=== PATIENT | female | born 1940 | race Caucasian/White ===

== ENCOUNTER 2019-04-10 06:00 | Outpatient (RCR) | payer MEDICARE, MEDICAID, SELFPAY | END 2019-05-10 23:59 | disposition home or self-care (01) | LOC: SPT 06:00 | PROVIDERS: Family Provider Family Medicine; PCP Family Medicine; Referring Provider Specialist; Visit Provider Specialist | DX: S72.111D Displaced fracture of greater trochanter of right femur, subsequent encounter for closed fracture with routine healing (principal); X58.XXXD Exposure to other specified factors, subsequent encounter ==

== ENCOUNTER 2019-04-18 09:17 | Outpatient (RCR) | payer MEDICARE, MEDICAID, SELFPAY | END 2019-05-10 23:59 | disposition home or self-care (01) | LOC: WOUND 09:17 | PROVIDERS: Family Provider Family Medicine; PCP Family Medicine; Visit Provider Nurse Practitioner Family | DX: I96 Gangrene, not elsewhere classified (principal); L97.822 Non-pressure chronic ulcer of other part of left lower leg with fat layer exposed | CPT/HCPCS: 99212; 99214 ==

== ENCOUNTER → 2019-04-25 10:35 | Outpatient (BNVA) | payer MEDICARE, MEDICAID, SELFPAY | PROVIDERS: Family Provider Family Medicine; PCP Family Medicine; Visit Provider Specialist | DX: S72.111A Displaced fracture of greater trochanter of right femur, initial encounter for closed fracture (principal); X58.XXXA Exposure to other specified factors, initial encounter | CPT/HCPCS: 73502 ==

== ENCOUNTER 2019-06-06 06:00 | Outpatient (RCR) | payer MEDICARE, MEDICAID, SELFPAY | END 2019-06-08 23:59 | disposition home or self-care (01) | LOC: SOT 06:00 | PROVIDERS: Family Provider Family Medicine; PCP Family Medicine; Referring Provider Family Medicine; Visit Provider Family Medicine | DX: Z99.3 Dependence on wheelchair (principal) | CPT/HCPCS: 97167; 97530 ==

== ENCOUNTER 2019-08-08 13:23 | Emergency (ER) | payer MEDICARE, MEDICAID, SELFPAY ==
--- NOTE | 2019-08-08 13:36 | ED_ITS ---
HPI - Extremity Problem General: Chief complaint: Extremity Injury, Upper Stated complaint: L wrist injury Time Seen by Provider: 08/08/19 13:35 Source: patient Mode of arrival: ambulatory Limitations: no limitations History of Present Illness: HPI Narrative: Patient comes in today with injury to the left distal forearm. Patient reports tripping at home and catching herself with outstretched left arm. Patient has obvious deformity to the left wrist area. Distal cap refill is intact. Pulses are intact. Patient has limited range of motion due to pain and swelling. Review of Systems General: Reports: 10 or more systems reviewed and unremarkable except in HPI and below Musc: Reports: extremity pain and extremity swelling [facility] ED PFSH: Medical History (Updated 07/18/19 @ 11:14 by Micky Paniagua MD) ALISTAIR inhibitor intolerance CAD (coronary artery disease) Diabetic neuropathy associated with diabetes mellitus due to underlying condition Essential hypertension Lower extremity deep venous thrombosis Onychodystrophy Peripheral vascular disease Warfarin anticoagulation Family History (Updated 07/18/19 @ 11:02 by Silvia Martinez RN) Mother Diabetes Denies family history of CAD (coronary artery disease) Clotting disorder Dementia Hyperlipidemia Psychiatric illness Chronic kidney disease (CKD) Suicide Anesthesia complication Bleeding disorder Family history of premature coronary artery disease Lung disease Cancer Hypertension Stroke Social History (Updated 07/18/19 @ 11:03 by Silvia Martinez RN) Smoking and tobacco status: never smoked Second hand smoke exposure: Yes Alcohol intake: never Physical Exam Const: COMMON NORMALS: no apparent distress and oriented x3 GENERAL APPEARANCE: cooperative HENMT: COMMON NORMALS: normocephalic, TM's normal bilaterally and external nose normal HEAD & SCALP: normal to inspection and normocephalic NOSE: external nose normal TYMPANIC MEMBRANE: TM's normal bilaterally MOUTH: oral and palatal mucosa normal THROAT: posterior oropharynx normal Eye: GENERAL EYE: normal appearance of both eyes Neck/C-Spine: COMMON NORMALS: full ROM Lymph: LYMPHATIC: no lymphadenopathy noted Chest: COMMONS NORMALS: inspection of chest normal Resp: COMMON NORMALS: normal respiratory effort EFFORT & INSPECTION: Yes able to speak in complete sentences Cardio: COMMON NORMALS: regular rate and regular rhythm RATE: regular rate RHYTHM: regular rhythm GI: COMMON NORMALS: non-tender : COMMON NORMALS: Yes no CVA tenderness BLADDER/KIDNEY EXAM: Yes no CVA tenderness Back/Pelvis: COMMON NORMALS: no CVA tenderness and thoracic and lumbar spine normal to inspection Extremity: NARRATIVE EXTREMITY EXAM: Swelling and ecchymosis is noted to the left wrist area, reduced range of motion is noted due to pain. Distal cap refill is intact. Pulses are intact. Neuro: COMMON NORMALS: oriented x3 and moves all extremities Psych: COMMON NORMALS: mental status grossly normal and cooperative Skin: COMMON NORMALS: no rashes or lesions noted GENERAL SKIN EXAM: no rashes or lesions noted Course Vital Signs: Vital signs: Vital Signs Temperature 98.2 F 08/08/19 13:25 Pulse Rate 76 08/08/19 13:25 Respiratory Rate 18 08/08/19 13:25 Blood Pressure 159/94 08/08/19 13:25 Pulse Oximetry 99 08/08/19 13:25 Discharge Plan Discharge Prescriptions: No Action metformin 1,000 mg tablet 1,000 mg PO BID RF: 0 warfarin 7.5 mg tablet PO RF: 0 pravastatin 10 mg tablet 10 mg PO DAILY RF: 0 aspirin [Adult Low Dose Aspirin] 81 mg tablet,delayed release (DR/EC) 81 mg PO DAILY RF: 0 metoprolol succinate 100 mg tablet extended release 24 hr 100 mg PO BID RF: 0 Jardiance 25 mg tablet 25 mg PO DAILY RF: 0 Humalog Juan KwikPen U-100 100 unit/mL insulin pen, half-unit 25.5 unit SUBCUT BID RF: 0 Lantus U-100 Insulin 100 unit/mL solution 100 unit SUBCUT DAILY RF: 0 Trulicity 1.5 mg/0.5 mL pen injector SUBCUT RF: 0 torsemide 20 mg tablet 20 mg PO DAILY RF: 0 ascorbic acid (vitamin C) 500 mg capsule PO RF: 0 Calci-Mix 500 mg calcium (1,250 mg) capsule 500 mg PO DAILY RF: 0 Coding Level of Care Code ED Barrel Assembler Helper for Chg Fwd Exam Comprehensive
[2019-08-08 14:06] VITALS: BP 172/85; PULSE 71; RESP 18; TEMP 36.6; O2SAT 97; BMI 31.7
--- NOTE | 2019-08-08 14:08 | XR_ITS ---
WS: [id number] LEFT SHOULDER: 3 VIEW(S) TECHNIQUE: Internal and external rotation with Y view. HISTORY: pain COMPARISON: None available. Marked osteopenia. There is very slight inferior subluxation of the humeral head with respect to the glenoid. Glenoid appears vertically oriented. Osteophytes along the undersurface of the acromion. AC joint is not well visualized. XR/XR shoulder LT min 2V* [id number] IMPRESSION: Osteopenia with partial inferior subluxation of the humeral head. No fracture.
--- NOTE | 2019-08-08 14:09 | ECG_ITS ---
Measurements Intervals [place] Rate: 53 P: OR: 0 QRS: 24 QRSD: 101 T: 60 QT: 452 QTc: 426 ATRIAL FIBRILLATION WITH SLOW VENTRICULAR RESPONSE NONSPECIFIC ST & T-WAVE ABNORMALITY Compared to ECG 12/16/2015 06:08:07 T-wave abnormality now present Sinus bradycardia no longer present First degree AV block no longer present Electronically Signed On 08-09-2019 15:41:08 CDT by Denise Maciel M.D. [email or web address]
--- NOTE | 2019-08-08 14:21 | ED_ITS ---
HPI - Extremity Problem General: Chief complaint: Extremity Injury, Upper Stated complaint: L arm pain Time Seen by Provider: 08/08/19 13:35 History of Present Illness: HPI Narrative: Patient comes in today with left shoulder pain. Patient reports is been bothering her for the last couple of days but today the pain was more severe and worse. Patient movement of the arm exacerbates the pain. Patient took her hydrocodone without much relief. Patient appears well. Patient appears in no acute distress. Patient does have a history of diabetes, and the use of anticoagulants. Review of Systems General: Reports: 10 or more systems reviewed and unremarkable except in HPI and below Musc: Reports: joint pain (left shoulder) [facility] ED PFSH: Medical History (Updated 08/08/19 @ 15:28 by RAD Castle) ALISTAIR inhibitor intolerance CAD (coronary artery disease) Diabetic neuropathy associated with diabetes mellitus due to underlying condition Essential hypertension Lower extremity deep venous thrombosis Onychodystrophy Peripheral vascular disease Warfarin anticoagulation Family History (Updated 07/18/19 @ 11:02 by Silvia Martinez RN) Mother Diabetes Denies family history of CAD (coronary artery disease) Clotting disorder Dementia Hyperlipidemia Psychiatric illness Chronic kidney disease (CKD) Suicide Anesthesia complication Bleeding disorder Family history of premature coronary artery disease Lung disease Cancer Hypertension Stroke Social History (Updated 07/18/19 @ 11:03 by Silvia Martinez RN) Smoking and tobacco status: never smoked Second hand smoke exposure: Yes Alcohol intake: never Physical Exam Const: COMMON NORMALS: no apparent distress and oriented x3 GENERAL APPEARANCE: cooperative HENMT: COMMON NORMALS: normocephalic, TM's normal bilaterally and external nose normal HEAD & SCALP: normal to inspection and normocephalic NOSE: external nose normal TYMPANIC MEMBRANE: TM's normal bilaterally MOUTH: oral and palatal mucosa normal THROAT: posterior oropharynx normal Eye: GENERAL EYE: normal appearance of both eyes Neck/C-Spine: COMMON NORMALS: full ROM Lymph: LYMPHATIC: no lymphadenopathy noted Chest: COMMONS NORMALS: inspection of chest normal Resp: COMMON NORMALS: normal respiratory effort EFFORT & INSPECTION: Yes able to speak in complete sentences Cardio: COMMON NORMALS: regular rate and regular rhythm RATE: regular rate RHYTHM: regular rhythm GI: COMMON NORMALS: non-tender : COMMON NORMALS: Yes no CVA tenderness BLADDER/KIDNEY EXAM: Yes no CVA tenderness Back/Pelvis: COMMON NORMALS: no CVA tenderness and thoracic and lumbar spine normal to inspection Extremity: NARRATIVE EXTREMITY EXAM: Patient has increased pain and discomfort to the left shoulder with range of motion. Distal pulses are intact. No signs of redness or swelling is noted to the arm at this time. Neuro: COMMON NORMALS: oriented x3 and moves all extremities Psych: COMMON NORMALS: mental status grossly normal and cooperative Skin: COMMON NORMALS: no rashes or lesions noted GENERAL SKIN EXAM: no rashes or lesions noted Course Vital Signs: Vital signs: Vital Signs Temperature 98 F 08/08/19 14:06 Pulse Rate 71 08/08/19 14:06 Respiratory Rate 18 08/08/19 14:06 Blood Pressure 172/85 08/08/19 14:06 Pulse Oximetry 97 08/08/19 14:06 MDM - Extremity (Nontraumatic) MDM Narrative: Medical decision making narrative: Patient comes in with left shoulder pain. Patient denies any injury or incident that caused the pain. Patient states that she was just sitting at home and her left shoulder started hurting. Patient believes that her rotator cuff is acting up. Exam notes decreased abduction with range of motion of the shoulder. Patient reports pain with movement of the shoulder. Distal pulses are intact no swelling is noted. X-ray notes some mild subluxation of the shoulder joint appears to be chronic, reviewed with Dr. Mackay who agreed with the assessment of the x-ray. Reviewed with patient recommended sling for comfort. Patient was recommended to follow- up with orthopedics for further evaluation and treatment. Discharge Plan Discharge Patient Disposition: Home, Self-Care Clinical Impression: Left shoulder pain Qualifiers: Chronicity: acute Qualified Code(s): M25.512 - Pain in left shoulder Condition: Stable Prescriptions: No Action metformin 1,000 mg tablet 1,000 mg PO BID RF: 0 pravastatin 10 mg tablet 10 mg PO DAILY RF: 0 aspirin [Adult Low Dose Aspirin] 81 mg tablet,delayed release (DR/EC) 81 mg PO DAILY RF: 0 metoprolol succinate 100 mg tablet extended release 24 hr 100 mg PO BID RF: 0 Jardiance 25 mg tablet 25 mg PO DAILY RF: 0 Humalog Juan KwikPen U-100 100 unit/mL insulin pen, half-unit 25.5 unit SUBCUT BID RF: 0 Lantus U-100 Insulin 100 unit/mL solution 100 unit SUBCUT DAILY RF: 0 Trulicity 1.5 mg/0.5 mL pen injector 1.5 mg SUBCUT .COMPLLEX RF: 0 ascorbic acid (vitamin C) 500 mg capsule 500 mg PO DAILY RF: 0 Calci-Mix 500 mg calcium (1,250 mg) capsule 500 mg PO DAILY RF: 0 warfarin 5 mg Tablet See Rx Instructions .ROUTE .COMPLEX RF: 0 warfarin 1 mg Tablet See Rx Instructions .ROUTE .COMPLEX RF: 0 torsemide 20 mg tablet 20 mg PO DAILY RF: 0 Discharge Orders: Discharge Order (Routine); Ordered 08/08/19 Ordered By: Douglas Myers Referrals: Carmen Gilbert MD [Primary Care Provider] - Discharge Diet: Usual diet Discharge Activity: Increase activity as tolerated Patient Instructions: Shoulder Sprain (ED) Activity Restrictions/Additional Instructions: Use sling until he can freely move the shoulder without difficulty. Use Tylenol for control of pain. Take hydrocodone as needed for breakthrough pain. Use ice or heat to the area for further pain relief. Follow-up with the orthopedist for further treatment and evaluation. Return to the ER for worsening symptoms or new concerns. Coding Level of Care Code ED Electrical Power Station Technician for Jared Fwregis Exam Comprehensive
[2019-08-08] MEDS: dexamethasone 10 mg/mL INJ IM (15:36)
[2019-08-08] MEDS: ondansetron 4 MG Tablet PO (15:36)
[2019-08-08] MEDS: morphine 4 mg/mL SDV 1 mL IM (15:37)
[2019-08-08 15:48] VITALS: BP 178/70; PULSE 68; RESP 18; O2SAT 99
--- NOTE | 2019-08-09 09:58 | DCPLANNER ---
framing manager had message to schedule a follow up appointment for patient with ortho. framing manager called the ortho clinic, spoke with Pat, gave clinic patients information. framing manager gave clinic patient information. framing manager was told that patients information would be printed and reviewed. Clinic will call residential case manager and patient with appointment information.
--- NOTE | 2019-08-15 13:39 | DCPLANNER ---
Patient had an appointment scheduled for 08.12.19 with ortho. Patient did attend the appointment.
== END 2019-08-08 15:49 | disposition home or self-care (01) ==
PROVIDERS: Emergency Provider Nurse Practitioner Family; Family Provider Family Medicine; PCP Family Medicine
DX: M25.512 Pain in left shoulder (principal); Z79.82 Long term (current) use of aspirin; Z79.4 Long term (current) use of insulin; Z79.01 Long term (current) use of anticoagulants; I25.10 Atherosclerotic heart disease of native coronary artery without angina pectoris; E11.40 Type 2 diabetes mellitus with diabetic neuropathy, unspecified; I10 Essential (primary) hypertension; I73.9 Peripheral vascular disease, unspecified
CPT/HCPCS: 12345; 73030; 93005; 96372; 99282; 99283; J1100; J2270; Q0162

== ENCOUNTER → 2019-08-12 11:50 | Outpatient (BNVA) | payer MEDICARE, MEDICAID, SELFPAY | PROVIDERS: Family Provider Family Medicine; PCP Family Medicine; Referring Provider Nurse Practitioner Family; Visit Provider Specialist | DX: M25.519 Pain in unspecified shoulder (principal); S43.015A Anterior dislocation of left humerus, initial encounter; X58.XXXA Exposure to other specified factors, initial encounter | CPT/HCPCS: 73030 ==

== ENCOUNTER 2019-08-12 15:37 | Outpatient (CLI) | payer MEDICARE, MEDICAID, SELFPAY | END 2019-08-12 15:38 | disposition home or self-care (01) | LOC: SPT 15:38 | PROVIDERS: Family Provider Family Medicine; PCP Family Medicine; Visit Provider Specialist | DX: Z46.89 Encounter for fitting and adjustment of other specified devices (principal); M75.102 Unspecified rotator cuff tear or rupture of left shoulder, not specified as traumatic; M25.512 Pain in left shoulder; M25.519 Pain in unspecified shoulder; S43.015A Anterior dislocation of left humerus, initial encounter; X58.XXXA Exposure to other specified factors, initial encounter | CPT/HCPCS: 73030; L3670 ==

== ENCOUNTER 2020-10-23 09:27 | Outpatient (CLI) | payer MEDICARE, MEDICAID, SELFPAY | END 2020-10-23 09:28 | disposition home or self-care (01) | LOC: WOUND 09:28 | PROVIDERS: Family Provider Family Medicine; PCP Internal Medicine; Visit Provider Surgery | DX: Z09 Encounter for follow-up examination after completed treatment for conditions other than malignant neoplasm (principal) | CPT/HCPCS: G0463 ==

== ENCOUNTER 2020-12-08 13:22 | Outpatient (CLI) | payer MEDICARE, MEDICAID, SELFPAY ==
--- NOTE | 2020-12-08 13:36 | USCV_ITS ---
Kianna Dotson Age: 80 Gender: F : 1940 Exam Date: 12/08/2020 13:47 Ordering Phys: Vignesh Catalan MD Technologist: Exam Location: [facility] [place] Indication: HISTORY: PROCEDURES: Right duplex Venous Insufficiency study of the Deep and Superficial systems was carried out according to normal protocol with the patient in supine positon for deep system and dependent position for the superficial system. FINDINGS: All deep veins demonstrated compressibility without evidence of intraluminal thrombus or increased echogenicity. Spectral analysis of Doppler signals demonstrates normal response to compression maneuvers indicating patency without obstruction. Reflux determinations were made with the patient in the dependent position, the weight being on the contralateral leg. Vein measurements and reflux times are listed below were applicable. No notable reflux was seen at this time. The veins were found to be easily compressible with spontaneous blood flow. Non pulsatile flow pattern. CONCLUSIONS No evidence of DVT in the above-mentioned identifiable veins. No significant venous reflux either in the superficial or deep veins, based on the above findings Dr Cathleen Vu MD FAC (Electronically Signed) Final Date: 09 December 2020 18:56 S
== END 2020-12-08 13:23 | disposition home or self-care (01) ==
LOC: US 13:27
PROVIDERS: PCP Internal Medicine; Visit Provider Surgery
DX: I87.2 Venous insufficiency (chronic) (peripheral) (principal)
CPT/HCPCS: 93971

== ENCOUNTER 2020-12-17 08:54 | Outpatient (RCR) | payer MEDICARE, MEDICAID, SELFPAY | END 2021-01-07 23:59 | disposition home or self-care (01) | LOC: SPT 08:54 | PROVIDERS: PCP Internal Medicine; Referring Provider Internal Medicine; Visit Provider Internal Medicine | DX: M54.2 Cervicalgia (principal); R42 Dizziness and giddiness; R29.6 Repeated falls | CPT/HCPCS: 95992; 97162 ==

== ENCOUNTER 2020-12-18 01:54 | Emergency (ER) | payer MEDICARE, MEDICAID, SELFPAY ==
--- NOTE | 2020-12-18 01:57 | XRR_ITS ---
PROCEDURE INFORMATION: Exam: XR Left Shoulder Exam date and time: 12/18/2020 1:57 AM Age: 80 years old Clinical indication: Injury or trauma; Fracture, traumatic injury; Displaced; Humerus; Left; Patient HX: Fall at home. C/O shoulder pain. Best images obtained due to immobilization of arm and PT pain. TECHNIQUE: Imaging protocol: XR Left shoulder. Views: 2 or more views. COMPARISON: CR XR shoulder LT min 2V* [id number] 08/12/2019 12:03 PM FINDINGS: Bones/joints: No dislocation. Comminuted left humeral shaft fracture. Soft tissues: Normal. XR/XR shoulder LT min 2V* [id number] IMPRESSION: Comminuted left humeral shaft fracture.
[2020-12-18 01:58] VITALS: BP 210/98; RESP 57; O2SAT 95; BMI 30.2
--- NOTE | 2020-12-18 01:58 | W.ED.FALL ---
HPI - Fall General: Chief Complaint: Extremity Injury, Upper Stated Complaint: shoulder pain Time Seen by Provider: 12/18/20 01:56 Source: patient and EMS Mode of arrival: EMS Limitations: no limitations History of Present Illness: HPI Narrative: 80-year-old female who states that she had slipped and fell tonight at home. She states she landed on her left shoulder. She has shoulder pain especially with movement. States the pain is a sharp pain she rates a 6 out of 10. She denies hitting her head denies any neck pain. She denies any hip pain. Patient states she has not taken her insulin or her blood pressure medicine today and she is hyperglycemic and hypertensive. Associated symptoms-after fall: Denies abdominal pain, chest pain, headache(s) or neck pain Review of Systems Const: Denies: fever(s), chills, body aches or change in appetite Eyes: Denies: blurry vision or eye discomfort ENMT: Denies: throat pain or dental pain Card: Denies: chest pain Resp: Denies: dyspnea GI: Denies: abdominal pain, nausea, vomiting or diarrhea : Denies: dysuria Musc: Reports: extremity pain; Denies: neck pain or back pain Skin/Breast: Denies: rash Neuro: Denies: headache(s) Psych: Denies: depression Earl/Lymph: Denies: easy bruising All/Imm: Denies: urticaria PFSH ED PFSH: Medical History (Updated 12/18/20 @ 02:44 by Cony Mackay MD) ALISTAIR inhibitor intolerance CAD (coronary artery disease) Diabetic neuropathy associated with diabetes mellitus due to underlying condition Essential hypertension Fracture of greater trochanter of right femur Lower extremity deep venous thrombosis Onychodystrophy Peripheral vascular disease Warfarin anticoagulation Family History Mother Diabetes Denies family history of CAD (coronary artery disease) Clotting disorder Dementia Hyperlipidemia Psychiatric illness Chronic kidney disease (CKD) Suicide Anesthesia complication Bleeding disorder Family history of premature coronary artery disease Lung disease Cancer Hypertension Stroke Social History Smoking and tobacco status: never smoked Second hand smoke exposure: Yes Alcohol intake: never Physical Exam Const: COMMON NORMALS: no acute distress, patient oriented x3 and healthy appearing HENMT: COMMON NORMALS: normocephalic and atraumatic HEAD & SCALP: normocephalic and atraumatic Eye: COMMON NORMALS: Equal, round and reactive pupils present and EOMs intact bilaterally PUPIL: Yes Equal, round and reactive pupils present Neck/C-Spine: COMMON NORMALS: full ROM and supple Chest: COMMONS NORMALS: normal inspection of the chest and normal palpation of entire chest wall Resp: COMMON NORMALS: normal respiratory effort, No retractions, No use of accessory muscles and clear to auscultation bilaterally AUSCULTATION: clear to auscultation bilaterally Cardio: COMMON NORMALS: regular rate, regular rhythm and No murmurs present (Cardio) RATE: regular rate RHYTHM: regular rhythm GI: COMMON NORMALS: Normal to inspection, nondistended, normoactive bowel sounds present, Soft to palpation, non-tender and no masses PALPATION: Yes Soft to palpation Extremity: COMMON NORMALS: full ROM NARRATIVE EXTREMITY EXAM: tenderness to left shoulder and proximal humerus distal pulses and sensation are intact. Neuro: COMMON NORMALS: patient oriented x3, moves all extremities and no focal motor deficits Psych: COMMON NORMALS: mental status grossly normal, Normal thought process present and cooperative THOUGHT PROCESS: Normal thought process present Skin: COMMON NORMALS: no rashes or lesions noted and no wounds GENERAL SKIN EXAM: no rashes or lesions noted Course Vital Signs: Vital signs: Vital Signs Pulse Rate 69 12/18/20 03:18 Respiratory Rate 18 12/18/20 03:18 Blood Pressure 131/71 12/18/20 03:18 Pulse Oximetry 93 12/18/20 03:18 MDM - Fall MDM Narrative: Medical decision making narrative: Patient presents with a fall and has a midshaft humerus fracture from the fall. Patient was placed in a splint and a sling. She is also hyperglycemic due to being noncompliant. Her BMP was normal otherwise she has no signs of DKA. Her blood sugar is improving and she is stable for discharge. Lab Data: Labs: Lab Results 12/18/20 12/18/20 12/18/20 Range/Units 02:28 03:47 04:35 Sodium 136 (136-145) mmol/L Potassium 4.8 (3.5-5.1) mmol/L Chloride 100 (98-107) mmol/L Carbon Dioxide 22 (22-29) mmol/L Anion Gap 18.8 (5-19) BUN 23 (8-23) mg/dL Creatinine 0.9 (0.5-0.9) mg/dL GFR Calculation Not Reportable Glucose 489 H (65-115) mg/dL POC Glucose 455 H 470 H (70-110) mg/dL Calculated Osmolal ity 307 H (285-295) mOsm/k g Calcium 9.4 (8.5-10.5) mg/dL 12/18/20 Range/Units 04:47 Sodium (136-145) mmol/L Potassium (3.5-5.1) mmol/L Chloride (98-107) mmol/L Carbon Dioxide (22-29) mmol/L Anion Gap (5-19) BUN (8-23) mg/dL Creatinine (0.5-0.9) mg/dL GFR Calculation Glucose (65-115) mg/dL POC Glucose 472 H (70-110) mg/dL Calculated Osmolal ity (285-295) mOsm/k g Calcium (8.5-10.5) mg/dL Imaging Data^: xr l humerus: Attestation: I personally reviewed and interpreted this imaging study as follows: My impression: Midshaft humerus fracture displaced Discharge Plan Discharge Patient Disposition: Home Clinical Impression: Hyperglycemia Fracture of humerus Qualifiers: Encounter type: initial encounter Humerus Location: shaft Fracture type: closed Fracture alignment: displaced Laterality: left Condition: Stable Prescriptions: New hydrocodone-acetaminophen 5-325 mg tablet 1 tab PO Q6H PRN (Reason: pain) Qty: 14 RF: 0 No Action metformin 1,000 mg tablet 1,000 mg PO BID RF: 0 pravastatin 10 mg tablet 10 mg PO DAILY RF: 0 aspirin [Adult Low Dose Aspirin] 81 mg tablet,delayed release (DR/EC) 81 mg PO DAILY RF: 0 metoprolol succinate 100 mg tablet extended release 24 hr 100 mg PO BID RF: 0 Jardiance 25 mg tablet 25 mg PO DAILY RF: 0 Humalog Juan KwikPen U-100 100 unit/mL insulin pen, half-unit 25.5 unit SUBCUT BID RF: 0 Lantus U-100 Insulin 100 unit/mL solution 100 unit SUBCUT DAILY RF: 0 Trulicity 1.5 mg/0.5 mL pen injector 1.5 mg SUBCUT .COMPLLEX RF: 0 ascorbic acid (vitamin C) 500 mg capsule 500 mg PO DAILY RF: 0 Calci-Mix 500 mg calcium (1,250 mg) capsule 500 mg PO DAILY RF: 0 (DME) Shoulder immobilizer Qty: 1 RF: 0 Eliquis 2.5 mg tablet 2.5 mg PO BID RF: 0 (DME) Diabetic shoes with 3 inserts See Rx Instructions .ROUTE .MEDSUPPLY Qty: 1 RF: 0 torsemide 20 mg tablet 20 mg PO DAILY RF: 0 Discharge Orders: Discharge ED (Routine); Ordered 12/18/20 Ordered By: Cony Mackay Referrals: Anette Velazquez MD [Primary Care Provider] - Capri Melara MD [Physician] - 1-3 days Discharge Diet: Advance as tolerated Discharge Activity: Resume usual activity Patient Instructions: Fractures - Humerus, Arm Fracture in Adults (ED), Opioid Safety Coding Level of Care Code ED After School Coordinator for Jared Fwd Exam Comprehensive
[2020-12-18 02:19] VITALS: BP 210/98; PULSE 61; RESP 20; O2SAT 93
--- NOTE | 2020-12-18 02:25 | XRR_ITS ---
PROCEDURE INFORMATION: Exam: XR Left Humerus Exam date and time: 12/18/2020 2:25 AM Age: 80 years old Clinical indication: Injury or trauma; Fracture, traumatic injury; Displaced; Humerus; Left; Patient HX: Fall at home. C/O shoulder pain. Best images obtained due to immobilization of arm and PT pain. TECHNIQUE: Imaging protocol: XR Left humerus. Views: 2 or more views. COMPARISON: CR XR shoulder LT min 2V* [id number] 12/18/2020 2:02 AM FINDINGS: Bones/joints: Comminuted, mildly overlapping left midshaft humeral fracture. Soft tissues: Normal. XR/[place] [id number] IMPRESSION: Comminuted, mildly overlapping left midshaft humeral fracture.
[2020-12-18 02:34] LABS: Glucose Point of Care 455 mg/dL (70-110)
[2020-12-18] MEDS: insulin regular-human 100 units/1 mL 10 UNIT IVP ×2 (02:43→04:44)
[2020-12-18] MEDS: HYDROcodone-acetaminophen 5-325 mg Tablet 1 TAB PO ×2 (02:45→05:34)
[2020-12-18] MEDS: labetalol 5 mg/mL SDV 20mL 10 MG IVP (02:50)
[2020-12-18 03:18] VITALS: BP 131/71; PULSE 69; RESP 18; O2SAT 93
[2020-12-18 03:52] LABS: Glucose Point of Care 470 mg/dL (70-110)
[2020-12-18] MEDS: sodium chloride 0.9% 1,000 ML 999 ML IV (04:07)
[2020-12-18 04:56] LABS: Glucose Point of Care 472 mg/dL (70-110)
[2020-12-18 05:23] LABS: Anion Gap 18.8 (5-19); Blood Urea Nitrogen 23 mg/dL (8-23); Calcium 9.4 mg/dL (8.5-10.5); Carbon Dioxide 22 mmol/L (22-29); Chloride 100 mmol/L (98-107); Glucose 489 mg/dL (65-115); Osmolality Calculated 307 mOsm/kg (285-295); Potassium 4.8 mmol/L (3.5-5.1); Sodium 136 mmol/L (136-145)
--- NOTE | 2020-12-18 09:09 | DCPLANNER ---
manager process excellence had message to schedule a follow up appointment for patient with ortho. manager process excellence called the ortho clinic, spoke with Ally, gave clinic patients information. manager process excellence was told that patients information would be printed and reviewed. Clinic will call patient with appointment information.
[2020-12-19 22:24] LABS: Glucose Point of Care 407 mg/dL (70-110)
[2020-12-19 22:24] LABS: Glucose Point of Care 439 mg/dL (70-110)
--- NOTE | 2020-12-23 10:24 | DCPLANNER ---
Patient had a follow up appointment scheduled for 12.21.[address] Melara at [facility] - patient did attend appointment.
== END 2020-12-18 06:10 | disposition home or self-care (01) ==
PROVIDERS: Emergency Provider Emergency Medicine; PCP Internal Medicine
DX: S42.302A Unspecified fracture of shaft of humerus, left arm, initial encounter for closed fracture (principal); E11.65 Type 2 diabetes mellitus with hyperglycemia; I25.10 Atherosclerotic heart disease of native coronary artery without angina pectoris; E11.40 Type 2 diabetes mellitus with diabetic neuropathy, unspecified; I10 Essential (primary) hypertension; Z77.22 Contact with and (suspected) exposure to environmental tobacco smoke (acute) (chronic); Z79.01 Long term (current) use of anticoagulants; Z79.82 Long term (current) use of aspirin; Z79.4 Long term (current) use of insulin; W01.0XXA Fall on same level from slipping, tripping and stumbling without subsequent striking against object, initial encounter
CPT/HCPCS: 36416; 73030; 73060; 80048; 82962; 96361; 96374; 96375; 99284; J1815; J3490; J7030

== ENCOUNTER → 2020-12-21 14:02 | Outpatient (BNVA) | payer MEDICARE, MEDICAID, SELFPAY | PROVIDERS: PCP Internal Medicine; Referring Provider Emergency Medicine; Visit Provider Specialist | DX: S42.352A Displaced comminuted fracture of shaft of humerus, left arm, initial encounter for closed fracture (principal); X58.XXXA Exposure to other specified factors, initial encounter | CPT/HCPCS: 73060 ==

== ENCOUNTER → 2020-12-31 14:50 | Outpatient (BNVA) | payer MEDICARE, MEDICAID, SELFPAY | PROVIDERS: PCP Internal Medicine; Visit Provider Specialist | DX: Z20.822 Contact with and (suspected) exposure to COVID-19 (principal) | CPT/HCPCS: 87635 ==

== ENCOUNTER → 2021-01-04 08:19 | Outpatient (BNVA) | payer MEDICARE, MEDICAID, SELFPAY | PROVIDERS: PCP Internal Medicine; Visit Provider Specialist | DX: S42.322A Displaced transverse fracture of shaft of humerus, left arm, initial encounter for closed fracture (principal); W01.0XXA Fall on same level from slipping, tripping and stumbling without subsequent striking against object, initial encounter | CPT/HCPCS: 73060 ==

== ENCOUNTER → 2021-01-13 11:49 | Outpatient (BNVA) | payer MEDICARE, MEDICAID, SELFPAY | PROVIDERS: PCP Internal Medicine; Visit Provider Specialist | DX: S42.322A Displaced transverse fracture of shaft of humerus, left arm, initial encounter for closed fracture (principal); X58.XXXA Exposure to other specified factors, initial encounter | CPT/HCPCS: 73060 ==

== ENCOUNTER 2021-02-01 14:33 | Emergency (ER) | payer MEDICARE, MEDICAID, SELFPAY ==
[2021-02-01 15:01] VITALS: BP 125/81; PULSE 74; RESP 18; TEMP 36.9; O2SAT 96; BMI 33.3
--- NOTE | 2021-02-01 15:45 | XR_ITS ---
WS: [id number] Exam: XR chest 1V portable [id number] Date/Time of Exam: 02/01/2021 3:45 PM Reason For Exam: cough Comparison 04/04/2014. The lungs are fully inflated and clear. Unremarkable cardiomediastinal silhouette. Old right-sided ri b fractures. No pleural effusions. XR/XR chest 1V portable [id number] IMPRESSION: 1. No acute cardiopulmonary finding.
--- NOTE | 2021-02-01 15:50 | W.ED.COVID ---
Documented by User: RAGHU Medina 02/01/21 16:33 HPI - COVID General: Chief Complaint: Shortness of Breath/Dyspnea Stated Complaint: LOW O2/SOB/COUGH/COVID EXPOSURE Time Seen by Provider: 02/01/21 15:11 Source: patient Mode of arrival: wheelchair Limitations: no limitations Triage information: No fever, cough or shortness of breath. Exposure to COVID + person last 14 days History of Present Illness: HPI Narrative: Patient is a 80-year-old female who presents to ED today at the request of [facility] secondary to low oxygen levels. Patient tells me several family members tested positive for Covid so she went to [facility] for Covid testing. Patient states she has had a very mild cough. No fevers, body aches, difficulty breathing, shortness of breath, chest pain, headache, or diarrhea. No other URI symptoms. Apparently while at [facility] her oxygen levels were low so they sent patient to the ED for further evaluation. Upon arrival O2 sats are 96%. MD complaint: reported COVID exposure Prior covid testing: no COVID 19 common symptoms: positive cough and non-productive cough; negative fever(s), chills, dyspnea, fatigue, body aches, headache(s), throat pain, nasal congestion, nausea, vomiting or diarrhea COVID 19 other sytmptoms: negative chest pain Severity: mild Pertinent comorbid conditions: diabetes and obesity Treatment prior to arrival: none COVID Results: SARS-CoV-2 Antigen (Rapid) Negative (Negative) 02/01/21 15:13 02/01/21 Nasal/Oral Coronavirus 2019 PCR Not detected 12/31/20 14:50 12/31/20 Review of Systems Const: Denies: fever(s), chills, body aches, fatigue or malaise ENMT: Denies: throat pain, odynophagia, nasal discharge, nasal congestion, post nasal drip or sinus pain Card: Denies: chest pain, palpitations, irregular heart rhythm, edema, swelling of feet/ankles, lightheadedness, syncope or pre-syncope Resp: Reports: non-productive cough; Denies: dyspnea, wheezing, pain on inspiration or hemoptysis GI: Denies: abdominal pain, nausea, vomiting or diarrhea Musc: Denies: neck pain Skin/Breast: Denies: rash Neuro: Denies: headache(s) PFSH ED PFSH: Medical History (Updated 02/01/21 @ 16:23 by RAGHU Medina) ALISTAIR inhibitor intolerance CAD (coronary artery disease) Diabetic neuropathy associated with diabetes mellitus due to underlying condition Essential hypertension Fracture of greater trochanter of right femur Lower extremity deep venous thrombosis Onychodystrophy Peripheral vascular disease Warfarin anticoagulation Family History Mother Diabetes Denies family history of CAD (coronary artery disease) Clotting disorder Dementia Hyperlipidemia Psychiatric illness Chronic kidney disease (CKD) Suicide Anesthesia complication Bleeding disorder Family history of premature coronary artery disease Lung disease Cancer Hypertension Stroke Social History Second hand smoke exposure: Yes Alcohol intake: never Physical Exam Const: COMMON NORMALS: no acute distress, patient oriented x3, no limitations and alert GENERAL APPEARANCE: cooperative NUTRITIONAL APPEARANCE: overweight ORIENTATION/CONSCIOUSNESS: Yes awake, Yes oriented to person, Yes oriented to place and Yes oriented to time Resp: COMMON NORMALS: normal respiratory effort and clear to auscultation bilaterally AUSCULTATION: clear to auscultation bilaterally Cardio: COMMON NORMALS: regular rate and regular rhythm RATE: regular rate RHYTHM: regular rhythm Extremity: COMMON NORMALS: no clubbing, cyanosis or edema, no calf tenderness and no pedal edema Neuro: COMMON NORMALS: patient oriented x3 SENSORIUM/ORIENTATION: Yes alert, Yes oriented to person, Yes oriented to place and Yes oriented to time Course Vital Signs: Vital signs: Vital Signs Temperature 98.5 F 02/01/21 15:01 Pulse Rate 70 02/01/21 16:38 Respiratory Rate 18 02/01/21 16:38 Blood Pressure 125/81 02/01/21 15:01 Pulse Oximetry 95 02/01/21 16:38 MDM - COVID MDM Narrative: Medical decision making narrative: Patient is maintaining her oxygen levels throughout her stay. Her rapid COVID is negative. CXR is normal. PCR COVID obtained. Patient is stable for discharge. Lab Data: Labs: Lab Results 02/01/21 15:13 SARS-CoV-2 Ag (Rap id) Negative (Negative) Imaging Data: CXR: Radiologist's impression: [address] [address] XRay Report Signed Patient: Kianna Dotson Unit #: [id number] : [id number] Age/Sex: 80 / F ADM Date: 02/01/21 Loc: ER Room/Bed: Attending Dr: Ordering Provider/Ordering MD: Rolanda Diego Date of Service: 02/01/21 Procedure(s): XR chest 1V portable [id number] Accession Number(s): [id number] Report Number: [id number] WS: [id number] Exam: XR chest 1V portable [id number] Date/Time of Exam: 02/01/2021 3:45 PM Reason For Exam: cough Comparison 04/04/2014. The lungs are fully inflated and clear. Unremarkable cardiomediastinal silhouette. Old right-sided rib fractures. No pleural effusions. XR/XR chest 1V portable [id number] IMPRESSION: 1. No acute cardiopulmonary finding. Dictated By: Horace Rice DO Signed By: Horace Rice DO Signed Date/Time: 02/01/21 1600 DD/ 1559 COVID Results: SARS-CoV-2 Antigen (Rapid) Negative (Negative) 02/01/21 15:13 02/01/21 Nasal/Oral Coronavirus 2019 PCR Not detected 12/31/20 14:50 12/31/20 Monoclonal Antibody - ED Inclusion/Exclusion Criteria age >/= 12 years, weight >/= 40kg /88lbs and symptom onset less than 10 days ago obesity (BMI >25 or 85%til for age) not requiring hospitalization, not requiring oxygen (if not chronically on oxygen) and no increase oxygen requirement (if chronically on oxygen) Plan for treatment If had positive direct antigen test for COVID, would meet criteria for Monoclonal Antibody infusion If test comes back positive, re-evaluate for Monoclonal Antibody infusion Discharge Plan Discharge Patient Disposition: Home Clinical Impression: Close exposure to Condition: Stable Prescriptions: No Action metformin 1,000 mg tablet 1,000 mg PO BID RF: 0 pravastatin 10 mg tablet 10 mg PO DAILY RF: 0 aspirin [Adult Low Dose Aspirin] 81 mg tablet,delayed release (DR/EC) 81 mg PO DAILY RF: 0 metoprolol succinate 100 mg tablet extended release 24 hr 100 mg PO BID RF: 0 Jardiance 25 mg tablet 25 mg PO DAILY RF: 0 Humalog Juan KwikPen U-100 100 unit/mL insulin pen, half-unit 25.5 unit SUBCUT BID RF: 0 Lantus U-100 Insulin 100 unit/mL solution 100 unit SUBCUT DAILY RF: 0 Trulicity 1.5 mg/0.5 mL pen injector 1.5 mg SUBCUT .COMPLLEX RF: 0 ascorbic acid (vitamin C) 500 mg capsule 500 mg PO DAILY RF: 0 Calci-Mix 500 mg calcium (1,250 mg) capsule 500 mg PO DAILY RF: 0 (DME) Shoulder immobilizer Qty: 1 RF: 0 Eliquis 2.5 mg tablet 2.5 mg PO BID RF: 0 citalopram 10 mg tablet 10 mg PO DAILY RF: 0 (DME) Diabetic shoes with 3 inserts See Rx Instructions .ROUTE .MEDSUPPLY Qty: 1 RF: 0 ciprofloxacin HCl [Cipro] 250 mg tablet 250 mg PO BID RF: 0 torsemide 20 mg tablet 20 mg PO DAILY RF: 0 hydrocodone-acetaminophen 5-325 mg tablet 1 tab PO Q6H PRN (Reason: pain) Qty: 14 RF: 0 Discharge Orders: Discharge ED (Routine); Ordered 02/01/21 Ordered By: Rolanda Diego Referrals: Anette Velazquez MD [Primary Care Provider] - Activity Restrictions/Additional Instructions: As we discussed your rapid COVID is negative today. Your chest x-ray is normal. We have sent a PCR/send out test for confirmation. You need to quarantine until these results return. If positive please contact your primary care provider so they can set you up with the monoclonal antibody infusion for treatment. You need to return to the emergency department for severe shortness of breath or difficulty breathing, fevers, chest pain, or any other concerns you may have. Coding Level of Care Code ED Rn Compliance for Chg Fwd Exam Expanded Problem Focused Documented by User: Daniel Connor DO 02/02/21 06:40 HPI - COVID General: Chief Complaint: Shortness of Breath/Dyspnea Stated Complaint: LOW O2/SOB/COUGH/COVID EXPOSURE Time Seen by Provider: 02/01/21 15:11 COVID Results: SARS-CoV-2 Antigen (Rapid) Negative (Negative) 02/01/21 15:13 02/01/21 Nasal/Oral Coronavirus 2019 PCR Not detected 12/31/20 14:50 12/31/20 [facility] ED PFS: Medical History (Updated 02/01/21 @ 16:23 by ARGHU Medina) ALISTAIR inhibitor intolerance CAD (coronary artery disease) Diabetic neuropathy associated with diabetes mellitus due to underlying condition Essential hypertension Fracture of greater trochanter of right femur Lower extremity deep venous thrombosis Onychodystrophy Peripheral vascular disease Warfarin anticoagulation Family History Mother Diabetes Denies family history of CAD (coronary artery disease) Clotting disorder Dementia Hyperlipidemia Psychiatric illness Chronic kidney disease (CKD) Suicide Anesthesia complication Bleeding disorder Family history of premature coronary artery disease Lung disease Cancer Hypertension Stroke Social History Second hand smoke exposure: Yes Alcohol intake: never Course Vital Signs: Vital signs: Vital Signs Temperature 98.5 F 02/01/21 15:01 Pulse Rate 70 02/01/21 16:38 Respiratory Rate 18 02/01/21 16:38 Blood Pressure 125/81 02/01/21 15:01 Pulse Oximetry 95 02/01/21 16:38 MDM - COVID MDM Narrative: Medical decision making narrative: Chart reviewed. Agree with assessment and plan per Rolanda Diego's notations. Lab Data: Labs: Lab Results 02/01/21 15:13 SARS-CoV-2 Ag (Rap id) Negative (Negative) COVID Results: SARS-CoV-2 Antigen (Rapid) Negative (Negative) 02/01/21 15:13 02/01/21 Nasal/Oral Coronavirus 2019 PCR Not detected 12/31/20 14:50 12/31/20 Discharge Plan Discharge Patient Disposition: Home Clinical Impression: Close exposure to 2019-nCoV Condition: Stable Prescriptions: No Action metformin 1,000 mg tablet 1,000 mg PO BID RF: 0 pravastatin 10 mg tablet 10 mg PO DAILY RF: 0 aspirin [Adult Low Dose Aspirin] 81 mg tablet,delayed release (DR/EC) 81 mg PO DAILY RF: 0 metoprolol succinate 100 mg tablet extended release 24 hr 100 mg PO BID RF: 0 Jardiance 25 mg tablet 25 mg PO DAILY RF: 0 Humalog Juan KwikPen U-100 100 unit/mL insulin pen, half-unit 25.5 unit SUBCUT BID RF: 0 Lantus U-100 Insulin 100 unit/mL solution 100 unit SUBCUT DAILY RF: 0 Trulicity 1.5 mg/0.5 mL pen injector 1.5 mg SUBCUT .COMPLLEX RF: 0 ascorbic acid (vitamin C) 500 mg capsule 500 mg PO DAILY RF: 0 Calci-Mix 500 mg calcium (1,250 mg) capsule 500 mg PO DAILY RF: 0 (DME) Shoulder immobilizer Qty: 1 RF: 0 Eliquis 2.5 mg tablet 2.5 mg PO BID RF: 0 citalopram 10 mg tablet 10 mg PO DAILY RF: 0 (DME) Diabetic shoes with 3 inserts See Rx Instructions .ROUTE .MEDSUPPLY Qty: 1 RF: 0 ciprofloxacin HCl [Cipro] 250 mg tablet 250 mg PO BID RF: 0 torsemide 20 mg tablet 20 mg PO DAILY RF: 0 hydrocodone-acetaminophen 5-325 mg tablet 1 tab PO Q6H PRN (Reason: pain) Qty: 14 RF: 0 Discharge Orders: Discharge ED (Routine); Ordered 02/01/21 Ordered By: Rolanda Diego Referrals: Anette Velazquez MD [Primary Care Provider] - Activity Restrictions/Additional Instructions: As we discussed your rapid COVID is negative today. Your chest x-ray is normal. We have sent a PCR/send out test for confirmation. You need to quarantine until these results return. If positive please contact your primary care provider so they can set you up with the monoclonal antibody infusion for treatment. You need to return to the emergency department for severe shortness of breath or difficulty breathing, fevers, chest pain, or any other concerns you may have. Coding Level of Care Code ED Rn Compliance for Jared Fwd Exam Expanded Problem Focused
[2021-02-01 15:52] LABS: SARS Covid-2 Antigen Negative (Negative)
[2021-02-01 16:20] VITALS: O2SAT 96
[2021-02-01 16:38] VITALS: PULSE 70; RESP 18; O2SAT 95
[2021-02-03 11:07] LABS: Coronavirus Test Green County Detected
--- NOTE | 2021-02-03 16:37 | PC.NURSE ---
Notified via phone call. Encouraged to increase fluids and rest.
== END 2021-02-01 16:33 | disposition home or self-care (01) ==
PROVIDERS: Family Medicine; Emergency Provider Physician Assistant; PCP Internal Medicine
DX: R06.02 Shortness of breath (principal); R05.9 Cough, unspecified; Z20.822 Contact with and (suspected) exposure to COVID-19; I10 Essential (primary) hypertension; E78.5 Hyperlipidemia, unspecified; I25.10 Atherosclerotic heart disease of native coronary artery without angina pectoris; F03.90 Unspecified dementia, unspecified severity, without behavioral disturbance, psychotic disturbance, mood disturbance, and anxiety; Z79.84 Long term (current) use of oral hypoglycemic drugs; Z79.82 Long term (current) use of aspirin; Z79.4 Long term (current) use of insulin; Z79.01 Long term (current) use of anticoagulants
CPT/HCPCS: 71045; 87426; 87635; 99282

== ENCOUNTER 2021-02-05 13:41 | Outpatient (CLI) | payer MEDICARE, MEDICAID, SELFPAY ==
[2021-02-05 14:09] VITALS: BP 137/80; PULSE 77; RESP 18; TEMP 36.8; O2SAT 97; BMI 33.3
[2021-02-05 14:26] VITALS: BP 122/64; PULSE 69; RESP 18; TEMP 36.3; O2SAT 93
[2021-02-05 15:29] VITALS: BP 119/69; PULSE 66; RESP 18; TEMP 36.4; O2SAT 93
[2021-02-05 15:30] VITALS: BP 119/69; PULSE 66; RESP 18; TEMP 36.4; O2SAT 93
== END 2021-02-05 13:42 | disposition home or self-care (01) ==
LOC: OPS 13:44
PROVIDERS: PCP Internal Medicine; Visit Provider Pediatrics
DX: U07.1 COVID-19 (principal)
CPT/HCPCS: 96365

== ENCOUNTER 2021-02-11 14:06 | Outpatient (CLI) | payer MEDICARE, MEDICAID, SELFPAY ==
--- NOTE | 2021-02-11 14:25 | XR_ITS ---
WS: [id number] DEXA (DUAL ENERGY X-RAY ABSORPTIOMETRY) Bone mineral density was performed using a [employer] (by [employer]) machine. HISTORY: ASYMPTOMATIC POSTMENOPAUSAL STATUS COMPARISON: 02/26/2019 Lumbar spine BMD (L1-L4): 0.984 g/cm2 T score: -1.6 Z score: -0.6 Total hip BMD: Left: 0.760 g/cm2. T score: -2.0 Z score: -0.5 Right: 0.909 g/cm2. T score: -0.8 Z score: 0.7 10 year probability of a major osteoporotic fracture is 19%. Compared to the prior study from 02/26/2019. Lumbar spine bone mineral density has decrease by 0.6%. Bilateral hips bone mineral density has decreased by 2.2%. XR/XR DEXA axial skeleton* [id number] IMPRESSION: OSTEOPENIA based upon the WHO classification for females. Very slight but signi ficant decrease in bone mineral density within the hips since the prior study.
== END 2021-02-11 14:07 | disposition home or self-care (01) ==
PROVIDERS: PCP Internal Medicine; Visit Provider Internal Medicine
DX: Z78.0 Asymptomatic menopausal state (principal); M85.80 Other specified disorders of bone density and structure, unspecified site
CPT/HCPCS: 77080

== ENCOUNTER → 2021-02-15 11:09 | Outpatient (BNVA) | payer MEDICARE, MEDICAID, SELFPAY | PROVIDERS: PCP Internal Medicine; Visit Provider Specialist | DX: S42.322D Displaced transverse fracture of shaft of humerus, left arm, subsequent encounter for fracture with routine healing (principal); X58.XXXD Exposure to other specified factors, subsequent encounter | CPT/HCPCS: 73060 ==

== ENCOUNTER 2021-03-10 13:29 | Outpatient (CLI) | payer MEDICARE, MEDICAID, SELFPAY ==
--- NOTE | 2021-03-10 13:37 | XR_ITS ---
WS: [id number] Left arm and humerus, 2 views, 2 views, 03/10/2021 Clinical Data: PAIN AFTER FALL Comparison: Left arm and humerus, 02/15/2021 Findings: The fracture of the midshaft of the left humerus shows periosteal new bone formation. The alignment i n the AP and oblique views has improved. XR/[place] [id number] Impression: Healing fracture of left mid humerus.
== END 2021-03-10 13:30 | disposition home or self-care (01) ==
LOC: RAD 13:35
PROVIDERS: PCP Internal Medicine; Visit Provider Internal Medicine
DX: S42.302A Unspecified fracture of shaft of humerus, left arm, initial encounter for closed fracture (principal); X58.XXXA Exposure to other specified factors, initial encounter
CPT/HCPCS: 73060

== ENCOUNTER → 2021-03-15 13:13 | Outpatient (BNVA) | payer MEDICARE, MEDICAID, SELFPAY | PROVIDERS: PCP Internal Medicine; Visit Provider Specialist | DX: S42.292D Other displaced fracture of upper end of left humerus, subsequent encounter for fracture with routine healing (principal); X58.XXXD Exposure to other specified factors, subsequent encounter | CPT/HCPCS: 73060 ==

== ENCOUNTER 2021-11-07 11:28 | Inpatient (IN) | payer MEDICARE, MEDICAID, SELFPAY ==
[2021-11-07] VITALS (61 sets, daily range): BP systolic 113–220; BP diastolic 61–102; PULSE 70–112; RESP 12–24; TEMP 36.6; O2SAT 93–100; BMI 26.7; BMI 28.0
--- NOTE | 2021-11-07 11:44 | ED_ITS ---
HPI - Abdominal Pain General: Chief Complaint: Nausea/Vomiting/Diarrhea Stated Complaint: WEAKNESS; N/V Time Seen by Provider: 11/07/21 11:33 Source: patient and EMS Mode of arrival: EMS Limitations: no limitations History of Present Illness: This patient presents to the emergency department via EMS from her home. Her family was concerned because she was weak and had fallen earlier today. She apparently recently had eye surgery and subsequently has been having vomiting with attempting eating food for the last 4 days. She denies any fever or abdominal pains. She states she is not had a bowel movement for several days as well. She has an insulin requiring diabetic but has not taken her insulin since prior to her eye surgery. The patient states that she just became weak and off balance this morning that caused her fall. She states she fell forward did not strike her head or did not injure herself in any way. She states that no one else in the home is ill currently. She denies any abd ominal surgeries other than 2 prior C-sections. No known exposure to infectious disease otherwise. She adds that she was having some postoperative pain in her left thigh was seen by the assistant boiler operator on Monday and states that he injected some medication and she has been pain-free since that time. She states her vision has improved since her procedure. Exacerbating factors: eating Context: recent surgery/procedure Associated Symptoms: Reports vomiting; Denies chills, coffee ground emesis, constipation, diarrhea, dysuria, fever(s), hematemesis and syncope Review of Systems Const: Denies: fever(s) or chills Eyes: Reports: blurry vision (Left) ENMT: Denies: odynophagia, nasal discharge or nasal congestion Card: Denies: chest pain, palpitations, irregular heart rhythm or syncope Resp: Denies: dyspnea, productive cough or non-productive cough GI: Reports: vomiting; Denies: abdominal pain, hematemesis, coffee ground emesis, diarrhea or constipation : Denies: flank pain, difficulty voiding, dysuria or urinary frequency Musc: Denies: neck pain, back pain, extremity pain or extremity swelling Skin/Breast: Denies: rash or pruritus Neuro: Denies: headache(s), numbness in extremities, weakness in extremities, vertigo or Slurred speech present [facility] ED PFSH: Medical History (Updated 11/07/21 @ 16:50 by Po Newby DO) ALISTAIR inhibitor intolerance CAD (coronary artery disease) Diabetic neuropathy associated with diabetes mellitus due to underlying condition Essential hypertension Fracture of greater trochanter of right femur Lower extremity deep venous thrombosis Onychodystrophy Peripheral vascular disease Warfarin anticoagulation Family History Mother Diabetes Denies family history of CAD (coronary artery disease) Clotting disorder Dementia Hyperlipidemia Psychiatric illness Chronic kidney disease (CKD) Suicide Anesthesia complication Bleeding disorder Family history of premature coronary artery disease Lung disease Cancer Hypertension Stroke Social History Smoking and tobacco status: never smoked Second hand smoke exposure: Yes Alcohol intake: never Physical Exam Narrative: EXAM NARRATIVE: Patient is alert she speaks in goal-directed fashion. She is somewhat difficult to understand because she is edentulous but answers questions appropriately. Const: COMMON NORMALS: no acute distress, patient oriented x3 and alert GENERAL APPEARANCE: cooperative and comfortable HENMT: COMMON NORMALS: normocephalic, atraumatic, moist oral mucous membranes and oropharynx normal HEAD & SCALP: normocephalic and atraumatic FACE & SINUS: normal facial exam and face symmetric Eye: OTHER: Pupils are equal. She has injection of the conjunctiva of the left eye. She has a small amount of subconjunctival hemorrhage at the inferior portion of the left eye as well. Her extraocular muscle movement is symmetrical and full in both eyes. She has no tenderness around the area or auricular soft tissue or bony structures. There is no erythema around the periorbital regions of either eye. The gross visual acuity by confrontation is intact the right she is able to count fingers at 6 feet. The left eye she is unable to count fingers at 6 feet but can discern motion at 3 feet. Neck/C-Spine: COMMON NORMALS: full ROM, no lymphadenopathy and No carotid bruits Chest: COMMONS NORMALS: normal inspection of the chest and normal palpation of entire chest wall Resp: COMMON NORMALS: normal respiratory effort, No retractions, No use of ac cessory muscles and clear to auscultation bilaterally AUSCULTATION: clear to auscultation bilaterally Cardio: COMMON NORMALS: regular rate, regular rhythm, No murmurs present (Cardio) and Peripheral pulses 2+ throughout RATE: regular rate RHYTHM: regular rhythm PERIPHERAL PULSES: Peripheral pulses 2+ throughout GI: COMMON NORMALS: Normal to inspection, nondistended, normoactive bowel sounds present, Soft to palpation, non-tender, no masses and no bruits PALPATION: Yes Soft to palpation : COMMON NORMALS: Yes no CVA tenderness BLADDER/KIDNEY EXAM: Yes no CVA tenderness Back/Pelvis: COMMON NORMALS: no CVA tenderness, thoracic and lumbar spine normal to inspection, no thoracic nor lumbar tenderness and straight leg raise negative bilaterally Extremity: COMMON NORMALS: normal to inspection, capillary refill normal, no calf tenderness and no pedal edema NARRATIVE EXTREMITY EXAM: Lower extremities remarkable for brawny discoloration to the lower extremities without any erythema, significant subcutaneous edema etc. Neuro: COMMON NORMALS: patient oriented x3, moves all extremities, no focal motor deficits and no sensory deficits noted SENSORIUM/ORIENTATION: Yes alert CRANIAL NERVES: Yes CN normal except as noted SPEECH: speech normal MOTOR EXAM: Pronator motor function not present and no tremor noted Psych: COMMON NORMALS: mental status grossly normal Skin: COMMON NORMALS: no wounds, turgor normal and no petechiae GENERAL SKIN EXAM: turgor normal Course Reevaluation(s): Reevaluation #1: Patient subjectively is feeling better. She is drinking fluids without any difficulty. Repeat examination of her abdomen reveals to be soft nontender no rebound or guarding. Her blood sugars come down some with IV fluids. We will discuss resumption of her insulin dosing when family returns back to her room. No evidence at this time of a obstruction or other surgical condition at this time. He has significant urinary retention and I suspect this may be due to one of her ophthalmologic medications perhaps a anticholinergic medication that may have contributed to this condition. Her I do not feel that she is having any ongoing ACS etc. but will repeat a troponin to ensure that there is no rise. She does have coronary artery disease. initial troponin is slightly elevated however Time: 14:34 Reevaluation #2: Patient did have a bout of emesis after attempting to drink more fluids after the last evaluation. Her repeat troponin is reassuring and that that delta is falling. She is not having ongoing chest pain. No significant EKG changes noted at this time. She does have an abnormal urinalysis as well on her cath specimen despite having significant amount of epithelial cells. Given her associated diabetes with hyperglycemia, urinary retention with abnormal urinary sediment will discuss with the hospitalist if I think she would benefit from urine culture, single dose of antibiotics, following her clinical response with volume repletion and control of blood sugars. Time: 15:31 Reevaluation #3: Family is now present I discussed her current presentation with the family in detail to include her daughter with whom she lives. She apparently became sick on Monday. She had her eye surgery approximately 2 weeks ago but was seen on in the doctor's office on to have a suture removed that was irritating her. 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 No one else is ill at the home. She denies any fevers. She has had 2 negative COVID test done at home. Time: 15:38 Consultations: Consultation #1: Discussed with Dr. Palacios who agreed except the patient for admission Time: 16:50 Vital Signs: Vital signs: Vital Signs Temperature 97.8 F 11/07/21 11:50 Pulse Rate 111 H 11/07/21 11:50 Respiratory Rate 18 11/07/21 11:50 Blood Pressure 157/75 11/07/21 14:00 Pulse Oximetry 98 11/07/21 14:00 Oxygen Delivery Me thod 11/07/21 11:50 MDM - Abdominal Pain Medical Decision Making Patient with 2 and half days of nausea and vomiting. No known exposure to infectious disease and really no subjective abdominal pain by the patient's admission. Her work-up today reveals that she has significant hyperglycemia with volume depletion with urinary retention. Her CT scan did not show any significant intra-abdominal pathology other than as cholelithiasis without any other biliary tract findings. A ultrasound showed that she had stones but again no other concerning obstructive biliary tract pathology at this time. She has chronic atrial fibrillation which is likely the reason for her slight elevation in her troponin which actually is decreasing on subsequent troponins without any acute EKG changes. She appears to have hyperglycemia with possible urinary tract infection on a cath specimen although she has significant epithelial cells. Certainly needs continued volume, blood sugar control, antibiotics pending culture and further treatment and evaluation at this time. Discussed with the hospitalist who agreed to admit the patient for further care. Medical Records I reviewed the patient's medical records. Lab Data I reviewed the patient's lab results. : 11/07/21 12:30 11/07/21 13:50 Labs/Radiology: Radiology Impressions Abdomen/Pelvis CT 11/07/21 11:54 IMPRESSION: 1. Multivessel atherosclerotic disease which involves the coronary arteries. 2. There is fluid in the distal esophagus consistent with reflux. 3. Cholelithiasis. Laboratory Results WBC 13.3 10^3/uL (4.0-10.0) H 11/07/21 12:30 RBC 5.76 10^6/uL (4.1-5.3) H 11/07/21 12:30 Hgb 16.0 g/dL (11.5-15.3) H 11/07/21 12:30 Hct 52.3 % (37.0-47.0) H 11/07/21 12:30 MCV 90.8 fl (81-99) 11/07/21 12:30 MCH 27.8 pg (28.0-34.0) L 11/07/21 12:30 MCHC 30.6 g/dL (30.0-36.0) 11/07/21 12:30 RDW 16.0 % (12.1-15.1) H 11/07/21 12:30 Plt Count 261 10^3/cmm (130-400) 11/07/21 12:30 MPV 9.9 fL (7.4-10.4) 11/07/21 12:30 Neut % (Auto) 79.8 % 11/07/21 12:30 Lymph % (Auto) 13.9 % 11/07/21 12:30 [place] % (Auto) 5.3 % 11/07/21 12:30 Eos % (Auto) 0.0 % 11/07/21 12:30 Baso % (Auto) 0.3 % 11/07/21 12:30 Neut # (Auto) 10.61 10^3/uL (1.8-7.7) H 11/07/21 12:30 Lymph # (Auto) 1.9 10^3/uL (0.8-4.8) 11/07/21 12:30 [place] # (Auto) 0.7 10^3/uL (0.2-0.9) 11/07/21 12:30 Eos # (Auto) 0.0 10^3/uL (0.0-0.8) 11/07/21 12:30 Baso # (Auto) 0.0 10^3/uL (0.0-0.1) 11/07/21 12:30 Nucleated RBC % (auto) 0 % 11/07/21 12:30 Nucleated RBCs # 0.0 /100WBC 11/07/21 12:30 Sodium 142 mmol/L (136-145) 11/07/21 13:50 Potassium 4.4 mmol/L (3.5-5.1) 11/07/21 13:50 Chloride 92 mmol/L (98-107) L 11/07/21 13:50 Carbon Dioxide 12 mmol/L (22-29) L 11/07/21 13:50 Anion Gap 42.4 (5-19) H 11/07/21 13:50 BUN 50 mg/dL (8-23) H 11/07/21 13:50 Creatinine 1.2 mg/dL (0.5-0.9) H 11/07/21 13:50 GFR Calculation Not Reportable 11/07/21 13:50 Glucose 440 mg/dL (65-115) H 11/07/21 13:50 POC Glucose 412 mg/dL (70-110) H 11/07/21 13:46 Calculated Osmolality 326 mOsm/kg (285-295) H 11/07/21 13:50 Calcium 10.1 mg/dL (8.5-10.5) 11/07/21 13:50 Total Bilirubin 0.5 mg/dL (0.15-1.2) 11/07/21 13:50 AST 12 U/L (0-32) 11/07/21 13:50 ALT 14 U/L (0-33) 11/07/21 13:50 Alkaline Phosphatase 82 IU/L (35-105) 11/07/21 13:50 Troponin T Gen 5 ng/L Cancelled 11/07/21 12:30 Troponin T Baseline 18 ng/L (0-10) H 11/07/21 12:30 Troponin T 120 Minute 16.85 ng/L (0-10) H 11/07/21 13:50 Delta Troponin T -1.15 ABS# (0-10) L 11/07/21 13:50 Total Protein 6.6 g/dL (6.6-8.7) 11/07/21 13:50 Albumin 4.0 g/dL (3.5-5.2) 11/07/21 13:50 Globulin 2.6 g/dL (1.3-4.6) 11/07/21 13:50 Urine Color Yellow (Yellow) 11/07/21 13:50 Urine Appearance Hazy (CLEAR) A 11/07/21 13:50 Urine pH 5 (5-7) 11/07/21 13:50 Ur Specific [place] 1.015 (1.005-1.030) 11/07/21 13:50 Urine Protein Neg (Negative) 11/07/21 13:50 Urine Glucose (UA) 4+ (Normal) H 11/07/21 13:50 Urine Ketones 2+ (Negative) H 11/07/21 13:50 Urine Blood Neg (Negative) 11/07/21 13:50 Urine Nitrate Negative (Negative) 11/07/21 13:50 Urine Bilirubin Neg (Negative) 11/07/21 13:50 Urine Urobilinogen Norm mg/dL (Negative) 11/07/21 13:50 Ur Leukocyte Esterase 1+ (Negative) H 11/07/21 13:50 Urine RBC None /hpf (0-2) 11/07/21 13:50 Urine WBC 25-40 /hpf (0-5) H 11/07/21 13:50 Ur Squamous Epith Cells 15-25 /hpf (0-5) H 11/07/21 13:50 Amorphous Sediment Not Reportable 11/07/21 13:50 Urine Bacteria 2+ /hpf (NONE) H 11/07/21 13:50 Urine Yeast Trace /hpf 11/07/21 13:50 EKG Data EKG 1: I personally reviewed and interpreted this EKG as follows: Interpretation: EKG shows a atrial fibrillation as the underlying rhythm with a ventricular rate of 105 bpm. She has some baseline artifact. She has loss of R wave anteriorly. Has some nonspecific ST-T wave inversion on leads V4 5 and 6. Discharge Plan Discharge Patient Disposition: Admitted As Inpatient Clinical Impression: Hyperglycemia due to type 2 diabetes mellitus, Atrial fibrillation, chronic, Vomiting, Cholelithiases Condition: Stable Prescriptions: No Action metformin 1,000 mg tablet 1,000 mg PO BID pravastatin 10 mg tablet 10 mg PO DAILY aspirin [Adult Low Dose Aspirin] 81 mg tablet,delayed release (DR/EC) 81 mg PO DAILY metoprolol succinate 100 mg tablet extended release 24 hr 100 mg PO BID Jardiance 25 mg tablet 25 mg PO DAILY Humalog Juan KwikPen U-100 100 unit/mL insulin pen, half-unit 25.5 unit SUBCUT BID Trulicity 1.5 mg/0.5 mL pen injector 1.5 mg SUBCUT .COMPLLEX Rx Instructions: USE DIRECTED SUB-Q ONCE PER WEEK ON MONDAY. ascorbic acid (vitamin C) 500 mg capsule 500 mg PO DAILY Calci-Mix 500 mg calcium (1,250 mg) capsule 500 mg PO DAILY Lantus U-100 Insulin 100 unit/mL solution 40 unit SUBCUT BID (DME) Shoulder immobilizer Qty: 1 0RF Rx Instructions: As directed Eliquis 2.5 mg tablet 2.5 mg PO BID citalopram 10 mg tablet 10 mg PO DAILY (DME) Diabetic shoes with 3 inserts See Rx Instructions .ROUTE .MEDSUPPLY Qty: 1 0RF Rx Instructions: As directed by LYNNE&O ciprofloxacin HCl [Cipro] 250 mg tablet 250 mg PO BID torsemide 20 mg tablet 20 mg PO DAILY hydrocodone-acetaminophen 5-325 mg tablet 1 tab PO Q6H PRN (Reason: pain) Qty: 14 0RF Referrals: Anette Velazquez MD [Primary Care Provider] - Coding Level of Care Code ED Oil Process [place] for Chg Fwd Exam Comprehensive
--- NOTE | 2021-11-07 11:54 | CTR_ITS ---
PROCEDURE INFORMATION: Exam: CT Abdomen And Pelvis Without Contrast Exam date and time: 11/07/2021 12:52 PM Age: 81 years old Clinical indication: Constipation and nausea and vomiting; Patient HX: C/O constipation n/v x 4 days; Additional info: Vomiting, screen for pathology in elderly TECHNIQUE: Imaging protocol: Computed tomography of the abdomen and pelvis without contrast. Radiation optimization: All CT scans at this facility use at least one of these dose optimization techniques: automated exposure control; mA and/or kV adjustment per patient size (includes targeted exams where dose is matched to clinical indication); or iterative reconstruction. COMPARISON: CR XR hip RT 2-3V wo/w pel* [id number] 04/25/2019 10:41 AM RADIATION DOSE METRICS: Total DLP (mGy-cm): 798.03 FINDINGS: Heart: Multivessel atherosclerotic disease which involves the coronary arteries. There are calcifications in the mitral and aortic valves. Liver: Incidental splenic and hepatic calcified granulomata. Gallbladder and bile ducts: Cholelithiasis. Pancreas: Normal. No ductal dilation. Spleen: Normal. No splenomegaly. Adrenal glands: Normal. No mass. Kidneys and ureters: Normal. No hydronephrosis. Stomach and bowel: There is fluid in the distal esophagus consistent with reflux. There is diverticulosis of the colon without evidence of diverticulitis. Appendix: A normal appendix is identified. Intraperitoneal space: Unremarkable. No free air. No significant fluid collection. Vasculature: Unremarkable. No abdominal aortic aneurysm. Lymph nodes: Unremarkable. No enlarged lymph nodes. Urinary bladder: Unremarkable as visualized. Reproductive: The uterus is not visualized, consistent with hysterectomy. Bones/joints: Old/healed right rib fracture sites. There are degenerative changes in the visualized spine. Lower lumbar disc bulges. Soft tissues: Small fat containing umbilical hernia. There is edema in the subcutaneous soft tissues of the ventral abdomen. CT/CT abdomen pelvis wo con [id number] IMPRESSION: 1. Multivessel atherosclerotic disease which involves the coronary arteries. 2. There is fluid in the distal esophagus consistent with reflux. 3. Cholelithiasis.
[2021-11-07] MEDS: ondansetron 2 mg/ML SDV 2 mL 4 MG IM (12:23)
[2021-11-07] MEDS: lactated ringers 1,000 ML 999 ML IV (12:23)
[2021-11-07 12:49] LABS: Basophils % 0.3 %; Hematocrit 52.3 % (37.0-47.0); Lymphocytes # 1.9 10^3/uL (0.8-4.8); Lymphocytes % 13.9 %; Mean Corpuscular HGB Conc 30.6 g/dL (30.0-36.0); Mean Corpuscular Hemoglobin 27.8 pg (28.0-34.0); Mean Corpuscular Volume 90.8 fl (81-99); Mean Platelet Volume 9.9 fL (7.4-10.4); Monocytes # 0.7 10^3/uL (0.2-0.9); Monocytes % 5.3 %; Neutrophils # 10.61 10^3/uL (1.8-7.7); Neutrophils % 79.8 %; Nucleated Red Blood Cells % 0 %; Platelet Count 261 10^3/cmm (130-400); Red Blood Count 5.76 10^6/uL (4.1-5.3); White Blood Count 13.3 10^3/uL (4.0-10.0)
--- NOTE | 2021-11-07 13:05 | ECG_ITS ---
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 Measurements Intervals [place] Rate: 95 P: [place]: QRS: 27 QRSD: 100 T: 206 QT: 352 QTc: 444 Interpretive Statements ATRIAL FIBRILLATION ST DEVIATION AND MODERATE T-WAVE ABNORMALITY, CONSIDER LATERAL ISCHEMIA [-0.1+ mV T WAVE IN I/aVL/V5/V6] ST DEVIATION AND MODERATE T-WAVE ABNORMALITY, CONSIDER INFERIOR ISCHEMIA [-0.1+ mV T WAVE IN II/aVF] INTERPRETATION BASED ON A DEFAULT AGE OF 40 YEARS Compared to ECG 08/08/2019 14:27:17 Possible ischemia now present T-wave abnormality still present Electronically Signed On 11-08-2021 9:28:36 CDT by Micky Paniagua M.D. [id number]
[2021-11-07 13:52] LABS: Glucose Point of Care 412 mg/dL (70-110)
[2021-11-07 13:59] LABS: Troponin(5th) Baseline 18 ng/L (0-10)
[2021-11-07 14:16] LABS: Add Urine Microscopic? YES; Bilirubin Urine Neg (Negative); Blood Urine Neg (Negative); Glucose Urine UA 4+ (Normal); Ketones Urine 2+ (Negative); Leukocyte Esterase Urine 1+ (Negative); Nitrate Urine Negative (Negative); Protein Urine Neg (Negative); Specific Gravity, Urine 1.015 (1.005-1.030); Urine Appearance Hazy (CLEAR); Urine Color Yellow (Yellow); Urobilinogen Urine Norm (Negative); pH Urine 5 (5-7)
[2021-11-07 14:23] LABS: Bacteria Urine 2+ /hpf; Squamous Epithelial Cell Urine 15-25 /hpf (0-5); WBC Urine 25-40 /hpf (0-5)
[2021-11-07 14:24] LABS: Add Urine Culture? No; Alanine Aminotransferase 14 U/L (0-33); Alkaline Phosphatase 82 IU/L (35-105); Aspartate Amino Transferase 12 U/L (0-32); Blood Urea Nitrogen 50 mg/dL (8-23); Calcium 10.1 mg/dL (8.5-10.5); Carbon Dioxide 12 mmol/L (22-29); Chloride 92 mmol/L (98-107); Globulin 2.6 g/dL (1.3-4.6); Glucose 440 mg/dL (65-115); Osmolality Calculated 326 mOsm/kg (285-295); Sodium 142 mmol/L (136-145); Total Bilirubin 0.5 mg/dL (0.15-1.2); Total Protein 6.6 g/dL (6.6-8.7)
[2021-11-07 14:26] LABS: Anion Gap 42.4 (5-19); Potassium 4.4 mmol/L (3.5-5.1)
[2021-11-07 14:47] LABS: Troponin 5 2HR 16.85 ng/L (0-10)
[2021-11-07 14:50] LABS: Troponin 5 2HR Delta -1.15 ABS# (0-10)
--- NOTE | 2021-11-07 15:42 | USR_ITS ---
PROCEDURE INFORMATION: Exam: US Abdomen, Limited; Right Upper Quadrant Exam date and time: 11/07/2021 3:53 PM Age: 81 years old Clinical indication: Abdominal pain; Acute; Patient HX: Pain ruq; Additional info: Cholethiasis on CT TECHNIQUE: Imaging protocol: Real time ultrasound of the abdomen with image documentation. Limited exam focused on the right upper quadrant. COMPARISON: CT abdomen pelvis wo con [id number] 11/07/2021 12:52 PM FINDINGS: Liver: The liver is mildly enlarged measuring 17.7 cm in length. Mildly increased echotexture in the liver, consistent with mild fatty infiltration. Gallbladder: Large stones with posterior shadowing in the gallbladder. Mild gallbladder wall thickening. No pericholecystic fluid. Sonographic Méndez's sign is negative per report from the interventional radiology technologist. Biliary ducts: Normal. No stones. No dilation. Pancreas: Incomplete visualization of the pancreas due to overlying bowel gas. Visualized portions of the pancreas are unremarkable. Right kidney: The right kidney is unremarkable. Aorta: Atherosclerotic changes in the visualized arteries. No evidence for aortic aneurysm in the visualized abdominal aorta. Inferior vena cava: Visualized IVC is unremarkable. Portal venous: Hepatopetal flow in the portal vein. Intraperitoneal space: No ascites. US/US gall bladder [id number] IMPRESSION: 1. Cholelithiasis. Mild gallbladder wall thickening. No pericholecystic fluid. Sonographic Méndez's sign is negative per report from the interventional radiology technologist. Possible cholecystitis cannot be ruled out however. Recommend clinical correlation. 2. Mild hepatomegaly and mild fatty infiltration of the liver. 3. Incidental/nonacute findings are listed in the report.
[2021-11-07] MEDS: ceFAZolin 1,000 MG in sodium chloride 0.9% (plus) 50 ML 100 MG IV (17:00)
--- NOTE | 2021-11-07 17:15 | PM.HP ---
Providers/Chief Complaint Primary Care Provider: Anette Velazquez MD Chief Complaint: WEAKNESS; N/V History of Present Illness Kianna Dotson is a 81 year old female with past medical history of type 2 diabetes mellitus on insulin, lower limb DVTs on Eliquis, hypertension. Presents to the ER today because of increasing weakness and tiredness. As per the history patient recently had eye surgery around 4 days ago since then she has not been able to eat anything along with nausea and has not taken her insulin as well. She has been getting weaker and unsteady on her feet with a fall today morning when she did not hit her head. Patient has not had a bowel movement in last 4 days. ER course: In the ER she received 1 L IV fluid bolus after which she was started on Ringer lactate 100 cc/h. There was concern for UTI and so she was given IV cefazolin and subcu insulin. On examination, patient was lying comfortably in bed, feeling dehydrated, drowsy but waking up to verbal cue and able to have complete conversation. Complaining of nausea but no vomiting. States he has not eaten or taken medicines for the last 4 days. Denies any changes in her medication recently. Has been on steroids. After review of labs, I have requested for an insulin drip as per DKA protocol, 1 L normal saline bolus after which she will be started on NS with 20 mg of potassium at 75 cc/h. Have requested for an ABG and serum ketones. Patient will be admitted to ICU. Review of Systems General: Reports: 10 or more systems reviewed and unremarkable except in HPI and below Const: Denies: fever(s), chills, body aches, change in appetite, change in weight, malaise, night sweats, diaphoresis, change in sleep pattern, daytime sleepiness or snoring Eyes: Denies: change in vision, blurry vision, photophobia, eye discomfort or eye discharge ENMT: Denies: throat pain, enlarged tonsils, hoarseness, mouth pain, oral sores, dry mouth, tinnitus, nasal congestion or post nasal drip Card: Denies: chest pain, palpitations, irregular heart rhythm, edema, swelling of feet/ankles, lightheadedness, syncope, pre-syncope, dyspnea on exertion, orthopnea, leg pain with exertion or acrocyanosis Resp: Denies: dyspnea, productive cough, non-productive cough, wheezing, stridor, pain on inspiration, change in phlegm color, hemoptysis or chest congestion GI: Denies: abdominal pain, nausea, vomiting, hematemesis, coffee ground emesis, dysphagia, heartburn, diarrhea, constipation, bloating, GI cramping, change in bowel habits, pain on defecation, hematochezia or melena : Denies: flank pain, dysuria, urinary frequency, urinary urgency, urinary hesitancy, nocturia or hematuria Musc: Denies: neck pain, back pain, extremity pain, joint pain, joint swelling, joint redness, joint stiffness or limited range of motion Neuro: Denies: headache(s), numbness in extremities, weakness in extremities, sensory changes, lack of coordination, difficulty walking, frequent falls, dizziness, vertigo, confusion, Slurred speech present, difficulty communicating thoughts or seizure-like activity Psych: Denies: anxiety, depression, mood swings, panic attacks, hopelessness or irritability Endo: Denies: polyuria, polydipsia, tired all the time, cold intolerance, excessive sweating, flushing or heat intolerance Earl/Lymph: Denies: easy bruising or easy bleeding All/Imm: Denies: tongue swelling, facial swelling or acute wheezing Medications/Allergies Home Medications Medication Instructions Recorded Confirmed Last Taken Type ascorbic acid (vitamin C) 500 mg 500 mg PO DAILY 07/18/19 11/07/21 11/04/21 History capsule calcium carbonate 500 mg calcium 500 mg PO DAILY 07/18/19 11/07/21 11/04/21 History (1,250 mg) capsule (Calci-Mix) dulaglutide 1.5 mg/0.5 mL 1.5 mg SUBCUT .COMPLLEX 07/18/19 11/07/21 11/05/21 History subcutaneous pen injector (Trulicity) empagliflozin 25 mg tablet 25 mg PO DAILY 07/18/19 11/07/21 11/05/21 History (Jardiance) metformin 1,000 mg tablet 1,000 mg PO BID 07/18/19 11/07/21 11/04/21 History torsemide 20 mg tablet 20 mg PO DAILY 08/08/19 11/07/21 11/04/21 History Shoulder immobilizer #1 ea 08/12/19 11/07/21 Unknown Rx apixaban 2.5 mg tablet (Eliquis) 2.5 mg PO BID 01/08/20 11/07/21 11/04/21 History Diabetic shoes with 3 inserts #1 ea 10/20/20 11/07/21 Unknown Rx citalopram 10 mg tablet 10 mg PO DAILY 01/06/21 11/07/21 11/04/21 History insulin glargine 100 unit/mL 40 unit SUBCUT BID 10/04/21 11/07/21 11/04/21 History subcutaneous solution (Lantus U-100 Insulin) atorvastatin 20 mg tablet 20 mg PO DAILY 11/07/21 11/07/21 11/06/21 History cetirizine 10 mg tablet 10 mg PO DAILY 11/07/21 11/07/21 11/04/21 History metoprolol tartrate 50 mg tablet 50 mg PO BID 11/07/21 11/07/21 11/04/21 History multivitamin 1 tab PO DAILY 11/07/21 11/07/21 11/04/21 History neomycin 3.5 mg/g-polymyxin B 1 applic ophthalmic (eye) TID 11/07/21 11/07/21 11/07/21 History 10,000 unit/g-dexameth 0.1 % eye oint potassium 99 mg tablet 99 mg PO DAILY 11/07/21 11/07/21 11/04/21 History Allergies Allergy/AdvReac Type Severity Reaction Status Date / Time diphenhydramine Allergy Unknown unknown Verified 10/04/21 13:16 [From Benadryl] tetracycline Allergy Unknown unknown Verified 10/04/21 13:16 PFSH Acute PFSH: Medical History (Updated 11/07/21 @ 17:31 by Maciel Riley MD) ALISTAIR inhibitor intolerance Acute [place], inferior wall Atrial fibrillation, chronic CAD (coronary artery disease) Diabetic neuropathy associated with diabetes mellitus due to underlying condition Essential hypertension Fracture of greater trochanter of right femur Fracture of humerus, left, closed Lower extremity deep venous thrombosis Moderate mitral regurgitation Onychodystrophy Peripheral vascular disease Pes planus of both feet Warfarin anticoagulation Surgical History (Updated 11/07/21 @ 17:30 by Maciel Riley MD) Coronary angioplasty status PCI to RCA?2016 Family History Mother Diabetes Denies family history of CAD (coronary artery disease) Clotting disorder Dementia Hyperlipidemia Psychiatric illness Chronic kidney disease (CKD) Suicide Anesthesia complication Bleeding disorder Family history of premature coronary artery disease Lung disease Cancer Hypertension Stroke Social History Smoking and tobacco status: never smoked Second hand smoke exposure: Yes Alcohol intake: never Vitals/I&O/Wt Last Vital Signs Temp 97.8 F 11/07/21 11:50 Pulse 111 H 11/07/21 11:50 Resp 18 11/07/21 11:50 BP 157/75 11/07/21 14:00 Pulse Ox 98 11/07/21 14:00 O2 Del Method 11/07/21 11:50 Weight last 48 hrs Weight 70.76 kg Physical Exam Narrative: General: Drowsy, but arousable, no acute distress, AO x3, dehydrated HEENT: PERRLA, pupils bilaterally equal and reactive, left eye scleral congestion present, postoperative from the recent eye surgery Chest: Bilateral normal vesicular breath sounds, good equal air entry bilaterally CVS: S1-S2 regular, no murmurs, no tachycardia, no gallops, no rubs Abdomen: Soft, nontender, no organomegaly, bowel sounds present, morbidly obese Neuro: No focal deficits, no facial deformity, AO x3, power 5/5 in all limbs Data : 11/07/21 12:30 11/07/21 18:49 A&P Assessment and plan (1) Diabetes with ketoacidosis: Status: Acute (2) High anion gap metabolic acidosis: Status: Acute (3) UTI (urinary tract infection): Status: Acute (4) Fall: Most likely secondary to mechanical from poor oral intake and acute illness from DKA. Check CT head. Fall precautions. Status: Acute (5) Vomiting: Status: Acute (6) Atrial fibrillation, chronic: Chronic. In RVR currently. Heart rate more than 100. Continuing home dose of metoprolol. Continuing home dose of Eliquis. Status: Acute (7) Essential hypertension: Goal blood pressure less than 140/90 mmHg. Continue with home dose of metoprolol which will also help with A. fib. Will uptitrate medications once patient is able to take orally. Status: Acute (8) Lower extremity deep venous thrombosis: Status: Acute Plan Diabetic ketoacidosis: History of type 2 diabetes mellitus on insulin. Could be secondary to UTI. Check A1c. Normal saline with 20 mEq of KCl at 75 cc/h. Once blood sugars are less than 200 we will switch to D5 NS with 20 mg of potassium at 26/h. Monitor BMP every 4 hours. Insulin drip with target 200-2 50. Check ABG, ketones, procalcitonin, MRSA swab, blood culture, TSH, urinalysis, urine lites, urine culture. N.p.o. except medications. UTI: Urinalysis concerning for UTI with positive leuk esterase and positive WBCs. Follow-up urine culture. For now start on Zosyn. Will de-escalate antibiotics as per culture results. Nausea/vomiting: Most likely secondary to DKA versus secondary to UTI. CT abdomen pelvis appreciated. No SBO. Antibiotics as above for now. Continue with aggressive bowel regimen. Protonix 40 mg IV daily, Zofran as needed. Analgesia: Tylenol as needed, morphine 1 mg IV 4 hours as needed Glycemic control: Insulin drip Nutrition: N.p.o. except meds CODE STATUS: Full code PUD prophylaxis: Protonix DVT prophylaxis: Eliquis suffice as DVT prophylaxis Discharge planning: Plan to discharge home with caregiver once medically stable Admit to ICU. This documentation was created by [employer] refrigerator repair technician software. Every effort was made to ensure accuracy of refrigerator repair technician. Any obvious errors or omissions should be clarified with the author of the document. Attestations Medical Necessity Statement*: [place] for more than 2 midnights for management of diabetic ketoacidosis in elderly, UTI Critical Care Time: The high probability of a clinically significant, sudden or life threatening deterioration of the patient's [endocrine, ID] system(s) required my full and direct attention, intervention and personal management. The critical care time is as shown. This time is in addition to time spent performing any reported procedures but includes the following: [x] Data and vital sign review and interpretation [x] Patient assessment, examination and intervention [x] Documentation [x] Medication orders and management Critical Care Time (min): 50 Coding Level of Care Code Acute Cellular Equipment Installer for Chg Fwd Diagnoses Diabetes with ketoacidosis E11.10 High anion gap metabolic acidosis E87.2 UTI (urinary tract infection) N39.0 Fall W19.XXXA Vomiting R11.10 Atrial fibrillation, chronic I48.20 Essential hypertension I10 Lower extremity deep venous thrombosis I82.409
--- NOTE | 2021-11-07 17:30 | CTR_ITS ---
PROCEDURE INFORMATION: Exam: CT Head Without Contrast Exam date and time: 11/07/2021 6:17 PM Age: 81 years old Clinical indication: Injury or trauma; Blunt trauma (contusions or hematomas); Without loss of consciousness; Patient HX: Weakness w fall this am TECHNIQUE: Imaging protocol: Computed tomography of the head without contrast. Sagittal and coronal reformatted images were created and reviewed. Radiation optimization: All CT scans at this facility use at least one of these dose optimization techniques: automated exposure control; mA and/or kV adjustment per patient size (includes targeted exams where dose is matched to clinical indication); or iterative reconstruction. COMPARISON: MR Head w wo Contrast 09/12/2016 1:52 PM RADIATION DOSE METRICS: Total DLP (mGy-cm): 1088.38 FINDINGS: Brain: No acute intracranial hemorrhage. No acute infarct. No intra-axial or extra-axial masses. Daniels-white matter differentiation is preserved. No cerebral edema. No extra-axial fluid collections. No midline shift. No evidence for Chiari 1 malformation. Stable mild atrophy of the brain parenchyma. Stable mildly decreased attenuation in the deep white matter, consistent with mild chronic microangiopathic change. Stable focal area of decreased attenuation consistent with an old lacunar infarct in the right basal ganglia. Cerebral ventricles: No hydrocephalus. Paranasal sinuses: Visualized paranasal sinuses are clear. Mastoid air cells: Mastoid air cells are clear bilaterally. Orbital cavities: Globes and lenses, extraocular muscles, and optic nerves are intact bilaterally. No acute intraorbital abnormality. Nasal cavity: Mild right nasal septal deviation. Dental: The patient is edentulous. Bones/joints: No acute fracture. Soft tissues: The extracranial soft tissues are unremarkable. Vasculature: Atherosclerotic changes in the visualized arteries. CT/CT head wo con* [id number] IMPRESSION: 1. No acute abnormality of the brain. 2. Stable mild atrophy of the brain parenchyma. 3. Stable mild chronic white matter microangiopathic change. 4. 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 5. Incidental/nonacute findings are listed in the report.
[2021-11-07 17:32] LABS: ABG PH Result 7.21 (7.35-7.45); Alveolar-Arterial Oxygen Gradi 1.8 mmHg (5-10); Arterial Blood Gas Hematocrit 47.7 % (37-47); Base Excess ABG -18.3 mmol/L (-2.0-2.0); Blood Gas Operator Identificat glc; Blood Gas Sample Site Brachial, left; Blood Gas Sample Type Arterial; HCO3 ABG 6.9 mmol/L (22-26); HGB O2 Sat 96.1 % (95-100); Ionized Calcium Level - ABG 1.3 mmol/L (1.1-1.4); Oxygen Device ROOM AIR; Oxygen Saturation ABG 98.1; Potassium Level - ABG 4.2 mmol/L (3.5-5.0); Total Hemoglobin 15.6 g/dL (12-16)
[2021-11-07 17:36] LABS: ABG PCO2 17.2 mmHg (35-45)
[2021-11-07 17:48] LABS: Potassium, Radom Urine 25 mmol/L; Urine Random Sodium 21 mmol/L
--- NOTE | 2021-11-07 17:50 | ECG_ITS ---
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 Measurements Intervals [place] Rate: 103 P: MS: QRS: 14 QRSD: 111 T: 225 QT: 348 QTc: 456 Interpretive Statements ATRIAL fibrillation WITH RAPID VENTRICULAR RESPONSE INFERIOR MYOCARDIAL INFARCTION , OF INDETERMINATE AGE [40+ ms Q WAVE AND/OR ST/T ABNORMALITY IN II/aVF] MODERATE T-WAVE ABNORMALITY, CONSIDER LATERAL ISCHEMIA [-0.1+ mV T-WAVE IN I/aVL/V5/V6] Compared to ECG 11/07/2021 13:05:43 Myocardial infarct finding now present T-wave abnormality still present Possible ischemia still present Electronically Signed On 11-08-2021 9:33:30 CDT by Micky Paniagua M.D. [id number]
[2021-11-07 17:55] LABS: Urine Random Chloride 14 mmol/L
[2021-11-07] MEDS: sodium chloride 0.9% 1,000 ML 999 ML IV (17:55)
[2021-11-07 18:37] LABS: Glucose Point of Care 444 mg/dL (70-110)
[2021-11-07] MEDS: insulin regular-human 250 UNIT in sodium chloride 0.9% 250 ML 11.5 UNIT IV (18:39)
[2021-11-07 18:47] LABS: NT Pro B Type Natriuretic Pept 684 pg/mL (0-450); Procalcitonin 0.08 ng/mL (0-0.5); Vitamin B12 423 pg/mL (232-1245)
[2021-11-07 18:52] LABS: Influenza A by IFA Negative (Negative); Influenza B by IFA Negative (Negative); SARS Covid-2 Antigen Negative (Negative)
[2021-11-07 18:58] LABS: Iron 70 ug/dL (37-145); Percent Saturation 27.8 % (20-50); Total Iron Binding Capacity 251 mcg/dl; Unsaturated Iron Binding 181 ug/dL (112-347)
[2021-11-07 19:07] LABS: Ketone (Acetest) Serum Positive (Negative)
[2021-11-07 19:30] LABS: Troponin 5 6HR 17.55 ng/L (0-10)
[2021-11-07 19:31] LABS: Troponin 5 6HR Delta -0.45 ng/L (0-12)
--- NOTE | 2021-11-07 19:32 | ECG_ITS ---
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 Measurements Intervals [place] Rate: 100 P: VA: QRS: 18 QRSD: 108 T: 215 QT: 347 QTc: 447 Interpretive Statements ATRIAL FIBRILLATION WITH RAPID VENTRICULAR RESPONSE WITH ABERRANT CONDUCTION OR VENTRICULAR PREMATURE COMPLEXES INFERIOR MYOCARDIAL INFARCTION , OF INDETERMINATE AGE [40+ ms Q WAVE AND/OR ST/T ABNORMALITY IN II/aVF] MODERATE T-WAVE ABNORMALITY, CONSIDER LATERAL ISCHEMIA [-0.1+ mV T-WAVE IN I/aVL/V5/V6] Compared to ECG 11/07/2021 17:50:37 Ventricular premature complex(es) now present Aberrant conduction of supraventricular beat(s) now present Atrial flutter no longer present Myocardial infarct finding still present T-wave abnormality still present Possible ischemia still present Electronically Signed On 11-08-2021 9:34:13 CDT by Micky Paniagua M.D. [id number]
[2021-11-07 19:44] LABS: Blood Urea Nitrogen 50 mg/dL (8-23); Calcium 10.1 mg/dL (8.5-10.5); Glucose 417 mg/dL (65-115); Magnesium 2.8 mg/dL (1.7-2.3); Phosphorus 5.1 mg/dL (2.5-4.5); Sodium 142 mmol/L (136-145); Thyroid Stimulating Hormone 0.47 uIU/mL (0.27-4.20)
[2021-11-07 20:09] LABS: Chloride 92 mmol/L (98-107); Osmolality Calculated 333 mOsm/kg (285-295); Potassium 4.6 mmol/L (3.5-5.1)
[2021-11-07 20:19] LABS: Anion Gap 52.6 (5-19)
[2021-11-07 20:21] LABS: Carbon Dioxide 6 mmol/L (22-29)
[2021-11-07 20:32] LABS: Folate Level > 20.0 ng/mL (4.8-37.3)
[2021-11-07 20:39] LABS: Glucose Point of Care 309 mg/dL (70-110)
[2021-11-07] MEDS: docusate sodium 100 mg Capsule PO (21:02)
[2021-11-07] MEDS: sennosides 8.6 mg Tablet 17.2 MG PO (21:03)
[2021-11-07] MEDS: apixaban 5 mg Tablet 2.5 MG PO (21:03)
[2021-11-07] MEDS: metoprolol succinate ER (24 HR) 100 mg Tablet PO (21:03)
[2021-11-07] MEDS: pantoprazole 40 mg SDV IVP (21:11)
[2021-11-07] MEDS: piperacillin-tazobactam 3.375 GM in sodium chloride 0.9% (plus) 50 ML IV (21:11)
[2021-11-07] MEDS: sodium chlor 0.9% + KCl 20 mEq 20 MEQ/1,000 ML BAG 75 MEQ IV (21:12)
[2021-11-07 21:46] LABS: Glucose Point of Care 204 mg/dL (70-110)
[2021-11-07 22:33] LABS: Glucose Point of Care 236 mg/dL (70-110)
[2021-11-07 23:45] LABS: Glucose Point of Care 159 mg/dL (70-110)
[2021-11-08] VITALS (239 sets, daily range): BP systolic 114–143; BP diastolic 57–78; PULSE 53–87; RESP 10–28; TEMP 36.7–37.1; O2SAT 90–99
[2021-11-08 00:30] LABS: Anion Gap 36.5 (5-19); Blood Urea Nitrogen 50 mg/dL (8-23); Calcium 9.6 mg/dL (8.5-10.5); Carbon Dioxide 11 mmol/L (22-29); Chloride 102 mmol/L (98-107); Glucose 167 mg/dL (65-115); Osmolality Calculated 319 mOsm/kg (285-295); Potassium 3.5 mmol/L (3.5-5.1); Sodium 146 mmol/L (136-145)
[2021-11-08 00:35] LABS: Glucose Point of Care 148 mg/dL (70-110)
[2021-11-08 01:40] LABS: Glucose Point of Care 153 mg/dL (70-110)
[2021-11-08] MEDS: piperacillin-tazobactam 3.375 GM in sodium chloride 0.9% (plus) 50 ML IV ×3 (01:40→18:10)
[2021-11-08] MEDS: dextrose 5%-sod chloride 0.9% 1,000 ML 75 ML IV (02:00)
[2021-11-08 02:36] LABS: Glucose Point of Care 174 mg/dL (70-110)
[2021-11-08 03:49] LABS: Glucose Point of Care 211 mg/dL (70-110)
[2021-11-08 04:26] LABS: Basophils % 0.3 %; Hematocrit 47.8 % (37.0-47.0); Hemoglobin 14.5 g/dL (11.5-15.3); Lymphocytes # 2.1 10^3/uL (0.8-4.8); Mean Corpuscular HGB Conc 30.3 g/dL (30.0-36.0); Mean Corpuscular Hemoglobin 27.7 pg (28.0-34.0); Mean Corpuscular Volume 91.4 fl (81-99); Mean Platelet Volume 9.5 fL (7.4-10.4); Monocytes # 1.3 10^3/uL (0.2-0.9); Neutrophils # 11.32 10^3/uL (1.8-7.7); Nucleated Red Blood Cells % 0 %; Platelet Count 218 10^3/cmm (130-400); Red Blood Count 5.23 10^6/uL (4.1-5.3); White Blood Count 14.9 10^3/uL (4.0-10.0)
[2021-11-08 04:37] LABS: Glucose Point of Care 215 mg/dL (70-110)
[2021-11-08 05:13] LABS: Estmated Average Glucose 209; Hemoglobin A1C 8.9 % (4.0-6.0)
[2021-11-08 05:48] LABS: Glucose Point of Care 201 mg/dL (70-110)
[2021-11-08 06:22] LABS: Alanine Aminotransferase 11 U/L (0-33); Albumin Level 3.6 g/dL (3.5-5.2); Alkaline Phosphatase 70 IU/L (35-105); Anion Gap 23.8 (5-19); Aspartate Amino Transferase 11 U/L (0-32); Blood Urea Nitrogen 45 mg/dL (8-23); Carbon Dioxide 18 mmol/L (22-29); Chloride 107 mmol/L (98-107); Globulin 2.2 g/dL (1.3-4.6); Glucose 227 mg/dL (65-115); Osmolality Calculated 319 mOsm/kg (285-295); Potassium 3.8 mmol/L (3.5-5.1); Sodium 145 mmol/L (136-145); Total Bilirubin 0.5 mg/dL (0.15-1.2); Total Protein 5.8 g/dL (6.6-8.7)
[2021-11-08 06:38] LABS: Glucose Point of Care 210 mg/dL (70-110)
[2021-11-08 07:42] LABS: Glucose Point of Care 214 mg/dL (70-110)
[2021-11-08 08:11] LABS: Anion Gap 23.9 (5-19); Blood Urea Nitrogen 46 mg/dL (8-23); Calcium 8.7 mg/dL (8.5-10.5); Carbon Dioxide 18 mmol/L (22-29); Chloride 109 mmol/L (98-107); Glucose 230 mg/dL (65-115); Osmolality Calculated 323 mOsm/kg (285-295); Potassium 3.9 mmol/L (3.5-5.1); Sodium 147 mmol/L (136-145)
--- NOTE | 2021-11-08 08:37 | PM.PN ---
Subjective Subjective: Patient was seen and examined this morning, she was not complaining of any nausea vomiting, abdominal pain, anion gap is still open. Slightly hypernatremic , serum creatinine is trending down , good urine output. So far she has remained afebrile. Medications: Medication Review Details: Generic Name Dose Route Start Last Admin Trade Name Tyq PRN Reason Stop Dose Admin Apixaban 2.5 mg 11/07/21 18:00 11/07/21 21:03 Apixaban 5 Mg Ta blet PO 2.5 mg BID TERRY Administration Docusate Sodium 100 mg 11/07/21 18:32 11/07/21 21:02 Docusate Sodium 100 Mg Capsule PO 100 mg BID TERRY Administration Insulin Human Regu lar 250 unit 252.5 mls @ 0 mls /hr 11/07/21 17:15 11/08/21 06:30 / Sodium Chlorid e IV 1.5 mls/hr .Q0M TERRY Titration Protocol Per Protocol Piperacillin Sod/T azobactam 50 mls @ 12.5 mls /hr 11/07/21 17:15 11/08/21 05:54 Sod 3.375 gm/ So dium Chloride IV Infused Q8H TERRY Infusion Senna 17.2 mg 11/07/21 21:00 11/07/21 21:03 Sennosides 8.6 M g Tablet PO 17.2 mg BEDTIME TERRY Administration Vitals/I&O/Wt Last Vital Signs Temp 98.2 F 11/08/21 04:00 Pulse 63 11/08/21 06:00 Resp 28 H 11/08/21 04:10 BP 123/71 11/08/21 04:10 Pulse Ox 97 11/08/21 04:10 O2 Del Method 11/07/21 20:47 11/07/21 11/08/21 11/08/21 22:59 06:59 14:59 Intake Total 2105.028 / 2105.028 465.597 / 2570.625 Output Total 1600 / 1600 Balance 2105.028 / 2105.028 -1134.403 / 970.625 Weight last 48 hrs Weight 75.977 kg Weight 73.981 kg Weight 70.76 kg Physical Exam Const: COMMON NORMALS: patient oriented x3 HENMT: COMMON NORMALS: normocephalic and atraumatic HEAD & SCALP: normocephalic and atraumatic Resp: COMMON NORMALS: clear to auscultation bilaterally AUSCULTATION: clear to auscultation bilaterally Cardio: COMMON NORMALS: regular rate, regular rhythm, S1 normal heart sound present, S2 normal heart sound present, No gallops present (Cardio), No murmurs present (Cardio), No rub (Cardio) and Peripheral pulses 2+ throughout RATE: regular rate RHYTHM: regular rhythm HEART SOUNDS: S1 normal heart sound present and S2 normal heart sound present PERIPHERAL PULSES: Peripheral pulses 2+ throughout GI: COMMON NORMALS: Normal to inspection, nondistended, normoactive bowel sounds present, Soft to palpation, non-tender, No hepatosplenomegaly present and no masses AUSCULTATION: Yes normoactive bowel sounds PALPATION: Yes Soft to palpation and Yes No hepatosplenomegaly present RECTAL EXAM: deferred Extremity: COMMON NORMALS: no clubbing, cyanosis or edema and no pedal edema Neuro: COMMON NORMALS: patient oriented x3 Data : 11/08/21 04:17 11/08/21 11:29 Micro: Microbiology 11/07/21 13:50 Legionella Urinary Antigen - Final Unknown Source 11/07/21 17:44 Blood Culture - Preliminary Blood SPECIMEN COLLECTED 11/07/21 17:39 Blood Culture - Preliminary Blood SPECIMEN COLLECTED A&P Assessment and plan (1) Diabetes with ketoacidosis: Status: Acute (2) High anion gap metabolic acidosis: Status: Acute (3) UTI (urinary tract infection): Status: Acute (4) Fall: Most likely secondary to mechanical from poor oral intake and acute illness from DKA. Check CT head. Fall precautions. Status: Acute (5) Vomiting: Status: Acute (6) Atrial fibrillation, chronic: Chronic. In RVR currently. Heart rate more than 100. Continuing home dose of metoprolol. Continuing home dose of Eliquis. Status: Acute (7) Essential hypertension: Goal blood pressure less than 140/90 mmHg. Continue with home dose of metoprolol which will also help with A. fib. Will uptitrate medications once patient is able to take orally. Status: Acute (8) Lower extremity deep venous thrombosis: Status: Acute Plan 81-year-old female with past medical history of, chronic atrial fibrillation, on Eliquis, coronary artery disease, diabetes, hypertension, was brought in with chief complaint of recurrent vomiting, going on for the last few days. Currently he is being managed for. Assessment: DKA UTI A. fib Hypertension Coronary artery disease Plan: CT head without contrast: No acute intracranial pathology US gall bladder?: Cholelithiasis. Mild gallbladder wall thickening. No pericholecystic fluid. Sonographic Méndez's sign is negative per report from the ultrasound ,technologist. Possible cholecystitis cannot be ruled out however. Recommend clinical correlation. Mild hepatomegaly and mild fatty infiltration of the liver. CT abdomen pelvis wo con:Cholelithiasis 2D echo: Follow blood culture: Urine culture: MRSA PCR Urine Legionella antigen negative Urine bacterial antigen panel: Negative HbA1c:8.9 Currently on DKA protocol Currently on Zosyn Continue metoprolol 50 mg p.o. twice daily On Eliquis Continue Protonix CODE STATUS: Full code DVT prophylaxis: Not needed on Eliquis Attestations Medical Necessity Statement*: Patient is to be in hospital for management of DKA, UTI. Time Spent in Patient Care: Greater than 35 minutes (>than 50% of time spent in counselling and/or direct pt care on unit). Critical Care Time: The high probability of a clinically significant, sudden or life threatening deterioration of the patient's [] system(s) required my full and direct attention, intervention and personal management. The critical care time is as shown. This time is in addition to time spent performing any reported procedures but includes the following: [x] Data and vital sign review and interpretation [x] Patient assessment, examination and intervention [x] Documentation [x] Medication orders and management Critical Care Time (min): 30 Coding Level of Care Code Acute Supervisor Pressing Department for [facility] Fwd Exam Detailed Diagnoses Diabetes with ketoacidosis E11.10 High anion gap metabolic acidosis E87.2 UTI (urinary tract infection) N39.0 Fall W19.XXXA Vomiting R11.10 Atrial fibrillation, chronic I48.20 Essential hypertension I10 Lower extremity deep venous thrombosis I82.409
[2021-11-08 09:05] LABS: Glucose Point of Care 215 mg/dL (70-110)
[2021-11-08] MEDS: pantoprazole DR 40 mg Tablet PO (09:16)
[2021-11-08] MEDS: apixaban 5 mg Tablet 2.5 MG PO ×2 (09:17→18:11)
[2021-11-08] MEDS: citalopram 20 mg Tablet 10 MG PO (09:18)
[2021-11-08] MEDS: metoprolol tartrate 50 mg Tablet PO ×2 (09:18→21:43)
[2021-11-08] MEDS: docusate sodium 100 mg Capsule PO ×2 (09:19→18:11)
[2021-11-08] MEDS: dextrose 5%-ns 0.45% + KCl 40 1,000 ML 75 MEQ IV (09:20)
[2021-11-08 11:12] LABS: Glucose Point of Care 224 mg/dL (70-110)
[2021-11-08 12:30] LABS: Glucose Point of Care 219 mg/dL (70-110)
[2021-11-08 12:31] LABS: Blood Urea Nitrogen 42 mg/dL (8-23); Calcium 9.1 mg/dL (8.5-10.5); Carbon Dioxide 16 mmol/L (22-29); Chloride 109 mmol/L (98-107); Glucose 223 mg/dL (65-115); Osmolality Calculated 313 mOsm/kg (285-295); Sodium 143 mmol/L (136-145)
[2021-11-08 12:40] LABS: Anion Gap 22.1 (5-19); Potassium 4.1 mmol/L (3.5-5.1)
[2021-11-08 13:56] LABS: Glucose Point of Care 230 mg/dL (70-110)
[2021-11-08 15:30] LABS: Glucose Point of Care 234 mg/dL (70-110)
[2021-11-08 16:56] LABS: Glucose Point of Care 195 mg/dL (70-110)
[2021-11-08 17:54] LABS: Glucose Point of Care 202 mg/dL (70-110)
[2021-11-08 18:03] LABS: Anion Gap 20.9 (5-19); Blood Urea Nitrogen 40 mg/dL (8-23); Calcium 9.1 mg/dL (8.5-10.5); Carbon Dioxide 19 mmol/L (22-29); Chloride 113 mmol/L (98-107); Glucose 207 mg/dL (65-115); Osmolality Calculated 324 mOsm/kg (285-295); Potassium 3.9 mmol/L (3.5-5.1); Sodium 149 mmol/L (136-145)
--- NOTE | 2021-11-08 19:08 | USCV_ITS ---
Kianna Dotson Age: 81 Gender: F : 1940 Exam Date: 11/08/2021 03:12 Ordering Phys: Maciel Riley MD Technologist: Ernie Mcgowan Exam Location: [facility] [place] Indication: chest pain BP: 132 / 61 HR: 62 Rhythm: Sinus Technical Quality: Poor MEASUREMENTS (Male / Female) Normal Values 2D ECHO LV Diastolic Diameter PLAX 4.8 cm 4.2 - 5.9 / 3.9 - 5.3 cm LV Systolic Diameter PLAX 3.9 cm IVS Diastolic Thickness 1.2 cm 0.6 - 1.0 / 0.6 - 0.9 cm IVS Systolic Thickness 1.2 cm LVPW Diastolic Thickness 1.3 cm 0.6 - 1.0 / 0.6 - 0.9 cm LVPW Systolic Thickness 1.4 cm LVOT Diameter 1.8 cm LV Ejection Fraction 2D Teich 37.3 % LV Ejection Fraction MOD 2C 45.6 % LV Ejection Fraction 2C AL 47.3 % LA Diameter 5.3 cm LA Width 5.7 cm LA Height 6.4 cm RA Width 5.4 cm RA Height 6.4 cm Aorta at Sinotubular Diameter 2.3 cm M-MODE Aortic Annulus Diameter 2.6 cm LA Ao Ratio MM 2.0 MV E Point Septal Separation 0.7 cm DOPPLER AV Peak Velocity 175.3 cm/s LVOT Peak Velocity 80.0 cm/s AV Area Cont Eq vti 1.4 cm squared AV Area Cont Eq pk 1.2 cm squared MV Area PHT 3.1 cm squared Mitral E to A Ratio 2.1 MV E' Velocity 63.0 cm/s Mitral E to MV E' Ratio 13.8 Mitral E to LV E' Lateral Ratio 12.0 Mitral E to LV E' Septal Ratio 16.1 TR Peak Velocity 179.8 cm/s TR Peak Gradient 12.9 mmHg TR Mean Velocity 107.8 cm/s TR Mean Gradient 5.3 mmHg TR Velocity Time Integral 37.7 cm PV Peak Velocity 119.0 cm/s FINDINGS Left Ventricle The ventricle is not well seen. The ventricle is probably normal in size and function. There are no obvious wall motion disturbances. A rough estimate of the ejection fraction is 55 to 60%. Diastolic function not evaluated. Right Ventricle Right ventricle not well visualized. Right Atrium The right atrium is normal in size. Left Atrium Moderately increased left atrial size. Mitral Valve There is mild mitral regurgitation. The valve is poorly seen. Aortic Valve Moderate aortic valve calcification. No aortic valve regurgitation. Mild aortic valve stenosis, mean gradient 7 mmHg, YVETTE 1.4 cm squared. Valve is poorly visualized Tricuspid Valve Tricuspid valve not well visualized. [id number] tricuspid valve regurgitation. Pulmonic Valve Pulmonic valve not well visualized. Pericardium Normal pericardium without effusion. Aorta Normal ascending aorta dimension. IVC Inferior vena cava not visualized. CONCLUSIONS The ventricle is not well seen. The ventricle is probably normal in size and function. There are no obvious wall motion disturbances. A rough estimate of the ejection fraction is 55 to 60%. Diastolic function not evaluated. There is mild mitral regurgitation. The valve is poorly seen. Moderate aortic valve calcification. No aortic valve regurgitation. Mild aortic valve stenosis, mean gradient 7 mmHg, YVETTE 1.4 cm squared. Valve is poorly visualized. Dr. Micky Paniagua MD (Electronically Signed) Final Date: 10 November 2021 08:03 S
[2021-11-08 19:15] LABS: Glucose Point of Care 187 mg/dL (70-110)
[2021-11-08 20:56] LABS: Glucose Point of Care 202 mg/dL (70-110)
[2021-11-08 20:56] LABS: Glucose Point of Care 177 mg/dL (70-110)
[2021-11-08 21:28] LABS: Blood Urea Nitrogen 36 mg/dL (8-23); Carbon Dioxide 21 mmol/L (22-29); Chloride 114 mmol/L (98-107); Glucose 202 mg/dL (65-115); Osmolality Calculated 326 mOsm/kg (285-295); Sodium 151 mmol/L (136-145)
[2021-11-08 21:30] LABS: Anion Gap 20.1 (5-19); Potassium 4.1 mmol/L (3.5-5.1)
[2021-11-08] MEDS: sennosides 8.6 mg Tablet 17.2 MG PO (21:43)
[2021-11-08 22:03] LABS: Glucose Point of Care 187 mg/dL (70-110)
[2021-11-08] MEDS: lidocaine 1% 5 ML in potassium chloride premix 100 ML 50 ML IV (22:14)
[2021-11-08 23:05] LABS: Glucose Point of Care 185 mg/dL (70-110)
[2021-11-09] VITALS (127 sets, daily range): BP systolic 125–182; BP diastolic 58–85; PULSE 37–67; RESP 12–22; TEMP 36.4–36.8; O2SAT 93–98
[2021-11-09 00:20] LABS: Glucose Point of Care 171 mg/dL (70-110)
[2021-11-09 01:20] LABS: Glucose Point of Care 176 mg/dL (70-110)
[2021-11-09 02:56] LABS: Glucose Point of Care 160 mg/dL (70-110)
[2021-11-09] MEDS: dextrose 5%-ns 0.45% + KCl 40 1,000 ML 50 MEQ IV (03:02)
[2021-11-09] MEDS: piperacillin-tazobactam 3.375 GM in sodium chloride 0.9% (plus) 50 ML IV ×3 (03:57→18:02)
[2021-11-09 03:58] LABS: Glucose Point of Care 155 mg/dL (70-110)
--- NOTE | 2021-11-09 04:10 | ECG_ITS ---
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 Measurements Intervals [place] Rate: 59 P: IA: QRS: 24 QRSD: 93 T: 75 QT: 430 QTc: 427 Interpretive Statements Atrial fibrillation WITH SLOW VENTRICULAR RESPONSE NONSPECIFIC T-WAVE ABNORMALITY ABNORMAL RHYTHM ECG Compared to ECG 11/07/2021 20:45:18 Aberrant conduction of supraventricular beat(s) no longer present Ventricular premature complex(es) no longer present Myocardial infarct finding no longer present Possible ischemia no longer present T-wave abnormality still present Electronically Signed On 11-10-2021 6:43:31 CDT by Cathleen Vu M.D. [id number]
[2021-11-09 04:35] LABS: Basophils % 0.4 %; Eosinophils % 0.1 %; Hematocrit 43.8 % (37.0-47.0); Hemoglobin 13.7 g/dL (11.5-15.3); Lymphocytes # 1.5 10^3/uL (0.8-4.8); Mean Corpuscular HGB Conc 31.3 g/dL (30.0-36.0); Mean Corpuscular Volume 89.4 fl (81-99); Mean Platelet Volume 9.2 fL (7.4-10.4); Monocytes # 0.8 10^3/uL (0.2-0.9); Monocytes % 8.4 %; Neutrophils # 6.92 10^3/uL (1.8-7.7); Neutrophils % 74.6 %; Nucleated Red Blood Cells % 0 %; Platelet Count 170 10^3/cmm (130-400); White Blood Count 9.3 10^3/uL (4.0-10.0)
[2021-11-09 04:56] LABS: Alanine Aminotransferase 10 U/L (0-33); Albumin Level 3.2 g/dL (3.5-5.2); Alkaline Phosphatase 71 IU/L (35-105); Anion Gap 18.1 (5-19); Aspartate Amino Transferase 13 U/L (0-32); Blood Urea Nitrogen 32 mg/dL (8-23); Carbon Dioxide 19 mmol/L (22-29); Chloride 118 mmol/L (98-107); Globulin 2.3 g/dL (1.3-4.6); Glucose 171 mg/dL (65-115); Osmolality Calculated 323 mOsm/kg (285-295); Potassium 4.1 mmol/L (3.5-5.1); Sodium 151 mmol/L (136-145); Total Bilirubin 0.4 mg/dL (0.15-1.2); Total Protein 5.5 g/dL (6.6-8.7)
[2021-11-09 05:09] LABS: Glucose Point of Care 171 mg/dL (70-110)
[2021-11-09 06:19] LABS: Glucose Point of Care 167 mg/dL (70-110)
[2021-11-09 07:05] LABS: Glucose Point of Care 171 mg/dL (70-110)
[2021-11-09 08:04] LABS: Glucose Point of Care 194 mg/dL (70-110)
[2021-11-09 09:11] LABS: Glucose Point of Care 169 mg/dL (70-110)
[2021-11-09] MEDS: insulin glargine 100 units/1 mL 30 UNIT SUBCUT ×2 (09:30→20:36)
[2021-11-09] MEDS: metoprolol tartrate 25 mg Tablet PO (09:33)
[2021-11-09] MEDS: apixaban 5 mg Tablet 2.5 MG PO ×2 (09:33→18:02)
[2021-11-09] MEDS: docusate sodium 100 mg Capsule PO ×2 (09:33→18:02)
[2021-11-09] MEDS: dextrose 5% 1,000 ML 75 ML IV (09:34)
[2021-11-09] MEDS: citalopram 20 mg Tablet 10 MG PO (09:34)
[2021-11-09] MEDS: pantoprazole DR 40 mg Tablet PO (09:34)
--- NOTE | 2021-11-09 10:04 | PC.CHAP ---
Pastoral Care Encounter/Spiritual Assessment Type of Contact [] Declined air motor repairer visit [] Patient/Family/Request visit [] Outpatient visit [] Follow-up visit [] Physician referral [] Code/Alert [x] Routine visit [] Staff referral [] Actively dying [x] Patient sleeping [] Family support [] [] Out of room [] Palliative care [] [] Receiving care in room [] Pre-surgical visit [] Trauma [] Long length of stay [x] ICU visit [x] Other: vent Relational/Emotional Strength [] Patient feels connected with others/family/visitors/staff [] Distress [] Loneliness/isolation [] Abandonment Spirituality of Patient [] Person of Althea [] Attends Yarsani of their Althea [] Believes in Prayer [] Reads Bible or Islam materials [] There are Spiritual issues to be addressed Re Examiner Interventions [x] Prayer [] Active listening [] Non-anxious presence [] Spiritual/emotional support [] Crisis/trauma care [] Spiritual counseling [] Bereavement support [] Provided bereavement packet [] Provided Bible/devotional materials [] Provided toy/stuffed animal, coloring book to patient or family member [] Provided Communion [] Anointing/[place] [] Salvation [x] Completed spiritual assessment [] Other: Impact on Illness or Injury [] Angry [] Fearful [] Anxious [] Often cries [] Exhaustion [] Unable to work [] Unable to attend temple [] Unable to walk/stand [] Unable to read [] Unable to drive [] Unable to eat/drink [] Unable to sleep [] Unable to be with family [] Patient intubated [] Other: Summary Time spent with patient
[2021-11-09 11:21] LABS: Glucose Point of Care 326 mg/dL (70-110)
[2021-11-09] MEDS: insulin lispro 100 unit/1 mL SUBCUT ×3 (12:31→20:35)
--- NOTE | 2021-11-09 15:49 | P.PN_ITS ---
Subjective Subjective: Patient was seen and examined this morning, she was not complaining of any nausea vomiting, abdominal pain, anion gap is still open. Slightly hypernatremic , serum creatinine is trending down , good urine output. So far she has remained afebrile. Medications: Medication Review Details: Generic Name Dose Route Start Last Admin Trade Name Jose A PRN Reason Stop Dose Admin Apixaban 2.5 mg 11/07/21 18:00 11/09/21 09:33 Apixaban 5 Mg Ta blet PO 2.5 mg BID TERRY Administration Citalopram Hydrobr omide 10 mg 11/08/21 09:00 11/09/21 09:34 Citalopram 20 Mg Tablet PO 10 mg DAILY TERRY Administration Docusate Sodium 100 mg 11/07/21 18:32 11/09/21 09:33 Docusate Sodium 100 Mg Capsule PO 100 mg BID TERRY Administration Insulin Human Regu lar 250 unit 252.5 mls @ 0 mls /hr 11/07/21 17:15 11/09/21 08:23 / Sodium Chlorid e IV 1.3 mls/hr .Q0M TERRY Titration Protocol Per Protocol Piperacillin Sod/T azobactam 50 mls @ 12.5 mls /hr 11/07/21 17:15 11/09/21 09:34 Sod 3.375 gm/ So dium Chloride IV 12.5 mls/hr Q8H TERRY Administration Dextrose 1,000 mls @ 75 ml s/hr 11/09/21 09:00 11/09/21 09:34 D5w IV 75 mls/hr .[id number] TERRY Administration Insulin Human Lisp ro 0 unit 11/09/21 12:00 11/09/21 12:31 Insulin Lispro 1 00 Unit/1 Ml SUBCUT 12 unit WM&BEDTIME TERRY Administration Protocol Metoprolol Tartrat e 25 mg 11/09/21 09:00 11/09/21 09:33 Metoprolol Tartr ate 25 Mg Tablet PO 25 mg BID@0900,2100 TERRY Administration Pantoprazole Sodiu m 40 mg 11/08/21 09:00 11/09/21 09:[address] 40 Mg Tablet PO 40 mg DAILY TERRY Administration Senna 17.2 mg 11/07/21 21:00 11/08/21 21:43 Sennosides 8.6 M g Tablet PO 17.2 mg BEDTIME TERRY Administration Vitals/I&O/Wt Last Vital Signs Temp 97.6 F 11/09/21 14:28 Pulse 46 L 11/09/21 14:31 Resp 16 11/09/21 14:28 BP 144/76 11/09/21 14:28 Pulse Ox 97 11/09/21 14:28 O2 Del Method 11/09/21 14:28 11/09/21 11/09/21 11/09/21 06:59 14:59 22:59 Intake Total 557.083 / 1701.897 398.855 / 398.855 Output Total 700 / 1450 Balance -142.917 / 251.897 398.855 / 398.855 Weight last 48 hrs Weight 75.977 kg Weight 75.977 kg Weight 73.981 kg Physical Exam Const: COMMON NORMALS: patient oriented x3 HENMT: COMMON NORMALS: normocephalic and atraumatic HEAD & SCALP: normocephalic and atraumatic Resp: COMMON NORMALS: normal respiratory effort, No retractions, No use of accessory muscles and clear to auscultation bilaterally EFFORT & INSPECTION: Yes symmetric chest movement AUSCULTATION: clear to auscultation bilaterally Cardio: COMMON NORMALS: regular rate, regular rhythm, S1 normal heart sound present, S2 normal heart sound present, No rub (Cardio) and Peripheral pulses 2+ throughout RATE: regular rate RHYTHM: regular rhythm HEART SOUNDS: S1 normal heart sound present and S2 normal heart sound present PERIPHERAL PULSES: Peripheral pulses 2+ throughout OTHER: Ejection systolic murmur in aortic area GI: COMMON NORMALS: Normal to inspection, nondistended, normoactive bowel sounds present, Soft to palpation, non-tender, No hepatosplenomegaly present and no masses AUSCULTATION: Yes normoactive bowel sounds PALPATION: Yes Soft to palpation and Yes No hepatosplenomegaly present RECTAL EXAM: deferred Extremity: COMMON NORMALS: no clubbing, cyanosis or edema and no pedal edema Neuro: COMMON NORMALS: patient oriented x3 Data : 11/09/21 03:34 11/09/21 03:34 Micro: Microbiology 11/07/21 17:39 Blood Culture - Preliminary Blood NEGATIVE TO DATE 11/07/21 17:44 Blood Culture - Preliminary Blood NEGATIVE TO DATE 11/07/21 18:10 MRSA Culture - Final Nose A&P Assessment and plan (1) Diabetes with ketoacidosis: Status: Acute (2) High anion gap metabolic acidosis: Status: Acute (3) UTI (urinary tract infection): Status: Acute (4) Fall: Most likely secondary to mechanical from poor oral intake and acute illness from DKA. Check CT head. Fall precautions. Status: Acute (5) Vomiting: Status: Acute (6) Atrial fibrillation, chronic: Chronic. In RVR currently. Heart rate more than 100. Continuing home dose of metoprolol. Continuing home dose of Eliquis. Status: Acute (7) Essential hypertension: Goal blood pressure less than 140/90 mmHg. Continue with home dose of metoprolol which will also help with A. fib. Will uptitrate medications once patient is able to take orally. Status: Acute (8) Lower extremity deep venous thrombosis: Status: Acute Plan 81-year-old female with past medical history of, chronic atrial fibrillation, on Eliquis, coronary artery disease, diabetes, hypertension, was brought in with chief complaint of recurrent vomiting, going on for the last few days. Currently he is being managed for. Assessment: DKA UTI A. fib Hypernatremia A. fib with slow ventricular response: Cannot conclusively rule out possible underlying sick sinus syndrome, patient may need event monitor as an outpatient. Hypertension Coronary artery disease recent eye surgery Plan: CT head without contrast: No acute intracranial pathology US gall bladder?: Cholelithiasis. Mild gallbladder wall thickening. No pericholecystic fluid. Sonographic Méndez's sign is negative per report from the ultrasound ,technologist. Possible cholecystitis cannot be ruled out however. Recommend clinical correlation. Mild hepatomegaly and mild fatty infiltration of the liver. CT abdomen pelvis wo con:Cholelithiasis 2D echo: Done report pending Follow blood culture: NTD Urine culture: MRSA PCR: Negative Urine Legionella antigen negative Urine bacterial antigen panel: Negative HbA1c:8.9 Was on DKA protocol, Continue Lantus medium dose sliding's scale insulin Diabetic diet. Monitor fingerstick glucose Currently on D5 water 75 cc an hour Monitor BMP Currently on Zosyn Was on metoprolol 50 mg p.o. twice daily, will hold for now On Eliquis Continue Protonix CODE STATUS: Full code DVT prophylaxis: Not needed on Eliquis Attestations Medical Necessity Statement*: Patient is to be in hospital for management of, hypernatremia, UTI, need for IV antibiotics. Time Spent in Patient Care: Greater than 35 minutes (>than 50% of time spent in counselling and/or direct pt care on unit) . Critical Care Time: The high probability of a clinically significant, sudden or life threatening deterioration of the patient's [] system(s) required my full and direct attention, intervention and personal management. The critical care time is as shown. 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
[2021-11-09 16:49] LABS: Glucose Point of Care 244 mg/dL (70-110)
--- NOTE | 2021-11-09 19:00 | PC.NURSE ---
Insulin Drip Insulin drip not administering at 1900 while MAR displays 1.3 ml/hr. MAR updated to reflect no administration.
--- NOTE | 2021-11-09 20:15 | PC.NURSE ---
HR Patient's heart rhythm aflutter with a heart rate sustaining in the low 40s-50s with periodic decreases into the low 30s. Patient reports being tired but denies other symptoms. All other vitals stable. Dr. Lu notified; order received to hold metoprolol dose this evening if ordered. No metoprolol dose due this evening. To monitor HR.
[2021-11-09 20:34] LABS: Glucose Point of Care 199 mg/dL (70-110)
[2021-11-09] MEDS: sennosides 8.6 mg Tablet 17.2 MG PO (20:36)
[2021-11-10] VITALS (75 sets, daily range): BP systolic 122–181; BP diastolic 50–85; PULSE 43–79; RESP 13–26; TEMP 36.5–36.6; O2SAT 87–100
[2021-11-10] MEDS: piperacillin-tazobactam 3.375 GM in sodium chloride 0.9% (plus) 50 ML IV ×3 (00:17→18:43)
--- NOTE | 2021-11-10 02:00 | PC.NURSE ---
Blood Pressure Patient's systolic blood pressure ranging from 157-179 with a current blood pressure of 173/65. HR remains in a flutter and in [id number]. Dr. Lu notified; order received fro 5 mg IVP hydralazine once. Medication administered per JUN.
[2021-11-10] MEDS: hyDRALAzine 20 mg/mL INJ 1 mL 5 MG IVP (02:22)
[2021-11-10] MEDS: dextrose 5% 1,000 ML 75 ML IV (02:22)
[2021-11-10 04:12] LABS: Basophils % 0.5 %; Eosinophils % 0.3 %; Hematocrit 44.7 % (37.0-47.0); Hemoglobin 14.2 g/dL (11.5-15.3); Lymphocytes # 1.7 10^3/uL (0.8-4.8); Lymphocytes % 21.9 %; Mean Corpuscular HGB Conc 31.8 g/dL (30.0-36.0); Mean Corpuscular Hemoglobin 27.4 pg (28.0-34.0); Mean Corpuscular Volume 86.3 fl (81-99); Mean Platelet Volume 9.2 fL (7.4-10.4); Monocytes # 0.7 10^3/uL (0.2-0.9); Monocytes % 9.5 %; Neutrophils # 5.18 10^3/uL (1.8-7.7); Neutrophils % 66.3 %; Nucleated Red Blood Cells % 0 %; Platelet Count 123 10^3/cmm (130-400); Red Blood Count 5.18 10^6/uL (4.1-5.3); Red Cell Distribution Width 15.5 % (12.1-15.1); White Blood Count 7.8 10^3/uL (4.0-10.0)
[2021-11-10 04:41] LABS: Alanine Aminotransferase 16 U/L (0-33); Albumin Level 3.2 g/dL (3.5-5.2); Alkaline Phosphatase 70 IU/L (35-105); Aspartate Amino Transferase 22 U/L (0-32); Blood Urea Nitrogen 20 mg/dL (8-23); Calcium 8.4 mg/dL (8.5-10.5); Carbon Dioxide 18 mmol/L (22-29); Chloride 106 mmol/L (98-107); Globulin 1.8 g/dL (1.3-4.6); Glucose 150 mg/dL (65-115); Osmolality Calculated 295 mOsm/kg (285-295); Sodium 140 mmol/L (136-145); Total Bilirubin 0.6 mg/dL (0.15-1.2)
[2021-11-10 04:53] LABS: Anion Gap 19.8 (5-19); Potassium 3.8 mmol/L (3.5-5.1)
[2021-11-10 08:12] LABS: Glucose Point of Care 136 mg/dL (70-110)
[2021-11-10] MEDS: citalopram 20 mg Tablet 10 MG PO (09:39)
[2021-11-10] MEDS: apixaban 5 mg Tablet 2.5 MG PO ×2 (09:39→18:42)
[2021-11-10] MEDS: pantoprazole DR 40 mg Tablet PO (09:39)
[2021-11-10] MEDS: docusate sodium 100 mg Capsule PO ×2 (09:39→18:43)
--- NOTE | 2021-11-10 10:17 | PC.CHAP ---
Pastoral Care Encounter/Spiritual Assessment Type of Contact [] Declined paratransit driver visit [] Patient/Family/Request visit [] Outpatient visit [] Follow-up visit [] Physician referral [] Code/Alert [x] Routine visit [] Staff referral [] Actively dying [x] Patient sleeping [x] Family support [] [] Out of room [] Palliative care [] [] Receiving care in room [] Pre-surgical visit [] Trauma [] Long length of stay [x] ICU visit [] Other: Relational/Emotional Strength [] Patient feels connected with others/family/visitors/staff [] Distress [] Loneliness/isolation [] Abandonment Spirituality of Patient [] Person of Althea [] Attends Gnosticism of their Althea [] Believes in Prayer [] Reads Bible or Sabianism materials [] There are Spiritual issues to be addressed Office Machinery Or Equipment Installer Interventions [x] Prayer [] Active listening [] Non-anxious presence [] Spiritual/emotional support [] Crisis/trauma care [] Spiritual counseling [] Bereavement support [] Provided bereavement packet [] Provided Bible/devotional materials [] Provided toy/stuffed animal, coloring book to patient or family member [] Provided Communion [] Anointing/[place] [] Salvation [x] Completed spiritual assessment [] Other: Impact on Illness or Injury [] Angry [] Fearful [] Anxious [] Often cries [] Exhaustion [] Unable to work [] Unable to attend presybeterian [] Unable to walk/stand [] Unable to read [] Unable to drive [] Unable to eat/drink [] Unable to sleep [] Unable to be with family [] Patient intubated [] Other: Summary Time spent with patient
[2021-11-10 11:55] LABS: Glucose Point of Care 190 mg/dL (70-110)
[2021-11-10] MEDS: insulin lispro 100 unit/1 mL SUBCUT ×3 (12:19→20:47)
--- NOTE | 2021-11-10 17:36 | P.PN_ITS ---
Subjective Subjective: Patient was seen and examined this morning, overall she is doing better, hypernatremia has resolved, Continue to be in A. fib with slow ventricular response with heart rate dipping into 30s at night, Robust urine output. Afebrile. Medications: Medication Review Details: Generic Name Dose Route Start Last Admin Trade Name Jose A PRN Reason Stop Dose Admin Apixaban 2.5 mg 11/07/21 18:00 11/10/21 09:39 Apixaban 5 Mg Ta blet PO 2.5 mg BID TERRY Administration Citalopram Hydrobr omide 10 mg 11/08/21 09:00 11/10/21 09:39 Citalopram 20 Mg Tablet PO 10 mg DAILY TERRY Administration Docusate Sodium 100 mg 11/07/21 18:32 11/10/21 09:39 Docusate Sodium 100 Mg Capsule PO 100 mg BID TERRY Administration Insulin Human Regu lar 250 unit 252.5 mls @ 0 mls /hr 11/07/21 17:15 11/09/21 19:00 / Sodium Chlorid e IV 0 mls/hr .Q0M TERRY Titration Protocol Per Protocol Piperacillin Sod/T azobactam 50 mls @ 12.5 mls /hr 11/07/21 17:15 11/10/21 14:43 Sod 3.375 gm/ So dium Chloride IV Infused Q8H TERRY Infusion Insulin Glargine 30 unit 11/09/21 21:00 11/09/21 20:36 Insulin Glargine 100 Units/1 Ml SUBCUT 30 unit BEDTIME TERRY Administration Insulin Human Lisp ro 0 unit 11/09/21 12:00 11/10/21 12:19 Insulin Lispro 1 00 Unit/1 Ml SUBCUT 6 unit WM&BEDTIME TERRY Administration Protocol Metoprolol Tartrat e 25 mg 11/09/21 09:00 11/09/21 09:33 Metoprolol Tartr ate 25 Mg Tablet PO 25 mg BID@0900,2100 TERRY Administration Pantoprazole Sodiu m 40 mg 11/08/21 09:00 11/10/21 09:[address] 40 Mg Tablet PO 40 mg DAILY TERRY Administration Senna 17.2 mg 11/07/21 21:00 11/09/21 20:36 Sennosides 8.6 M g Tablet PO 17.2 mg BEDTIME TERRY Administration Vitals/I&O/Wt Last Vital Signs Temp 97.7 F 11/10/21 16:00 Pulse 52 L 11/10/21 16:00 Resp 18 11/10/21 16:00 BP 133/50 11/10/21 16:00 Pulse Ox 97 11/10/21 15:45 O2 Del Method 11/10/21 15:45 11/10/21 11/10/21 11/10/21 06:59 14:59 22:59 Intake Total 1050 / 2042.657 1010 / 1010 Output Total 1000 / 1900 900 / 900 Balance 50 / 142.657 110 / 110 Weight last 48 hrs Weight 79.379 kg Weight 75.977 kg Physical Exam Const: COMMON NORMALS: patient oriented x3 HENMT: COMMON NORMALS: normocephalic and atraumatic HEAD & SCALP: normocephalic and atraumatic Resp: COMMON NORMALS: normal respiratory effort, No retractions, No use of accessory muscles and clear to auscultation bilaterally EFFORT & INSPECTION: Yes symmetric chest movement AUSCULTATION: clear to auscultation bilaterally Cardio: COMMON NORMALS: S1 normal heart sound present, S2 normal heart sound present, No gallops present (Cardio), No rub (Cardio) and Peripheral pulses 2+ throughout HEART SOUNDS: S1 normal heart sound present and S2 normal heart sound present PERIPHERAL PULSES: Peripheral pulses 2+ throughout OTHER: Irregularly irregular rhythm , S1-S2 variable intensity , ejection systolic murmur in mitral area GI: COMMON NORMALS: Normal to inspection, nondistended, normoactive bowel sounds present, Soft to palpation, non-tender, No hepatosplenomegaly present and no masses AUSCULTATION: Yes normoactive bowel sounds PALPATION: Yes Soft to palpation and Yes No hepatosplenomegaly present RECTAL EXAM: deferred Extremity: COMMON NORMALS: no clubbing, cyanosis or edema and no pedal edema Neuro: COMMON NORMALS: patient oriented x3 Urinary Catheter Management: Aguilar: Cath Placed During This Visit: no Reason for Continuing Indwelling Catheter: Accurate Measurement of Urinary Output in Critically Ill Patients Data : 11/10/21 04:00 11/10/21 04:00 A&P Assessment and plan (1) Diabetes with ketoacidosis: Status: Acute (2) High anion gap metabolic acidosis: Status: Acute (3) UTI (urinary tract infection): Status: Acute (4) Fall: Most likely secondary to mechanical from poor oral intake and acute illness from DKA. Check CT head. Fall precautions. Status: Acute (5) Vomiting: Status: Acute (6) Atrial fibrillation, chronic: Chronic. In RVR currently. Heart rate more than 100. Continuing home dose of metoprolol. Continuing home dose of Eliquis. Status: Acute (7) Essential hypertension: Goal blood pressure less than 140/90 mmHg. Continue with home dose of metoprolol which will also help with A. fib. Will uptitrate medications once patient is able to take orally. Status: Acute (8) Lower extremity deep venous thrombosis: Status: Acute Plan 81-year-old female with past medical history of, chronic atrial fibrillation, on Eliquis, coronary artery disease, diabetes, hypertension, was brought in with chief complaint of recurrent vomiting, going on for the last few days. Currently he is being managed for. Assessment: DKA UTI A. fib Hypernatremia A. fib with slow ventricular response: Cannot conclusively rule out possible underlying sick sinus syndrome, patient may need event monitor as an outpatient. Hypertension Coronary artery disease recent eye surgery Plan: CT head without contrast: No acute intracranial pathology US gall bladder?: Cholelithiasis. Mild gallbladder wall thickening. No pericholecystic fluid. Sonographic Méndez's sign is negative per report from the ultrasound ,technologist. Possible cholecystitis cannot be ruled out however. Recommend clinical correlation. Mild hepatomegaly and mild fatty infiltration of the liver. CT abdomen pelvis wo con:Cholelithiasis 2D echo: Poor quality echo: No obvious R WMA, LVEF : 55-60%, mild MR. Follow blood culture: NTD Urine culture: MRSA PCR: Negative Urine Legionella antigen negative Urine bacterial antigen panel: Negative HbA1c:8.9 Was on DKA protocol, Continue Lantus medium dose sliding's scale insulin Diabetic diet. Monitor fingerstick glucose Currently on D5 water 75 cc an hour Monitor BMP Currently on Zosyn Was on metoprolol 50 mg p.o. twice daily, will hold for now Patient will need event monitor on discharge. On Eliquis Continue Protonix CODE STATUS: Full code DVT prophylaxis: Not needed on Eliquis Attestations Medical Necessity Statement*: Patient is in hospital for management of UTI, A. fib with slow ventricular response. Time Spent in Patient Care: Greater than 35 minutes (>than 50% of time spent in counselling and/or direct pt care on unit) . Coding Level of Care Code Acute Public Health Sanitarian Technician for [facility] Fwd Diagnoses Diabetes with ketoacidosis E11.10 High anion gap metabolic acidosis E87.2 UTI (urinary tract infection) N39.0 Fall W19.XXXA Vomiting R11.10 Atrial fibrillation, chronic I48.20 Essential hypertension I10 Lower extremity deep venous thrombosis I82.409
[2021-11-10 18:54] LABS: Glucose Point of Care 226 mg/dL (70-110)
[2021-11-10 20:44] LABS: Glucose Point of Care 290 mg/dL (70-110)
[2021-11-10] MEDS: sennosides 8.6 mg Tablet 17.2 MG PO (20:47)
[2021-11-10] MEDS: insulin glargine 100 units/1 mL 30 UNIT SUBCUT (20:47)
[2021-11-11] VITALS (23 sets, daily range): BP systolic 111–137; BP diastolic 51–97; PULSE 64–94; RESP 16–22; TEMP 36.7–36.9; O2SAT 94–99; BMI 29.2
[2021-11-11] MEDS: piperacillin-tazobactam 3.375 GM in sodium chloride 0.9% (plus) 50 ML IV ×2 (00:18→08:10)
[2021-11-11 03:40] LABS: Basophils # 0.1 10^3/uL (0.0-0.1); Basophils % 0.8 %; Eosinophils # 0.1 10^3/uL (0.0-0.8); Eosinophils % 1.5 %; Hematocrit 42.8 % (37.0-47.0); Hemoglobin 13.5 g/dL (11.5-15.3); Lymphocytes # 1.6 10^3/uL (0.8-4.8); Lymphocytes % 23.7 %; Mean Corpuscular HGB Conc 31.5 g/dL (30.0-36.0); Mean Corpuscular Hemoglobin 27.8 pg (28.0-34.0); Mean Corpuscular Volume 88.1 fl (81-99); Mean Platelet Volume 9.5 fL (7.4-10.4); Monocytes # 0.6 10^3/uL (0.2-0.9); Neutrophils # 4.22 10^3/uL (1.8-7.7); Neutrophils % 64.2 %; Nucleated Red Blood Cells % 0 %; Platelet Count 114 10^3/cmm (130-400); Red Blood Count 4.86 10^6/uL (4.1-5.3); Red Cell Distribution Width 15.4 % (12.1-15.1); White Blood Count 6.6 10^3/uL (4.0-10.0)
[2021-11-11 04:08] LABS: Alanine Aminotransferase 15 U/L (0-33); Alkaline Phosphatase 70 IU/L (35-105); Anion Gap 12.6 (5-19); Aspartate Amino Transferase 18 U/L (0-32); Blood Urea Nitrogen 23 mg/dL (8-23); Calcium 8.2 mg/dL (8.5-10.5); Carbon Dioxide 21 mmol/L (22-29); Chloride 107 mmol/L (98-107); Creatinine Clr Calc Pharmacy 57.1728; Globulin 1.9 g/dL (1.3-4.6); Glucose 203 mg/dL (65-115); Osmolality Calculated 293 mOsm/kg (285-295); Potassium 3.6 mmol/L (3.5-5.1); Sodium 137 mmol/L (136-145); Total Bilirubin 0.4 mg/dL (0.15-1.2); Total Protein 4.9 g/dL (6.6-8.7)
[2021-11-11 07:29] LABS: Glucose Point of Care 175 mg/dL (70-110)
[2021-11-11 07:52] LABS: Glucose Point of Care 206 mg/dL (70-110)
[2021-11-11] MEDS: citalopram 20 mg Tablet 10 MG PO (08:09)
[2021-11-11] MEDS: apixaban 5 mg Tablet 2.5 MG PO (08:10)
[2021-11-11] MEDS: pantoprazole DR 40 mg Tablet PO (08:10)
[2021-11-11] MEDS: docusate sodium 100 mg Capsule PO (08:10)
[2021-11-11] MEDS: insulin lispro 100 unit/1 mL SUBCUT ×2 (08:37→12:33)
--- NOTE | 2021-11-11 08:45 | PC.NURSE ---
Patient up to the chair this am for breakfast with one assist. Patient tolerated transfer well, family at bedside. Patient noted to be A&Ox4. Patient noted to be have a productive cough and clear lung sounds to accusation on RA. Mrs. Dotson denies pain at this time and agreed to work with physical therapy after breakfast.
--- NOTE | 2021-11-11 11:20 | P.DS_ITS ---
Discharge Providers Date of Admission: 11/07/21 16:52 Date of Discharge: November 11, 2021 Attending Provider at Admission: Maciel Riley MD Attending Provider at Discharge: Jaskaran Aggarwal MD Primary Care Provider: Anette Velazquez MD Diagnoses at Discharge Discharge Diagnosis (1) Diabetes with ketoacidosis: Status: Acute (2) High anion gap metabolic acidosis: Status: Acute (3) UTI (urinary tract infection): Status: Acute (4) Fall: Status: Acute (5) Vomiting: Status: Acute (6) Atrial fibrillation, chronic: Status: Acute (7) Essential hypertension: Status: Acute (8) Lower extremity deep venous thrombosis: Status: Acute Reason for Visit Reason for Visit: WEAKNESS; N/V Hospital Course Hospital Course 81-year-old female with past medical history of, chronic atrial fibrillation, on Eliquis, coronary artery disease, diabetes, hypertension, was brought in with chief complaint of recurrent vomiting, going on for the last few days. During the hospital stay she was managed for DKA UTI,Hypernatremia, she was kept on DKA protocol, later transitioned to basal bolus insulin once anion gap closed. CT head without contrast: No acute intracranial pathology, US gall bladder?:? Cholelithiasis. Mild gallbladder wall thickening. No pericholecystic fluid. Sonographic Méndez's sign is negative per report from the ultrasound ,techn ologist. Possible cholecystitis cannot be ruled out however. Recommend clinical correlation. Mild hepatomegaly and mild fatty infiltration of the liver. CT abdomen pelvis wo con:Cholelithiasis . 2D echo: Poor quality echo: No obvious R WMA, LVEF : 55-60%, mild MR. Follow blood culture: NTD Urine culture: Looks like was not done. MRSA PCR: Negative Urine Legionella antigen negative , Urine bacterial antigen panel: Negative , HbA1c:8.9. She was on broad-spectrum antibiotics, IV fluids. She was also managed for A. fib with RVR, she was initially kept on beta-blockers, but later it has to be discontinued, as she was not to slow ventricular response, possibly secondary to uptitrated dose of metoprolol, heart rate dipped into the 30s at night, Possibility of underlying tachybradycardia syndrome, or possible sick sinus syndrome, cannot be conclusively ruled out, metoprolol has been kept on hold on discharge, heart rate is currently improving, she has been told to monitor the heart rate, as long as it stays in the 80s to 90s, she will continue to hold metoprolol, If the heart rate starts going into 100s, she can take metoprolol and will call the heart care Center, for further dose adjustment, she is also being discharged on event monitor. She was also managed for HIEU, serum creatinine has normalized, for now we will hold torsemide for a week, and then it can be resumed. Overall patient has responded well to above medical management, she is significantly weak, and at high risk of fall, she was offered [facility] for rehab, family wants to take her home, efforts are being made for home physical therapy. Overall she has done well to above medical management and is being discharged home in stable condition. She will continue to follow cardiology as outpatient. Physical Exam Const: COMMON NORMALS: patient oriented x3 HENMT: COMMON NORMALS: normocephalic and atraumatic HEAD & SCALP: normocephalic and atraumatic Resp: COMMON NORMALS: normal respiratory effort, No retractions, No use of accessory muscles and clear to auscultation bilaterally EFFORT & INSPECTION: Yes symmetric chest movement AUSCULTATION: clear to auscultation bilaterally Cardio: COMMON NORMALS: regular rate, regular rhythm, S1 normal heart sound present, S2 normal heart sound present, No gallops present (Cardio), No murmurs present (Cardio), No rub (Cardio) and Peripheral pulses 2+ throughout RATE: regular rate RHYTHM: regular rhythm HEART SOUNDS: S1 normal heart sound present and S2 normal heart sound present PERIPHERAL PULSES: Peripheral pulses 2+ throughout OTHER: Irregularly irregular rhythm , S1-S2 variable intensity , ejection systolic murmur in mitral area GI: COMMON NORMALS: Normal to inspection, nondistended, normoactive bowel sounds present, Soft to palpation, non-tender, No hepatosplenomegaly present and no masses AUSCULTATION: Yes normoactive bowel sounds PALPATION: Yes Soft to palpation and Yes No hepatosplenomegaly present RECTAL EXAM: deferred Extremity: COMMON NORMALS: no clubbing, cyanosis or edema and no pedal edema Neuro: COMMON NORMALS: patient oriented x3 Urinary Catheter Management: Aguilar: Cath Placed During This Visit: no Reason for Continuing Indwelling Catheter: Accurate Measurement of Urinary Output in Critically Ill Patients Discharge Data Studies Completed and Pending Completed Studies During Hospitalization Category Date Time Status CT abdomen pelvis wo con [id number] Urgent Cat Scan 11/07/21 11:[address] head wo con* [id number] Urgent Cat Scan 11/07/21 17:30 Completed CV. echo complete* [id number] Routine Ultrasound 11/08/21 19:08 Completed US gall bladder [id number] Urgent Ultrasound 11/07/21 15:42 Completed Pending at discharge Category Date Time Status Blood Culture Stat Lab 11/07/21 17:44 Results Urine Culture Routine Lab 11/07/21 16:14 Ordered Radiology Impressions Abdomen/Pelvis CT 11/07/21 11:54 IMPRESSION: 1. Multivessel atherosclerotic disease which involves the coronary arteries. 2. There is fluid in the distal esophagus consistent with reflux. 3. Cholelithiasis. Gallbladder Ultrasound 11/07/21 15:42 IMPRESSION: 1. Cholelithiasis. Mild gallbladder wall thickening. No pericholecystic fluid. Sonographic Méndez's sign is negative per report from the fibre technologist. Possible cholecystitis cannot be ruled out however. Recommend clinical correlation. 2. Mild hepatomegaly and mild fatty infiltration of the liver. 3. Incidental/nonacute findings are listed in the report. Head CT 11/07/21 17:30 IMPRESSION: 1. No acute abnormality of the brain. 2. Stable mild atrophy of the brain parenchyma. 3. Stable mild chronic white matter microangiopathic change. 4. 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 5. Incidental/nonacute findings are listed in the report. Laboratory Results WBC 6.6 10^3/uL (4.0-10.0) 11/11/21 03:13 RBC 4.86 10^6/uL (4.1-5.3) 11/11/21 03:13 Hgb 13.5 g/dL (11.5-15.3) 11/11/21 03:13 Hct 42.8 % (37.0-47.0) 11/11/21 03:13 MCV 88.1 fl (81-99) 11/11/21 03:13 MCH 27.8 pg (28.0-34.0) L 11/11/21 03:13 MCHC 31.5 g/dL (30.0-36.0) 11/11/21 03:13 RDW 15.4 % (12.1-15.1) H 11/11/21 03:13 Plt Count 114 10^3/cmm (130-400) L 11/11/21 03:13 MPV 9.5 fL (7.4-10.4) 11/11/21 03:13 Neut % (Auto) 64.2 % 11/11/21 03:13 Lymph % (Auto) 23.7 % 11/11/21 03:13 [place] % (Auto) 9.0 % 11/11/21 03:13 Eos % (Auto) 1.5 % 11/11/21 03:13 Baso % (Auto) 0.8 % 11/11/21 03:13 Neut # (Auto) 4.22 10^3/uL (1.8-7.7) 11/11/21 03:13 Lymph # (Auto) 1.6 10^3/uL (0.8-4.8) 11/11/21 03:13 [place] # (Auto) 0.6 10^3/uL (0.2-0.9) 11/11/21 03:13 Eos # (Auto) 0.1 10^3/uL (0.0-0.8) 11/11/21 03:13 Baso # (Auto) 0.1 10^3/uL (0.0-0.1) 11/11/21 03:13 Nucleated RBC % (auto) 0 % 11/11/21 03:13 Nucleated RBCs # 0.0 /100WBC 11/11/21 03:13 Specimen Type Arterial 11/07/21 17:25 Sample Site Brachial, left 11/07/21 17:25 ABG pH 7.21 (7.35-7.45) L 11/07/21 17:25 ABG pCO2 17.2 mmHg (35-45) L* 11/07/21 17:25 ABG pO2 112.0 mmHg (80.0-100.0) H 11/07/21 17:25 ABG HCO3 6.9 mmol/L (22-26) L 11/07/21 17:25 ABG O2 Saturation 98.1 11/07/21 17:25 ABG Base Excess -18.3 mmol/L (-2.0-2.0) L 11/07/21 17:25 Markel Test N/a 11/07/21 17:25 A-a O2 Gradient 1.8 mmHg (5-10) L 11/07/21 17:25 Hematocrit 47.7 % (37-47) H 11/07/21 17:25 Hgb O2 Saturation 96.1 % (95-100) 11/07/21 17:25 Carboxyhemoglobin 1.0 %THgb (0.4-20.1) 11/07/21 17:25 Methemoglobin 1.0 % (0.4-1.5) 11/07/21 17:25 Total Hemoglobin 15.6 g/dL (12-16) 11/07/21 17:25 Sodium 143.0 mmol/L (131-143) 11/07/21 17:25 Potassium 4.2 mmol/L (3.5-5.0) 11/07/21 17:25 Glucose 415.0 mg/dL (70-115) H 11/07/21 17:25 Ionized Calcium 1.3 mmol/L (1.1-1.4) 11/07/21 17:25 O2 Delivery Device Room air 11/07/21 17:25 FiO2 21.0 % 11/07/21 17:25 Molding Associate ID glc 11/07/21 17:25 Sodium 137 mmol/L (136-145) 11/11/21 03:13 Potassium 3.6 mmol/L (3.5-5.1) 11/11/21 03:13 Chloride 107 mmol/L (98-107) 11/11/21 03:13 Carbon Dioxide 21 mmol/L (22-29) L 11/11/21 03:13 Anion Gap 12.6 (5-19) 11/11/21 03:13 BUN 23 mg/dL (8-23) 11/11/21 03:13 Creatinine 0.7 mg/dL (0.5-0.9) 11/11/21 03:13 GFR Calculation Not Reportable 11/11/21 03:13 Glucose 203 mg/dL (65-115) H 11/11/21 03:13 POC Glucose 206 mg/dL (70-110) H 11/11/21 07:47 Estimat Average Glucose 209 11/08/21 04:17 Hemoglobin A1c 8.9 % (4.0-6.0) H 11/08/21 04:17 Calculated Osmolality 293 mOsm/kg (285-295) 11/11/21 03:13 Calcium 8.2 mg/dL (8.5-10.5) L 11/11/21 03:13 Phosphorus 5.1 mg/dL (2.5-4.5) H 11/07/21 18:49 Magnesium 2.8 mg/dL (1.7-2.3) H 11/07/21 18:49 Iron 70 ug/dL (37-145) 11/07/21 13:50 TIBC 251 mcg/dl 11/07/21 13:50 % Saturation 27.8 % (20-50) 11/07/21 13:50 Unsat Iron Binding 181 ug/dL (112-347) 11/07/21 13:50 Total Bilirubin 0.4 mg/dL (0.15-1.2) 11/11/21 03:13 AST 18 U/L (0-32) 11/11/21 03:13 ALT 15 U/L (0-33) 11/11/21 03:13 Alkaline Phosphatase 70 IU/L (35-105) 11/11/21 03:13 Troponin T Gen 5 ng/L Cancelled 11/07/21 12:30 Troponin T Baseline 18 ng/L (0-10) H 11/07/21 12:30 Troponin T 120 Minute 16.85 ng/L (0-10) H 11/07/21 13:50 Delta Troponin T -1.15 ABS# (0-10) L 11/07/21 13:50 Troponin T Hi Sens 6Hr 17.55 ng/L (0-10) H 11/07/21 18:49 Troponin T Hi Sens 6Hr Delta -0.45 ng/L (0-12) L 11/07/21 18:49 NT-Pro-B Natriuret Pep 684 pg/mL (0-450) H 11/07/21 13:50 Total Protein 4.9 g/dL (6.6-8.7) L 11/11/21 03:13 Albumin 3.0 g/dL (3.5-5.2) L 11/11/21 03:13 Globulin 1.9 g/dL (1.3-4.6) 11/11/21 03:13 Triglycerides Cancelled 11/08/21 04:17 Cholesterol Cancelled 11/08/21 04:17 LDL Cholesterol, Calc Cancelled 11/08/21 04:17 Total VLDL Cholesterol Cancelled 11/08/21 04:17 HDL Cholesterol Cancelled 11/08/21 04:17 Cholesterol/HDL Ratio Cancelled 11/08/21 04:17 Vitamin B12 423 pg/mL (232-1245) 11/07/21 13:50 Folate > 20.0 ng/mL (4.8-37.3) 11/07/21 18:49 Procalcitonin 0.08 ng/mL (0-0.5) 11/07/21 13:50 TSH 0.47 uIU/mL (0.27-4.20) 11/07/21 18:49 Urine Color Yellow (Yellow) 11/07/21 13:50 Urine Appearance Hazy (CLEAR) A 11/07/21 13:50 Urine pH 5 (5-7) 11/07/21 13:50 Ur Specific [place] 1.015 (1.005-1.030) 11/07/21 13:50 Urine Protein Neg (Negative) 11/07/21 13:50 Urine Glucose (UA) 4+ (Normal) H 11/07/21 13:50 Urine Ketones 2+ (Negative) H 11/07/21 13:50 Urine Blood Neg (Negative) 11/07/21 13:50 Urine Nitrate Negative (Negative) 11/07/21 13:50 Urine Bilirubin Neg (Negative) 11/07/21 13:50 Urine Urobilinogen Norm mg/dL (Negative) 11/07/21 13:50 Ur Leukocyte Esterase 1+ (Negative) H 11/07/21 13:50 Urine RBC None /hpf (0-2) 11/07/21 13:50 Urine WBC 25-40 /hpf (0-5) H 11/07/21 13:50 Ur Squamous Epith Cells 15-25 /hpf (0-5) H 11/07/21 13:50 Amorphous Sediment Not Reportable 11/07/21 13:50 Urine Bacteria 2+ /hpf (NONE) H 11/07/21 13:50 Urine Yeast Trace /hpf 11/07/21 13:50 Ur Random Sodium 21 mmol/L 11/07/21 13:50 Ur Random Potassium 25 mmol/L 11/07/21 13:50 Ur Random Chloride 14 mmol/L 11/07/21 13:50 Serum Ketones Positive (Negative) H 11/07/21 18:49 Influenza Type A Ag Negative (Negative) 11/07/21 18:10 Influenza Type B Ag Negative (Negative) 11/07/21 18:10 SARS-CoV-2 Ag (Rapid) Negative (Negative) 11/07/21 18:10 Vitals Last Vital Signs Temp 98.4 F 11/11/21 08:00 Pulse 94 11/11/21 09:00 Resp 19 H 11/11/21 09:00 BP 137/97 11/11/21 09:00 Pulse Ox 97 11/11/21 08:30 O2 Del Method 11/11/21 04:00 Discharge Plan Discharge Patient Disposition: Home Condition: Stable Prescriptions: Continued metformin 1,000 mg tablet 1,000 mg PO BID Jardiance 25 mg tablet 25 mg PO DAILY Trulicity 1.5 mg/0.5 mL pen injector 1.5 mg SUBCUT .COMPLLEX Rx Instructions: USE DIRECTED SUB-Q ONCE PER WEEK ON MONDAY. ascorbic acid (vitamin C) 500 mg capsule 500 mg PO DAILY Calci-Mix 500 mg calcium (1,250 mg) capsule 500 mg PO DAILY Lantus U-100 Insulin 100 unit/mL solution 40 unit SUBCUT BID (DME) Shoulder immobilizer Qty: 1 0RF Rx Instructions: As directed Eliquis 2.5 mg tablet 2.5 mg PO BID citalopram 10 mg tablet 10 mg PO DAILY (DME) Diabetic shoes with 3 inserts See Rx Instructions .ROUTE .MEDSUPPLY Qty: 1 0RF Rx Instructions: As directed by LYNNE&O multivitamin Tablet 1 tab PO DAILY atorvastatin 20 mg tablet 20 mg PO DAILY cetirizine 10 mg Tablet 10 mg PO DAILY potassium 99 mg Tablet 99 mg PO DAILY neomycin-polymyxin B-dexameth 3.5 mg/g-10,000 unit/g-0.1 % ointment 1 applic ophthalmic (eye) TID Rx Instructions: both eyes Held torsemide 20 mg tablet 20 mg PO DAILY Hold Instructions: Resume on 11/18/21. metoprolol tartrate 50 mg Tablet 50 mg PO BID Hold Instructions: Resume on 11/25/21. Discharge Orders: Discharge Order (Routine); Ordered 11/11/21 Ordered By: Jaskaran Aggarwal Other Ambulatory Orders: MCT/Event Monitor 21 Days (Routine) Timeframe: 3 Weeks Facility: [facility] - Location: Radiology Ordered By: Jaskaran Aggarwal Referrals: Anette Velazquez MD [Primary Care Provider] - 1 week Ronnie Willis M.D [Physician] - 2 weeks Patient Instructions: A-fib (Atrial Fibrillation) (DC), Urinary Tract Infection in Women (DC), Diabetic Ketoacidosis (DC), Foot Care for People with Diabetes (DC), Fall Prevention for Older Adults (DC), Basic Carbohydrate Counting (DC), Sepsis (DC), Opioid Safety Discharge Attestations Time Spent in Discharge Care*: greater than 30 min Quality Metrics Clinical Quality Measures [ No reported AMI, CVA or VTE this stay] Coding Level of Care Code Acute Chg FW DC note Diagnoses Diabetes with ketoacidosis E11.10 High anion gap metabolic acidosis E87.2 UTI (urinary tract infection) N39.0 Fall W19.XXXA Vomiting R11.10 Atrial fibrillation, chronic I48.20 Essential hypertension I10 Lower extremity deep venous thrombosis I82.409
[2021-11-11 11:50] LABS: Glucose Point of Care 345 mg/dL (70-110)
== END 2021-11-11 14:50 | disposition home health service (06) | DRG 638 ==
LOC: ER 16:50 → ICU 17:33
PROVIDERS: Internal Medicine; Admitting Provider Student in an Organized Health Care Education/Training Program; Emergency Provider Emergency Medicine; PCP Internal Medicine; Visit Provider Internal Medicine
DX: E11.10 Type 2 diabetes mellitus with ketoacidosis without coma (principal); E87.0 Hyperosmolality and hypernatremia; I48.20 Chronic atrial fibrillation, unspecified; N39.0 Urinary tract infection, site not specified; E11.40 Type 2 diabetes mellitus with diabetic neuropathy, unspecified; E11.51 Type 2 diabetes mellitus with diabetic peripheral angiopathy without gangrene; Z79.4 Long term (current) use of insulin; Z86.718 Personal history of other venous thrombosis and embolism; I10 Essential (primary) hypertension; E86.0 Dehydration; Z91.14 Patient's other noncompliance with medication regimen; I25.2 Old myocardial infarction; I25.10 Atherosclerotic heart disease of native coronary artery without angina pectoris; Z95.5 Presence of coronary angioplasty implant and graft; I34.0 Nonrheumatic mitral (valve) insufficiency; W19.XXXA Unspecified fall, initial encounter; I49.5 Sick sinus syndrome; Z79.84 Long term (current) use of oral hypoglycemic drugs
CPT/HCPCS: 36415; 36416; 36600; 70450; 74176; 76705; 80048; 80051; 80053; 81001; 82009; 82330; 82436; 82607; 82746; 82805; 82962; 83036; 83540; 83550; 83735; 83880; 84100; 84133; 84145; 84300; 84443; 84484; 85025; 86403; 87040; 87426; 87449; 87641; 87804; 93005; 93306; 94664; 96365; 96367; 96372; 96375; 97110; 97116; 97162; 97530; 99291; C9113; J0360; J0690; J1815; J2405; J2543; J3480; J7030; J7050

== ENCOUNTER 2021-11-25 15:53 | Outpatient (CLI) | payer MEDICARE, MEDICAID, SELFPAY ==
--- NOTE | 2021-11-25 16:11 | XRR_ITS ---
PROCEDURE INFORMATION: Exam: XR Right Ankle Exam date and time: 11/25/2021 4:11 PM Age: 81 years old Clinical indication: Pain and injury or trauma; Fall; Sprain or strain; Ankle; Right; Injury date: 11/25/21; Prior surgery; Additional info: Ankle pain, right, history of fall TECHNIQUE: Imaging protocol: Radiologic exam of the Right ankle. Views: 3 or more views. COMPARISON: CR Tibia and Fibula RIGHT [id number] 10/04/2016 10:28 AM FINDINGS: Bones/joints: Status post ORIF of distal fibula and medial malleolus. Hardware appears intact. Large plantar calcaneal spur noted. No acute fracture or other acute osseous abnormality. No joint narrowing, dislocation, or effusion noted. Soft tissues: Soft tissue swelling noted. Vasculature: There are atherosclerotic calcifications demonstrated. XR/XR ankle RT min 3V* [id number] IMPRESSION: 1. Status post ORIF of distal fibula and medial malleolus. Hardware appears intact. 2. Soft tissue swelling noted. 3. No acute fracture demonstrated.
== END 2021-11-25 15:54 | disposition home or self-care (01) ==
LOC: RAD 15:56
PROVIDERS: PCP Internal Medicine; Visit Provider Nurse Practitioner Family
DX: Z91.81 History of falling (principal); M25.571 Pain in right ankle and joints of right foot; M79.89 Other specified soft tissue disorders
CPT/HCPCS: 73610

== ENCOUNTER → 2021-11-29 10:52 | Outpatient (BNVA) | payer MEDICARE, MEDICAID, SELFPAY | PROVIDERS: PCP Internal Medicine; Visit Provider Internal Medicine Cardiovascular Disease | DX: I25.10 Atherosclerotic heart disease of native coronary artery without angina pectoris (principal); I10 Essential (primary) hypertension; I73.9 Peripheral vascular disease, unspecified; Z79.01 Long term (current) use of anticoagulants; Z78.9 Other specified health status | CPT/HCPCS: 99214 ==

== ENCOUNTER 2022-02-04 12:02 | Outpatient (CLI) | payer MEDICARE, MEDICAID, SELFPAY ==
--- NOTE | 2022-02-04 | XR_ITS ---
WS: [id number] Exam: XR chest 2V* [id number] Date/Time of Exam: 02/04/2022 12:30 PM Reason For Exam: DYSPNEA Comparison 02/01/2021. The lungs are fully inflated and clear. Heart size is normal. The mediastinum is normal in contour. C alcification of the mitral valve annulus. Old right rib fractures noted. No pleural effusions. Exagge rated thoracic kyphosis with spondylosis and osteopenia of the thoracic spine. Rounded calcifications in the right abdomen most likely represent the patient's known gallstones. XR/XR chest 2V* [id number] IMPRESSION: 1. No acute cardiopulmonary finding. No change.
== END 2022-02-04 12:03 | disposition home or self-care (01) ==
LOC: RAD 12:13
PROVIDERS: PCP Internal Medicine; Visit Provider Nurse Practitioner Family
DX: R06.00 Dyspnea, unspecified (principal)
CPT/HCPCS: 71046

== ENCOUNTER 2022-03-09 22:19 | Emergency (ER) | payer MEDICARE, MEDICAID, SELFPAY ==
[2022-03-09 22:25] VITALS: BP 168/78; PULSE 76; RESP 18; TEMP 36.4; O2SAT 96
--- NOTE | 2022-03-09 22:32 | CTR_ITS ---
PROCEDURE INFORMATION: Exam: CT Head Without Contrast Exam date and time: 03/09/2022 10:40 PM Age: 81 years old Clinical indication: Injury or trauma; Fall; Blunt trauma (contusions or hematomas); Patient HX: Patient fell backwards onto floor striking head at home. C/O head and neck pain. On eliquis. ; Additional info: Head injury TECHNIQUE: Imaging protocol: Computed tomography of the head without contrast. Radiation optimization: All CT scans at this facility use at least one of these dose optimization techniques: automated exposure control; mA and/or kV adjustment per patient size (includes targeted exams where dose is matched to clinical indication); or iterative reconstruction. COMPARISON: CT head wo con* [id number] 11/07/2021 6:17 PM RADIATION DOSE METRICS: Total DLP (mGy-cm): 1137.58 FINDINGS: Brain: No evidence of acute intracranial hemorrhage. The pierre-white matter differentiation is maintained. Periventricular and subcortical hypoattenuation are nonspecific but likely the sequela of chronic small vessel ischemic disease. No significant mass effect or midline shift. Cerebral ventricles: Mild cerebral and cerebellar volume loss and ex vacuo dilation of the ventricles. Paranasal sinuses: Mild paranasal sinus disease. No air-fluid levels. The nasal septum is mildly deviated to the right. Mastoid air cells: The imaged mastoid air cells appear grossly clear. Bones/joints: Unremarkable. No acute fracture. Soft tissues: Unremarkable. Vasculature: There are atherosclerotic calcifications of the carotid siphons and the V4 segments of the vertebral arteries. CT/CT head wo con* [id number] IMPRESSION: No evidence of acute intracranial hemorrhage, mass effect, or midline shift.
--- NOTE | 2022-03-09 22:36 | CTR_ITS ---
PROCEDURE INFORMATION: Exam: CT Cervical Spine Without Contrast Exam date and time: 03/09/2022 10:44 PM Age: 81 years old Clinical indication: Injury or trauma; Fall; Blunt trauma; Patient HX: Patient fell backwards onto floor striking head at home. C/O head and neck pain. On eliquis. ; Additional info: Fall injury TECHNIQUE: Imaging protocol: Computed tomography of the cervical spine without contrast. Radiation optimization: All CT scans at this facility use at least one of these dose optimization techniques: automated exposure control; mA and/or kV adjustment per patient size (includes targeted exams where dose is matched to clinical indication); or iterative reconstruction. COMPARISON: CT head wo con* [id number] 03/09/2022 10:40 PM RADIATION DOSE METRICS: Total DLP (mGy-cm): 137.67 FINDINGS: Bones/joints: Minimal retrolisthesis of C3 on C4 and C4 on C5. Trace anterolisthesis of C6 on C7. The alignment is otherwise maintained. The bones are osteopenic. Chronic appearing compression deformity of the C7 vertebral body with loss of less than 30% of the vertebral body height. No retropulsion. The vertebral body heights are otherwise maintained. No evidence of acute fractures. Other than osteoarthritis of the middle atlantoaxial joint, the craniocervical junction appears grossly maintained. Mild facet joint arthropathy and uncovertebral hypertrophy with corresponding neural foraminal stenosis, worse at C4-C5. Lungs: Lung apices are normal. Thyroid: There is a 1.8 x 1.5 cm hypodense nodule in the left thyroid lobe with associated mild left thyromegaly. Soft tissues: Unremarkable. CT/CT cervical spin wo con* [id number] IMPRESSION: 1. No evidence of acute fracture or traumatic malalignment in the cervical spine. 2. There is a 1.8 x 1.5 cm hypodense nodule in the left thyroid lobe. A nonemergent thyroid ultrasound is recommended for further evaluation. COMMENTS: Consistent with the [employer]'s Incidental Findings Committee white paper (J Am Nicholas Radiol 2015): In patients aged 35 years and older with an incidental thyroid nodule equal to or greater than 1.[address], MRI or extrathyroidal US, further evaluation with dedicated thyroid US is recommended for patients with normal life expectancy and without comorbidities. For smaller nodules without suspicious features, no further evaluation or follow up is recommended.
--- NOTE | 2022-03-09 22:36 | XRR_ITS ---
PROCEDURE INFORMATION: Exam: XR Left Ribs with PA Chest Exam date and time: 03/09/2022 10:52 PM Age: 81 years old Clinical indication: Chest wall pain; Left; Additional info: Fall injury TECHNIQUE: Imaging protocol: Radiologic exam of the Left ribs with PA chest. Views: 3 views COMPARISON: CR XR chest 2V* [id number] 02/04/2022 12:28 PM FINDINGS: Lungs: Unremarkable. No consolidation. Pleural spaces: Unremarkable. No pleural effusion. No pneumothorax. Heart/Mediastinum: Cardiomegaly. Bones/joints: Left 7th posterior rib mildly displaced fracture. Chronic humeral healed fracture. XR/XR ribs LT mn 3V w CXR1V [id number] IMPRESSION: 1. Left 7th posterior rib mildly displaced fracture. 2. Chronic humeral healed fracture. 3. Cardiomegaly.
--- NOTE | 2022-03-09 22:37 | W.ED.FALL ---
HPI - Fall General: Chief Complaint: Fall Stated Complaint: Fell Time Seen by Provider: 03/09/22 22:28 History of Present Illness: 81-year-old female comes in today for complaints of injury sustained during a fall. Patient was bending over to package pick up some glasses that she had dropped and she lost her balance causing her to fall forward and hit her head and land onto her left ribs. Patient has been able to ambulate post fall without difficulty. Patient does admit that she does not walk well but usually uses a walker for ambulation. Patient appears nontoxic. Patient appears in mild to no pain. Associated symptoms-after fall: Reports chest pain (Left rib pain) Review of Systems Const: Denies: fever(s) ENMT: Denies: throat pain Card: Reports: chest pain (Left rib pain) Resp: Reports: pain on inspiration Musc: Reports: other (Left rib pain) [facility] ED PFSH: Medical History (Updated 03/09/22 @ 23:32 by RAD Castle) ALISTAIR inhibitor intolerance Acute [place], inferior wall Atrial fibrillation, chronic CAD (coronary artery disease) Cholelithiases Diabetes with ketoacidosis Diabetic neuropathy associated with diabetes mellitus due to underlying condition Essential hypertension Fall Fracture of greater trochanter of right femur Fracture of humerus, left, closed High anion gap metabolic acidosis Lower extremity deep venous thrombosis Moderate mitral regurgitation Onychodystrophy Peripheral vascular disease Pes planus of both feet UTI (urinary tract infection) Vomiting Warfarin anticoagulation Surgical History Coronary angioplasty status PCI to RCA?2016 Family History Mother Diabetes Denies family history of CAD (coronary artery disease) Clotting disorder Dementia Hyperlipidemia Psychiatric illness Chronic kidney disease (CKD) Suicide Anesthesia complication Bleeding disorder Family history of premature coronary artery disease Lung disease Cancer Hypertension Stroke Social History Smoking and tobacco status: never smoked Second hand smoke exposure: Yes Alcohol intake: never Physical Exam Const: COMMON NORMALS: alert HENMT: COMMON NORMALS: atraumatic HEAD & SCALP: atraumatic Neck/C-Spine: COMMON NORMALS: full ROM CERVICAL SPINE: No Cervical spine tenderness Chest: CHEST: Yes tenderness (Left rib tenderness, no crepitus or subcu emphysema) Resp: COMMON NORMALS: normal respiratory effort and clear to auscultation bilaterally AUSCULTATION: clear to auscultation bilaterally GI: COMMON NORMALS: non-tender Extremity: COMMON NORMALS: normal to inspection and full ROM Neuro: SENSORIUM/ORIENTATION: Yes alert Skin: COMMON NORMALS: turgor normal GENERAL SKIN EXAM: turgor normal Course Vital Signs: Vital signs: Vital Signs Temperature 97.6 F 03/09/22 22:25 Pulse Rate 76 03/09/22 22:25 Respiratory Rate 18 03/09/22 22:25 Blood Pressure 168/78 03/09/22 22:25 Pulse Oximetry 96 03/09/22 22:25 Oxygen Delivery Me thod 03/09/22 22:25 MDM - Fall Medical Decision Making Patient comes in for evaluation of injury sustained from a fall. Patient reports left rib pain. On exam patient has palpable tenderness to the left rib without any crepitus or subcu emphysema. Vital signs were normal except for some mild elevation of blood pressure with 168 systolic. Skin was warm and dry. Differential diagnosis includes fracture, contusion, pneumothorax, intracranial bleeding. CT of the head noted no fracture or intracranial bleeding. CT of the cervical spine was negative for fracture. X-rays of the left ribs noted a fracture of the seventh rib with minimal displacement, and no other signs of lung abnormality. Reviewed exam with patient with recommendations for treatment and follow-up. Patient reported understanding agreed to plan. Lab Data Radiology Impressions Head CT 03/09/22 22:32 IMPRESSION: No evidence of acute intracranial hemorrhage, mass effect, or midline shift. Cervical Spine CT 03/09/22 22:36 IMPRESSION: 1. No evidence of acute fracture or traumatic malalignment in the cervical spine. 2. There is a 1.8 x 1.5 cm hypodense nodule in the left thyroid lobe. A nonemergent thyroid ultrasound is recommended for further evaluation. COMMENTS: Consistent with the [employer]'s Incidental Findings Committee white paper (J Am Nicholas Radiol 2015): In patients aged 35 years and older with an incidental thyroid nodule equal to or greater than 1.[address], MRI or extrathyroidal US, further evaluation with dedicated thyroid US is recommended for patients with normal life expectancy and without comorbidities. For smaller nodules without suspicious features, no further evaluation or follow up is recommended. Ribs X-Ray 03/09/22 22:36 IMPRESSION: 1. Left 7th posterior rib mildly displaced fracture. 2. Chronic humeral healed fracture. 3. Cardiomegaly. Discharge Plan Discharge Patient Disposition: Home Clinical Impression: Left rib fracture Qualifiers: Encounter type: initial encounter Rib fracture type: single rib Fracture type: closed Qualified Code(s): S22.32XA - Fracture of one rib, left side, initial encounter for closed fracture Condition: Stable Prescriptions: New hydrocodone-acetaminophen 5-325 mg tablet 1 tab PO Q8H PRN (Reason: pain (scale score 7-10)) Qty: 14 0RF No Action metformin 1,000 mg tablet 1,000 mg PO BID Jardiance 25 mg tablet 25 mg PO DAILY Trulicity 1.5 mg/0.5 mL pen injector 1.5 mg SUBCUT .COMPLLEX Rx Instructions: USE DIRECTED SUB-Q ONCE PER WEEK ON MONDAY. ascorbic acid (vitamin C) 500 mg capsule 500 mg PO DAILY Calci-Mix 500 mg calcium (1,250 mg) capsule 500 mg PO DAILY Lantus U-100 Insulin 100 unit/mL solution 40 unit SUBCUT BID Eliquis 2.5 mg tablet 2.5 mg PO BID citalopram 10 mg tablet 10 mg PO DAILY (DME) Diabetic shoes with 3 inserts See Rx Instructions .ROUTE .MEDSUPPLY Qty: 1 0RF Rx Instructions: As directed by [facility] metoprolol tartrate 25 mg tablet 12.5 mg PO BID torsemide 20 mg tablet 20 mg PO DAILY Hold Instructions: Resume on 11/18/21. multivitamin Tablet 1 tab PO DAILY atorvastatin 20 mg tablet 20 mg PO DAILY potassium 99 mg Tablet 99 mg PO DAILY neomycin-polymyxin B-dexameth 3.5 mg/g-10,000 unit/g-0.1 % ointment 1 applic ophthalmic (eye) TID Rx Instructions: both eyes Discharge Orders: Discharge ED (Routine); Ordered 03/09/22 Ordered By: Douglas Myers Referrals: Anette Velazquez MD [Primary Care Provider] - Discharge Diet: Usual diet Discharge Activity: Increase activity as tolerated Patient Instructions: Rib Fracture (ED) Activity Restrictions/Additional Instructions: Activity as tolerated. Use a pillow to splint the ribs when taking a deep breath and coughing. Drink plenty of water with medication. Use acetaminophen to help control pain. Use hydrocodone for severe pain. Follow-up with primary care for further instruction. Return to ED for new concerns or worsening symptoms such as high fever, increased shortness of breath, or uncontrolled pain. Coding Level of Care Code ED Electric Deicer Inspector for Jared Vallecillo Exam Comprehensive
[2022-03-09] MEDS: HYDROcodone-acetaminophen 5-325 mg Tablet 1 TAB PO (23:23)
== END 2022-03-10 00:13 | disposition home or self-care (01) ==
PROVIDERS: Emergency Provider Nurse Practitioner Family; PCP Internal Medicine
DX: S22.32XA Fracture of one rib, left side, initial encounter for closed fracture (principal); Z79.01 Long term (current) use of anticoagulants; Z79.85 Long-term (current) use of injectable non-insulin antidiabetic drugs; Z79.84 Long term (current) use of oral hypoglycemic drugs; Z79.4 Long term (current) use of insulin; Z77.22 Contact with and (suspected) exposure to environmental tobacco smoke (acute) (chronic); I25.2 Old myocardial infarction; I25.10 Atherosclerotic heart disease of native coronary artery without angina pectoris; E11.9 Type 2 diabetes mellitus without complications; I10 Essential (primary) hypertension; Z98.61 Coronary angioplasty status; W01.0XXA Fall on same level from slipping, tripping and stumbling without subsequent striking against object, initial encounter
CPT/HCPCS: 70450; 71101; 72125; 99284

== ENCOUNTER → 2022-07-05 12:59 | Outpatient (BNVA) | payer MEDICARE, MEDICAID, SELFPAY | PROVIDERS: PCP Internal Medicine; Visit Provider Specialist | DX: I48.20 Chronic atrial fibrillation, unspecified (principal); I25.10 Atherosclerotic heart disease of native coronary artery without angina pectoris; Z79.01 Long term (current) use of anticoagulants; I10 Essential (primary) hypertension | CPT/HCPCS: 99214 ==

== ENCOUNTER → 2023-01-17 08:06 | Outpatient (BNVA) | payer MEDICARE, MEDICAID, SELFPAY | PROVIDERS: PCP Internal Medicine; Visit Provider Podiatrist Foot & Ankle Surgery | DX: E08.42 Diabetes mellitus due to underlying condition with diabetic polyneuropathy (principal); L60.3 Nail dystrophy; I73.9 Peripheral vascular disease, unspecified; M21.41 Flat foot [pes planus] (acquired), right foot; M21.42 Flat foot [pes planus] (acquired), left foot; Z79.84 Long term (current) use of oral hypoglycemic drugs; Z79.4 Long term (current) use of insulin | CPT/HCPCS: 11721 ==

== ENCOUNTER 2023-03-29 08:08 | Outpatient (CLI) | payer MEDICARE, MEDICAID, SELFPAY ==
--- NOTE | 2023-03-29 08:14 | MR_ITS ---
WS: [id number] MRI BRAIN WITHOUT CONTRAST HISTORY: SLURRED SPEECH COMPARISON: 09/12/2016 TECHNIQUE: Diffusion imaging, multiplanar T1, T2 and FLAIR imaging obtained. No evidence for acute infarct or hemorrhage. Daniels-white matter differentiation is normal. Moderate volume loss is symmetric. Moderate small vessel ischemic type changes. No acute hemorrhage. No acute infarct. Ventricles and extra-axial spaces are normal. No inferior displacement of cerebellar tonsils. The sella turcica and pituitary gland are unremarkabl e. Dural venous sinuses and barrow of Christian demonstrate no abnormality on this unenhanced studies. Paranasal sinuses: Clear. Mastoid air cells: Normal. Calvarium and scalp: Intact. IMPRESSION: 1. No acute infarct. No hemorrhage. 2. Moderate volume loss and moderate small vessel ischemic changes throughout the white matter. Mild progression of small vessel ischemic disease since 2017.
== END 2023-03-29 08:09 | disposition home or self-care (01) ==
LOC: RAD 08:08
PROVIDERS: PCP Internal Medicine; Visit Provider Internal Medicine
DX: I67.82 Cerebral ischemia (principal); R47.81 Slurred speech
CPT/HCPCS: 70551

== ENCOUNTER → 2023-04-19 09:03 | Outpatient (BNVA) | payer MEDICARE, MEDICAID, SELFPAY | PROVIDERS: PCP Internal Medicine; Visit Provider Podiatrist Foot & Ankle Surgery | DX: I73.9 Peripheral vascular disease, unspecified; M21.41 Flat foot [pes planus] (acquired), right foot; M21.42 Flat foot [pes planus] (acquired), left foot; M20.41 Other hammer toe(s) (acquired), right foot; M20.42 Other hammer toe(s) (acquired), left foot; Z79.01 Long term (current) use of anticoagulants; E11.42 Type 2 diabetes mellitus with diabetic polyneuropathy; Z79.4 Long term (current) use of insulin; Z79.84 Long term (current) use of oral hypoglycemic drugs | CPT/HCPCS: 99213 ==

== ENCOUNTER 2023-05-12 07:41 | Emergency (ER) | payer MEDICARE, MEDICAID, SELFPAY ==
[2023-05-12 07:41] VITALS: BP 148/67; PULSE 55; RESP 14; TEMP 36.8; O2SAT 97; BMI 28.3
--- NOTE | 2023-05-12 07:48 | XR_ITS ---
WS: [id number] Left shoulder, 3 views, 05/12/2023 Clinical Data: FALL, PAIN Comparison: Left arm and humerus, 03/15/2021 Findings: There is a new fracture, a comminuted impacted fracture of the left humeral head and neck. There is a n old healed fracture of the proximal third of the left humerus. There is inferior subluxation of the humeral head from a hematoma. There are fractures of the field applications specialist ior lateral aspects of the left seventh and eighth ribs. The left clavicle and scapula are intact. Impression: 1. New fracture of the left humeral head and neck. 2. Fractures of left seventh and eighth ribs. 3. Old fracture of proximal third of left humerus.
--- NOTE | 2023-05-12 07:48 | XR_ITS ---
WS: [id number] Portable chest with left rib detail, 4 views, 05/12/2023 Clinical Data: FALL, PAIN Comparison: Chest with left rib detail, 03/09/2022 Findings: There are left seventh and eighth rib fractures. The seventh rib fracture is old. The eighth rib frac ture may be new. There is a fracture of the anterior aspect of the left 10th rib, of indeterminate a ge. There is a new proximal left humeral head neck fracture. There is an old healed fracture of the p roximal third of the left humerus. There are multiple right rib fractures of indeterminate age, third through eighth ribs. The heart and lungs show no acute change. There is no subcutaneous emphysema or pneumothorax. Impression: 1. New left eighth rib fracture and proximal left humeral fracture. 2. Old left seventh rib fracture and old fracture of proximal third left humerus. 3. Old right third through eighth right rib fractures. 4. Fracture of anterior aspect of left 10th rib of indeterminate age.
--- NOTE | 2023-05-12 07:58 | W.ED.EXTPRO ---
HPI - Extremity Problem General: Chief complaint: Extremity Injury, Upper Stated complaint: fall shoulder pain Time Seen by Provider: 05/12/23 07:51 Source: patient Mode of arrival: EMS History of Present Illness: 83-year-old female presents emergency room after a fall at home. Mechanical ground-level fall in her clothing got caught up as she was getting herself out of bed she fell on her left side complaining of shoulder and left rib pain there is no loss consciousness she did not strike her head no other injuries. She is not on any anticoagulants. She is diabetic she reports she had checked her blood sugar this morning and it was low. MD Complaint: joint pain Onset (ago): minute(s) Pain Consistency: constant Location: left (Shoulder) and upper extremity Quality: sharp Radiation: none Relieving factors: rest Exacerbating factors: range of motion and palpation Associated symptoms: Deny chest pain, fever(s) or rash Review of Systems Const: Denies: fever(s) or chills Card: Denies: chest pain Resp: Denies: dyspnea GI: Denies: abdominal pain : Denies: dysuria, urinary frequency or urinary urgency Musc: Denies: neck pain or back pain Skin/Breast: Denies: rash PFSH ED PFSH: Medical History UTI (urinary tract infection) Fall Moderate mitral regurgitation Acute [place], inferior wall High anion gap metabolic acidosis Diabetes with ketoacidosis Cholelithiases Vomiting Atrial fibrillation, chronic Fracture of humerus, left, closed Pes planus of both feet ALISTAIR inhibitor intolerance Essential hypertension Warfarin anticoagulation Lower extremity deep venous thrombosis CAD (coronary artery disease) Fracture of greater trochanter of right femur Peripheral vascular disease Onychodystrophy Diabetic neuropathy associated with diabetes mellitus due to underlying condition Surgical History Coronary angioplasty status PCI to RCA?2016 Family History Mother Diabetes Denies family history of CAD (coronary artery disease) Clotting disorder Dementia Hyperlipidemia Psychiatric illness Chronic kidney disease (CKD) Suicide Anesthesia complication Bleeding disorder Family history of premature coronary artery disease Lung disease Cancer Hypertension Stroke Social History Smoking and tobacco/nicotine status: never used tobacco/nicotine Second hand smoke exposure: Yes Alcohol intake: never Substance/Drug Use: never Physical Exam Const: COMMON NORMALS: no acute distress GENERAL APPEARANCE: cooperative and comfortable ORIENTATION/CONSCIOUSNESS: Yes awake, Yes oriented to person, Yes oriented to place and Yes oriented to time HENMT: COMMON NORMALS: normocephalic, atraumatic and hearing grossly normal bilaterally HEAD & SCALP: normocephalic and atraumatic Resp: COMMON NORMALS: normal respiratory effort, No retractions, No use of accessory muscles and clear to auscultation bilaterally AUSCULTATION: clear to auscultation bilaterally Cardio: COMMON NORMALS: regular rate, regular rhythm and No murmurs present (Cardio) RATE: regular rate RHYTHM: regular rhythm GI: COMMON NORMALS: Soft to palpation and No hepatosplenomegaly present AUSCULTATION: Yes normoactive bowel sounds PALPATION: Yes Soft to palpation, No Tenderness to palpation present (GI), No Guarding due to palpation present (GI) and Yes No hepatosplenomegaly present Extremity: COMMON NORMALS: normal to inspection, capillary refill normal, no clubbing, cyanosis or edema, no calf tenderness and no pedal edema OTHER: Examination of the left shoulder patient has no obvious deformity no significant discomfort with palpation. Examination of the left elbow and wrist full range of motion without deformity or pain with palpation or passive range of motion no deformity of the proximal humerus. Neuro: SENSORIUM/ORIENTATION: Yes oriented to person, Yes oriented to place and Yes oriented to time Skin: COMMON NORMALS: no rashes or lesions noted GENERAL SKIN EXAM: no rashes or lesions noted Course Vital Signs: Vital signs: Vital Signs Temperature 98.3 F 05/12/23 07:41 Pulse Rate 64 05/12/23 10:17 Respiratory Rate 16 05/12/23 09:16 Blood Pressure 129/64 05/12/23 10:17 Pulse Oximetry 94 05/12/23 10:17 Oxygen Delivery Me thod Room Air 05/12/23 09:43 MDM - Extremity (Nontraumatic) Medical Decision Making Discussed findings with Dr. Waddell who is on-call for orthopedics as well as with Dr. Gonsalez radiology who read the x-ray. Patient has a proximal humerus fracture with hematoma in the joint causing some displacement Dr. Waddell did not feel any advanced imaging is read necessary at this time Dr. Gonsalez also felt the same. Placed patient in a sling given pain medications. Discussed the course of care with a proximal humerus fracture will have her follow-up with orthopedics. Medical Records I reviewed the patient's medical records. Lab Data I reviewed the patient's lab results. Laboratory Results POC Glucose 105 mg/dL (70-110) 05/12/23 07:57 All radiology interpretation(s) finalized by discharge Discharge Plan Discharge Patient Disposition: Home Clinical Impression: Fracture, humerus, Rib fracture Condition: Stable Prescriptions: New hydrocodone-acetaminophen 5-325 mg tablet 1 tab PO Q6H PRN (Reason: pain) Qty: 25 0RF No Action metformin 1,000 mg tablet 1,000 mg PO BID Trulicity 1.5 mg/0.5 mL pen injector 1.5 mg SUBCUT .COMPLLEX Rx Instructions: USE DIRECTED SUB-Q ONCE PER WEEK ON MONDAY. Lantus U-100 Insulin 100 unit/mL solution 44 unit SUBCUT BID (DME) Diabetic shoes with 3 inserts See Rx Instructions .ROUTE .MEDSUPPLY Qty: 1 0RF Rx Instructions: As directed by [facility] (DME) diabetic shoes with 3 inserts See Rx Instructions .Route .MEDSUPPLY Qty: 1 0RF Rx Instructions: As directed to the shoe katty multivitamin Tablet 1 tab PO DAILY atorvastatin 20 mg tablet 20 mg PO DAILY acetaminophen 500 mg Tablet 500 mg PO Q6H PRN (Reason: Pain) furosemide 20 mg Tablet 20 mg PO DAILY duloxetine 30 mg capsule,delayed release(DR/EC) 30 mg PO DAILY Jardiance 10 mg tablet 10 mg PO DAILY Discharge Orders: Discharge ED (Routine); Ordered 05/12/23 Ordered By: Daniel Connor Referrals: Anette Velazquez MD [Primary Care Provider] - Discharge Diet: Usual diet Discharge Activity: Increase activity as tolerated Patient Instructions: Opioid Safety, Pain Management Activity Restrictions/Additional Instructions: Thank you for choosing [facility] for your healthcare needs today. Please realize this is an emergency room and that we are providing you with a medical screening exam and this may not be complete and all inclusive of all the testing and or work up that you may need to determine your ailment or severity of your illness. It is very important that you follow up as instructed or that you return to the Emergency Department should you have concerns or if your condition changes or worsens in any way. You are seen today after a fall you have a left proximal humerus fracture and a rib fracture. You should wear the sling until you see orthopedics. Case management make arrangements for follow-up with orthopedics surgery. Coding Level of Care Code ED Research Instrumentation Technician for Jared Vallecillo
[2023-05-12 08:01] LABS: Glucose Point of Care 105 mg/dL (70-110)
[2023-05-12 09:16] VITALS: BP 135/65; PULSE 68; RESP 16; O2SAT 97
[2023-05-12] MEDS: fentaNYL 50 mcg/mL INJ 2mL IVP (09:30)
--- NOTE | 2023-05-12 09:37 | PC.PHAR ---
PTS' RADHA BROUGHT CURRENT MEDICATIONS WITH HER. THE FOLLOWING ARE MEDS NO LONGER TAKING: VITAMIN C 500MG, CALCIUM 500MG, CITALOPRAM 10MG, ELIQUIS 2.5MG, NORCO 5-325MG, GABAPENTIN 100MG AND 300MG,POTASSIUM 99MG, TORSEMIDE 20MG. RADHA ALSO STATES PT WEARS THE FREE STYLE YEYO. 05/12/23
[2023-05-12 09:43] VITALS: O2SAT 98
[2023-05-12 10:17] VITALS: BP 129/64; PULSE 64; O2SAT 94
== END 2023-05-12 10:19 | disposition home or self-care (01) ==
PROVIDERS: Emergency Provider Family Medicine; PCP Internal Medicine
DX: S42.202A Unspecified fracture of upper end of left humerus, initial encounter for closed fracture (principal); S22.42XA Multiple fractures of ribs, left side, initial encounter for closed fracture; W06.XXXA Fall from bed, initial encounter; I25.2 Old myocardial infarction; I10 Essential (primary) hypertension; I25.10 Atherosclerotic heart disease of native coronary artery without angina pectoris; E11.42 Type 2 diabetes mellitus with diabetic polyneuropathy; Z95.0 Presence of cardiac pacemaker; Z79.85 Long-term (current) use of injectable non-insulin antidiabetic drugs; Z79.84 Long term (current) use of oral hypoglycemic drugs; Z79.4 Long term (current) use of insulin
CPT/HCPCS: 36416; 71100; 73030; 82962; 96374; 99284; J3010

== ENCOUNTER → 2023-05-19 14:41 | Outpatient (BNVA) | payer MEDICARE, MEDICAID, SELFPAY | PROVIDERS: PCP Internal Medicine; Referring Provider Family Medicine; Visit Provider Orthopaedic Surgery | DX: S42.202A Unspecified fracture of upper end of left humerus, initial encounter for closed fracture (principal); W06.XXXA Fall from bed, initial encounter | CPT/HCPCS: 99203 ==

== ENCOUNTER 2023-05-21 23:09 | Emergency (ER) | payer MEDICARE, MEDICAID, SELFPAY ==
[2023-05-21 23:17] VITALS: BP 151/74; PULSE 71; RESP 17; TEMP 36.9; O2SAT 96; BMI 27.4
--- NOTE | 2023-05-22 00:34 | CTR_ITS ---
PROCEDURE INFORMATION: Exam: CT Head Without Contrast Exam date and time: 05/22/2023 12:49 AM Age: 83 years old Clinical indication: Patient HX: C/O dizziness; Additional info: Dizzy TECHNIQUE: Imaging protocol: Computed tomography of the head without contrast. Radiation optimization: All CT scans at this facility use at least one of these dose optimization techniques: automated exposure control; mA and/or kV adjustment per patient size (includes targeted exams where dose is matched to clinical indication); or iterative reconstruction. COMPARISON: MR head wo con* [id number] 03/29/2023 8:53 AM RADIATION DOSE METRICS: Total DLP (mGy-cm): 1072.25 FINDINGS: Brain: Age appropriate atrophy and small vessel ischemic change. There are multiple small hypodensities in the basal ganglia consistent with remote lacunar infarctions. No evidence of intracranial hemorrhage, mass effect, midline shift or extra-axial fluid collections. Midline structures are normal. Daniels-white matter differentiation is normal. Cerebral ventricles: No ventriculomegaly. Paranasal sinuses: Mucosal thickening in the ethmoid sinuses. Mastoid air cells: Visualized mastoid air cells are well aerated. Orbital cavities: The patient has had bilateral lens replacement surgery. Bones/joints: Unremarkable. No acute fracture. Soft tissues: Unremarkable. Vasculature: Carotid and vertebral artery atherosclerotic calcification. CT/CT head wo con* [id number] IMPRESSION: No acute intracranial abnormality.
--- NOTE | 2023-05-22 00:34 | XRR_ITS ---
PROCEDURE INFORMATION: Exam: XR Chest Exam date and time: 05/22/2023 12:43 AM Age: 83 years old Clinical indication: Prior surgery; Surgery date: 6+ months; Surgery type: Ptca; Patient HX: C/O dizziness. Known humerus fracture. ; Additional info: Dizzy TECHNIQUE: Imaging protocol: Radiologic exam of the chest. Views: 1 view. COMPARISON: CR XR ribs LT mn 3V w [id number] [id number] 03/09/2022 10:52 PM FINDINGS: Lungs: Decreased lung volumes with atelectasis at the lung bases. Pleural spaces: Unremarkable. No pleural effusion. No pneumothorax. Heart/Mediastinum: There is stable cardiomegaly. Bones/joints: There is deformity of the left humerus due to an old fracture. Degenerative changes throughout the spine. XR/XR chest 1V portable [id number] IMPRESSION: No acute cardiopulmonary abnormality.
[2023-05-22] MEDS: sodium chloride 0.9% 1,000 ML 999 ML IV (01:15)
[2023-05-22 01:23] VITALS: BP 149/81; PULSE 60; RESP 18; O2SAT 91
[2023-05-22 01:24] LABS: Basophils # 0.1 10^3/uL (0.0-0.1); Basophils % 0.5 %; Eosinophils # 0.1 10^3/uL (0.0-0.8); Eosinophils % 1.3 %; Hematocrit 37.8 % (36-47); Lymphocytes # 1.7 10^3/uL (0.8-4.8); Lymphocytes % 17.3 %; Mean Corpuscular HGB Conc 31.2 g/dL (30-55); Mean Corpuscular Hemoglobin 27.1 pg (27-33); Mean Corpuscular Volume 86.7 fl (85-98); Mean Platelet Volume 9.2 fL (7.4-10.4); Monocytes # 0.8 10^3/uL (0.2-0.9); Monocytes % 7.7 %; Neutrophils # 7.04 10^3/uL (1.8-7.7); Neutrophils % 72.8 %; Nucleated Red Blood Cells % 0 %; Platelet Count 235 10^3/cmm (157-399); Red Blood Count 4.36 10^6/uL (3.85-5.65); Red Cell Distribution Width 16.3 % (12.1-15.1); White Blood Count 9.69 10^3/uL (3.29-11.43)
[2023-05-22 01:45] VITALS: BP 137/83; BP 144/63; BP 149/81; PULSE 68; PULSE 70; PULSE 84
[2023-05-22 01:47] LABS: Albumin Level 3.5 g/dL (3.5-5.2); Alkaline Phosphatase 116 U/L (35-105); Blood Urea Nitrogen 17 mg/dL (8-23); C Reactive Protein 4.2 mg/L (0.0-4.9); Calcium 9.3 mg/dL (8.5-10.5); Carbon Dioxide 28 mmol/L (22-29); Chloride 99 mmol/L (98-107); Glucose 187 mg/dL (65-115); Magnesium 1.7 mg/dL (1.7-2.3); Osmolality Calculated 292 mOsm/kg (285-295); Phosphorus 2.6 mg/dL (2.5-4.5); Sodium 138 mmol/L (136-145); Total Bilirubin 0.6 mg/dL (0.15-1.2); Total Protein 6.5 g/dL (6.6-8.7)
[2023-05-22 01:48] LABS: Anion Gap 15.4 (5-19); Potassium 4.4 mmol/L (3.5-5.1)
[2023-05-22 01:49] LABS: Alanine Aminotransferase 14 U/L (0-33); Aspartate Amino Transferase 30 U/L (0-32)
[2023-05-22 01:53] VITALS: BP 137/83; PULSE 90; RESP 18; O2SAT 95
[2023-05-22 02:23] VITALS: BP 137/58; PULSE 73; RESP 15; O2SAT 94
[2023-05-22 02:31] LABS: Add Urine Microscopic? YES; Bilirubin Urine Neg (Negative); Blood Urine Neg (Negative); Glucose Urine UA 2+ (Normal); Ketones Urine Negative (Negative); Leukocyte Esterase Urine 2+ (Negative); Nitrate Urine Negative (Negative); Protein Urine Neg (Negative); Sulfosalicylic Acid Urine Negative (Negative); Urine Appearance Hazy (CLEAR); Urine Color Dark Yellow (Yellow); Urobilinogen Urine 4 mg/dL (Negative); pH Urine 8 (5-7)
[2023-05-22 02:34] LABS: Bacteria Urine TRACE /hpf; RBC Urine 0-4 /hpf (0-2); WBC Urine 15-25 /hpf (0-5)
[2023-05-22 02:35] LABS: Add Urine Culture? No
[2023-05-22] MEDS: cefTRIAXone 1,000 MG in sodium chloride 0.9% (plus) 50 ML 100 MG IV (02:52)
[2023-05-22 03:22] VITALS: BP 145/63; O2SAT 98
--- NOTE | 2023-05-22 05:25 | W.ED.DIZZY ---
HPI - Dizziness General: Chief Complaint: Dizziness Stated Complaint: dizzy, cant stand straight Time Seen by Provider: 05/22/23 00:20 History of Present Illness: HPI Narrative: 83-year-old female with multiple complaints. She complains of generalized weakness, and dizziness with walking. She says that she is okay until she gets up, but once she begins to walk, she feels like she is going to fall. She has had these episodes on and off prior, but they are usually short-lived. She has been this way since yesterday she says. No fever. No other significant symptoms. Associated symptoms: Denies chest pain, headache(s), nausea or vomiting Associated neuro symptoms: Deny numbness in extremities Review of Systems Const: Denies: fever(s) Eyes: Denies: change in vision ENMT: Denies: throat pain Card: Denies: chest pain Resp: Reports: dyspnea GI: Denies: nausea or vomiting Skin/Breast: Denies: rash Neuro: Reports: Slurred speech present (Perhaps mild says family екатерина); Denies: headache(s), numbness in extremities or weakness in extremities PFSH ED PFSH: Medical History UTI (urinary tract infection) Fall Moderate mitral regurgitation Acute [place], inferior wall High anion gap metabolic acidosis Diabetes with ketoacidosis Cholelithiases Vomiting Atrial fibrillation, chronic Fracture of humerus, left, closed Pes planus of both feet ALISTAIR inhibitor intolerance Essential hypertension Warfarin anticoagulation Lower extremity deep venous thrombosis CAD (coronary artery disease) Fracture of greater trochanter of right femur Peripheral vascular disease Onychodystrophy Diabetic neuropathy associated with diabetes mellitus due to underlying condition Surgical History Coronary angioplasty status PCI to RCA?2016 Family History Mother Diabetes Denies family history of CAD (coronary artery disease) Clotting disorder Dementia Hyperlipidemia Psychiatric illness Chronic kidney disease (CKD) Suicide Anesthesia complication Bleeding disorder Family history of premature coronary artery disease Lung disease Cancer Hypertension Stroke Social History Smoking and tobacco/nicotine status: never used tobacco/nicotine Second hand smoke exposure: Yes Alcohol intake: never Substance/Drug Use: never Physical Exam Const: COMMON NORMALS: no acute distress and alert GENERAL APPEARANCE: frail appearing HENMT: COMMON NORMALS: normocephalic, atraumatic and Normal external nose present HEAD & SCALP: normocephalic and atraumatic FACE & SINUS: normal facial exam and face symmetric NOSE: Normal external nose present MOUTH: Normal oral and palatal mucosa present Eye: COMMON NORMALS: Equal, round and reactive pupils present and EOMs intact bilaterally PUPIL: Yes Equal, round and reactive pupils present Neck/C-Spine: GENERAL: Yes trachea midline Chest: CHEST: Yes Symmetrical chest wall rise Resp: COMMON NORMALS: normal respiratory effort, No use of accessory muscles and clear to auscultation bilaterally AUSCULTATION: clear to auscultation bilaterally Cardio: COMMON NORMALS: regular rate and regular rhythm RATE: regular rate RHYTHM: regular rhythm GI: COMMON NORMALS: Normal to inspection, nondistended, normoactive bowel sounds present Extremity: COMMON NORMALS: no pedal edema Neuro: BRITNEY COMA SCALE: document GCS findings Britney coma scale eye opening: Spontaneous Britney coma scale verbal response: Orientated [place] coma scale motor response: Obey commands Britney coma scale total score: 15 SENSORIUM/ORIENTATION: Yes alert CRANIAL NERVES: Yes CN normal except as noted COORDINATION/BALANCE: [id number] test normal and [id number] test normal SPEECH: speech normal MOTOR EXAM: Normal motor muscle tone present throughout COORDINATION: [id number] test normal and [id number] test normal Course Vital Signs: Vital signs: Vital Signs Temperature 98.4 F 05/21/23 23:17 Pulse Rate 73 05/22/23 02:23 Respiratory Rate 15 05/22/23 02:23 Blood Pressure 145/63 05/22/23 03:22 Pulse Oximetry 98 05/22/23 03:22 Oxygen Delivery Me thod Room Air 05/22/23 02:23 MDM - Dizziness Medical Decision Making Dizziness is improved after liter fluid bolus. Her vitals have been good. CBC is normal. BMP is not remarkable. Chest x-ray and head CT are nonremarkable. She has a significant urinary tract infection. She will be treated with antibiotics for this. Home to continue antibiotics. Return for any concerns Lab Data 05/22/23 00:26 05/22/23 00:26 Radiology Impressions Chest X-Ray 05/22/23 00:34 IMPRESSION: No acute cardiopulmonary abnormality. Head CT 05/22/23 00:34 IMPRESSION: No acute intracranial abnormality. Laboratory Results WBC 9.69 10^3/uL (3.29-11.43) 05/22/23 00:26 RBC 4.36 10^6/uL (3.85-5.65) 05/22/23 00:26 Hgb 11.80 g/dL (11.27-16.99) 05/22/23 00:26 Hct 37.8 % (36-47) 05/22/23 00:26 MCV 86.7 fl (85-98) 05/22/23 00:26 MCH 27.1 pg (27-33) 05/22/23 00: MCHC 31.2 g/dL (30-55) 05/22/23 00:26 RDW 16.3 % (12.1-15.1) H 05/22/23 00: Plt Count 235 10^3/cmm (157-399) 05/22/23 00:26 MPV 9.2 fL (7.4-10.4) 05/22/23 00:26 Neut % (Auto) 72.8 % 05/22/23 00:26 Lymph % (Auto) 17.3 % 05/22/23 00:26 [place] % (Auto) 7.7 % 05/22/23 00:26 Eos % (Auto) 1.3 % 05/22/23 00:26 Baso % (Auto) 0.5 % 05/22/23 00:26 Neut # (Auto) 7.04 10^3/uL (1.8-7.7) 05/22/23 00:26 Lymph # (Auto) 1.7 10^3/uL (0.8-4.8) 05/22/23 00:26 [place] # (Auto) 0.8 10^3/uL (0.2-0.9) 05/22/23 00:26 Eos # (Auto) 0.1 10^3/uL (0.0-0.8) 05/22/23 00:26 Baso # (Auto) 0.1 10^3/uL (0.0-0.1) 05/22/23 00:26 Nucleated RBC % (auto) 0 % 05/22/23 00:26 Nucleated RBCs # 0.0 /100WBC 05/22/23 00:26 Sodium 138 mmol/L (136-145) 05/22/23 00:26 Potassium 4.4 mmol/L (3.5-5.1) 05/22/23 00:26 Chloride 99 mmol/L (98-107) 05/22/23 00:26 Carbon Dioxide 28 mmol/L (22-29) 05/22/23 00:26 Anion Gap 15.4 (5-19) 05/22/23 00:26 BUN 17 mg/dL (8-23) 05/22/23 00:26 Creatinine 0.7 mg/dL (0.5-0.9) 05/22/23 00:26 GFR Calculation Not Reportable 05/22/23 00:26 Glucose 187 mg/dL (65-115) H 05/22/23 00:26 Calculated Osmolality 292 mOsm/kg (285-295) 05/22/23 00:26 Calcium 9.3 mg/dL (8.5-10.5) 05/22/23 00:26 Phosphorus 2.6 mg/dL (2.5-4.5) 05/22/23 00:26 Magnesium 1.7 mg/dL (1.7-2.3) 05/22/23 00:26 Total Bilirubin 0.6 mg/dL (0.15-1.2) 05/22/23 00:26 AST 30 U/L (0-32) 05/22/23 00:26 ALT 14 U/L (0-33) 05/22/23 00:26 Alkaline Phosphatase 116 U/L (35-105) H 05/22/23 00:26 C-Reactive Protein 4.2 mg/L (0.0-4.9) 05/22/23 00:26 Total Protein 6.5 g/dL (6.6-8.7) L 05/22/23 00:26 Albumin 3.5 g/dL (3.5-5.2) 05/22/23 00:26 Globulin 3.0 g/dL (1.3-4.6) 05/22/23 00:26 Urine Color Dark yellow (Yellow) 05/22/23 02:08 Urine Appearance Hazy (CLEAR) A 05/22/23 02:08 Urine pH 8 (5-7) H 05/22/23 02:08 Ur Specific [place] 1.010 (1.005-1.030) 05/22/23 02:08 Urine Protein Neg (Negative) 05/22/23 02:08 Urine Glucose (UA) 2+ (Normal) H 05/22/23 02:08 Urine Ketones Negative (Negative) 05/22/23 02:08 Urine Blood Neg (Negative) 05/22/23 02:08 Urine Nitrate Negative (Negative) 05/22/23 02:08 Urine Bilirubin Neg (Negative) 05/22/23 02:08 Prot Sulfosalicylic Acd Negative (Negative) 05/22/23 02:08 Urine Urobilinogen 4 mg/dL (Negative) H 05/22/23 02:08 Ur Leukocyte Esterase 2+ (Negative) H 05/22/23 02:08 Urine RBC 0-4 /hpf (0-2) H 05/22/23 02:08 Urine WBC 15-25 /hpf (0-5) H 05/22/23 02:08 Ur Squamous Epith Cells 5-10 /hpf (0-5) H 05/22/23 02:08 Amorphous Sediment Not Reportable 05/22/23 02:08 Urine Bacteria Trace /hpf (NONE) 05/22/23 02:08 All radiology interpretation(s) finalized by discharge Discharge Plan Discharge Patient Disposition: Home Clinical Impression: Dizziness, Acute UTI Condition: Stable Prescriptions: New cefdinir 300 mg capsule 300 mg PO BID Qty: 14 0RF No Action metformin 1,000 mg tablet 1,000 mg PO BID Trulicity 1.5 mg/0.5 mL pen injector 1.5 mg SUBCUT .COMPLLEX Rx Instructions: USE DIRECTED SUB-Q ONCE PER WEEK ON MONDAY. Lantus U-100 Insulin 100 unit/mL solution 44 unit SUBCUT BID ([facility] [place]) Diabetic shoes with 3 inserts See Rx Instructions .ROUTE .MEDSUPPLY Qty: 1 0RF Rx Instructions: As directed by LYNNE&O ([facility]) diabetic shoes with 3 inserts See Rx Instructions .Route .MEDSUPPLY Qty: 1 0RF Rx Instructions: As directed to the shoe katty calcium carbonate [Calcium 600] 600 mg calcium (1,500 mg) tablet 600 mg PO DAILY multivitamin Tablet 1 tab PO DAILY atorvastatin 20 mg tablet 20 mg PO DAILY acetaminophen 500 mg Tablet 500 mg PO Q6H PRN (Reason: Pain) furosemide 20 mg Tablet 20 mg PO DAILY duloxetine 30 mg capsule,delayed release(DR/EC) 30 mg PO DAILY hydrocodone-acetaminophen 5-325 mg tablet 1 tab PO Q6H PRN (Reason: pain) Qty: 25 0RF Discharge Orders: Discharge ED (Routine); Ordered 05/22/23 Ordered By: Amos Joiner Referrals: Anette Velazquez MD [Primary Care Provider] - 1-3 days Patient Instructions: Dizziness (ED), Urinary Tract Infection in Older Adults (ED), Opioid Safety, Pain Management Activity Restrictions/Additional Instructions: Plenty of liquids. Return for worsening dizziness despite treatment, worsening mental status, fever despite 2-3 doses of antibiotics, other concerning symptoms. Coding Level of Care Code ED Financial Analyst Accountant for Jared Vallecillo
== END 2023-05-22 03:29 | disposition home or self-care (01) ==
PROVIDERS: Emergency Provider Emergency Medicine; PCP Internal Medicine
DX: R42 Dizziness and giddiness (principal); N39.0 Urinary tract infection, site not specified; Z79.84 Long term (current) use of oral hypoglycemic drugs; Z79.85 Long-term (current) use of injectable non-insulin antidiabetic drugs; Z79.4 Long term (current) use of insulin; Z77.22 Contact with and (suspected) exposure to environmental tobacco smoke (acute) (chronic); Z87.440 Personal history of urinary (tract) infections; I25.2 Old myocardial infarction; E11.42 Type 2 diabetes mellitus with diabetic polyneuropathy; I10 Essential (primary) hypertension; I25.10 Atherosclerotic heart disease of native coronary artery without angina pectoris; Z98.61 Coronary angioplasty status
CPT/HCPCS: 70450; 71045; 80053; 81001; 83735; 84100; 85025; 86140; 96365; 99285; J0696; J7030

== ENCOUNTER → 2023-05-27 14:42 | Outpatient (BNVA) | payer MEDICARE, MEDICAID, SELFPAY | PROVIDERS: PCP Internal Medicine; Visit Provider Emergency Medicine | DX: N39.0 Urinary tract infection, site not specified (principal) | CPT/HCPCS: 81000; 87077; 87086; 87184 ==

== ENCOUNTER → 2023-06-15 13:30 | Outpatient (BNVA) | payer MEDICARE, MEDICAID, SELFPAY | PROVIDERS: PCP Internal Medicine; Visit Provider Orthopaedic Surgery | DX: T14.8XXA Other injury of unspecified body region, initial encounter; X58.XXXA Exposure to other specified factors, initial encounter | CPT/HCPCS: 73030; 99213 ==

== ENCOUNTER 2023-07-13 23:44 | Emergency (ER) | payer MEDICARE, MEDICAID, SELFPAY ==
[2023-07-13 23:46] VITALS: BP 176/83; PULSE 78; RESP 16; TEMP 36.6; O2SAT 97
--- NOTE | 2023-07-13 23:55 | XRR_ITS ---
PROCEDURE INFORMATION: Exam: XR Chest Exam date and time: 07/13/2023 11:59 PM Age: 83 years old Clinical indication: Shortness of breath; Additional info: Dyspnea TECHNIQUE: Imaging protocol: Radiologic exam of the chest. Views: 1 view. COMPARISON: CR XR chest 1V portable [id number] 05/22/2023 12:43 AM FINDINGS: Lungs: There is no consolidation. Pleural spaces: No pleural effusion or pneumothorax. Heart/Mediastinum: The heart and mediastinum are normal in size. Bones/joints: Old fracture deformity an inferior subluxation of the left humerus. Multiple bilateral old rib fractures. XR/XR chest 1V portable [id number] IMPRESSION: No acute findings.
--- NOTE | 2023-07-13 23:56 | ED_ITS ---
HPI - Altered Mental Status 2 General: Chief Complaint: Altered Mental Status Stated Complaint: High Blood Sugar Time Seen by Provider: 07/13/23 23:53 History of Present Illness: Patient presents to the ER with family at bedside. Patient stating her doctor took her off some of her blood sugar medicine about a month ago because she was getting too low and actually getting too high. Patient states her blood sugar read high on their machine. Family reports patient is been more confused and irritable, short of breath when walking and sleeping a lot more than normal. Family says she is been DKA 1 time in the past. Review of Systems 2 General: Reports: 10 or more systems reviewed and unremarkable except in HPI and below PFSH ED 2 PFSH: Medical History UTI (urinary tract infection) Fall Moderate mitral regurgitation Acute [place], inferior wall High anion gap metabolic acidosis Diabetes with ketoacidosis Cholelithiases Vomiting Atrial fibrillation, chronic Fracture of humerus, left, closed Pes planus of both feet ALISTAIR inhibitor intolerance Essential hypertension Warfarin anticoagulation Lower extremity deep venous thrombosis CAD (coronary artery disease) Fracture of greater trochanter of right femur Peripheral vascular disease Onychodystrophy Diabetic neuropathy associated with diabetes mellitus due to underlying condition Surgical History Coronary angioplasty status PCI to RCA?2016 Family History Mother Diabetes Denies family history of CAD (coronary artery disease) Clotting disorder Dementia Hyperlipidemia Psychiatric illness Chronic kidney disease (CKD) Suicide Anesthesia complication Bleeding disorder Family history of premature coronary artery disease Lung disease Cancer Hypertension Stroke Social History Smoking and tobacco/nicotine status: never used tobacco/nicotine Second hand smoke exposure: Yes Alcohol intake: never Substance/Drug Use: never Physical Exam 2 Const: COMMON NORMALS: no acute distress, average body habitus, no limitations, healthy appearing, alert and well nourished HENMT: COMMON NORMALS: normocephalic, atraumatic, hearing grossly normal bilaterally, external ears normal, Normal external nose present, moist oral mucous membranes and oropharynx normal HEAD & SCALP: normocephalic and atraumatic NOSE: Normal external nose present EXTERNAL EAR: Yes external ears normal Neck/C-Spine: COMMON NORMALS: full ROM, no lymphadenopathy, supple, no meningeal signs, no JVD and Thyroid normal THYROID: Thyroid normal Chest: COMMONS NORMALS: normal inspection of the chest and normal palpation of entire chest wall Resp: COMMON NORMALS: normal respiratory effort, No retractions, No use of accessory muscles and clear to auscultation bilaterally AUSCULTATION: clear to auscultation bilaterally Cardio: COMMON NORMALS: no JVD, regular rate, regular rhythm, S1 normal heart sound present, S2 normal heart sound present, No gallops present (Cardio), No clicks present (Cardio) and No rub (Cardio); negative for No murmurs present (Cardio) (2/6 to 3/6 systolic ejection murmur) RATE: regular rate RHYTHM: regular rhythm HEART SOUNDS: S1 normal heart sound present and S2 normal heart sound present GI: COMMON NORMALS: Normal to inspection, nondistended, normoactive bowel sounds present, Soft to palpation, non-tender, No hepatosplenomegaly present and no masses PALPATION: Yes Soft to palpation and Yes No hepatosplenomegaly present Neuro: SENSORIUM/ORIENTATION: Yes alert MENINGEAL SIGNS: Yes no meningeal signs Course 2 Vital Signs: Vital signs: Vital Signs Temperature 97.8 F 07/13/23 23:46 Pulse Rate 79 07/14/23 03:31 Respiratory Rate 16 07/13/23 23:46 Blood Pressure 181/89 07/14/23 03:41 Pulse Oximetry 94 07/14/23 03:31 Oxygen Delivery Me thod Room Air 07/14/23 03:24 MDM - Altered Mental Status Medical Decision Making Lab work was obtained as well as chest x-ray, chest x-ray showed no acute findings. Lab work was essentially benign except for initial blood sugar of 417, patient was given 10 units of IV insulin and her blood sugar decreased to 93, patient's BNP was elevated at 1058 but chest x-ray was clear. Patient will be discharged home with instructions to continue to take her water pill and follow-up with her PCP. Differential Diagnosis Likely altered mental status; Unlikely alcoholic intoxication, delirium, dementia, hypoglycemia, hyponatremia, subarachnoid hemorrhage or sepsis Medical Records I reviewed the patient's medical records. Lab Data I reviewed the patient's lab results. 07/13/23 01:13 07/14/23 01:13 Radiology Impressions Chest X-Ray 07/13/23 23:55 IMPRESSION: No acute findings. Laboratory Results WBC 8.44 10^3/uL (3.29-11.43) 07/13/23 01:13 RBC 4.56 10^6/uL (3.85-5.65) 07/13/23 01:13 Hgb 12.20 g/dL (11.27-16.99) 07/13/23 01:13 Hct 39.5 % (36-47) 07/13/23 01:13 MCV 86.6 fl (85-98) 07/13/23 01:13 MCH 26.8 pg (27-33) L 07/13/23 01:13 MCHC 30.9 g/dL (30-55) 07/13/23 01:13 RDW 15.3 % (12.1-15.1) H 07/13/23 01:13 Plt Count 173 10^3/cmm (157-399) 07/13/23 01:13 MPV 9.2 fL (7.4-10.4) 07/13/23 01:13 Neut % (Auto) 75.8 % 07/13/23 01:13 Lymph % (Auto) 16.5 % 07/13/23 01:13 [place] % (Auto) 4.4 % 07/13/23 01:13 Eos % (Auto) 2.4 % 07/13/23 01:13 Baso % (Auto) 0.5 % 07/13/23 01:13 Neut # (Auto) 6.41 10^3/uL (1.8-7.7) 07/13/23 01:13 Lymph # (Auto) 1.4 10^3/uL (0.8-4.8) 07/13/23 01:13 [place] # (Auto) 0.4 10^3/uL (0.2-0.9) 07/13/23 01:13 Eos # (Auto) 0.2 10^3/uL (0.0-0.8) 07/13/23 01:13 Baso # (Auto) 0.0 10^3/uL (0.0-0.1) 07/13/23 01:13 Nucleated RBC % (auto) 0 % 07/13/23 01:13 Nucleated RBCs # 0.0 /100WBC 07/13/23 01:13 Sodium 136 mmol/L (136-145) 07/14/23 01:13 Potassium 3.9 mmol/L (3.5-5.1) 07/14/23 01:13 Chloride 100 mmol/L (98-107) 07/14/23 01:13 Carbon Dioxide 26 mmol/L (22-29) 07/14/23 01:13 Anion Gap 13.9 (5-19) 07/14/23 01:13 BUN 17 mg/dL (8-23) 07/14/23 01:13 Creatinine 0.7 mg/dL (0.5-0.9) 07/14/23 01:13 GFR Calculation Not Reportable 07/14/23 01:13 Glucose 293 mg/dL (65-115) H 07/14/23 01:13 POC Glucose 417 mg/dL (70-110) H 07/13/23 23:55 Calculated Osmolality 294 mOsm/kg (285-295) 07/14/23 01:13 Calcium 9.8 mg/dL (8.5-10.5) 07/14/23 01:13 Magnesium 2.1 mg/dL (1.7-2.3) 07/14/23 01:13 Total Bilirubin 0.6 mg/dL (0.15-1.2) 07/14/23 01:13 AST 22 U/L (0-32) 07/14/23 01:13 ALT 17 U/L (0-33) 07/14/23 01:13 Alkaline Phosphatase 133 U/L (35-105) H 07/14/23 01:13 NT-Pro-B Natriuret Pep 1058 pg/mL (0-450) H 07/14/23 01:13 Total Protein 6.2 g/dL (6.6-8.7) L 07/14/23 01:13 Albumin 3.6 g/dL (3.5-5.2) 07/14/23 01:13 Globulin 2.6 g/dL (1.3-4.6) 07/14/23 01:13 Urine Color Yellow (Yellow) 07/14/23 02:34 Urine Appearance Clear (CLEAR) 07/14/23 02:34 Urine pH 6 (5-7) 07/14/23 02:34 Ur Specific [place] 1.015 (1.005-1.030) 07/14/23 02:34 Urine Protein Neg (Negative) 07/14/23 02:34 Urine Glucose (UA) 4+ (Normal) H 07/14/23 02:34 Urine Ketones Negative (Negative) 07/14/23 02:34 Urine Blood Neg (Negative) 07/14/23 02:34 Urine Nitrate Negative (Negative) 07/14/23 02:34 Urine Bilirubin Neg (Negative) 07/14/23 02:34 Urine Urobilinogen Neg mg/dL (Negative) 07/14/23 02:34 Ur Leukocyte Esterase Negative (Negative) 07/14/23 02:34 Serum Ketones Negative (Negative) 07/14/23 01:13 All radiology interpretation(s) finalized by discharge Discharge Plan Discharge Patient Disposition: Home Clinical Impression: Acute hyperglycemia Hypertension Qualifiers: Hypertension type: unspecified Qualified Code(s): I10 - Essential (primary) hypertension Condition: Stable Prescriptions: No Action metformin 1,000 mg tablet 1,000 mg PO BID Trulicity 1.5 mg/0.5 mL pen injector 1.5 mg SUBCUT .COMPLLEX Rx Instructions: USE DIRECTED SUB-Q ONCE PER WEEK ON MONDAY. Lantus U-100 Insulin 100 unit/mL solution 44 unit SUBCUT BID ([facility] [place]) Diabetic shoes with 3 inserts See Rx Instructions .ROUTE .MEDSUPPLY Qty: 1 0RF Rx Instructions: As directed by LYNNE&O ([facility] [place]) diabetic shoes with 3 inserts See Rx Instructions .Route .MEDSUPPLY Qty: 1 0RF Rx Instructions: As directed to the shoe katty calcium carbonate [Calcium 600] 600 mg calcium (1,500 mg) tablet 600 mg PO DAILY sulfamethoxazole-trimethoprim [Bactrim DS] 800-160 mg tablet 1 tab PO BID 10 Days Qty: 20 0RF multivitamin Tablet 1 tab PO DAILY atorvastatin 20 mg tablet 20 mg PO DAILY acetaminophen 500 mg Tablet 500 mg PO Q6H PRN (Reason: Pain) furosemide 20 mg Tablet 20 mg PO DAILY duloxetine 30 mg capsule,delayed release(DR/EC) 30 mg PO DAILY hydrocodone-acetaminophen 5-325 mg tablet 1 tab PO Q6H PRN (Reason: pain) Qty: 25 0RF cefdinir 300 mg capsule 300 mg PO BID Qty: 14 0RF Discharge Orders: Discharge ED (Routine); Ordered 07/14/23 Ordered By: Arthur Osorio Referrals: Anette Velazquez MD [Primary Care Provider] - 1 week Patient Instructions: Hyperglycemia, Hypertension (ED) Activity Restrictions/Additional Instructions: Your evaluation in the ER did not show any acute cause of your altered mental status fatigue shortness of breath other than an elevated blood sugar, elevated blood pressure and elevated BNP. Please continue to take your water pill more frequently as this will help. Please follow-up with your family practice physician for possible changes in your blood pressure and blood sugar medicines. Coding Level of Care Code ED Exhaust And Muffler Repairer for Jared Vallecillo
[2023-07-13 23:59] LABS: Glucose Point of Care 417 mg/dL (70-110)
[2023-07-14] VITALS (7 sets, daily range): BP systolic 170–190; BP diastolic 67–97; PULSE 74–79; O2SAT 93–95
[2023-07-14] MEDS: insulin regular-human 100 units/1 mL 10 UNIT IVP (00:52)
[2023-07-14 01:19] LABS: Basophils % 0.5 %; Eosinophils # 0.2 10^3/uL (0.0-0.8); Eosinophils % 2.4 %; Hematocrit 39.5 % (36-47); Lymphocytes # 1.4 10^3/uL (0.8-4.8); Lymphocytes % 16.5 %; Mean Corpuscular HGB Conc 30.9 g/dL (30-55); Mean Corpuscular Hemoglobin 26.8 pg (27-33); Mean Corpuscular Volume 86.6 fl (85-98); Mean Platelet Volume 9.2 fL (7.4-10.4); Monocytes # 0.4 10^3/uL (0.2-0.9); Monocytes % 4.4 %; Neutrophils # 6.41 10^3/uL (1.8-7.7); Neutrophils % 75.8 %; Nucleated Red Blood Cells % 0 %; Platelet Count 173 10^3/cmm (157-399); Red Blood Count 4.56 10^6/uL (3.85-5.65); Red Cell Distribution Width 15.3 % (12.1-15.1); White Blood Count 8.44 10^3/uL (3.29-11.43)
[2023-07-14 01:27] LABS: Ketone (Acetest) Serum Negative (Negative)
[2023-07-14 01:42] LABS: Alanine Aminotransferase 17 U/L (0-33); Albumin Level 3.6 g/dL (3.5-5.2); Alkaline Phosphatase 133 U/L (35-105); Anion Gap 13.9 (5-19); Aspartate Amino Transferase 22 U/L (0-32); Blood Urea Nitrogen 17 mg/dL (8-23); Calcium 9.8 mg/dL (8.5-10.5); Carbon Dioxide 26 mmol/L (22-29); Chloride 100 mmol/L (98-107); Creatinine Clr Calc Pharmacy 54.4905; Globulin 2.6 g/dL (1.3-4.6); Glucose 293 mg/dL (65-115); Magnesium 2.1 mg/dL (1.7-2.3); Osmolality Calculated 294 mOsm/kg (285-295); Potassium 3.9 mmol/L (3.5-5.1); Sodium 136 mmol/L (136-145); Total Bilirubin 0.6 mg/dL (0.15-1.2); Total Protein 6.2 g/dL (6.6-8.7)
[2023-07-14 01:46] LABS: NT Pro B Type Natriuretic Pept 1058 pg/mL (0-450)
[2023-07-14 02:52] LABS: Add Urine Microscopic? NO; Charge for UA Resulting for Rev
[2023-07-14 02:53] LABS: Bilirubin Urine Neg (Negative); Blood Urine Neg (Negative); Glucose Urine UA 4+ (Normal); Ketones Urine Negative (Negative); Leukocyte Esterase Urine Negative (Negative); Nitrate Urine Negative (Negative); Protein Urine Neg (Negative); Specific Gravity, Urine 1.015 (1.005-1.030); Urine Appearance Clear (CLEAR); Urine Color Yellow (Yellow); Urobilinogen Urine Neg (Negative); pH Urine 6 (5-7)
[2023-07-14] MEDS: cloNIDine 0.1 mg Tablet 0.100000000000000006 MG PO ×2 (03:03→03:41)
[2023-07-14] MEDS: cyclobenzaprine 10 mg Tablet 5 MG PO (03:03)
== END 2023-07-14 03:39 | disposition home or self-care (01) ==
PROVIDERS: Emergency Provider Emergency Medicine; PCP Internal Medicine
DX: E11.65 Type 2 diabetes mellitus with hyperglycemia (principal); I10 Essential (primary) hypertension; I25.2 Old myocardial infarction; I25.10 Atherosclerotic heart disease of native coronary artery without angina pectoris; E11.42 Type 2 diabetes mellitus with diabetic polyneuropathy; Z98.61 Coronary angioplasty status; Z77.22 Contact with and (suspected) exposure to environmental tobacco smoke (acute) (chronic); Z79.85 Long-term (current) use of injectable non-insulin antidiabetic drugs; Z79.84 Long term (current) use of oral hypoglycemic drugs
CPT/HCPCS: 36415; 36416; 71045; 80053; 81003; 82009; 82962; 83735; 83880; 85025; 96374; 99284; J1815

== ENCOUNTER 2023-07-14 09:45 | Emergency (ER) | payer MEDICARE, MEDICAID, SELFPAY ==
[2023-07-14 09:45] VITALS: BP 137/85; PULSE 57; RESP 16; TEMP 36.4; O2SAT 95; BMI 29.2
[2023-07-14 09:54] LABS: Glucose Point of Care 305 mg/dL (70-110)
--- NOTE | 2023-07-14 10:02 | XR_ITS ---
WS: [id number] Examination: XR chest 1V portable [id number] Reason for Exam: dyspnea/cough Date: July 14, 2023 Comparison: July 14, 2023, Findings: The heart is prominent in size. The mediastinum is not widened on this rotated film The lung markings are increased which is similar to the previous study. This may be chronic in nature . There is increased density at the bases particularly on the left suggesting minimal atelectasis or infiltrate. Severe deformity of the left humerus is again noted with fracture Impression: The heart is prominent in size. Chronic changes are present with diffusely increased markings. Minima l left basilar atelectasis or infiltrate is also suspected.
--- NOTE | 2023-07-14 10:02 | W.ED.GENADLT ---
HPI - General Adult General: Chief complaint: General Medical Stated complaint: high blood glucose Time Seen by Provider: 07/14/23 09:49 Source: patient Mode of arrival: EMS History of Present Illness: 83-year-old female presents emergency room with hyperglycemia. She was seen here overnight with hyperglycemia and hypertension. Blood pressure was reported in the 170s 180s she was given clonidine on arrival back family stating she seems somewhat altered. Her blood glucose has been elevated for the last 2 to 3 days reporting she having some difficulty breathing and some slurred speech. Initial bedside NIH score was 0. She denies chest pain or abdominal pain. She was given some insulin last night and took her regular Lantus this morning additionally that she is on Trulicity. She is denying any nausea vomiting or diarrhea or abdominal pain no dysuria urgency or frequency. Onset (ago): day(s) (2-3) Relieving factors: none Exacerbating factors: none Associated symptoms: Reports decreased appetite; Deny chest pain, confusion, cough, diaphoresis, dyspnea, fevers/chills, headache(s), malaise, nausea, rash, palpitations, seizures, short of breath, syncope, vomiting or weakness Review of Systems Const: Denies: fever(s), chills, malaise or diaphoresis Card: Denies: chest pain, palpitations or syncope Resp: Denies: dyspnea GI: Denies: abdominal pain, nausea or vomiting : Denies: dysuria, urinary frequency or urinary urgency Musc: Denies: neck pain or back pain Skin/Breast: Denies: rash Neuro: Denies: headache(s) or confusion PFS ED PFSH: Medical History UTI (urinary tract infection) Fall Moderate mitral regurgitation Acute [place], inferior wall High anion gap metabolic acidosis Diabetes with ketoacidosis Cholelithiases Vomiting Atrial fibrillation, chronic Fracture of humerus, left, closed Pes planus of both feet ALISTAIR inhibitor intolerance Essential hypertension Warfarin anticoagulation Lower extremity deep venous thrombosis CAD (coronary artery disease) Fracture of greater trochanter of right femur Peripheral vascular disease Onychodystrophy Diabetic neuropathy associated with diabetes mellitus due to underlying condition Surgical History Coronary angioplasty status PCI to RCA?2016 Family History Mother Diabetes Denies family history of CAD (coronary artery disease) Clotting disorder Dementia Hyperlipidemia Psychiatric illness Chronic kidney disease (CKD) Suicide Anesthesia complication Bleeding disorder Family history of premature coronary artery disease Lung disease Cancer Hypertension Stroke Social History Smoking and tobacco/nicotine status: never used tobacco/nicotine Second hand smoke exposure: Yes Alcohol intake: never Substance/Drug Use: never Physical Exam Const: COMMON NORMALS: no acute distress GENERAL APPEARANCE: cooperative and comfortable ORIENTATION/CONSCIOUSNESS: Yes awake, Yes oriented to person, Yes oriented to place and Yes oriented to time HENMT: COMMON NORMALS: normocephalic, atraumatic and hearing grossly normal bilaterally HEAD & SCALP: normocephalic and atraumatic Resp: COMMON NORMALS: normal respiratory effort, No retractions, No use of accessory muscles and clear to auscultation bilaterally AUSCULTATION: clear to auscultation bilaterally Cardio: COMMON NORMALS: regular rate, regular rhythm and No murmurs present (Cardio) RATE: regular rate RHYTHM: regular rhythm GI: COMMON NORMALS: Soft to palpation and No hepatosplenomegaly present AUSCULTATION: Yes normoactive bowel sounds PALPATION: Yes Soft to palpation, No Tenderness to palpation present (GI), No Guarding due to palpation present (GI) and Yes No hepatosplenomegaly present Extremity: COMMON NORMALS: normal to inspection, capillary refill normal, no clubbing, cyanosis or edema, no calf tenderness and no pedal edema Neuro: SENSORIUM/ORIENTATION: Yes oriented to person, Yes oriented to place and Yes oriented to time Skin: COMMON NORMALS: no rashes or lesions noted GENERAL SKIN EXAM: no rashes or lesions noted Course Vital Signs: Vital signs: Vital Signs Temperature 97.5 F L 07/14/23 09:45 Pulse Rate 56 L 07/14/23 12:12 Respiratory Rate 13 07/14/23 12:12 Blood Pressure 129/60 07/14/23 12:23 Pulse Oximetry 97 07/14/23 12:12 Oxygen Delivery Me thod Room Air 07/14/23 09:45 [facility] - General Adult Medical Decision Making Patient was normotensive on arrival and remained normotensive here. A couple blood pressures that were slightly elevated but majority were in an acceptable range. Blood sugar was in the 300s on arrival to given fluids and IV insulin blood sugar improved patient is feeling well she has no signs of infection laboratory test did not show significant abnormality. Family is very concerned about patient developing DKA there is no sign of DKA on her labs she has no anion gap no acidosis no ketones. She has been having elevated blood sugars lately recommend increasing her Lantus to 48 units twice daily which represents less than 10% increase. Previously patient was on short acting insulin but was hypoglycemic with that evidently and was taken off of it. Monitor blood sugar closely and follow-up with primary care doctor within the next week at the office. Lab Data 07/14/23 10:39 07/14/23 10:39 Laboratory Results WBC 5.82 10^3/uL (3.29-11.43) 07/14/23 10:39 RBC 4.64 10^6/uL (3.85-5.65) 07/14/23 10:39 Hgb 12.40 g/dL (11.27-16.99) 07/14/23 10:39 Hct 40.6 % (36-47) 07/14/23 10:39 MCV 87.5 fl (85-98) 07/14/23 10:39 MCH 26.7 pg (27-33) L 07/14/23 10:39 MCHC 30.5 g/dL (30-55) 07/14/23 10:39 RDW 15.3 % (12.1-15.1) H 07/14/23 10:39 Plt Count 176 10^3/cmm (157-399) 07/14/23 10:39 MPV 9.3 fL (7.4-10.4) 07/14/23 10:39 Neut % (Auto) 64.9 % 07/14/23 10:39 Lymph % (Auto) 21.6 % 07/14/23 10:39 [place] % (Auto) 9.1 % 07/14/23 10:39 Eos % (Auto) 3.6 % 07/14/23 10:39 Baso % (Auto) 0.5 % 07/14/23 10:39 Neut # (Auto) 3.77 10^3/uL (1.8-7.7) 07/14/23 10:39 Lymph # (Auto) 1.3 10^3/uL (0.8-4.8) 07/14/23 10:39 [place] # (Auto) 0.5 10^3/uL (0.2-0.9) 07/14/23 10:39 Eos # (Auto) 0.2 10^3/uL (0.0-0.8) 07/14/23 10:39 Baso # (Auto) 0.0 10^3/uL (0.0-0.1) 07/14/23 10:39 Nucleated RBC % (auto) 0 % 07/14/23 10:39 Nucleated RBCs # 0.0 /100WBC 07/14/23 10:39 Specimen Type Arterial 07/14/23 10:01 Sample Site Radial, right 07/14/23 10:01 ABG pH 7.45 (7.35-7.45) 07/14/23 10:01 ABG pCO2 35.8 mmHg (35-45) 07/14/23 10:01 ABG pO2 77.1 mmHg (80.0-100.0) L 07/14/23 10:01 ABG PO2/FiO2 Ratio 0 07/14/23 10:01 ABG HCO3 24.6 mmol/L (22-26) 07/14/23 10:01 ABG O2 Saturation 97.4 07/14/23 10:01 ABG Base Excess 0.8 mmol/L (-2.0-2.0) 07/14/23 10:01 Markel Test Pos 07/14/23 10:01 A-a O2 Gradient 3.7 mmHg (5-10) L 07/14/23 10:01 Hematocrit 39.3 % (37-47) 07/14/23 10:01 Hgb O2 Saturation 96.1 % (95-100) 07/14/23 10:01 Carboxyhemoglobin 1.2 %THgb (0.4-20.1) 07/14/23 10:01 Methemoglobin 0.2 % (0.4-1.5) L 07/14/23 10:01 Total Hemoglobin 12.8 g/dL (12-16) 07/14/23 10:01 Sodium 136.0 mmol/L (131-143) 07/14/23 10:01 Potassium 4.0 mmol/L (3.5-5.0) 07/14/23 10:01 Glucose 268.0 mg/dL (70-115) H 07/14/23 10:01 Ionized Calcium 1.3 mmol/L (1.1-1.4) 07/14/23 10:01 O2 Delivery Device Room air 07/14/23 10:01 FiO2 21.0 % 07/14/23 10:01 [employer]her And Crusher Tender ID [place] 07/14/23 10:01 Sodium 137 mmol/L (136-145) 07/14/23 10:39 Potassium 4.3 mmol/L (3.5-5.1) 07/14/23 10:39 Chloride 102 mmol/L (98-107) 07/14/23 10:39 Carbon Dioxide 24 mmol/L (22-29) 07/14/23 10:39 Anion Gap 15.3 (5-19) 07/14/23 10:39 BUN 16 mg/dL (8-23) 07/14/23 10:39 Creatinine 0.7 mg/dL (0.5-0.9) 07/14/23 10:39 GFR Calculation Not Reportable 07/14/23 10:39 Glucose 291 mg/dL (65-115) H 07/14/23 10:39 POC Glucose 172 mg/dL (70-110) H 07/14/23 12:04 Calculated Osmolality 296 mOsm/kg (285-295) H 07/14/23 10:39 Lactic Acid 1.6 mmol/L (0.5-2.2) 07/14/23 10:39 Calcium 9.7 mg/dL (8.5-10.5) 07/14/23 10:39 Magnesium 1.8 mg/dL (1.7-2.3) 07/14/23 10:39 Total Bilirubin 0.8 mg/dL (0.15-1.2) 07/14/23 10:39 AST 21 U/L (0-32) 07/14/23 10:39 ALT 18 U/L (0-33) 07/14/23 10:39 Alkaline Phosphatase 141 U/L (35-105) H 07/14/23 10:39 Total Protein 5.7 g/dL (6.6-8.7) L 07/14/23 10:39 Albumin 3.9 g/dL (3.5-5.2) 07/14/23 10:39 Globulin 1.8 g/dL (1.3-4.6) 07/14/23 10:39 Lipase 19 U/L (13-60) 07/14/23 10:39 Urine Color Colorless (Yellow) 07/14/23 10:07 Urine Appearance Clear (CLEAR) 07/14/23 10:07 Urine pH 5 (5-7) 07/14/23 10:07 Ur Specific [place] 1.005 (1.005-1.030) 07/14/23 10:07 Urine Protein Neg (Negative) 07/14/23 10:07 Urine Glucose (UA) 1+ (Normal) H 07/14/23 10:07 Urine Ketones Negative (Negative) 07/14/23 10:07 Urine Blood Neg (Negative) 07/14/23 10:07 Urine Nitrate Negative (Negative) 07/14/23 10:07 Urine Bilirubin Neg (Negative) 07/14/23 10:07 Urine Urobilinogen Neg mg/dL (Negative) 07/14/23 10:07 Ur Leukocyte Esterase Negative (Negative) 07/14/23 10:07 Serum Ketones Negative (Negative) 07/14/23 10:39 All radiology interpretation(s) finalized by discharge Discharge Plan Discharge Patient Disposition: Home Clinical Impression: Uncontrolled diabetes mellitus Hypertension Qualifiers: Hypertension type: unspecified Qualified Code(s): I10 - Essential (primary) hypertension Condition: Stable Prescriptions: No Action metformin 1,000 mg tablet 1,000 mg PO BID (DME) Diabetic shoes with 3 inserts See Rx Instructions .ROUTE .MEDSUPPLY Qty: 1 0RF Rx Instructions: As directed by [facility] diabetic shoes with 3 inserts See Rx Instructions .Route .MEDSUPPLY Qty: 1 0RF Rx Instructions: As directed to the shoe katty multivitamin Tablet 1 tab PO QAM atorvastatin 20 mg tablet 20 mg PO QAM duloxetine 30 mg capsule,delayed release(DR/EC) 30 mg PO QAM latanoprost 0.005 % drops 1 drp ophthalmic (eye) QPM Rx Instructions: left eye torsemide 20 mg tablet 20 mg PO QAM Zyrtec 10 mg Tablet 10 mg PO QAM Calcium + D 600 mg-5 mcg (200 unit) Tablet 1 tab PO QAM dorzolamide-timolol 22.3-6.8 mg/mL drops 1 drp ophthalmic (eye) BID Rx Instructions: left eye Lantus Solostar U-100 Insulin 100 unit/mL (3 mL) insulin pen 44 unit SUBCUT BID Trulicity 3 mg/0.5 mL pen injector 3 mg SUBCUT Q7D Rx Instructions: on mon Discharge Orders: Discharge ED (Routine); Ordered 07/14/23 Ordered By: Daniel Connor Referrals: Anette Velazquez MD [Primary Care Provider] - Discharge Diet: Diabetic Discharge Activity: Increase activity as tolerated Patient Instructions: Opioid Safety, Pain Management Activity Restrictions/Additional Instructions: Thank you for choosing [facility] for your healthcare needs today. Please realize this is an emergency room and that we are providing you with a medical screening exam and this may not be complete and all inclusive of all the testing and or work up that you may need to determine your ailment or severity of your illness. It is very important that you follow up as instructed or that you return to the Emergency Department should you have concerns or if your condition changes or worsens in any way. You were seen today for elevated blood sugars and concerning her blood pressure. Blood pressure improved while in the emergency room. Your blood sugar improved with the short acting insulin that was given. Continue your current medications, do recommend you increase your Lantus to 48 units twice daily. This is a slightly less than 10% increase in total. Would recommend that you follow-up with your primary care doctor early next week. Your laboratory studies did not show significant abnormalities the time you are seen there is no evidence of DKA or active infection. 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
--- NOTE | 2023-07-14 10:03 | CT_ITS ---
WS: [id number] CT HEAD TECHNIQUE: Noncontrast CT of the head obtained from the skullbase to the vertex. CLINICAL INFORMATION: AMS COMPARISON: CT 05/22/2023 DLP: 1090.[address] scans at [facility] use at least one of these dose optimization techniques: automated e xposure control; mA and/or kV adjustment per patient size (includes targeted exams where dose is matc hed to clinical indication); or iterative reconstruction. FINDINGS: No evidence of intracranial hemorrhage or mass effect. Ventricular system and basal cisterns are castillo nt. Moderate small vessel changes with moderate parenchymal volume loss. 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 No extra-axial fluid collections. No evidence of mass or mass effect. Paranasal sinuses and mastoid air cells are well aerated. .Normal visualized soft tissues. IMPRESSION: 1. No evidence of intracranial hemorrhage or mass effect. 2. Moderate small vessel changes. Moderate parenchymal volume loss. 3. Intracranial vascular calcification. 4. No acute intracranial findings.
[2023-07-14 10:12] LABS: Blood Gas Allen Test Pos; Blood Gas Operator Identificat WALCI; Blood Gas Sample Type Arterial; Ionized Calcium Level - ABG 1.3 mmol/L (1.1-1.4); Oxygen Device ROOM AIR; PO2 FiO2 Ratio Arterial Blood 0
[2023-07-14 10:14] LABS: ABG PCO2 35.8 mmHg (35-45); ABG PH Result 7.45 (7.35-7.45); Alveolar-Arterial Oxygen Gradi 3.7 mmHg (5-10); Arterial Blood Gas Hematocrit 39.3 % (37-47); Base Excess ABG 0.8 mmol/L (-2.0-2.0); Blood Gas Sample Site Radial, right; Carboxyhemoglobin 1.2 %THgb (0.4-20.1); HCO3 ABG 24.6 mmol/L (22-26); HGB O2 Sat 96.1 % (95-100); Methemoglobin 0.2 % (0.4-1.5); Oxygen Saturation ABG 97.4; PO2 ABG 77.1 mmHg (80.0-100.0); Total Hemoglobin 12.8 g/dL (12-16)
--- NOTE | 2023-07-14 10:34 | PC.PHAR ---
pts family brought in pts medications and states the pt took am meds today-pts family states the pts metformin was dced a month ago but states they restarted metformin 1000mg bid on 07/13/23 -pts family states the pts jardiance 10mg daily was dced ext shows last filled 04/28/23 30d/s-
[2023-07-14 10:44] LABS: Glucose Point of Care 274 mg/dL (70-110)
--- NOTE | 2023-07-14 10:44 | PC.NURSE ---
Glucose Re-check: [address] Connor notified, per Dr. Connor to continue with administration of 10 units of insulin.
[2023-07-14] MEDS: insulin regular-human 100 units/1 mL 10 UNIT IVP (10:50)
[2023-07-14] MEDS: sodium chloride 0.9% 500 ML 999 ML IV (10:57)
[2023-07-14 11:03] LABS: Ketone (Acetest) Serum Negative (Negative)
[2023-07-14 11:09] LABS: Lactic Sepsis W/Reflex 1.6 mmol/L (0.5-2.2); Magnesium 1.8 mg/dL (1.7-2.3)
[2023-07-14 11:13] LABS: Add Urine Microscopic? NO; Charge for UA Resulting for Rev
[2023-07-14 11:14] LABS: Basophils % 0.5 %; Eosinophils # 0.2 10^3/uL (0.0-0.8); Eosinophils % 3.6 %; Hematocrit 40.6 % (36-47); Lymphocytes # 1.3 10^3/uL (0.8-4.8); Lymphocytes % 21.6 %; Mean Corpuscular HGB Conc 30.5 g/dL (30-55); Mean Corpuscular Hemoglobin 26.7 pg (27-33); Mean Corpuscular Volume 87.5 fl (85-98); Mean Platelet Volume 9.3 fL (7.4-10.4); Monocytes # 0.5 10^3/uL (0.2-0.9); Monocytes % 9.1 %; Neutrophils # 3.77 10^3/uL (1.8-7.7); Neutrophils % 64.9 %; Nucleated Red Blood Cells % 0 %; Platelet Count 176 10^3/cmm (157-399); Red Blood Count 4.64 10^6/uL (3.85-5.65); Red Cell Distribution Width 15.3 % (12.1-15.1); White Blood Count 5.82 10^3/uL (3.29-11.43)
[2023-07-14 11:27] LABS: Alanine Aminotransferase 18 U/L (0-33); Albumin Level 3.9 g/dL (3.5-5.2); Alkaline Phosphatase 141 U/L (35-105); Anion Gap 15.3 (5-19); Aspartate Amino Transferase 21 U/L (0-32); Blood Urea Nitrogen 16 mg/dL (8-23); Calcium 9.7 mg/dL (8.5-10.5); Carbon Dioxide 24 mmol/L (22-29); Chloride 102 mmol/L (98-107); Creatinine Clr Calc Pharmacy 54.4905; Globulin 1.8 g/dL (1.3-4.6); Glucose 291 mg/dL (65-115); Lipase 19 U/L (13-60); Osmolality Calculated 296 mOsm/kg (285-295); Potassium 4.3 mmol/L (3.5-5.1); Sodium 137 mmol/L (136-145); Total Bilirubin 0.8 mg/dL (0.15-1.2); Total Protein 5.7 g/dL (6.6-8.7)
[2023-07-14 11:29] LABS: Bilirubin Urine Neg (Negative); Blood Urine Neg (Negative); Glucose Urine UA 1+ (Normal); Ketones Urine Negative (Negative); Leukocyte Esterase Urine Negative (Negative); Nitrate Urine Negative (Negative); Protein Urine Neg (Negative); Specific Gravity, Urine 1.005 (1.005-1.030); Urine Appearance Clear (CLEAR); Urine Color Colorless (Yellow); Urobilinogen Urine Neg (Negative); pH Urine 5 (5-7)
[2023-07-14 12:07] LABS: Glucose Point of Care 172 mg/dL (70-110)
--- NOTE | 2023-07-14 12:07 | PC.NURSE ---
Poc glucose rechecked at 1200 174
[2023-07-14 12:12] VITALS: PULSE 56; RESP 13; O2SAT 97
[2023-07-14 12:23] VITALS: BP 129/60
[2023-07-14 12:35] VITALS: BP 129/60
== END 2023-07-14 12:36 | disposition home or self-care (01) ==
PROVIDERS: Emergency Provider Family Medicine; PCP Internal Medicine
DX: E11.65 Type 2 diabetes mellitus with hyperglycemia (principal); E11.42 Type 2 diabetes mellitus with diabetic polyneuropathy; I10 Essential (primary) hypertension; Z79.4 Long term (current) use of insulin; Z79.84 Long term (current) use of oral hypoglycemic drugs; I25.2 Old myocardial infarction; I25.10 Atherosclerotic heart disease of native coronary artery without angina pectoris; Z79.85 Long-term (current) use of injectable non-insulin antidiabetic drugs; Z77.22 Contact with and (suspected) exposure to environmental tobacco smoke (acute) (chronic); Z98.61 Coronary angioplasty status
CPT/HCPCS: 36415; 36416; 36600; 70450; 71045; 80051; 80053; 81003; 82009; 82330; 82805; 82962; 83605; 83690; 83735; 83880; 85025; 87040; 96374; 99285; J1815; J7040

== ENCOUNTER → 2023-08-02 08:53 | Outpatient (BNVA) | payer MEDICARE, MEDICAID, SELFPAY | PROVIDERS: PCP Internal Medicine; Visit Provider Podiatrist Foot & Ankle Surgery | DX: E08.42 Diabetes mellitus due to underlying condition with diabetic polyneuropathy (principal); M21.41 Flat foot [pes planus] (acquired), right foot; M21.42 Flat foot [pes planus] (acquired), left foot; M20.41 Other hammer toe(s) (acquired), right foot; M20.42 Other hammer toe(s) (acquired), left foot; Z79.01 Long term (current) use of anticoagulants; I73.9 Peripheral vascular disease, unspecified; L60.3 Nail dystrophy; Z79.4 Long term (current) use of insulin; Z79.84 Long term (current) use of oral hypoglycemic drugs | CPT/HCPCS: 11721 ==

== ENCOUNTER → 2023-08-10 13:41 | Outpatient (BNVA) | payer MEDICARE, MEDICAID, SELFPAY | PROVIDERS: PCP Internal Medicine; Visit Provider Orthopaedic Surgery | DX: M25.512 Pain in left shoulder (principal); S42.292D Other displaced fracture of upper end of left humerus, subsequent encounter for fracture with routine healing; W06.XXXD Fall from bed, subsequent encounter | CPT/HCPCS: 73030; 93005; 99213; 99214 ==

== ENCOUNTER 2023-09-22 05:56 | Outpatient (CLI) | payer MEDICARE, MEDICAID, SELFPAY ==
--- NOTE | 2023-09-22 06:00 | US_ITS ---
WS: [id number] RIGHT UPPER QUADRANT ULTRASOUND HISTORY: ELEVATED LIVER ENZYMES COMPARISON: 11/07/2021 Liver: 16.5 cm in length. Normal size liver and echogenicity. No bile duct dilatation or mass. Portal Vein: Normal hepatopetal flow with monophasic waveform. Gallbladder: Gallbladder is slightly contracted. Large nonshadowing from the gallbladder fossa and ce ntral gallbladder lumen. Consistent with a stone filled gallbladder. This was also noted on a prior s tudy from 11/07/2021. CBD: 0.7 cm Pancreas: Completely obscured by bowel gas. Right kidney: 8.5 cm in length. Low normal size kidney. Mild diffuse cortical thinning. Kidney has sl ightly decreased in size with progression of cortical thinning since 11/07/2021. There is no hydroneph rosis or mass. Aorta and IVC: Small portion of the aorta visualized normal. IVC not visualized. No ascites. US/US abdomen limited 99231 IMPRESSION: 1. Cholelithiasis. Stone filled gallbladder. No evidence for acute cholecystit is. Similar findings noted on 11/07/2021. 2. Mild progression of renal atrophy and cortical thinning since 11/07/2021. 3. No bile duct dilatation.
== END 2023-09-22 05:57 | disposition home or self-care (01) ==
LOC: RAD 05:56
PROVIDERS: PCP Internal Medicine; Visit Provider Internal Medicine
DX: R74.8 Abnormal levels of other serum enzymes (principal); K80.20 Calculus of gallbladder without cholecystitis without obstruction; N26.1 Atrophy of kidney (terminal)
CPT/HCPCS: 76705

== ENCOUNTER → 2023-10-23 09:45 | Outpatient (BNVA) | payer MEDICARE, MEDICAID, SELFPAY | PROVIDERS: PCP Internal Medicine; Visit Provider Surgery | DX: K80.20 Calculus of gallbladder without cholecystitis without obstruction (principal); I48.20 Chronic atrial fibrillation, unspecified; I25.10 Atherosclerotic heart disease of native coronary artery without angina pectoris; I73.9 Peripheral vascular disease, unspecified; I49.5 Sick sinus syndrome; E08.42 Diabetes mellitus due to underlying condition with diabetic polyneuropathy; Z79.01 Long term (current) use of anticoagulants | CPT/HCPCS: 99204 ==

== ENCOUNTER 2023-10-31 06:50 | Day surgery (SDC) | payer MEDICARE, MEDICAID, SELFPAY ==
[2023-10-31] VITALS (10 sets, daily range): BP systolic 118–186; BP diastolic 46–96; PULSE 42–60; RESP 16–20; TEMP 36.1–36.6; O2SAT 90–100; BMI 29.2
--- NOTE | 2023-10-31 07:17 | W.PM.OPSUD ---
Surgery/Procedure H&P Update DATE OF PROCEDURE: October 31, 2023 DATE H&P PERFORMED: 10/23/23 H&P UPDATE INFORMATION: I have reviewed H&P completed within last 30 days, I have examined patient prior to procedure and No changes to prior documentation PLANNED PROCEDURE: Operation Date: 10/31/23 08:20 Proposed Procedures p Laparoscopic Cholecystectomy 25705, K80.20(Not Applicable) - Horace Wilks DO
[2023-10-31 07:20] LABS: Glucose Point of Care 276 mg/dL (70-110)
[2023-10-31] MEDS: sodium chloride 0.9% 1,000 ML 30 ML IV (07:21)
--- NOTE | 2023-10-31 07:27 | ANES.PREANE2 ---
Pre-Anesthetic Assessment Height/Weight: Height 1.63 m Weight 77.111 kg Temp Pulse Resp BP Pulse Ox O2 Del Method 97.8 F 60 18 186/96 97 Room Air 10/31/23 07:05 10/31/23 07:05 10/31/23 07:05 10/31/23 07:05 10/31/23 07:05 10/31/23 07:05 Operation Date: 10/31/23 08:20 Proposed Procedures p Laparoscopic Cholecystectomy 53152, K80.20(Not Applicable) - Horace Wilks DO Familial anesthetic complications: None Was Beta Jayson taken within 24 hours: N/A Was Clonidine taken within 24 hours: N/A Last intake: Intake Last Liquid Date 10/30/23 Last Liquid Time 22:00 Last Solid Date 10/30/23 Last Solid Time 20:00 Social No alcohol and No tobacco Exam alert, oriented x 3, clear to auscultation bilaterally and regular rate & rhythm Airway Mallampati: Class II Dentition: other (no teeth) CV/HEM Atrial Fibrillation, Coronary Artery Disease and Peripheral Vascular Disease HX provoked PE Metabolic Diabetes Mellitus and Hyperlipidemia Anesthetic Plan ASA status: 3 Anesthesia: General Risk of > 500 ml blood loss (7ml/kg in children): No Medications/Allergies Home Medications Medication Instructions Recorded Confirmed Last Taken Type Diabetic shoes with 3 inserts #1 ea 10/20/20 10/23/23 Unknown Rx atorvastatin 20 mg tablet 20 mg PO QAM 11/07/21 10/30/23 10/30/23 History multivitamin 1 tab PO QAM 11/07/21 10/30/23 10/30/23 History duloxetine 30 mg capsule,delayed 30 mg PO QAM 05/12/23 10/30/23 10/30/23 History release calcium carbonate 600 mg-vitamin 1 tab PO QAM 07/14/23 10/30/23 10/30/23 History D3 5 mcg (200 unit) tablet cetirizine 10 mg tablet (Zyrtec) 10 mg PO QAM 07/14/23 10/30/23 10/30/23 History dorzolamide 22.3 mg-timolol 6.8 1 drp ophthalmic (eye) BID 07/14/23 10/30/23 10/30/23 History mg/mL eye drops latanoprost 0.005 % eye drops 1 drp ophthalmic (eye) QPM 07/14/23 10/30/23 10/30/23 History torsemide 20 mg tablet 20 mg PO QAM 07/14/23 10/30/23 10/30/23 History diabetic shoes with 3 inserts #1 ea 08/02/23 10/23/23 Unknown Rx semaglutide 0.25 mg or 0.5 mg (2 0.25 mg SUBCUT Q7D 10/23/23 10/30/23 10/18/23 History mg/3 mL) subcutaneous pen injector (Ozempic) insulin aspart U-100 100 unit/mL 10 unit SUBCUT TID 10/25/23 10/30/23 10/30/23 History (3 mL) subcutaneous pen (Novolog FlexPen U-100 Insulin aspart) insulin glargine 100 unit/mL (3 See Rx Instructions SUBCUT BID 10/25/23 10/25/23 Unknown History mL) subcutaneous pen (Lantus Solostar U-100 Insulin) Allergies Allergy/AdvReac Type Severity Reaction Status Date / Time diphenhydramine Allergy Unknown unknown Verified 10/31/23 07:01 [From Benadryl] tetracycline Allergy Unknown unknown Verified 10/31/23 07:01 [facility] Anesthesia Medical History UTI (urinary tract infection) Fall Moderate mitral regurgitation Acute [place], inferior wall High anion gap metabolic acidosis Diabetes with ketoacidosis Cholelithiases Vomiting Atrial fibrillation, chronic Fracture of humerus, left, closed Pes planus of both feet ALISTAIR inhibitor intolerance Essential hypertension Warfarin anticoagulation Lower extremity deep venous thrombosis CAD (coronary artery disease) Fracture of greater trochanter of right femur Peripheral vascular disease Onychodystrophy Diabetic neuropathy associated with diabetes mellitus due to underlying condition Surgical History Coronary angioplasty status PCI to RCA?2016 Family History Mother Diabetes Denies family history of CAD (coronary artery disease) Clotting disorder Dementia Hyperlipidemia Psychiatric illness Chronic kidney disease (CKD) Suicide Anesthesia complication Bleeding disorder Family history of premature coronary artery disease Lung disease Cancer Hypertension Stroke Social History Smoking and tobacco/nicotine status: never used tobacco/nicotine Second hand smoke exposure: Yes Alcohol intake: never Substance/Drug Use: never Data Anesthesia Cardiac Studies: Echocardiogram 11/08/21 Cardiac Event Monitor 11/15/21
[2023-10-31] MEDS: insulin regular-human 100 units/1 mL 10 UNIT IVP (07:39)
[2023-10-31] MEDS: ceFAZolin 2,000 mg SDV 2000 MG IVP (08:19)
[2023-10-31] MEDS: lidocaine-epi 2% PF 1:200,000 20 mL SDV XX (08:46)
--- NOTE | 2023-10-31 09:00 | P.OP_ITS ---
Operative Report Date of procedure: October 31, 2023 Pre-op diagnosis: To the Surgeon: Horace Wilks DO Brief History: This is a very pleasant 83-year-old female who presented my office with abdominal pain. She was diagnosed with symptomatic cholelithiasis. Laparoscopic cholecystectomy was indicated. The risks and benefits were explained and documented. Procedure: Preoperative diagnosis: Symptomatic cholelithiasis Postoperative diagnosis: Same Procedure performed: Laparoscopic cholecystectomy Surgeon: Dr. Horace Wilks DO Estimated blood loss: 5 mL Specimens: Gallbladder to pathology Complications: None apparent Description of procedure: Patient was wheeled into the operative room and placed on the OR table in a sup ine position. Abdomen was inspected prepped and draped in usual sterile fashion. Time-out was performed and all present were in agreement. A 15 blade scalp was used to make a stab incision in the left upper quadrant and intra- abdominal insufflation was achieved using a Veress needle. After localizing the tissue incisions were made and a 5 millimeter trocar was placed into the umbilicus as well as 2 in the right upper quadrant. A 12 millimeter trocar was placed in the epigastrium. Gallbladder was grasped and elevated. The triangle of Calot was carefully dissected using blunt dissection and electrocautery until the triangle of Calot clearly identified. The cystic duct was clipped proximally and double clipped distally. The duct was then ligated proximally. The cystic artery was doubly clipped and ligated. The gallbladder was then removed from the liver bed using electrocautery. The gallbladder was removed from the abdomen using an Endo-Catch bag through the epigastric incision. The liver bed was inspected and no bleeding was seen. The abdomen was irrigated and suctioned. All ports removed. Skin was washed and dried. Incisions were closed with 4-0 Monocryl in a subcuticular interrupted fashion. Skin glue was applied. Patient tolerated the procedure well.
[2023-10-31] MEDS: HYDROcodone-acetaminophen 7.5-325 mg Tablet 1 TAB PO (10:10)
--- NOTE | 2023-10-31 10:45 | ANE.PACU2 ---
Inpatient post-anesthesia follow up: Airway intact: Yes Vital signs: Temperature 97.8 F Pulse Rate 52 Respiratory Rate 16 Blood Pressure 129/51 Pulse Oximetry 94 Oxygen Delivery Me thod Room Air Oxygen Flow Rate 10 Fraction of Inspir ed Oxygen Hydration adequate: Yes Nausea and vomiting: No Pain level: 1 Mental status: Baseline
== END 2023-10-31 10:49 | disposition home or self-care (01) ==
PROVIDERS: PCP Internal Medicine; Visit Provider Surgery
PROC: 0FT44ZZ Resection of Gallbladder, Percutaneous Endoscopic Approach (ICD-10-PCS; CPT 47562; principal; 2023-10-31 08:20)
DX: K80.10 Calculus of gallbladder with chronic cholecystitis without obstruction (principal); I48.91 Unspecified atrial fibrillation; I25.10 Atherosclerotic heart disease of native coronary artery without angina pectoris; E11.40 Type 2 diabetes mellitus with diabetic neuropathy, unspecified; E78.5 Hyperlipidemia, unspecified; Z79.4 Long term (current) use of insulin
CPT/HCPCS: 47562; 36416; 82962; 88304; J0690; J1100; J1815; J2405; J2704; J3010; J3490; J7030

== ENCOUNTER → 2023-11-20 09:22 | Outpatient (BNVA) | payer MEDICARE, MEDICAID, SELFPAY | PROVIDERS: PCP Internal Medicine; Visit Provider Surgery | DX: R03.0 Elevated blood-pressure reading, without diagnosis of hypertension (principal); Z90.49 Acquired absence of other specified parts of digestive tract; Z98.890 Other specified postprocedural states | CPT/HCPCS: 99024 ==

== ENCOUNTER 2024-02-23 14:21 | Emergency (ER) | payer MEDICARE, MEDICAID, SELFPAY ==
[2024-02-23 15:12] VITALS: BP 143/64; PULSE 49; RESP 17; TEMP 36.6; O2SAT 96; BMI 30.9
--- NOTE | 2024-02-23 15:21 | USR_ITS ---
PROCEDURE INFORMATION: Exam: US Duplex Right Lower Extremity Veins, Limited Exam date and time: 02/23/2024 2:54 PM Age: 83 years old Clinical indication: Swelling (edema) of limb; Lower extremity, right TECHNIQUE: Imaging protocol: Real-time duplex ultrasound of the right extremity with 2-D pierre scale, color Doppler flow and spectral waveform analysis including responses to compression and other maneuvers (when performed) with image documentation. Limited exam was focused on the right lower extremity veins. COMPARISON: MR knee RT wo/w con [id number] 02/26/2019 2:41 PM FINDINGS: Right deep veins: Occlusive thrombus within the common femoral vein, profunda femoris, and superficial femoral vein. Partial thrombus in the popliteal vein. Areas of thrombus appear somewhat echogenic, suggesting some chronicity. Superficial veins: Greater saphenous vein at the saphenofemoral junction is patent without thrombus. Soft tissues: Unremarkable. Other findings: The peroneal and posterior tibial veins appear patent. US/[place] [id number] IMPRESSION: Occlusive thrombus in the veins of the thigh with partial thrombus in the popliteal vein as detailed above. Findings are suspected to be chronic.
--- NOTE | 2024-02-23 17:53 | ED_ITS ---
HPI - Extremity Problem General: Chief complaint: Extremity Problem,Nontraumatic Stated complaint: right leg swollen Time Seen by Provider: 02/23/24 17:17 Source: patient Mode of arrival: ambulatory Limitations: no limitations History of Present Illness: Patient is an 83-year-old female with past medical history of pulmonary embolism and previous DVT who presents to the emergency department with right lower extremity swelling for the past couple of days. She states she has been off her Eliquis since April due to her recurrent falls, has not had any recent falls but states that she believes the swelling may be due to a blood clot. She also has a history of ORIF to that right ankle, and it is always kind of swollen. She is not reporting any shortness of breath, chest pain, fevers, or other symptoms at this time. States he has not been more sedentary than she normally is, no changes here. No trauma reported. Currently at this time her pulse is actually in the 50s, blood pressure and rest of vitals unremarkable as she is satting 96 to 100% on room air. MD Complaint: extremity swelling Onset (ago): day(s) Pain Consistency: constant Location: right and lower extremity Associated symptoms: Deny chest pain, fever(s) or rash Related Data Home Medications Medication Instructions Recorded Confirmed atorvastatin 20 mg tablet 20 mg PO QAM 11/07/21 11/20/23 multivitamin 1 tab PO QAM 11/07/21 11/20/23 duloxetine 30 mg capsule,delayed 30 mg PO QAM 05/12/23 11/20/23 release calcium 600 mg (as 1 tab PO QAM 07/14/23 11/20/23 carbonate)-vitamin D3 5 mcg (200 unit) tablet cetirizine 10 mg tablet (Zyrtec) 10 mg PO QAM 07/14/23 11/20/23 dorzolamide 22.3 mg-timolol 6.8 1 drp ophthalmic (eye) BID 07/14/23 11/20/23 mg/mL eye drops latanoprost 0.005 % eye drops 1 drp ophthalmic (eye) QPM 07/14/23 11/20/23 torsemide 20 mg tablet 20 mg PO QAM 07/14/23 11/20/23 semaglutide 0.25 mg or 0.5 mg (2 0.25 mg SUBCUT Q7D 10/23/23 11/20/23 mg/3 mL) subcutaneous pen injector (Ozempic) insulin aspart U-100 100 unit/mL 10 unit SUBCUT TID 10/25/23 11/20/23 (3 mL) subcutaneous pen (Novolog FlexPen U-100 Insulin aspart) insulin glargine 100 unit/mL (3 See Rx Instructions SUBCUT BID 10/25/23 11/20/23 mL) subcutaneous pen (Lantus Solostar U-100 Insulin) Previous Rx's Medication Instructions Recorded Diabetic shoes with 3 inserts #1 ea 10/20/20 diabetic shoes with 3 inserts #1 ea 08/02/23 docusate sodium 100 mg capsule 100 mg PO BID #14 caps 10/31/23 (Colace) hydrocodone 7.5 mg-acetaminophen 1 tab PO Q6H PRN pain #20 tabs 10/31/23 325 mg tablet apixaban 5 mg tablet (Eliquis) 5 mg PO BID #60 tabs 02/23/24 Allergies Allergy/AdvReac Type Severity Reaction Status Date / Time diphenhydramine Allergy Unknown unknown Verified 02/23/24 15:16 [From Benadryl] tetracycline Allergy Unknown unknown Verified 02/23/24 15:16 Review of Systems General: Reports: 10 or more systems reviewed and unremarkable except in HPI and below Const: Denies: fever(s) or chills Card: Denies: chest pain Resp: Denies: dyspnea or productive cough GI: Denies: abdominal pain, nausea, vomiting or diarrhea : Denies: flank pain Musc: Reports: extremity swelling (Right lower); Denies: neck pain, back pain, extremity pain, joint pain, joint swelling, joint redness, joint warmth, limited range of motion or muscle weakness Skin/Breast: Denies: rash Neuro: Denies: headache(s), numbness in extremities or weakness in extremities PFSH ED PFSH: Medical History UTI (urinary tract infection) Fall Moderate mitral regurgitation Acute [place], inferior wall High anion gap metabolic acidosis Diabetes with ketoacidosis Cholelithiases Vomiting Atrial fibrillation, chronic Fracture of humerus, left, closed Pes planus of both feet ALISTAIR inhibitor intolerance Essential hypertension Warfarin anticoagulation Lower extremity deep venous thrombosis CAD (coronary artery disease) Fracture of greater trochanter of right femur Peripheral vascular disease Onychodystrophy Diabetic neuropathy associated with diabetes mellitus due to underlying condition Surgical History Status post laparoscopic cholecystectomy Coronary angioplasty status PCI to RCA?2016 Family History Mother Diabetes Denies family history of CAD (coronary artery disease) Clotting disorder Dementia Hyperlipidemia Psychiatric illness Chronic kidney disease (CKD) Suicide Anesthesia complication Bleeding disorder Family history of premature coronary artery disease Lung disease Cancer Hypertension Stroke Social History Smoking and tobacco/nicotine status: never used tobacco/nicotine Second hand smoke exposure: Yes Alcohol intake: never Substance/Drug Use: never Physical Exam Const: COMMON NORMALS: no acute distress, average body habitus, patient oriented x3, no limitations, healthy appearing and alert HENMT: COMMON NORMALS: normocephalic and atraumatic HEAD & SCALP: normocephalic and atraumatic Resp: COMMON NORMALS: normal respiratory effort, No retractions, No use of accessory muscles and clear to auscultation bilaterally EFFORT & INSPECTION: Yes able to speak in complete sentences AUSCULTATION: clear to auscultation bilaterally Cardio: COMMON NORMALS: regular rhythm, S1 normal heart sound present, S2 normal heart sound present, No gallops present (Cardio), No clicks present (Cardio), No murmurs present (Cardio) and No rub (Cardio) RATE: bradycardic RHYTHM: regular rhythm HEART SOUNDS: S1 normal heart sound present and S2 normal heart sound present Extremity: NARRATIVE EXTREMITY EXAM: Swelling of the distal right lower extremity, involving the foot and distal recio. Mild pitting with this edema. Bilaterally, her dorsalis pedis and posterior tibial pulses are difficult to palpate secondary to peripheral vascular disease. Some broadening of the right lower extremity. She is having some calf tenderness that is reproducible of the right lower extremity. Neuro: COMMON NORMALS: patient oriented x3, moves all extremities, no focal motor deficits and no sensory deficits noted SENSORIUM/ORIENTATION: Yes alert Course Vital Signs: Vital signs: Vital Signs Temperature 98 F 02/23/24 15:12 Pulse Rate 49 L 02/23/24 15:12 Respiratory Rate 17 02/23/24 15:12 Blood Pressure 143/64 02/23/24 15:12 Pulse Oximetry 96 02/23/24 15:12 Oxygen Delivery Me thod Room Air 02/23/24 15:12 MDM - Extremity (Nontraumatic) Medical Decision Making Patient presenting with history of blood clots to her legs and lungs. Has been off of blood thinner, states she took Eliquis for many years but this was stopped in April due to her recurrent falls. She has not had any recent falls. There was right lower extremity pain and swelling and clinical signs of a DVT on exam, bilaterally her distal pulses were difficult to palpate. Ultrasound showing occlusive thrombus in the veins of the thigh and a partial thrombus in the popliteal vein, that were suspected to be chronic however with her new onset of symptoms and recently stopped Eliquis, I believe this is resembling an acute occlusion at this time and we will treat with a blood thinner and have her closely follow-up with primary care. In reviewing history of her vitals, she does appear to be always bradycardic and her vitals today have not been any different from prior sets. She was breathing comfortably on room air throughout ED stay, and will be safely discharged home at this time. All other questions and concerns addressed with family in the room, she will be given first dose of Eliquis 10 mg here in the emergency department prior to discharge. Lab Data Radiology Impressions Venous Duplex 02/23/24 15:21 IMPRESSION: Occlusive thrombus in the veins of the thigh with partial thrombus in the popliteal vein as detailed above. Findings are suspected to be chronic. All radiology interpretation(s) finalized by discharge Discharge Plan Discharge Patient Disposition: Home Clinical Impression: Deep vein thrombosis of lower extremity Qualifiers: Affected thrombotic vein of extremity: unspecified vein of extremity Manufacturing Quality Engineer nicity: acute Laterality: right Qualified Code(s): I82.401 - Acute embolism and thrombosis of unspecified deep veins of right lower extremity Condition: Stable Prescriptions: New Eliquis 5 mg tablet 5 mg PO BID Qty: 60 0RF Rx Instructions: Take 10mg (2 tabs) PO BID for 10 days, then take 5mg (1 tab) PO BID for every day afterwards until through with treatment No Action (DME) Diabetic shoes with 3 inserts See Rx Instructions .ROUTE .MEDSUPPLY Qty: 1 0RF Rx Instructions: As directed by [facility] Ozempic 0.25 mg or 0.5 mg (2 mg/3 mL) pen injector 0.25 mg SUBCUT Q7D (DME) diabetic shoes with 3 inserts See Rx Instructions .Route .MEDSUPPLY Qty: 1 0RF Rx Instructions: As directed to home insulin aspart U-100 [Novolog FlexPen U-100 Insulin] 100 unit/mL (3 mL) insulin pen 10 unit SUBCUT TID multivitamin Tablet 1 tab PO QAM atorvastatin 20 mg tablet 20 mg PO QAM duloxetine 30 mg capsule,delayed release(DR/EC) 30 mg PO QAM latanoprost 0.005 % drops 1 drp ophthalmic (eye) QPM Rx Instructions: left eye torsemide 20 mg tablet 20 mg PO QAM cetirizine [Zyrtec] 10 mg Tablet 10 mg PO QAM calcium carbonate-vitamin D3 600 mg-5 mcg (200 unit) Tablet 1 tab PO QAM dorzolamide-timolol 22.3-6.8 mg/mL drops 1 drp ophthalmic (eye) BID Rx Instructions: left eye Lantus Solostar U-100 Insulin 100 unit/mL (3 mL) insulin pen See Rx Instructions SUBCUT BID Rx Instructions: 50 units qam & 40 units qpm subcutaneously twice a day; hydrocodone-acetaminophen 7.5-325 mg tablet 1 tab PO Q6H PRN (Reason: pain) Qty: 20 0RF Colace 100 mg capsule 100 mg PO BID Qty: 14 0RF Discharge Orders: Discharge ED (Routine); Ordered 02/23/24 Ordered By: Hector Short Referrals: Anette Velazquez MD [Primary Care Provider] - Patient Instructions: Deep Vein Thrombosis (ED), Fall Prevention for Older Adults (ED) Activity Restrictions/Additional Instructions: Take Eliquis as prescribed. Close follow up with your primary care provider. Wear compression stockings and elevate your leg. Limit salt intake and drink plenty of fluids. Please return with any new or concerning symptoms. Coding Level of Care Code ED Swimming Pool Service Technician for Jared Vallecillo
[2024-02-23] MEDS: apixaban 5 mg Tablet 10 MG PO (17:57)
[2024-02-23 17:59] VITALS: BP 154/92; PULSE 85; RESP 18; O2SAT 98
== END 2024-02-23 18:00 | disposition home or self-care (01) ==
PROVIDERS: Emergency Provider Physician Assistant; PCP Internal Medicine
DX: I82.401 Acute embolism and thrombosis of unspecified deep veins of right lower extremity (principal); Z79.4 Long term (current) use of insulin; I25.10 Atherosclerotic heart disease of native coronary artery without angina pectoris; E11.40 Type 2 diabetes mellitus with diabetic neuropathy, unspecified
CPT/HCPCS: 36415; 93971; 99284

== ENCOUNTER → 2024-04-09 12:45 | Outpatient (BNVA) | payer MEDICARE, MEDICAID, SELFPAY | PROVIDERS: PCP Internal Medicine; Referring Provider Internal Medicine; Visit Provider Nurse Practitioner Family | DX: L82.1 Other seborrheic keratosis (principal); L81.4 Other melanin hyperpigmentation; D18.01 Hemangioma of skin and subcutaneous tissue; I87.2 Venous insufficiency (chronic) (peripheral); L57.8 Other skin changes due to chronic exposure to nonionizing radiation; Z08 Encounter for follow-up examination after completed treatment for malignant neoplasm; Z85.828 Personal history of other malignant neoplasm of skin; L82.0 Inflamed seborrheic keratosis; L91.8 Other hypertrophic disorders of the skin; H53.453 Other localized visual field defect, bilateral; L53.8 Other specified erythematous conditions; L57.0 Actinic keratosis | CPT/HCPCS: 17000; 17110; 99203 ==

== ENCOUNTER 2024-05-07 13:58 | Outpatient (CLI) | payer MEDICARE, MEDICAID, SELFPAY ==
--- NOTE | 2024-05-07 14:15 | USCV_ITS ---
Kianna Dotson Age: 83 Gender: F : 1940 Exam Date: 05/07/2024 14:41 Ordering Phys: Anette Velazquez MD Technologist: CT Exam Location: [facility] [place] Indication: Murmur BP: 100 / 68 HR: 74 Rhythm: Sinus Technical Quality: Adequate MEASUREMENTS (Male / Female) Normal Values 2D ECHO LVOT Diameter 2.1 cm LV Ejection Fraction MOD 4C 50.0 % LV Ejection Fraction MOD 2C 44.7 % LV Ejection Fraction 2C AL 1.2 % LA Diameter 6.0 cm RA Systolic Volume 4C AL 32.7 ml RA Systolic Volume 4C MOD 28.6 ml LA Sys Volume AL 115.1 cm cubed LA Sys Volume Index AL 62.9 cm cubed/m squared Aorta at Sinotubular Diameter 2.2 cm IVC Diameter 1.6 cm M-MODE LA Ao Ratio MM 2.5 AV Cusp Separation MM 0.7 cm DOPPLER AV Peak Velocity 277.0 cm/s LVOT Peak Velocity 107.0 cm/s AV Area Cont Eq vti 1.4 cm squared AV Area Cont Eq pk 1.3 cm squared MV Peak Velocity 119.0 cm/s MV Area PHT 2.3 cm squared Mitral E to A Ratio 271.0 TR Peak Velocity 258.5 cm/s TR Peak Gradient 26.7 mmHg TR Mean Velocity 167.0 cm/s TR Mean Gradient 13.5 mmHg TR Velocity Time Integral 62.3 cm TV Peak E Velocity 83.0 cm/s PV Peak Velocity 101.0 cm/s FINDINGS Left Ventricle Left ventricle is normal in size. LV systolic function is normal with EF of 50-55%. No significant regional wall motion abnormalities. Right Ventricle Normal in size and function Right Atrium Normal in size Left Atrium Severely dilated Mitral Valve Moderate mitral annular calcification. Moderate mitral valve regurgitation. Aortic Valve Aortic valve is thickened. Moderate aortic stenosis with mean gradient across aortic valve of 19 mmHg. Tricuspid Valve Mild tricuspid regurgitation. Pulmonary artery systolic pressure is normal. Pulmonic Valve Not well visualized Pericardium Normal Aorta Normal in size IVC Appears to be normal CONCLUSIONS LV systolic function is normal with EF of 50-55%. Moderate mitral valve regurgitation. Moderate aortic stenosis. Mild tricuspid regurgitation Compared to prior echocardiogram from 2021, aortic stenosis appears to have progressed and is moderate now. Ronnie Willis MD (Electronically Signed) Final Date: 12 May 2024 14:17 S
== END 2024-05-07 13:59 | disposition home or self-care (01) ==
LOC: RAD 14:01
PROVIDERS: PCP Internal Medicine; Visit Provider Internal Medicine
DX: R01.1 Cardiac murmur, unspecified (principal); I34.81 Nonrheumatic mitral (valve) annulus calcification; I34.0 Nonrheumatic mitral (valve) insufficiency; I35.8 Other nonrheumatic aortic valve disorders; I35.0 Nonrheumatic aortic (valve) stenosis; I07.1 Rheumatic tricuspid insufficiency
CPT/HCPCS: 93306

== ENCOUNTER → 2024-05-16 14:30 | Outpatient (BNVA) | payer MEDICARE, MEDICAID, SELFPAY | PROVIDERS: PCP Internal Medicine; Visit Provider Internal Medicine | DX: I10 Essential (primary) hypertension (principal); E08.42 Diabetes mellitus due to underlying condition with diabetic polyneuropathy; I35.0 Nonrheumatic aortic (valve) stenosis; Z79.4 Long term (current) use of insulin; Z86.718 Personal history of other venous thrombosis and embolism | CPT/HCPCS: 99214 ==

== ENCOUNTER 2024-09-26 09:33 | Emergency (ER) | payer MEDICARE, MEDICAID, SELFPAY ==
[2024-09-26 09:35] VITALS: BP 154/65; PULSE 70; RESP 20; TEMP 36.5; O2SAT 96
--- NOTE | 2024-09-26 09:54 | XR_ITS ---
WS: [id number] Left hip, AP and frog-leg views, 09/26/2024 Clinical Data: trauma Comparison: Left hip, 09/10/2013 Findings: No fractures or dislocations are seen. The images are underpenetrated. The hip joint is intact. The soft tissues are not remarkable. The adjacent pelvis is normal. Vascular calcification is seen. XR/XR hip LT 2-3V wo/w pel* [id number] Impression: Negative left hip.
--- NOTE | 2024-09-26 09:54 | XR_ITS ---
WS: [id number] Left knee, 3 views, 09/26/2024 Clinical Data: trauma Comparison: None. Findings: No fractures or dislocations are seen. There is medial and lateral joint space narrowing. There are spurs of the medial and lateral femoral condyles. The posterior left patella shows spurring. There is vascular calcification . The soft tissues are unremarkable. XR/XR knee LT 3V* [id number] Impression: 1. Negative for left knee fracture. 2. Osteoarthritis of the left knee.
--- NOTE | 2024-09-26 10:24 | CT_ITS ---
WS: [id number] CT HEAD TECHNIQUE: Noncontrast CT of the head obtained from the skullbase to the vertex. CLINICAL INFORMATION: Trauma on oral anticoagulants COMPARISON: 07/14/2023 DLP: 1130.[address] scans at [facility] use at least one of these dose optimization techniques: automated exposure control; mA and/or kV adjustment per patient size (includes targeted exams where dose is matched to clinical indication); or iterative reconstruction. FINDINGS: No evidence of intracranial hemorrhage or mass effect. Ventricular system and basal cisterns are patent. Moderate small vessel changes with moderate parenchymal volume loss. No extra-axial fluid collections. No evidence of mass or mass effect. Vascular calcification. Paranasal sinuses and mastoid air cells are well aerated. .Normal visualized soft tissues. CT/CT head wo con* [id number] IMPRESSION: 1. No evidence of intracranial hemorrhage or mass effect 2. Moderate small vessel changes with moderate parenchymal volume loss. 3. Vascular calcification. 4. No acute intracranial findings.
--- NOTE | 2024-09-26 10:24 | W.ED.FALL ---
HPI - Fall General: Chief Complaint: Fall Stated Complaint: fall - left hip/knee pain Time Seen by Provider: 09/26/24 09:42 History of Present Illness: 84-year-old female presents emergency room after a fall. Patient had a ground-level mechanical fall in her home she was turning to try to reach for her walker. She complained of left hip and knee pain. She is on blood thinner she also states she hit the left side of her head as she fell there is no loss conscious no vomiting. Associated symptoms-after fall: Denies abdominal pain, chest pain or neck pain Related Data Home Medications ?Medication ?Instructions ?Recorded ?Confirmed atorvastatin 20 mg tablet 20 mg PO QAM 11/07/21 09/26/24 multivitamin 1 tab PO QAM 11/07/21 09/26/24 duloxetine 30 mg capsule,delayed 30 mg PO QAM 05/12/23 09/26/24 release calcium 600 mg (as 1 tab PO QAM 07/14/23 09/26/24 carbonate)-vitamin D3 5 mcg (200 unit) tablet cetirizine 10 mg tablet (Zyrtec) 10 mg PO QAM 07/14/23 09/26/24 dorzolamide 22.3 mg-timolol 6.8 1 drp ophthalmic (eye) BID 07/14/23 09/26/24 mg/mL eye drops torsemide 20 mg tablet 20 mg PO QAM 07/14/23 09/26/24 docusate sodium 100 mg capsule 100 mg PO BID PRN Constipation 05/16/24 09/26/24 (Colace) insulin aspart U-100 100 unit/mL 10 unit SUBCUT TID 05/16/24 09/26/24 (3 mL) subcutaneous pen (Novolog FlexPen U-100 Insulin aspart) insulin glargine 100 unit/mL (3 56 unit SUBCUT BID 05/16/24 09/26/24 mL) subcutaneous pen (Lantus Solostar U-100 Insulin) apixaban 5 mg tablet (Eliquis) 5 mg PO BID 09/26/24 09/26/24 nystatin 100,000 unit/gram topical 1 applic topical BID 09/26/24 09/26/24 powder semaglutide 1 mg/dose (4 mg/3 mL) 1 mg SUBCUT Q7D 09/26/24 09/26/24 subcutaneous pen injector (Ozempic) Previous Rx's ?Medication ?Instructions ?Recorded Diabetic shoes with 3 inserts #1 ea 10/20/20 diabetic shoes with 3 inserts #1 ea 08/02/23 Allergies Allergy/AdvReac Type Severity Reaction Status Date / Time diphenhydramine (From Allergy Unknown unknown Verified 05/16/24 15:38 Benadryl) tetracycline Allergy Unknown unknown Verified 05/16/24 15:38 Review of Systems Const: Denies: fever(s) or chills Card: Denies: chest pain Resp: Denies: dyspnea GI: Denies: abdominal pain : Denies: dysuria, urinary frequency or urinary urgency Musc: Denies: neck pain or back pain Skin/Breast: Denies: rash PFSH ED PFSH: Medical History UTI (urinary tract infection) Fall Moderate mitral regurgitation Acute GA, inferior wall High anion gap metabolic acidosis Diabetes with ketoacidosis Cholelithiases Vomiting Atrial fibrillation, chronic Fracture of humerus, left, closed Pes planus of both feet ALISTAIR inhibitor intolerance Essential hypertension Warfarin anticoagulation Lower extremity deep venous thrombosis CAD (coronary artery disease) Fracture of greater trochanter of right femur Peripheral vascular disease Onychodystrophy Diabetic neuropathy associated with diabetes mellitus due to underlying condition Surgical History Status post laparoscopic cholecystectomy Coronary angioplasty status PCI to RCA?2016 Family History Mother Diabetes Denies family history of CAD (coronary artery disease) Clotting disorder Dementia Hyperlipidemia Psychiatric illness Chronic kidney disease (CKD) Suicide Anesthesia complication Bleeding disorder Family history of premature coronary artery disease Lung disease Cancer Hypertension Stroke Social History Smoking and tobacco/nicotine status: never used tobacco/nicotine Second hand smoke exposure: Yes Alcohol intake: never Substance/Drug Use: never Physical Exam Const: COMMON NORMALS: no acute distress GENERAL APPEARANCE: cooperative and comfortable ORIENTATION/CONSCIOUSNESS: Yes awake, Yes oriented to person, Yes oriented to place and Yes oriented to time HENMT: COMMON NORMALS: normocephalic, atraumatic and hearing grossly normal bilaterally HEAD & SCALP: normocephalic and atraumatic Resp: COMMON NORMALS: normal respiratory effort, No retractions, No use of accessory muscles and clear to auscultation bilaterally AUSCULTATION: clear to auscultation bilaterally Cardio: COMMON NORMALS: regular rate, regular rhythm and No murmurs present (Cardio) RATE: regular rate RHYTHM: regular rhythm GI: COMMON NORMALS: Soft to palpation and No hepatosplenomegaly present AUSCULTATION: Yes normoactive bowel sounds PALPATION: Yes Soft to palpation, No Tenderness to palpation present (GI), No Guarding due to palpation present (GI) and Yes No hepatosplenomegaly present Extremity: COMMON NORMALS: normal to inspection, capillary refill normal, no clubbing, cyanosis or edema, no calf tenderness and no pedal edema Neuro: SENSORIUM/ORIENTATION: Yes oriented to person, Yes oriented to place and Yes oriented to time Skin: COMMON NORMALS: no rashes or lesions noted GENERAL SKIN EXAM: no rashes or lesions noted Course Vital Signs: Vital signs: Vital Signs Temperature 97.7 F 09/26/24 09:35 Pulse Rate 82 09/26/24 12:20 Respiratory Rate 20 H 09/26/24 09:35 Blood Pressure 148/89 09/26/24 12:20 Pulse Oximetry 98 09/26/24 12:20 Oxygen Delivery Me thod Room Air 09/26/24 09:35 MDM - Fall Medical Decision Making Exam otherwise unremarkable imaging negative laboratory test negative. Patient able to ambulate without difficulty. Discharged home discussed possible referral through primary care doctor to help with the gait instability. Medical Records I reviewed the patient's medical records. Lab Data I reviewed the patient's lab results. 09/26/24 11:32 09/26/24 11:32 Radiology Impressions Hip/Pelvis X-Ray 09/26/24 09:54 Impression: Negative left hip. Knee X-Ray 09/26/24 09:54 Impression: 1. Negative for left knee fracture. 2. Osteoarthritis of the left knee. Head CT 09/26/24 10:24 IMPRESSION: 1. No evidence of intracranial hemorrhage or mass effect 2. Moderate small vessel changes with moderate parenchymal volume loss. 3. Vascular calcification. 4. No acute intracranial findings. Laboratory Results WBC 9.81 10^3/uL (3.29-11.43) 09/26/24 11:32 RBC 5.23 10^6/uL (3.85-5.65) 09/26/24 11:32 Hgb 13.30 g/dL (11.27-16.99) 09/26/24 11:32 Hct 41.5 % (36-47) 09/26/24 11:32 MCV 79.3 fl (85-98) L 09/26/24 11:32 MCH 25.4 pg (27-33) L 09/26/24 11:32 MCHC 32.0 g/dL (30-55) 09/26/24 11:32 RDW 15.9 % (12.1-15.1) H 09/26/24 11:32 Plt Count 180 10^3/cmm (157-399) 09/26/24 11:32 MPV 9.2 fL (7.4-10.4) 09/26/24 11:32 Neut % (Auto) 76.9 % 09/26/24 11:32 Lymph % (Auto) 12.5 % 09/26/24 11:32 [place] % (Auto) 8.5 % 09/26/24 11:32 Eos % (Auto) 1.3 % 09/26/24 11:32 Baso % (Auto) 0.4 % 09/26/24 11:32 Neut # (Auto) 7.54 10^3/uL (1.8-7.7) 09/26/24 11:32 Lymph # (Auto) 1.2 10^3/uL (0.8-4.8) 09/26/24 11:32 [place] # (Auto) 0.8 10^3/uL (0.2-0.9) 09/26/24 11:32 Eos # (Auto) 0.1 10^3/uL (0.0-0.8) 09/26/24 11:32 Baso # (Auto) 0.0 10^3/uL (0.0-0.1) 09/26/24 11:32 Nucleated RBC % (auto) 0 % 09/26/24 11:32 Nucleated RBCs # 0.0 /100WBC 09/26/24 11:32 Sodium 137 mmol/L (136-145) 09/26/24 11:32 Potassium 3.9 mmol/L (3.5-5.1) 09/26/24 11:32 Chloride 100 mmol/L (98-107) 09/26/24 11:32 Carbon Dioxide 24 mmol/L (22-29) 09/26/24 11:32 Anion Gap 16.9 (5-19) 09/26/24 11:32 BUN 19 mg/dL (8-23) 09/26/24 11:32 Creatinine 0.9 mg/dL (0.5-0.9) 09/26/24 11:32 GFR Calculation Not Reportable 09/26/24 11:32 Glucose 216 mg/dL (65-115) H 09/26/24 11:32 Calculated Osmolality 293 mOsm/kg (285-295) 09/26/24 11:32 Calcium 9.5 mg/dL (8.5-10.5) 09/26/24 11:32 Total Bilirubin 0.7 mg/dL (0.15-1.2) 09/26/24 11:32 AST 16 U/L (0-32) 09/26/24 11:32 ALT 13 U/L (0-33) 09/26/24 11:32 Alkaline Phosphatase 123 U/L (35-105) H 09/26/24 11:32 Total Protein 6.8 g/dL (6.6-8.7) 09/26/24 11:32 Albumin 3.6 g/dL (3.5-5.2) 09/26/24 11:32 Globulin 3.2 g/dL (1.3-4.6) 09/26/24 11:32 Urine Color Yellow (Yellow) 09/26/24 11:43 Urine Appearance Clear (CLEAR) 09/26/24 11:43 Urine pH 5.5 (5-7) 09/26/24 11:43 Ur Specific [place] 1.019 (1.005-1.030) 09/26/24 11:43 Urine Protein Negative (Negative) 09/26/24 11:43 Urine Glucose (UA) 1+ (Normal) H 09/26/24 11:43 Urine Ketones Negative (Negative) 09/26/24 11:43 Urine Blood Negative (Negative) 09/26/24 11:43 Urine Nitrate Negative (Negative) 09/26/24 11:43 Urine Bilirubin Negative (Negative) 09/26/24 11:43 Urine Urobilinogen 1.0 mg/dL (Negative) 09/26/24 11:43 Ur Leukocyte Esterase Negative (Negative) 09/26/24 11:43 Urine RBC 0-2 /hpf (0-2) 09/26/24 11:43 Urine WBC 0-5 /hpf (0-5) 09/26/24 11:43 Ur Squamous Epith Cells 0-5 /hpf (0-5) 09/26/24 11:43 Amorphous Sediment Not Reportable 09/26/24 11:43 Urine Bacteria Trace /hpf (NONE) 09/26/24 11:43 Hyaline Casts 0.81 /lpf 09/26/24 11:43 All radiology interpretation(s) finalized by discharge Discharge Plan Discharge Patient Disposition: Home Clinical Impression: Fall Condition: Stable Prescriptions: No Action (DME) Diabetic shoes with 3 inserts See Rx Instructions .ROUTE .MEDSUPPLY Qty: 1 0RF Rx Instructions: As directed by LYNNE&O Colace 100 mg capsule 100 mg PO BID PRN (Reason: Constipation) (DME) diabetic shoes with 3 inserts See Rx Instructions .Route .MEDSUPPLY Qty: 1 0RF Rx Instructions: As directed to home insulin aspart U-100 [Novolog FlexPen U-100 Insulin] 100 unit/mL (3 mL) insulin pen 10 unit SUBCUT TID multivitamin Tablet 1 tab PO QAM atorvastatin 20 mg tablet 20 mg PO QAM duloxetine 30 mg capsule,delayed release(DR/EC) 30 mg PO QAM torsemide 20 mg tablet 20 mg PO QAM cetirizine [Zyrtec] 10 mg Tablet 10 mg PO QAM calcium carbonate-vitamin D3 600 mg-5 mcg (200 unit) Tablet 1 tab PO QAM dorzolamide-timolol 22.3-6.8 mg/mL drops 1 drp ophthalmic (eye) BID Rx Instructions: left eye Lantus Solostar U-100 Insulin 100 unit/mL (3 mL) insulin pen 56 unit SUBCUT BID Eliquis 5 mg tablet 5 mg PO BID Ozempic 1 mg/dose (4 mg/3 mL) pen injector 1 mg SUBCUT Q7D nystatin 100,000 unit/gram powder 1 applic TOPICAL BID Discharge Orders: Discharge ED (Routine); Ordered 09/26/24 Ordered By: Daniel Connor Referrals: Anette Velazquez MD [Primary Care Provider, Internal Medicine] Discharge Diet: Usual diet Discharge Activity: Resume usual activity Patient Instructions: Opioid Safety, Pain Management Activity Restrictions/Additional Instructions: Thank you for choosing [facility] for your healthcare needs today. It is very important that you follow up as instructed or that you return to the Emergency Department should you have concerns or if your condition changes or worsens in any way. You are seen in emergency room after a fall at home. Your laboratories studies and imaging did not show any acute findings. Recommend you use some kind of ambulation aid whenever you are up and ambulatory with your walker or cane. You should consult with your primary care provider about consideration for gait instability physical therapy referral. Print Language: Lithuanian Coding Level of Care Code ED [employer] for Jared Vallecillo
[2024-09-26 11:39] LABS: Basophils % 0.4 %; Eosinophils # 0.1 10^3/uL (0.0-0.8); Eosinophils % 1.3 %; Hematocrit 41.5 % (36-47); Lymphocytes # 1.2 10^3/uL (0.8-4.8); Lymphocytes % 12.5 %; Mean Corpuscular Hemoglobin 25.4 pg (27-33); Mean Corpuscular Volume 79.3 fl (85-98); Mean Platelet Volume 9.2 fL (7.4-10.4); Monocytes # 0.8 10^3/uL (0.2-0.9); Monocytes % 8.5 %; Neutrophils # 7.54 10^3/uL (1.8-7.7); Neutrophils % 76.9 %; Nucleated Red Blood Cells % 0 %; Platelet Count 180 10^3/cmm (157-399); Red Blood Count 5.23 10^6/uL (3.85-5.65); Red Cell Distribution Width 15.9 % (12.1-15.1); White Blood Count 9.81 10^3/uL (3.29-11.43)
--- NOTE | 2024-09-26 11:45 | PC.NURSE ---
attempted to ambulate patient with x2 staff. pt was unsteady, shuffle noted. pt and family states this is not baseline. pt unable to bear full weight onto L hip d/t pain. Dr. Connor notified.
[2024-09-26 11:54] LABS: Bilirubin Urine Negative (Negative); Blood Urine Negative (Negative); Glucose Urine UA 1+ (Normal); Ketones Urine Negative (Negative); Leukocyte Esterase Urine Negative (Negative); Nitrate Urine Negative (Negative); Protein Urine Negative (Negative); Specific Gravity, Urine 1.019 (1.005-1.030); Urine Appearance Clear (CLEAR); Urine Color Yellow (Yellow); pH Urine 5.5 (5-7)
[2024-09-26 11:55] LABS: Alanine Aminotransferase 13 U/L (0-33); Albumin Level 3.6 g/dL (3.5-5.2); Alkaline Phosphatase 123 U/L (35-105); Anion Gap 16.9 (5-19); Aspartate Amino Transferase 16 U/L (0-32); Blood Urea Nitrogen 19 mg/dL (8-23); Calcium 9.5 mg/dL (8.5-10.5); Carbon Dioxide 24 mmol/L (22-29); Chloride 100 mmol/L (98-107); Creatinine Clr Calc Pharmacy 48.9575; Globulin 3.2 g/dL (1.3-4.6); Glucose 216 mg/dL (65-115); Osmolality Calculated 293 mOsm/kg (285-295); Potassium 3.9 mmol/L (3.5-5.1); Sodium 137 mmol/L (136-145); Total Bilirubin 0.7 mg/dL (0.15-1.2); Total Protein 6.8 g/dL (6.6-8.7)
[2024-09-26 11:56] LABS: Add Urine Microscopic? YES; Bacteria Urine Trace /hpf; Hyaline Casts Urine 0.81 /lpf; RBC Urine 0-2 /hpf (0-2); Squamous Epithelial Cell Urine 0-5 /hpf (0-5); WBC Urine 0-5 /hpf (0-5)
[2024-09-26 12:20] VITALS: BP 148/89; PULSE 82; O2SAT 98
[2024-09-26 12:20] LABS: Add Urine Culture? No
[2024-09-26] MEDS: ketorolac 30 mg/mL INJ 15 MG IVP (12:20)
== END 2024-09-26 12:21 | disposition home or self-care (01) ==
PROVIDERS: Emergency Provider Family Medicine; PCP Internal Medicine
DX: M25.552 Pain in left hip (principal); M25.562 Pain in left knee; W19.XXXA Unspecified fall, initial encounter; Z79.01 Long term (current) use of anticoagulants; E11.40 Type 2 diabetes mellitus with diabetic neuropathy, unspecified; I25.10 Atherosclerotic heart disease of native coronary artery without angina pectoris
CPT/HCPCS: 36415; 70450; 73502; 73562; 80053; 81001; 85025; 96374; 99285; J1885

== ENCOUNTER 2024-09-29 19:29 | Inpatient (IN) | payer OTHER, MEDICAID, SELFPAY ==
[2024-09-29 19:30] VITALS: BP 162/66; PULSE 77; RESP 17; TEMP 37.1; O2SAT 94; BMI 30.9
--- NOTE | 2024-09-29 19:36 | CTR_ITS ---
PROCEDURE INFORMATION: Exam: CT Pelvis Without Contrast, Skeleton Exam date and time: 09/29/2024 7:45 PM Age: 84 years old Clinical indication: C/O worsening left hip pain and weight bearing since a fall on 09/26/2024. ; Additional info: Left hip/ proximal femur pain after fall 09/26 TECHNIQUE: Imaging protocol: Computed tomography of the pelvis without contrast. Exam focused on the skeleton. Radiation optimization: All CT scans at this facility use at least one of these dose optimization techniques: automated exposure control; mA and/or kV adjustment per patient size (includes targeted exams where dose is matched to clinical indication); or iterative reconstruction. COMPARISON: CT abdomen pelvis wo con [id number] 11/07/2021 12:52 PM RADIATION DOSE METRICS: Total DLP (mGy-cm): 579.94 FINDINGS: Bones/joints: There is acute nondisplaced transverse fracture through the posterior acetabulum on the left. This is best appreciated on sagittal images (series 7, images 35-40) and coronal imaging (series 6, images 30-36). Fracture line does extend to the articular surface. Old right inferior pubic ramus fracture. No dislocation. Degenerative changes about the hips and sacroiliac joints bilaterally. Soft tissues: Body wall edema present with some focal skin thickening anteriorly. A discrete focal hematoma is not observed. CT/CT bony pelvis [id number] IMPRESSION: Acute nondisplaced posterior left acetabular fracture with extension into the articular surface.
--- NOTE | 2024-09-29 20:22 | W.ED.BACK ---
Documented by User: [email or web address] Anderson 09/29/24 22:04 HPI - Back Pain/Injury General: Chief Complaint: Back Pain/Injury Stated Complaint: BACK PAIN Time Seen by Provider: 09/29/24 19:30 History of Present Illness: Patient is 84-year-old female that had a fall on 09/26 and was seen here in the emergency room. She is chronically on Eliquis. She had a CT of the head, x-ray of her left hip and pelvis. She states she has worsening pain and points to her left hip. Laboratory data was unrevealing as well as CT of the head and x-ray of the hip and pelvis. Patient was brought in by EMS due to her ambulatory dysfunction. Noted after patient was seen, that she saw her primary care physician last week on 09/24 for a red toe that she stubbed on Monday, 09/22. On evaluation she has a red, distally white, draining toe. X-ray ordered. Vancomycin added. Discussed with hospitalist. Associated symptoms: Deny abdominal pain, chills, fever(s), nausea or vomiting Related Data Home Medications ?Medication ?Instructions ?Recorded ?Confirmed atorvastatin 20 mg tablet 20 mg PO QAM 11/07/21 09/26/24 multivitamin 1 tab PO QAM 11/07/21 09/26/24 duloxetine 30 mg capsule,delayed 30 mg PO QAM 05/12/23 09/26/24 release calcium 600 mg (as 1 tab PO QAM 07/14/23 09/26/24 carbonate)-vitamin D3 5 mcg (200 unit) tablet cetirizine 10 mg tablet (Zyrtec) 10 mg PO QAM 07/14/23 09/26/24 dorzolamide 22.3 mg-timolol 6.8 1 drp ophthalmic (eye) BID 07/14/23 09/26/24 mg/mL eye drops torsemide 20 mg tablet 20 mg PO QAM 07/14/23 09/26/24 docusate sodium 100 mg capsule 100 mg PO BID PRN Constipation 05/16/24 09/26/24 (Colace) insulin aspart U-100 100 unit/mL 10 unit SUBCUT TID 05/16/24 09/26/24 (3 mL) subcutaneous pen (Novolog FlexPen U-100 Insulin aspart) insulin glargine 100 unit/mL (3 56 unit SUBCUT BID 05/16/24 09/26/24 mL) subcutaneous pen (Lantus Solostar U-100 Insulin) apixaban 5 mg tablet (Eliquis) 5 mg PO BID 09/26/24 09/26/24 nystatin 100,000 unit/gram topical 1 applic topical BID 09/26/24 09/26/24 powder semaglutide 1 mg/dose (4 mg/3 mL) 1 mg SUBCUT Q7D 09/26/24 09/26/24 subcutaneous pen injector (Ozempic) Previous Rx's ?Medication ?Instructions ?Recorded Diabetic shoes with 3 inserts #1 ea 10/20/20 diabetic shoes with 3 inserts #1 ea 08/02/23 Allergies Allergy/AdvReac Type Severity Reaction Status Date / Time diphenhydramine (From Allergy Unknown unknown Verified 05/16/24 15:38 Benadryl) tetracycline Allergy Unknown unknown Verified 05/16/24 15:38 Review of Systems General: Reports: 10 or more systems reviewed and unremarkable except in HPI and below Const: Denies: fever(s) or chills Eyes: Denies: change in vision or blurry vision ENMT: Denies: throat pain or dry mouth Card: Denies: chest pain or palpitations Resp: Denies: dyspnea or productive cough GI: Denies: abdominal pain, nausea or vomiting : Denies: flank pain or difficulty voiding Musc: Reports: back pain, extremity pain and joint pain; Denies: extremity swelling or joint swelling Skin/Breast: Denies: rash, pruritus or sores Neuro: Denies: headache(s) or numbness in extremities Psych: Denies: anxiety or depression Earl/Lymph: Denies: easy bruising or easy bleeding PFSH ED PFSH: Medical History UTI (urinary tract infection) Fall Moderate mitral regurgitation Acute IL, inferior wall High anion gap metabolic acidosis Diabetes with ketoacidosis Cholelithiases Vomiting Atrial fibrillation, chronic Fracture of humerus, left, closed Pes planus of both feet ALISTAIR inhibitor intolerance Essential hypertension Warfarin anticoagulation Lower extremity deep venous thrombosis CAD (coronary artery disease) Fracture of greater trochanter of right femur Peripheral vascular disease Onychodystrophy Diabetic neuropathy associated with diabetes mellitus due to underlying condition Surgical History Status post laparoscopic cholecystectomy Coronary angioplasty status PCI to RCA?2016 Family History Mother Diabetes Denies family history of CAD (coronary artery disease) Clotting disorder Dementia Hyperlipidemia Psychiatric illness Chronic kidney disease (CKD) Suicide Anesthesia complication Bleeding disorder Family history of premature coronary artery disease Lung disease Cancer Hypertension Stroke Social History Smoking and tobacco/nicotine status: never used tobacco/nicotine Second hand smoke exposure: Yes Alcohol intake: never Substance/Drug Use: never Physical Exam Const: COMMON NORMALS: patient oriented x3 HENMT: COMMON NORMALS: normocephalic and atraumatic HEAD & SCALP: normocephalic and atraumatic Eye: COMMON NORMALS: Equal, round and reactive pupils present and EOMs intact bilaterally PUPIL: Yes Equal, round and reactive pupils present Neck/C-Spine: COMMON NORMALS: full ROM and no lymphadenopathy Lymph: LYMPHATIC: no lymphadenopathy noted Chest: COMMONS NORMALS: normal inspection of the chest Resp: COMMON NORMALS: normal respiratory effort EFFORT & INSPECTION: Yes able to speak in complete sentences GI: COMMON NORMALS: Normal to inspection, nondistended, normoactive bowel sounds present, Soft to palpation and non-tender PALPATION: Yes Soft to palpation : COMMON NORMALS: Yes no CVA tenderness BLADDER/KIDNEY EXAM: Yes no CVA tenderness Back/Pelvis: COMMON NORMALS: no CVA tenderness LUMBAR SPINE/LOWER BACK: Yes lumbar ROM normal PELVIS: Yes buttock abnormal Buttock abnormal laterality: left Extremity: EXTREMITY IMAGE (FRONT):  1. red, white distal 1st toe with drainage Neuro: COMMON NORMALS: patient oriented x3 and CN's II-XII intact bilaterally CRANIAL NERVES: Yes CN normal except as noted Psych: COMMON NORMALS: mental status grossly normal and Normal thought process present THOUGHT PROCESS: Normal thought process present Skin: COMMON NORMALS: no rashes or lesions noted and no wounds GENERAL SKIN EXAM: no rashes or lesions noted Course Consultations: Consultation #1: D/w Dr. Mario-she will come down and evaluate the patient for admission versus observation. Requested new labs and consult with Dr. Waddell Consultation #2: Discussed with Dr. Waddell. He will consult tomorrow for medical/orthopedic acetabular fracture Vital Signs: Vital signs: Vital Signs Temperature 98.7 F 09/29/24 19:30 Pulse Rate 71 09/29/24 22:39 Respiratory Rate 16 09/29/24 22:39 Blood Pressure 146/68 09/29/24 22:39 Pulse Oximetry 97 09/29/24 22:39 Oxygen Delivery Me thod Room Air 09/29/24 21:05 MDM - Back Pain/Injury Medical Decision Making 84-year-old female with fall while reaching for her walker on 09/26 with negative initial workup. Next recommended workup is a CT of her pelvis to rule out an occult fracture. This will be ordered. No reason to repeat lab work since there has not been any additional falls. Labs 09/29/24 21:43 09/29/24 21:[address] 09/29/24 19:36 IMPRESSION: Acute nondisplaced posterior left acetabular fracture with extension into the articular surface. Foot X-Ray 09/29/24 21:39 IMPRESSION: Nondisplaced fracture through the distal phalanx of the great toe with associated soft tissue swelling. Laboratory Results WBC 9.20 10^3/uL (3.29-11.43) 09/29/24 21:43 RBC 4.83 10^6/uL (3.85-5.65) 09/29/24 21:43 Hgb 12.20 g/dL (11.27-16.99) 09/29/24 21:43 Hct 38.9 % (36-47) 09/29/24 21:43 MCV 80.5 fl (85-98) L 09/29/24 21:43 MCH 25.3 pg (27-33) L 09/29/24 21:43 MCHC 31.4 g/dL (30-55) 09/29/24 21:43 RDW 15.9 % (12.1-15.1) H 09/29/24 21:43 Plt Count 205 10^3/cmm (157-399) 09/29/24 21:43 MPV 10.0 fL (7.4-10.4) 09/29/24 21:43 Neut % (Auto) 72.1 % 09/29/24 21:43 Lymph % (Auto) 15.7 % 06/22/25 21:43 [place] % (Auto) 9.5 % 09/29/24 21:43 Eos % (Auto) 1.8 % 09/29/24 21:43 Baso % (Auto) 0.4 % 09/29/24 21:43 Neut # (Auto) 6.63 10^3/uL (1.8-7.7) 09/29/24 21:43 Lymph # (Auto) 1.4 10^3/uL (0.8-4.8) 09/29/24 21:43 [place] # (Auto) 0.9 10^3/uL (0.2-0.9) 09/29/24 21:43 Eos # (Auto) 0.2 10^3/uL (0.0-0.8) 09/29/24 21:43 Baso # (Auto) 0.0 10^3/uL (0.0-0.1) 09/29/24 21:43 Nucleated RBC % (auto) 0 % 09/29/24 21:43 Nucleated RBCs # 0.0 /100WBC 09/29/24 21:43 Sodium 134 mmol/L (136-145) L 09/29/24 21:43 Potassium 4.0 mmol/L (3.5-5.1) 09/29/24 21:43 Chloride 97 mmol/L (98-107) L 09/29/24 21:43 Carbon Dioxide 25 mmol/L (22-29) 09/29/24 21:43 Anion Gap 16.0 (5-19) 09/29/24 21:43 BUN 20 mg/dL (8-23) 09/29/24 21:43 Creatinine 0.9 mg/dL (0.5-0.9) 09/29/24 21:43 GFR Calculation Not Reportable 09/29/24 21:43 Glucose 335 mg/dL (65-115) H 09/29/24 21:43 Calculated Osmolality 294 mOsm/kg (285-295) 09/29/24 21:43 Calcium 8.9 mg/dL (8.5-10.5) 09/29/24 21:43 Total Bilirubin 0.7 mg/dL (0.15-1.2) 09/29/24 21:43 AST 19 U/L (0-32) 09/29/24 21:43 ALT 16 U/L (0-33) 09/29/24 21:43 Alkaline Phosphatase 128 U/L (35-105) H 09/29/24 21:43 Total Protein 6.7 g/dL (6.6-8.7) 09/29/24 21:43 Albumin 3.5 g/dL (3.5-5.2) 09/29/24 21:43 Globulin 3.2 g/dL (1.3-4.6) 09/29/24 21:43 All radiology interpretation(s) finalized by discharge ED provider radiology interpretation(s): left acetabular fx Discharge Plan Discharge Patient Disposition: Admitted As Inpatient Admit Provider: Shefali Mario Clinical Impression: Cellulitis of great toe, right Closed fracture of left acetabulum Qualifiers: Encounter type: initial encounter Sublocation of acetabulum: posterior wall Fracture alignment: nondisplaced Qualified Code(s): S32.425A - Nondisplaced fracture of posterior wall of left acetabulum, initial encounter for closed fracture Condition: Stable Discharge Diet: Usual diet Discharge Activity: Resume usual activity Coding Level of Care Code ED Instructor Modeling for Chg Fwd Documented by User: Amos Joiner DO 09/29/24 23:26 HPI - Back Pain/Injury General: Chief Complaint: Back Pain/Injury Stated Complaint: BACK PAIN Time Seen by Provider: 09/29/24 19:30 Related Data Home Medications ?Medication ?Instructions ?Recorded ?Confirmed atorvastatin 20 mg tablet 20 mg PO QAM 11/07/21 09/26/24 multivitamin 1 tab PO QAM 11/07/21 09/26/24 duloxetine 30 mg capsule,delayed 30 mg PO QAM 05/12/23 09/26/24 release calcium 600 mg (as 1 tab PO QAM 07/14/23 09/26/24 carbonate)-vitamin D3 5 mcg (200 unit) tablet cetirizine 10 mg tablet (Zyrtec) 10 mg PO QAM 07/14/23 09/26/24 dorzolamide 22.3 mg-timolol 6.8 1 drp ophthalmic (eye) BID 07/14/23 09/26/24 mg/mL eye drops torsemide 20 mg tablet 20 mg PO QAM 07/14/23 09/26/24 docusate sodium 100 mg capsule 100 mg PO BID PRN Constipation 05/16/24 09/26/24 (Colace) insulin aspart U-100 100 unit/mL 10 unit SUBCUT TID 05/16/24 09/26/24 (3 mL) subcutaneous pen (Novolog FlexPen U-100 Insulin aspart) insulin glargine 100 unit/mL (3 56 unit SUBCUT BID 05/16/24 09/26/24 mL) subcutaneous pen (Lantus Solostar U-100 Insulin) apixaban 5 mg tablet (Eliquis) 5 mg PO BID 09/26/24 09/26/24 nystatin 100,000 unit/gram topical 1 applic topical BID 09/26/24 09/26/24 powder semaglutide 1 mg/dose (4 mg/3 mL) 1 mg SUBCUT Q7D 09/26/24 09/26/24 subcutaneous pen injector (Ozempic) Previous Rx's ?Medication ?Instructions ?Recorded Diabetic shoes with 3 inserts #1 ea 10/20/20 diabetic shoes with 3 inserts #1 ea 08/02/23 Allergies Allergy/AdvReac Type Severity Reaction Status Date / Time diphenhydramine (From Allergy Unknown unknown Verified 05/16/24 15:38 Benadryl) tetracycline Allergy Unknown unknown Verified 05/16/24 15:38 [facility] ED PFSH: Medical History UTI (urinary tract infection) Fall Moderate mitral regurgitation Acute IL, inferior wall High anion gap metabolic acidosis Diabetes with ketoacidosis Cholelithiases Vomiting Atrial fibrillation, chronic Fracture of humerus, left, closed Pes planus of both feet ALISTAIR inhibitor intolerance Essential hypertension Warfarin anticoagulation Lower extremity deep venous thrombosis CAD (coronary artery disease) Fracture of greater trochanter of right femur Peripheral vascular disease Onychodystrophy Diabetic neuropathy associated with diabetes mellitus due to underlying condition Surgical History Status post laparoscopic cholecystectomy Coronary angioplasty status PCI to RCA?2016 Family History Mother Diabetes Denies family history of CAD (coronary artery disease) Clotting disorder Dementia Hyperlipidemia Psychiatric illness Chronic kidney disease (CKD) Suicide Anesthesia complication Bleeding disorder Family history of premature coronary artery disease Lung disease Cancer Hypertension Stroke Social History Smoking and tobacco/nicotine status: never used tobacco/nicotine Second hand smoke exposure: Yes Alcohol intake: never Substance/Drug Use: never Physical Exam Extremity: EXTREMITY IMAGE (FRONT):  1. red, white distal 1st toe with drainage Course Vital Signs: Vital signs: Vital Signs Temperature 98.7 F 09/29/24 19:30 Pulse Rate 71 09/29/24 22:39 Respiratory Rate 16 09/29/24 22:39 Blood Pressure 146/68 09/29/24 22:39 Pulse Oximetry 97 09/29/24 22:39 Oxygen Delivery Me thod Room Air 09/29/24 21:05 MDM - Back Pain/Injury Medical Decision Making 84-year-old female with fall while reaching for her walker on 09/26 with negative initial workup. Next recommended workup is a CT of her pelvis to rule out an occult fracture. This will be ordered. No reason to repeat lab work since there has not been any additional falls. This patient was originally evaluated by the physician trade sales assistant. I agree with her history, evaluation, and management. She will be admitted. Orthopedics has been consulted. Hospitalist will see the patient. Labs 09/29/24 21:43 09/29/24 21:[address] 09/29/24 19:36 IMPRESSION: Acute nondisplaced posterior left acetabular fracture with extension into the articular surface. Foot X-Ray 09/29/24 21:39 IMPRESSION: Nondisplaced fracture through the distal phalanx of the great toe with associated soft tissue swelling. Laboratory Results WBC 9.20 10^3/uL (3.29-11.43) 09/29/24 21:43 RBC 4.83 10^6/uL (3.85-5.65) 09/29/24 21:43 Hgb 12.20 g/dL (11.27-16.99) 09/29/24 21:43 Hct 38.9 % (36-47) 09/29/24 21:43 MCV 80.5 fl (85-98) L 09/29/24 21:43 MCH 25.3 pg (27-33) L 09/29/24 21:43 MCHC 31.4 g/dL (30-55) 09/29/24 21:43 RDW 15.9 % (12.1-15.1) H 09/29/24 21:43 Plt Count 205 10^3/cmm (157-399) 09/29/24 21:43 MPV 10.0 fL (7.4-10.4) 09/29/24 21:43 Neut % (Auto) 72.1 % 09/29/24 21:43 Lymph % (Auto) 15.7 % 09/29/24 21:43 [place] % (Auto) 9.5 % 09/29/24 21:43 Eos % (Auto) 1.8 % 09/29/24 21:43 Baso % (Auto) 0.4 % 09/29/24 21:43 Neut # (Auto) 6.63 10^3/uL (1.8-7.7) 09/29/24 21:43 Lymph # (Auto) 1.4 10^3/uL (0.8-4.8) 09/29/24 21:43 [place] # (Auto) 0.9 10^3/uL (0.2-0.9) 09/29/24 21:43 Eos # (Auto) 0.2 10^3/uL (0.0-0.8) 09/29/24 21:43 Baso # (Auto) 0.0 10^3/uL (0.0-0.1) 09/29/24 21:43 Nucleated RBC % (auto) 0 % 09/29/24: Nucleated RBCs # 0.0 /100WBC 09/29/24 21:43 Sodium 134 mmol/L (136-145) L 09/29/24 21:43 Potassium 4.0 mmol/L (3.5-5.1) 09/29/24 21:43 Chloride 97 mmol/L (98-107) L 09/29/24:43 Carbon Dioxide 25 mmol/L (22-29) 09/29/24 21:43 Anion Gap 16.0 (5-19) 09/29/24 21:43 BUN 20 mg/dL (8-23) 09/29/24 21:43 Creatinine 0.9 mg/dL (0.5-0.9) 09/29/24 21:43 GFR Calculation Not Reportable 09/29/24 21:43 Glucose 335 mg/dL (65-115) H 09/29/24 21:43 Calculated Osmolality 294 mOsm/kg (285-295) 09/29/24 21:43 Calcium 8.9 mg/dL (8.5-10.5) 09/29/24 21:43 Total Bilirubin 0.7 mg/dL (0.15-1.2) 09/29/24 21:43 AST 19 U/L (0-32) 09/29/24 21:43 ALT 16 U/L (0-33) 09/29/24 21:43 Alkaline Phosphatase 128 U/L (35-105) H 09/29/24 21:43 Total Protein 6.7 g/dL (6.6-8.7) 09/29/24 21:43 Albumin 3.5 g/dL (3.5-5.2) 09/29/24 21:43 Globulin 3.2 g/dL (1.3-4.6) 09/29/24 21:43 Discharge Plan Discharge Patient Disposition: Admitted As Inpatient Admit Provider: Shefali Mario Clinical Impression: Cellulitis of great toe, right Closed fracture of left acetabulum Qualifiers: Encounter type: initial encounter Sublocation of acetabulum: posterior wall Fracture alignment: nondisplaced Qualified Code(s): S32.425A - Nondisplaced fracture of posterior wall of left acetabulum, initial encounter for closed fracture Condition: Stable Discharge Diet: Usual diet Discharge Activity: Resume usual activity Coding Level of Care Code ED Instructor Modeling for Jared Vallecillo
[2024-09-29 21:05] VITALS: BP 137/65; PULSE 71; O2SAT 93
--- NOTE | 2024-09-29 21:39 | XRR_ITS ---
PROCEDURE INFORMATION: Exam: XR Right Foot Exam date and time: 09/29/2024 9:48 PM Age: 84 years old Clinical indication: Pain; Swelling, leg or foot; Toes; Right; Fall on 09/26/2024. Swelling and redness to RT great toe. ; Additional info: Great toe injury TECHNIQUE: Imaging protocol: Radiologic exam of the right foot. Views: 3 or more views. COMPARISON: CR XR ankle RT min 3V* [id number] 11/25/2021 4:11 PM FINDINGS: Bones/joints: There is nondisplaced transverse fracture through the proximal metaphysis of the distal phalanx of the great toe. No articular surface involvement is apparent. There appears to be an old posttraumatic deformity of the proximal phalanx of the 5th toe. No acute osseous erosions to indicate osteomyelitis. Degenerative changes to the midfoot and hindfoot in addition to the interphalangeal joints. Soft tissues: Soft tissue swelling about the great toe. XR/XR foot RT min 3V* [id number] IMPRESSION: Nondisplaced fracture through the distal phalanx of the great toe with associated soft tissue swelling.
[2024-09-29 22:02] LABS: Basophils % 0.4 %; Eosinophils # 0.2 10^3/uL (0.0-0.8); Eosinophils % 1.8 %; Hematocrit 38.9 % (36-47); Lymphocytes # 1.4 10^3/uL (0.8-4.8); Lymphocytes % 15.7 %; Mean Corpuscular HGB Conc 31.4 g/dL (30-55); Mean Corpuscular Hemoglobin 25.3 pg (27-33); Mean Corpuscular Volume 80.5 fl (85-98); Monocytes # 0.9 10^3/uL (0.2-0.9); Monocytes % 9.5 %; Neutrophils # 6.63 10^3/uL (1.8-7.7); Neutrophils % 72.1 %; Nucleated Red Blood Cells % 0 %; Platelet Count 205 10^3/cmm (157-399); Red Blood Count 4.83 10^6/uL (3.85-5.65); Red Cell Distribution Width 15.9 % (12.1-15.1)
[2024-09-29 22:19] LABS: Alanine Aminotransferase 16 U/L (0-33); Albumin Level 3.5 g/dL (3.5-5.2); Alkaline Phosphatase 128 U/L (35-105); Aspartate Amino Transferase 19 U/L (0-32); Blood Urea Nitrogen 20 mg/dL (8-23); Calcium 8.9 mg/dL (8.5-10.5); Carbon Dioxide 25 mmol/L (22-29); Chloride 97 mmol/L (98-107); Creatinine Clr Calc Pharmacy 48.9575; Globulin 3.2 g/dL (1.3-4.6); Glucose 335 mg/dL (65-115); Osmolality Calculated 294 mOsm/kg (285-295); Sodium 134 mmol/L (136-145); Total Bilirubin 0.7 mg/dL (0.15-1.2); Total Protein 6.7 g/dL (6.6-8.7)
[2024-09-29 22:24] VITALS: BP 137/65; PULSE 68; RESP 16; O2SAT 92
--- NOTE | 2024-09-29 22:27 | PM.HP ---
Providers/Chief Complaint Admitting Physician: Patient seen before midnight Primary Care Provider: Anette Velazquez MD Chief Complaint: BACK PAIN History of Present Illness Kianna Dotson is a 84 year old female who had just had mechanical fall and fractured left acetabulum and right hip. Patient also had a CT of the head was unremarkable and of the knee with unremarkable on the day of initial fall. The day of initial fall was days ago. Because patient could not walk and cannot do anything they decided to bring the patient back to the emergency room and this is when a pelvic x-ray showed a left acetabulum fracture. Patient is found to be in pain I was consulted by the emergency room to evaluate patient for admission for observation. I have seen patient at the bedside in the emergency room and the first thing I saw was the right great toe that is very red with ascending redness from the great toe into the dorsum aspect of the right foot and getting close to the ankle region. That right toe was obviously infected spreading to the rest of the foot. When I asked the daughter in the room had mentioned that she was going to relate that to the emergency room that the patient had bumped the great toe of the right foot on the bed rail 2 days ago the same day that the patient fell. And they had put a Band-Aid on it and covered it with a socks and have her wear it with the soft shoe I called the attention of the ED attending x-ray of the right great toe is been obtained for this reason patient had to be blood cultured and I initiated patient on antibiotics with 2 g ceftriaxone for gram-negative coverage and also doxycycline for gram-positive coverage.. Patient is diabetic with severe infection coming from the toe with some laceration of that skin of the toe and I believe that is the site of entry of microorganism now spreading into the dorsum of the foot patient is of inpatient stay for at least 2 midnights why patient is also receiving pain management for the mechanical fall with fractures Review of Systems Narrative: System review upon 10 organ reviewed was significant for musculoskeletal injury with fractures and also laceration of the skin of the right great toe from a trauma leading to infection of the local region Medications/Allergies Home Medications ?Medication ?Instructions ?Recorded ?Confirmed ?Last Taken ?Type Diabetic shoes with 3 inserts #1 ea 10/20/20 09/26/24 Unknown Rx atorvastatin 20 mg tablet 20 mg PO QAM 07/09/26/24 09/25/24 History multivitamin 1 tab PO QAM 11/07/21 09/26/24 09/25/24 History duloxetine 30 mg capsule,delayed 30 mg PO QAM 05/12/23 09/26/24 09/25/24 History release calcium 600 mg (as 1 tab PO QAM 07/14/23 09/26/24 09/25/24 History carbonate)-vitamin D3 5 mcg (200 unit) tablet cetirizine 10 mg tablet (Zyrtec) 10 mg PO QAM 07/14/23 09/26/24 09/25/24 History dorzolamide 22.3 mg-timolol 6.8 1 drp ophthalmic (eye) BID 07/14/23 09/26/24 10/30/23 History mg/mL eye drops torsemide 20 mg tablet 20 mg PO QAM 07/14/23 09/26/24 09/25/24 History diabetic shoes with 3 inserts #1 ea 08/02/23 09/26/24 Unknown Rx docusate sodium 100 mg capsule 100 mg PO BID PRN Constipation 05/16/24 09/26/24 09/25/24 History (Colace) insulin aspart U-100 100 unit/mL 10 unit SUBCUT TID 05/16/24 09/26/24 09/25/24 History (3 mL) subcutaneous pen (Novolog FlexPen U-100 Insulin aspart) insulin glargine 100 unit/mL (3 56 unit SUBCUT BID 05/16/24 09/26/24 09/25/24 History mL) subcutaneous pen (Lantus Solostar U-100 Insulin) apixaban 5 mg tablet (Eliquis) 5 mg PO BID 09/26/24 09/26/24 09/25/24 History nystatin 100,000 unit/gram topical 1 applic topical BID 09/26/24 09/26/24 Unknown History powder semaglutide 1 mg/dose (4 mg/3 mL) 1 mg SUBCUT Q7D 09/26/24 09/26/24 09/25/24 History subcutaneous pen injector (Ozempic) Allergies Allergy/AdvReac Type Severity Reaction Status Date / Time diphenhydramine (From Allergy Unknown unknown Verified 05/16/24 15:38 Benadryl) tetracycline Allergy Unknown unknown Verified 05/16/24 15:38 PFSH Acute PFSH: Medical History UTI (urinary tract infection) Fall Moderate mitral regurgitation Acute [place], inferior wall High anion gap metabolic acidosis Diabetes with ketoacidosis Cholelithiases Vomiting Atrial fibrillation, chronic Fracture of humerus, left, closed Pes planus of both feet ALISTAIR inhibitor intolerance Essential hypertension Warfarin anticoagulation Lower extremity deep venous thrombosis CAD (coronary artery disease) Fracture of greater trochanter of right femur Peripheral vascular disease Onychodystrophy Diabetic neuropathy associated with diabetes mellitus due to underlying condition Surgical History Status post laparoscopic cholecystectomy Coronary angioplasty status PCI to RCA?2015 Family History Mother Diabetes Denies family history of CAD (coronary artery disease) Clotting disorder Dementia Hyperlipidemia Psychiatric illness Chronic kidney disease (CKD) Suicide Anesthesia complication Bleeding disorder Family history of premature coronary artery disease Lung disease Cancer Hypertension Stroke Social History Smoking and tobacco/nicotine status: never used tobacco/nicotine Second hand smoke exposure: Yes Alcohol intake: never Substance/Drug Use: never Vitals/I&O/Wt Last Vital Signs Temp 98.7 F 09/29/24 19:30 Pulse 68 09/29/24 22:24 Resp 16 09/29/24 22:24 BP 137/65 09/29/24 22:24 Pulse Ox 92 09/29/24 22:24 O2 Del Method Room Air 09/29/24 21:05 Weight last 48 hrs Weight 81.647 kg Physical Exam Narrative: Generally patient is lying down supine complaining of pain cannot quantify the pain but is in a lot of pain. I have ordered morphine IV for the patient a dose of 4 mg given in the emergency room and to follow-up patient has morphine 2 mg every 4 hours as needed. HEENT normocephalic/atraumatic neck neck is supple cardiovascular heart rate is regular lungs are pretty much clear abdomen soft nontender nondistended unremarkable extremities are significant for a right great toe skin laceration from a trauma against a bed rail and patient having a left acetabulum fracture status post fall 2 days prior and also having a right hip fracture in the region of the pelvic. Data 09/29/24 21:43 09/29/24 21:43 A&P Assessment and plan (1) Cellulitis of great toe, right: Status post trauma to the right great toe with laceration of the skin with eventual cellulitis into the dorsum part of the foot - Blood culture done, antibiotics initiated with ceftriaxone and doxycycline to cover gram-negative and gram-positive respectively. Patient is diabetic and must treat. Patient is inpatient for this hospitalization for diabetic with cellulitis of the foot that is extending into the dorsum of the foot will need at least 2 midnights for care. (2) Cellulitis of foot, right: Ascending cellulitis into the dorsum of the foot from the right great toe. Continue antibiotics with ceftriaxone and doxycycline. Must continue to monitor and optimize. (3) Closed fracture of left acetabulum: This is for pain management and for orthopedics consultation for any added input Patient to continue with PT OT and eventual going to rehab to recuperate patient is 84 years old (4) Fall: Status post mechanical fall sustaining injury of the left acetabulum fracture and also the right hip. Pain management initiated and in place. (5) Hip pain: Right hip pain is a combination of a left acetabulum fracture and right hip fracture. PDMP PDMP Reviewed: Last Reviewed 09/29/24 23:01 by Shefali Mario MD Attestations Medical Necessity Statement*: Patient with diabetes type 2 and had had recent infection with ascending cellulitis from the great toe with a lacerated skin spreading into the dorsum of the foot will need at least 2 midnights for inpatient stay Coding Level of Care Code 88836 Diagnoses Cellulitis of great toe, right L03.031 Cellulitis of foot, right L03.115 Closed fracture of left acetabulum S32.425A Encounter type: initial encounter Fracture alignment: nondisplaced Sublocation of acetabulum: posterior wall Fall W19.XXXA Hip pain M25.559 Time Spent (min) 60
[2024-09-29] MEDS: morphine 4 mg/mL SDV 1 mL IVP (22:30)
[2024-09-29 22:39] VITALS: BP 146/68; PULSE 71; RESP 16; O2SAT 97
[2024-09-29] MEDS: cefTRIAXone 2,000 mg SDV 2000 MG IVP (23:49)
[2024-09-29] MEDS: heparin 5,000 unit/mL INJ 1 mL 5000 UNIT SUBCUT (23:50)
[2024-09-29] MEDS: doxycycline 100 MG in sodium chloride 0.9% (plus) 100 ML IV (23:50)
[2024-09-29 23:55] VITALS: BP 139/76; PULSE 70; RESP 18; O2SAT 95
[2024-09-30] VITALS (18 sets, daily range): BP systolic 106–144; BP diastolic 55–79; PULSE 66–82; RESP 16–19; TEMP 36.6–36.9; O2SAT 90–96
[2024-09-30] MEDS: morphine 4 mg/mL SDV 1 mL 2 MG IVP ×3 (03:31→14:27)
[2024-09-30 04:02] LABS: Basophils % 0.5 %; Eosinophils # 0.1 10^3/uL (0.0-0.8); Eosinophils % 1.2 %; Hematocrit 36.2 % (36-47); Lymphocytes # 0.9 10^3/uL (0.8-4.8); Lymphocytes % 10.5 %; Mean Corpuscular HGB Conc 29.8 g/dL (30-55); Mean Corpuscular Hemoglobin 24.8 pg (27-33); Mean Corpuscular Volume 83.2 fl (85-98); Mean Platelet Volume 9.3 fL (7.4-10.4); Monocytes # 0.9 10^3/uL (0.2-0.9); Monocytes % 9.8 %; Neutrophils # 6.69 10^3/uL (1.8-7.7); Neutrophils % 77.5 %; Nucleated Red Blood Cells % 0 %; Platelet Count 173 10^3/cmm (157-399); Red Blood Count 4.35 10^6/uL (3.85-5.65); Red Cell Distribution Width 15.9 % (12.1-15.1); White Blood Count 8.63 10^3/uL (3.29-11.43)
[2024-09-30 04:20] LABS: Estmated Average Glucose 212
[2024-09-30 04:23] LABS: Alanine Aminotransferase 15 U/L (0-33); Albumin Level 2.9 g/dL (3.5-5.2); Alkaline Phosphatase 109 U/L (35-105); Aspartate Amino Transferase 20 U/L (0-32); Blood Urea Nitrogen 20 mg/dL (8-23); Calcium 7.9 mg/dL (8.5-10.5); Carbon Dioxide 22 mmol/L (22-29); Chloride 100 mmol/L (98-107); Creatinine Clr Calc Pharmacy 55.0772; Globulin 2.8 g/dL (1.3-4.6); Glucose 346 mg/dL (65-115); Magnesium 1.8 mg/dL (1.7-2.3); Osmolality Calculated 298 mOsm/kg (285-295); Phosphorus 2.4 mg/dL (2.5-4.5); Sodium 136 mmol/L (136-145); Total Bilirubin 0.6 mg/dL (0.15-1.2); Total Protein 5.7 g/dL (6.6-8.7)
[2024-09-30 08:07] LABS: Glucose Point of Care 418 mg/dL (70-110)
[2024-09-30] MEDS: insulin lispro 100 unit/1 mL SUBCUT ×4 (09:34→21:02)
[2024-09-30] MEDS: docusate sodium 100 mg Capsule PO ×2 (09:34→17:46)
[2024-09-30] MEDS: pantoprazole DR 40 mg Tablet PO (09:34)
[2024-09-30] MEDS: heparin 5,000 unit/mL INJ 1 mL 5000 UNIT SUBCUT ×2 (10:53→22:28)
[2024-09-30 10:57] LABS: Glucose Point of Care 389 mg/dL (70-110)
--- NOTE | 2024-09-30 12:37 | PM.CONSULT ---
Providers/Reason For Consult Consulting Physician/Specialty*: Hospitalist Reason for Consult*: Left acetabular fracture Attending Physician: Maciel Riley MD Primary Care Provider: Anette Velazquez MD History of Present Illness History of Present Illness Kianna Dotson is a 84 year old female sustained a fall sounds like on 09/26. At this point patient complaining of left hip pain. CT scan reviewed shows nondisplaced transverse acetabular fracture. Review of Systems General: Reports: 10 or more systems reviewed and unremarkable except in HPI and below Const: Denies: fever(s) or chills Eyes: Denies: change in vision or blurry vision ENMT: Denies: throat pain or dry mouth Card: Denies: chest pain or palpitations Resp: Denies: dyspnea or productive cough GI: Denies: abdominal pain, nausea or vomiting : Denies: flank pain or difficulty voiding Musc: Reports: back pain, extremity pain and joint pain; Denies: extremity swelling or joint swelling Skin/Breast: Denies: rash, pruritus or sores Neuro: Denies: headache(s) or numbness in extremities Psych: Denies: anxiety or depression Earl/Lymph: Denies: easy bruising or easy bleeding Medications/Allergies Home Medications ?Medication ?Instructions ?Recorded ?Confirmed ?Last Taken ?Type Diabetic shoes with 3 inserts #1 ea 10/20/20 09/30/24 Unknown Rx atorvastatin 20 mg tablet 20 mg PO QAM 11/07/21 09/30/24 09/29/24 History multivitamin 1 tab PO QAM 11/07/21 09/30/24 09/29/24 History duloxetine 30 mg capsule,delayed 30 mg PO QAM 05/12/23 09/30/24 09/29/24 History release calcium 600 mg (as 1 tab PO QAM 07/14/23 09/30/24 09/29/24 History carbonate)-vitamin D3 5 mcg (200 unit) tablet cetirizine 10 mg tablet (Zyrtec) 10 mg PO QAM 07/14/23 09/30/24 09/29/24 History dorzolamide 22.3 mg-timolol 6.8 1 drp ophthalmic (eye) BID 07/14/23 09/30/24 10/30/23 History mg/mL eye drops torsemide 20 mg tablet 20 mg PO QAM 07/14/23 09/30/24 09/29/24 History diabetic shoes with 3 inserts #1 ea 08/02/23 09/30/24 Unknown Rx docusate sodium 100 mg capsule 100 mg PO BID PRN Constipation 05/16/24 09/30/24 09/25/24 History (Colace) insulin aspart U-100 100 unit/mL 10 unit SUBCUT TID 05/16/24 09/30/24 09/29/24 History (3 mL) subcutaneous pen (Novolog FlexPen U-100 Insulin aspart) insulin glargine 100 unit/mL (3 56 unit SUBCUT BID 05/16/24 09/30/24 09/25/24 History mL) subcutaneous pen (Lantus Solostar U-100 Insulin) apixaban 5 mg tablet (Eliquis) 5 mg PO BID 09/26/24 09/30/24 09/29/24 History nystatin 100,000 unit/gram topical 1 applic topical BID 09/26/24 09/30/24 Unknown History powder semaglutide 1 mg/dose (4 mg/3 mL) 1 mg SUBCUT Q7D 09/26/24 09/30/24 09/25/24 History subcutaneous pen injector (Ozempic) Allergies Allergy/AdvReac Type Severity Reaction Status Date / Time diphenhydramine (From Allergy Unknown unknown Verified 05/16/24 15:38 Benadryl) tetracycline Allergy Unknown unknown Verified 05/16/24 15:38 Current Medications Generic Name Dose Route Start Last Admin Trade Name Freq PRN Reason Stop Dose Admin Ceftriaxone Sodium 2,000 mg 09/29/24 22:30 09/29/24 23:49 Ceftriaxone 2,000 Mg Sdv IVP 2,000 mg Q24H TERRY Administration Protocol Docusate Sodium 100 mg 09/30/24 09:00 09/30/24 09:34 Docusate Sodium 100 Mg Capsule PO 100 mg BID TERRY Administration Heparin Sodium (Porcine) 5,000 unit 09/29/24 22:30 09/30/24 10:53 Heparin 5,000 Unit/Ml Inj 1 Ml SUBCUT 5,000 unit Q12H TERRY Administration Insulin Human Lispro 0 unit 09/30/24 08:00 09/30/24 11:36 Insulin Lispro 100 Unit/1 Ml SUBCUT 12 unit WM&BEDTIME TERRY Administration Protocol Morphine Sulfate 2 mg 09/29/24 22:01 09/30/24 07:33 Morphine 4 Mg/Ml Sdv 1 Ml IVP 2 mg Q4H PRN Administration SEVERE PAIN Pantoprazole Sodium 40 mg 09/30/24 09:00 09/30/24 09:[address] 40 Mg Tablet PO 40 mg DAILY TERRY Administration PFSH Acute PFSH: Medical History UTI (urinary tract infection) Fall Moderate mitral regurgitation Acute [place], inferior wall High anion gap metabolic acidosis Diabetes with ketoacidosis Cholelithiases Vomiting Atrial fibrillation, chronic Fracture of humerus, left, closed Pes planus of both feet ALISTAIR inhibitor intolerance Essential hypertension Warfarin anticoagulation Lower extremity deep venous thrombosis CAD (coronary artery disease) Fracture of greater trochanter of right femur Peripheral vascular disease Onychodystrophy Diabetic neuropathy associated with diabetes mellitus due to underlying condition Surgical History Status post laparoscopic cholecystectomy Coronary angioplasty status PCI to RCA?2016 Family History Mother Diabetes Denies family history of CAD (coronary artery disease) Clotting disorder Dementia Hyperlipidemia Psychiatric illness Chronic kidney disease (CKD) Suicide Anesthesia complication Bleeding disorder Family history of premature coronary artery disease Lung disease Cancer Hypertension Stroke Social History Smoking and tobacco/nicotine status: never used tobacco/nicotine Second hand smoke exposure: Yes Alcohol intake: never Substance/Drug Use: never Vitals/I&O/Wt Last Vital Signs Temp 97.8 F 09/30/24 10:57 Pulse 80 09/30/24 10:57 Resp 17 09/30/24 10:57 BP 106/70 09/30/24 10:57 Pulse Ox 94 09/30/24 10:57 O2 Del Method Room Air 09/30/24 10:57 09/29/24 09/30/24 09/30/24 22:59 06:59 14:59 Intake Total 340 / 340 Balance 340 / 340 Weight last 48 hrs Weight 184 lb Weight 180 lb Physical Exam Narrative: Alert and oriented x 3 Head is normocephalic atraumatic Respirations are intact Patient is resting comfortably in bed no complaints. Data 09/30/24 03:30 09/30/24 03:30 Micro: Microbiology 09/29/24 23:22 Blood Culture - Preliminary Blood SPECIMEN COLLECTED 09/29/24 23:15 Blood Culture - Preliminary Blood SPECIMEN COLLECTED A&P Assessment and plan (1) Closed fracture of left acetabulum: Toe-touch weightbearing left lower extremity Up with physical therapy Follow-up orthopedic clinic in 2 weeks PDMP PDMP Reviewed: Not Reviewed Coding Level of Care Code Acute Code for Chg Fwd Diagnoses Closed fracture of left acetabulum S32.425A Encounter type: initial encounter Fracture alignment: nondisplaced Sublocation of acetabulum: posterior wall
[2024-09-30] MEDS: vancomycin 1,250 MG/250 ML PIGGYBACK 166.67 MG IV (13:14)
[2024-09-30 13:27] LABS: Thyroid Stimulating Hormone 1.48 uIU/mL (0.27-4.20); Vitamin B12 455 pg/mL (232-1245)
[2024-09-30 13:38] LABS: Iron 31 ug/dL (37-145); Total Iron Binding Capacity 206 mcg/dl; Unsaturated Iron Binding 175 ug/dL (112-347)
[2024-09-30] MEDS: piperacillin-tazobactam 3.375 GM in sodium chloride 0.9% (plus) 50 ML IV ×2 (14:33→22:28)
[2024-09-30 14:35] LABS: MRSA PCR OZH (swab) NOT DETECTED (Not Detecte)
--- NOTE | 2024-09-30 14:56 | P.PN_ITS ---
Subjective 2 Subjective: Admitted overnight. On examination sitting up comfortably in bed. Denies any complaint of nausea or vomiting. Has remained hemodynamically stable and afebrile. Complaining of pain in her hips. Vitals/I&O/Wt Last Vital Signs Temp 97.8 F 09/30/24 10:57 Pulse 80 09/30/24 10:57 Resp 16 09/30/24 14:27 BP 106/70 09/30/24 10:57 Pulse Ox 94 09/30/24 10:57 O2 Del Method Room Air 09/30/24 10:57 09/29/24 09/30/24 09/30/24 22:59 06:59 14:59 Intake Total 590 / 590 Balance 590 / 590 Weight last 48 hrs Weight 83.461 kg Weight 81.647 kg Data 09/30/24 03:30 09/30/24 03:30 Micro: Microbiology 09/29/24 23:22 Blood Culture - Preliminary Blood SPECIMEN COLLECTED 09/29/24 23:15 Blood Culture - Preliminary Blood SPECIMEN COLLECTED A&P Assessment and plan (1) Cellulitis of great toe, right: Posttraumatic. Will consult podiatry for further recommendations. Appreciate foot x-ray concerning for nondisplaced first distal phalanx fracture. Patient does have history of uncontrolled type 2 diabetes mellitus. For now start on IV vancomycin and Zosyn. If MRSA swab negative will discontinue vancomycin. Plan for further imaging if needed as per podiatry team. Follow blood cultures. Check bacterial antigen. (2) Fall: Status post mechanical fall sustaining injury of the left acetabulum fracture and also the right hip. Follow-up orthopedic recommendations. Physical therapy. Out of bed to chair. [place] 5 mg every 6 hours as needed for pain scale 6-10, tramadol 50 mg every 4 hours as needed for pain scale 1-5, morphine 2 mg x 4 hours as needed for breakthrough pain (3) Atrial fibrillation, chronic: Currently rate controlled. Continue with Eliquis 5 mg twice daily for anticoagulation. gambling monitor. (4) Aortic stenosis: (5) Type 2 diabetes mellitus: Check A1c. Uncontrolled hyperglycemia for now. Takes Lantus 56 units twice daily along with 10 units of Humalog 3 times daily. For now continue with insulin sliding scale AC and at bedtime changed to high dose protocol. Start glargine 30 units nightly. Uptitrate as per blood sugars. Plan Hypertension: Goal blood pressure less than 140/90 mmHg. Blood pressure so far at goal. Hold off on antihypertensive. If needed can add amlodipine/lisinopril given history of diabetes. Full code Carb consistent cardiac diet Heparin 5000 every 12 hourly for DVT prophylaxis. Eliquis withheld with concerns if patient needs any surgical correction. Protonix for PUD prophylaxis. Discharge plan: Patient will need rehabilitation given acetabular fracture. Family requesting transition to SNF. Case management alerted. PDMP PDMP Reviewed: Not Reviewed Attestations 2 Medical Necessity Statement*: Requires further hospitalization for management of acetabular fracture post mechanical fall, right great toe cellulitis in a patient with uncontrolled type 2 diabetes mellitus while safe discharge planning is sought Diagnoses Cellulitis of great toe, right L03.031 Fall W19.XXXA Atrial fibrillation, chronic I48.20 Aortic stenosis I35.0 Type 2 diabetes mellitus E11.9
--- NOTE | 2024-09-30 16:07 | PM.CONSULT ---
Providers/Reason For Consult Consulting Physician/Specialty*: Herman Sahu.P.M./podiatry Reason for Consult*: Right hallux cellulitis, nail trauma Attending Physician: Maciel Riley MD Primary Care Provider: Anette Velazquez MD History of Present Illness History of Present Illness Kianna Dotson is a 84 year old female who is currently admitted as inpatient. Podiatry was consulted to evaluate right hallux after patient sustained trauma to the area resulting in distal phalanx fracture right hallux. According to patient patient's family after the injury the toe bled for a couple of days. Podiatry was consulted to evaluate and provide further treatment. Review of Systems General: Reports: 10 or more systems reviewed and unremarkable except in HPI and below Const: Denies: fever(s), chills or malaise Eyes: Denies: change in vision ENMT: Denies: throat pain Card: Denies: chest pain or palpitations Resp: Denies: dyspnea GI: Denies: abdominal pain, nausea or vomiting Musc: Reports: extremity pain, extremity swelling and limited range of motion Skin/Breast: Reports: erythema, skin tenderness and new lesions Medications/Allergies Home Medications ?Medication ?Instructions ?Recorded ?Confirmed ?Last Taken ?Type Diabetic shoes with 3 inserts #1 ea 10/20/20 09/30/24 Unknown Rx atorvastatin 20 mg tablet 20 mg PO QAM 11/07/21 09/30/24 09/29/24 History multivitamin 1 tab PO QAM 11/07/21 09/30/24 09/29/24 History duloxetine 30 mg capsule,delayed 30 mg PO QAM 05/12/23 09/30/24 09/29/24 History release calcium 600 mg (as 1 tab PO QAM 07/14/23 09/30/24 09/29/24 History carbonate)-vitamin D3 5 mcg (200 unit) tablet cetirizine 10 mg tablet (Zyrtec) 10 mg PO QAM 07/14/23 09/30/24 09/29/24 History dorzolamide 22.3 mg-timolol 6.8 1 drp ophthalmic (eye) BID 07/14/23 09/30/24 10/30/23 History mg/mL eye drops torsemide 20 mg tablet 20 mg PO QAM 07/14/23 09/30/2425 History diabetic shoes with 3 inserts #1 ea 08/02/23 09/30/24 Unknown Rx docusate sodium 100 mg capsule 100 mg PO BID PRN Constipation 05/16/24 09/30/24 09/25/24 History (Colace) insulin aspart U-100 100 unit/mL 10 unit SUBCUT TID 05/16/24 09/30/24 09/29/24 History (3 mL) subcutaneous pen (Novolog FlexPen U-100 Insulin aspart) insulin glargine 100 unit/mL (3 56 unit SUBCUT BID 05/16/24 09/30/24 09/25/24 History mL) subcutaneous pen (Lantus Solostar U-100 Insulin) apixaban 5 mg tablet (Eliquis) 5 mg PO BID 09/26/24 09/30/24 09/29/24 History nystatin 100,000 unit/gram topical 1 applic topical BID 09/26/24 09/30/24 Unknown History powder semaglutide 1 mg/dose (4 mg/3 mL) 1 mg SUBCUT Q7D 09/26/24 09/30/24 09/25/24 History subcutaneous pen injector (Ozempic) Allergies Allergy/AdvReac Type Severity Reaction Status Date / Time diphenhydramine (From Allergy Unknown unknown Verified 05/16/24 15:38 Benadryl) tetracycline Allergy Unknown unknown Verified 05/16/24 15:38 Current Medications Generic Name Dose Route Start Last Admin Trade Name Freq PRN Reason Stop Dose Admin Docusate Sodium 100 mg 09/30/24 09:00 09/30/24 09:34 Docusate Sodium 100 Mg Capsule PO 100 mg BID TERRY Administration Heparin Sodium (Porcine) 5,000 unit 09/29/24 22:30 09/30/24 10:53 Heparin 5,000 Unit/Ml Inj 1 Ml SUBCUT 5,000 unit Q12H TERRY Administration Vancomycin HCl 1,250 mg in 250 mls @ 166.667 mls/hr 09/30/24 13:00 09/30/24 14:48 Vancocin IV Infused Q24H TERRY Infusion Piperacillin Sod/Tazobactam 50 mls @ 12.5 mls/hr 09/30/24 14:30 09/30/24 14:33 Sod 3.375 gm/ Sodium Chloride IV 12.5 mls/hr Q8H TERRY Administration Insulin Human Lispro 0 unit 09/30/24 08:00 09/30/24 11:36 Insulin Lispro 100 Unit/1 Ml SUBCUT 12 unit WM&BEDTIME TERRY Administration Protocol Morphine Sulfate 2 mg 09/29/24 22:01 09/30/24 14:27 Morphine 4 Mg/Ml Sdv 1 Ml IVP 2 mg Q4H PRN Administration SEVERE PAIN Pantoprazole Sodium 40 mg 09/30/24 09:00 09/30/24 09:[address] 40 Mg Tablet PO 40 mg DAILY TERRY Administration PFSH Acute PFSH: Medical History (Updated 09/30/24 @ 16:12 by Hector Bunch DPM) Humerus fracture Type 2 diabetes mellitus Tachy-han syndrome UTI (urinary tract infection) Fall Moderate mitral regurgitation Acute CO, inferior wall High anion gap metabolic acidosis Diabetes with ketoacidosis Cholelithiases Vomiting Atrial fibrillation, chronic Fracture of humerus, left, closed Pes planus of both feet ALISTAIR inhibitor intolerance Essential hypertension Warfarin anticoagulation Lower extremity deep venous thrombosis CAD (coronary artery disease) Fracture of greater trochanter of right femur Peripheral vascular disease Onychodystrophy Diabetic neuropathy associated with diabetes mellitus due to underlying condition Surgical History Status post laparoscopic cholecystectomy Coronary angioplasty status PCI to RCA?2015 Family History Mother Diabetes Denies family history of CAD (coronary artery disease) Clotting disorder Dementia Hyperlipidemia Psychiatric illness Chronic kidney disease (CKD) Suicide Anesthesia complication Bleeding disorder Family history of premature coronary artery disease Lung disease Cancer Hypertension Stroke Social History Smoking and tobacco/nicotine status: never used tobacco/nicotine Second hand smoke exposure: Yes Alcohol intake: never Substance/Drug Use: never Vitals/I&O/Wt Last Vital Signs Temp 98.2 F 09/30/24 16:01 Pulse 66 09/30/24 16:01 Resp 18 09/30/24 16:01 BP 116/72 09/30/24 16:01 Pulse Ox 91 09/30/24 16:01 O2 Del Method Room Air 09/30/24 10:57 09/30/24 09/30/24 09/30/24 06:59 14:59 22:59 Intake Total 590 / 590 Balance 590 / 590 Weight last 48 hrs Weight 184 lb Weight 180 lb Physical Exam Narrative: BELOW IS A FOCUSED LOWER EXTREMITY EXAM GENERAL: A&O x 3 VASCULAR: DP/PT pulses palpable 2/4 with CFT intact, <3seconds to distal digits DERMATOLOGICAL: Nail lysis right hallux with surrounding erythema extending to the level of the first metatarsophalangeal joint. MUSCULOSKELETAL: Right hallux NEUROLOGICAL: Neurological sensation to the affected foot and ankle is present through L4-S1 dermatomes with no hyper/hypoesthesias, negative Tinel or Valleix's sign IMAGING: Three-view x-ray right foot taken in emergency department show distal phalanx fracture right hallux. No subcutaneous emphysema. No evidence of osteomyelitis. Data 09/30/24 03:30 09/30/24 03:30 Micro: Microbiology 09/29/24 23:22 Blood Culture - Preliminary Blood SPECIMEN COLLECTED 09/29/24 23:15 Blood Culture - Preliminary Blood SPECIMEN COLLECTED A&P Assessment and plan (1) Onycholysis of toenail: (2) Cellulitis of great toe, right: (3) Cellulitis of foot, right: (4) Fracture of distal phalanx of right great toe: Plan Patient was seen and evaluated bedside today. Patient has open fracture right hallux with onycholysis secondary to trauma. Consent was obtained, right hallux underwent total nail avulsion at bedside after site was anesthetized with 9 cc of 1% lidocaine plain. After total nail avulsion was performed site was irrigated with sterile saline before triple antibiotic ointment, Adaptic, 2 x 2 gauze, Coban was applied to the right hallux. Hemostasis was achieved. Continue IV antibiotic therapy for associated cellulitis. Podiatry will perform dressing change tomorrow morning to evaluate wound further. At this time I do not think that sutures are indicated. Will provide further recommendations for discharge from podiatry standpoint after evaluation tomorrow morning. No further surgical intervention by podiatry warranted at this time. PDMP PDMP Reviewed: Not Reviewed Coding Level of Care Code Acute Code for [facility] Fwd Diagnoses Onycholysis of toenail L60.1 Cellulitis of great toe, right L03.031 Cellulitis of foot, right L03.115 Fracture of distal phalanx of right great toe S92.421A
[2024-09-30 16:11] LABS: Glucose Point of Care 342 mg/dL (70-110)
--- NOTE | 2024-09-30 17:13 | PHA.VACGOAL ---
Vancomycin Goal - Goal Vancomycin Goal:: 10-15 mg/L Vancomycin Indication:: SSTI - Therapy Current therapy:: Pip/Tazo Day of therpy:: Day []of [] . Actual body weight (kg): 184 lb - Data Labs: WBC 8.63 10^3/uL (3.29-11.43) 09/30/24 03:30 RBC 4.35 10^6/uL (3.85-5.65) 09/30/24 03:30 Hgb 10.80 g/dL (11.27-16.99) L 09/30/24 03:30 Hct 36.2 % (36-47) 09/30/24 03:30 MCV 83.2 fl (85-98) L 09/30/24 03:30 MCH 24.8 pg (27-33) L 09/30/24 03:30 MCHC 29.8 g/dL (30-55) L D 09/30/24 03:30 RDW 15.9 % (12.1-15.1) H 09/30/24 03:30 Sodium 136 mmol/L (136-145) 09/30/24 03:30 Potassium 4.0 mmol/L (3.5-5.1) 09/30/24 03:30 Chloride 100 mmol/L (98-107) 09/30/24 03:30 Carbon Dioxide 22 mmol/L (22-29) 09/30/24 03:30 Anion Gap 18.0 (5-19) 09/30/24 03:30 BUN 20 mg/dL (8-23) 09/30/24 03:30 Creatinine 0.8 mg/dL (0.5-0.9) 09/30/24 03:30 GFR Calculation Not Reportable 09/30/24 03:30 Last dialysis session:: N/A Treatment plan:: new consult Regimen:: STARTING MAINTENANCE DOSE OF 1250 MG Q24H PER DOSING PROTOCOL Follow up:: WILL CONTINUE TO MONITOR AND FOLLOW UP DAILY
[2024-09-30 20:32] LABS: Glucose Point of Care 391 mg/dL (70-110)
[2024-09-30] MEDS: HYDROcodone-acetaminophen 5-325 mg Tablet 1 TAB PO (23:26)
[2024-09-30] MEDS: insulin glargine 100 units/1 mL 30 UNIT SUBCUT (23:27)
[2024-10-01] VITALS (7 sets, daily range): BP systolic 118–144; BP diastolic 70–86; PULSE 64–78; RESP 16–18; TEMP 36.5–36.8; O2SAT 94–96
[2024-10-01 06:10] LABS: Basophils # 0.1 10^3/uL (0.0-0.1); Basophils % 0.7 %; Eosinophils # 0.3 10^3/uL (0.0-0.8); Eosinophils % 3.9 %; Hematocrit 36.5 % (36-47); Lymphocytes # 1.6 10^3/uL (0.8-4.8); Lymphocytes % 23.6 %; Mean Corpuscular Hemoglobin 24.9 pg (27-33); Mean Corpuscular Volume 80.6 fl (85-98); Monocytes # 0.8 10^3/uL (0.2-0.9); Monocytes % 12.1 %; Neutrophils # 4.08 10^3/uL (1.8-7.7); Neutrophils % 58.8 %; Nucleated Red Blood Cells % 0 %; Platelet Count 186 10^3/cmm (157-399); Red Blood Count 4.53 10^6/uL (3.85-5.65); White Blood Count 6.94 10^3/uL (3.29-11.43)
[2024-10-01] MEDS: piperacillin-tazobactam 3.375 GM in sodium chloride 0.9% (plus) 50 ML IV ×3 (06:10→22:02)
[2024-10-01 06:30] LABS: Glucose Point of Care 343 mg/dL (70-110)
[2024-10-01 06:38] LABS: Alanine Aminotransferase 12 U/L (0-33); Albumin Level 2.8 g/dL (3.5-5.2); Alkaline Phosphatase 109 U/L (35-105); Anion Gap 15.6 (5-19); Aspartate Amino Transferase 12 U/L (0-32); Blood Urea Nitrogen 22 mg/dL (8-23); Calcium 8.7 mg/dL (8.5-10.5); Carbon Dioxide 23 mmol/L (22-29); Chloride 99 mmol/L (98-107); Globulin 3.2 g/dL (1.3-4.6); Glucose 281 mg/dL (65-115); Osmolality Calculated 291 mOsm/kg (285-295); Potassium 3.6 mmol/L (3.5-5.1); Sodium 134 mmol/L (136-145); Total Bilirubin 0.6 mg/dL (0.15-1.2)
[2024-10-01 06:39] LABS: Chol HDL Ratio 2.97 mg/dL (0.0-4.40); Cholesterol 95 mg/dL (0-200); HDL Cholesterol 32 mg/dL (60-100); LDL Cholesterol Calculated 35 mg/dL (50-129); Triglycerides 141 mg/dL (0-150); VLDL Cholestrol Calculation 28 mg/dL (0-30)
[2024-10-01 06:52] LABS: Folate Level 9.4 ng/mL (4.8-37.3)
[2024-10-01] MEDS: insulin lispro 100 unit/1 mL SUBCUT ×4 (09:01→20:46)
[2024-10-01] MEDS: pantoprazole DR 40 mg Tablet PO (09:02)
[2024-10-01] MEDS: docusate sodium 100 mg Capsule PO ×2 (09:02→17:47)
[2024-10-01 11:02] LABS: Glucose Point of Care 373 mg/dL (70-110)
[2024-10-01] MEDS: insulin glargine 100 units/1 mL 30 UNIT SUBCUT ×2 (11:48→20:48)
--- NOTE | 2024-10-01 11:54 | P.PN_ITS ---
Subjective 2 Subjective: No acute events overnight. Patient seen sitting up in recliner. Complaining of pain in the toe. Worked with physical therapy. Denies any nausea, vomiting, headache. Vitals/I&O/Wt Last Vital Signs Temp 97.7 F 10/01/24 11:40 Pulse 64 10/01/24 11:40 Resp 18 10/01/24 11:40 BP 124/76 10/01/24 11:40 Pulse Ox 96 10/01/24 11:40 O2 Del Method Room Air 10/01/24 11:40 09/30/24 10/01/24 10/01/24 22:59 06:59 14:59 Intake Total 890 / 1480 450 / 1930 290 / 290 Output Total 700 / 700 300 / 300 Balance 190 / 780 450 / 1230 -10 / -10 Weight last 48 hrs Weight 83.461 kg Weight 83.461 kg Weight 81.647 kg Physical Exam 2 Narrative: General: No acute distress, AO x3, tired appearing HEENT: PERRLA, pupils bilaterally equal and reactive Chest: Normal vesicular breath sounds, no added sounds, equal good air entry bilaterally CVS: S1-S2 regular, no murmurs, no tachycardia, no gallops, no rubs Abdomen: Soft, nontender, no organomegaly, bowel sounds present Neuro: No focal deficits, no facial deformity, AO x3, power 5/5 in all limbs Data 10/01/24 05:53 10/01/24 05:53 Micro: Microbiology 09/29/24 23:22 Blood Culture - Preliminary Blood NEGATIVE TO DATE 09/29/24 23:15 Blood Culture - Preliminary Blood NEGATIVE TO DATE A&P Assessment and plan (1) Cellulitis of great toe, right: Posttraumatic. Appreciate podiatry recommendations. Appreciate foot x-ray concerning for nondisplaced first distal phalanx fracture. Patient does have history of uncontrolled type 2 diabetes mellitus. Continue Zosyn. DC vancomycin. MRSA swab negative. Plan for further imaging if needed as per podiatry team. Follow blood cultures. (2) Fall: Status post mechanical fall sustaining injury of the left acetabulum fracture and also the right hip. Follow-up orthopedic recommendations. Physical therapy. Out of bed to chair. [place] 5 mg every 6 hours as needed for pain scale 6-10, tramadol 50 mg every 4 hours as needed for pain scale 1-5, morphine 2 mg x 4 hours as needed for breakthrough pain (3) Atrial fibrillation, chronic: Currently rate controlled. Continue with Eliquis 5 mg twice daily for anticoagulation. surveillance monitor. (4) Aortic stenosis: (5) Type 2 diabetes mellitus: A1c more than 9. Uncontrolled hyperglycemia for now. Takes Lantus 56 units twice daily along with 10 units of Humalog 3 times daily. For now continue with insulin sliding scale AC and at bedtime changed to high dose protocol. Increase Lantus to 30 units twice daily. Uptitrate as per blood sugars. Plan Hypertension: Goal blood pressure less than 140/90 mmHg. Blood pressure so far at goal. Hold off on antihypertensive. If needed can add amlodipine/lisinopril given history of diabetes. Full code Carb consistent cardiac diet Heparin 5000 every 12 hourly for DVT prophylaxis. Eliquis withheld with concerns if patient needs any surgical correction. Protonix for PUD prophylaxis. Discharge plan: Patient will need rehabilitation given acetabular fracture. Family requesting transition to SNF. Case management alerted. PDMP PDMP Reviewed: Not Reviewed Attestations 2 Medical Necessity Statement*: Requires further hospitalization while safe discharge planning is sought and patient admitted post mechanical fall leading to acetabular fracture, right great toe cellulitis and fracture post nail avulsion Diagnoses Cellulitis of great toe, right L03.031 Fall W19.XXXA Atrial fibrillation, chronic I48.20 Aortic stenosis I35.0 Type 2 diabetes mellitus E11.9
[2024-10-01] MEDS: HYDROcodone-acetaminophen 5-325 mg Tablet 1 TAB PO ×2 (13:35→19:22)
[2024-10-01] MEDS: vancomycin 1,250 MG/250 ML PIGGYBACK 166.66 MG IV (13:35)
--- NOTE | 2024-10-01 16:17 | P.PN_ITS ---
Subjective 2 Subjective: Patient seen this afternoon. Patient resting in chair. States that right great toe has become increasingly more uncomfortable. Otherwise, no overnight events Vitals/I&O/Wt Last Vital Signs Temp 98.0 F 10/01/24 15:44 Pulse 66 10/01/24 15:44 Resp 17 10/01/24 15:44 BP 137/83 10/01/24 15:44 Pulse Ox 95 10/01/24 15:44 O2 Del Method Room Air 10/01/24 15:44 10/01/24 10/01/24 10/01/24 06:59 14:59 22:59 Intake Total 450 / 1930 650 / 650 Output Total 450 / 450 Balance 450 / 1230 200 / 200 Weight last 48 hrs Weight 184 lb Weight 184 lb Weight 180 lb Physical Exam 2 Narrative: BELOW IS A FOCUSED LOWER EXTREMITY EXAM GENERAL: A&O x 3 VASCULAR: DP/PT pulses palpable 2/4 with CFT intact, <3seconds to distal digits DERMATOLOGICAL: Right hallux shows dusky/ischemic changes. Concern for progression towards gangrene. Dorsal foot erythema has receded MUSCULOSKELETAL: Right hallux NEUROLOGICAL: Neurological sensation to the affected foot and ankle is present through L4-S1 dermatomes with no hyper/hypoesthesias, negative Tinel or Valleix's sign IMAGING: Three-view x-ray right foot taken in emergency department show distal phalanx fracture right hallux. No subcutaneous emphysema. No evidence of osteomyelitis. Data 10/01/24 05:53 10/01/24 05:53 Micro: Microbiology 09/29/24 23:22 Blood Culture - Preliminary Blood NEGATIVE TO DATE 09/29/24 23:15 Blood Culture - Preliminary Blood NEGATIVE TO DATE A&P Assessment and plan (1) Onycholysis of toenail: (2) Cellulitis of great toe, right: (3) Cellulitis of foot, right: (4) Fracture of distal phalanx of right great toe: (5) Ischemic toe: (6) Peripheral vascular disease: Plan Patient was evaluated today. Concern for progression to gangrene of right hallux. Right hallux shows ischemic changes. Betadine wet-to-dry dressing applied to right great toe. Discussion was had with patient that infection and peripheral vascular disease are contributing to tissue necrosis to right hallux. This may progress to necessity of right hallux amputation. We will order arterial Dopplers of right lower extremity to assess extent of PAD. Podiatry will round on patient tomorrow morning for dressing change and to provide further recommendations. PDMP PDMP Reviewed: Not Reviewed Attestations 2 Medical Necessity Statement*: See hospitalist note Coding Level of Care Code Acute Code for [facility] Fwd Diagnoses Onycholysis of toenail L60.1 Cellulitis of great toe, right L03.031 Cellulitis of foot, right L03.115 Fracture of distal phalanx of right great toe S92.421A Ischemic toe I99.8 Peripheral vascular disease I73.9
--- NOTE | 2024-10-01 16:20 | USR_ITS ---
PROCEDURE INFORMATION: Exam: US Duplex Right Lower Extremity Arteries Or Arterial Bypass Grafts Exam date and time: 10/01/2024 7:25 PM Age: 84 years old Clinical indication: Other: C/O infected right toe S/P glf last week, causing abrasion to right toe and a left acetabular fracture. History of dm; Additional info: Evaluate for pad TECHNIQUE: Imaging protocol: Right Real-time duplex scan of the arteries or arterial bypass grafts of the right lower extremity with 2-D pierre scale, color Doppler flow and spectral waveform analysis. Images documented and saved. COMPARISON: MR knee RT wo/w con [id number] 02/26/2019 2:41 PM FINDINGS: Right common femoral artery: No occlusion or significant stenosis. Normal waveform. No pseudoaneurysm in the inguinal region. Right superficial femoral artery: No occlusion or significant stenosis. Normal waveform. Right popliteal artery: No occlusion or significant stenosis. Normal waveform. Right calf/foot arteries: No occlusion or significant stenosis in the visualized arteries. Normal waveforms. Dorsalis pedis artery is patent. Soft tissues: No hematoma or [place]. US/[place] [id number] IMPRESSION: No stenosis or occlusion.
[2024-10-01 16:38] LABS: Glucose Point of Care 339 mg/dL (70-110)
[2024-10-01] MEDS: polyethylene glycol 3350 Pkt 17 gm PO (20:40)
[2024-10-01 20:45] LABS: Glucose Point of Care 349 mg/dL (70-110)
[2024-10-01 20:51] LABS: Glucose Point of Care 382 mg/dL (70-110)
[2024-10-01] MEDS: heparin 5,000 unit/mL INJ 1 mL 5000 UNIT SUBCUT (22:02)
[2024-10-02] VITALS: BP 118/70; PULSE 70; RESP 18; TEMP 36.4; O2SAT 95
[2024-10-02] MEDS: HYDROcodone-acetaminophen 5-325 mg Tablet 1 TAB PO (02:37)
[2024-10-02 04:33] VITALS: BP 120/68; PULSE 74; RESP 18; TEMP 36.5; O2SAT 95
[2024-10-02] MEDS: piperacillin-tazobactam 3.375 GM in sodium chloride 0.9% (plus) 50 ML IV (05:43)
[2024-10-02 06:00] VITALS: PULSE 73
[2024-10-02 06:11] LABS: Basophils % 0.5 %; Eosinophils # 0.3 10^3/uL (0.0-0.8); Eosinophils % 4.2 %; Hematocrit 34.5 % (36-47); Lymphocytes # 1.3 10^3/uL (0.8-4.8); Mean Corpuscular HGB Conc 30.7 g/dL (30-55); Mean Corpuscular Hemoglobin 24.8 pg (27-33); Mean Corpuscular Volume 80.6 fl (85-98); Mean Platelet Volume 9.3 fL (7.4-10.4); Monocytes # 0.9 10^3/uL (0.2-0.9); Monocytes % 11.9 %; Neutrophils # 4.82 10^3/uL (1.8-7.7); Neutrophils % 65.5 %; Nucleated Red Blood Cells % 0 %; Platelet Count 199 10^3/cmm (157-399); Red Blood Count 4.28 10^6/uL (3.85-5.65); White Blood Count 7.37 10^3/uL (3.29-11.43)
[2024-10-02 06:24] LABS: Glucose Point of Care 272 mg/dL (70-110)
[2024-10-02 06:32] LABS: Alanine Aminotransferase 12 U/L (0-33); Albumin Level 2.9 g/dL (3.5-5.2); Alkaline Phosphatase 105 U/L (35-105); Anion Gap 15.9 (5-19); Aspartate Amino Transferase 16 U/L (0-32); Blood Urea Nitrogen 21 mg/dL (8-23); Calcium 8.3 mg/dL (8.5-10.5); Carbon Dioxide 21 mmol/L (22-29); Chloride 100 mmol/L (98-107); Globulin 2.8 g/dL (1.3-4.6); Glucose 240 mg/dL (65-115); Osmolality Calculated 287 mOsm/kg (285-295); Potassium 3.9 mmol/L (3.5-5.1); Sodium 133 mmol/L (136-145); Total Bilirubin 0.5 mg/dL (0.15-1.2); Total Protein 5.7 g/dL (6.6-8.7)
[2024-10-02 07:10] VITALS: BP 116/57; PULSE 71; RESP 16; TEMP 36.9; O2SAT 93
--- NOTE | 2024-10-02 09:36 | PC.SOCIAL ---
IMM Update Pg. 2 of IMM updated and copy provided at bedside.
[2024-10-02] MEDS: heparin 5,000 unit/mL INJ 1 mL 5000 UNIT SUBCUT (09:53)
[2024-10-02] MEDS: pantoprazole DR 40 mg Tablet PO (09:57)
[2024-10-02] MEDS: insulin lispro 100 unit/1 mL SUBCUT ×2 (10:01→12:20)
--- NOTE | 2024-10-02 10:45 | PM.DCS ---
Discharge Providers Date of Admission: 09/29/24 21:56 Date of Discharge: October 02, 2024 Attending Provider at Admission: Shefali Mario MD Attending Provider at Discharge: Maciel Riley MD Primary Care Provider: Anette Velazquez MD Diagnoses at Discharge Discharge Diagnosis (1) Onycholysis of toenail: Status: Acute (2) Cellulitis of great toe, right: Status: Acute (3) Cellulitis of foot, right: Status: Acute (4) Fracture of distal phalanx of right great toe: Status: Acute (5) Ischemic toe: Status: Acute (6) Peripheral vascular disease: Status: Acute (7) Aortic stenosis: Status: Acute (8) Atrial fibrillation, chronic: Status: Acute (9) Type 2 diabetes mellitus: Status: Acute (10) Closed fracture of left acetabulum: Status: Acute Qualifiers: Encounter type: initial encounter Fracture alignment: nondisplaced Sublocation of acetabulum: posterior wall Qualified Code(s): S32.425A - Nondisplaced fracture of posterior wall of left acetabulum, initial encounter for closed fracture Reason for Visit Reason for Visit: BACK PAIN Brief History: History as per HPI: Kianna Dotson is a 84 year old female who had just had mechanical fall and fractured left acetabulum and right hip. Patient also had a CT of the head was unremarkable and of the knee with unremarkable on the day of initial fall. The day of initial fall was days ago. Because patient could not walk and cannot do anything they decided to bring the patient back to the emergency room and this is when a pelvic x-ray showed a left acetabulum fracture. Patient is found to be in pain I was consulted by the emergency room to evaluate patient for admission for observation. I have seen patient at the bedside in the emergency room and the first thing I saw was the right great toe that is very red with ascending redness from the great toe into the dorsum aspect of the right foot and getting close to the ankle region. That right toe was obviously infected spreading to the rest of the foot. When I asked the daughter in the room had mentioned that she was going to relate that to the emergency room that the patient had bumped the great toe of the right foot on the bed rail 2 days ago the same day that the patient fell. And they had put a Band-Aid on it and covered it with a socks and have her wear it with the soft shoe I called the attention of the ED attending x-ray of the right great toe is been obtained for this reason patient had to be blood cultured and I initiated patient on antibiotics with 2 g ceftriaxone for gram-negative coverage and also doxycycline for gram-positive coverage.. Patient is diabetic with severe infection coming from the toe with some laceration of that skin of the toe and I believe that is the site of entry of microorganism now spreading into the dorsum of the foot patient is of inpatient stay for at least 2 midnights why patient is also receiving pain management for the mechanical fall with fractures Hospital Course Hospital Course Patient was admitted to the hospital for further evaluation and management of mechanical fall. She was found to have cellulitis with concerns for phalangeal fracture of the right great toe. She was also found to have a closed fracture of the left acetabulum. She worked well with physical therapy. Podiatry was consulted and she underwent avulsion of the nail by podiatry team. There is a concern for ischemic change to the right great toe for which lower limb Dopplers were done which were negative for acute limb ischemia. Safe discharge plan were discussed in detail with the patient and family and they requested patient to be transition to SNF for further rehabitation. She has been discharged on oral antibiotics for cellulitis advised to follow-up with podiatry team as an outpatient in 1 week, continue wound care daily with Betadine at senior living. During hospitalization she was also found to have uncontrolled type 2 diabetes mellitus for which her insulin has been adjusted. She is been discharged in hemodynamically stable condition. Physical Exam Narrative: General: No acute distress, AO x3, HEENT: PERRLA, pupils bilaterally equal and reactive Chest: Normal vesicular breath sounds, no added sounds, equal good air entry bilaterally CVS: S1-S2 regular, no murmurs, no tachycardia, no gallops, no rubs Abdomen: Soft, nontender, no organomegaly, bowel sounds present Neuro: No focal deficits, no facial deformity, AO x3, power 5/5 in all limbs Discharge Data Studies Completed and Pending Completed Studies During Hospitalization Category Date Time Status CT pelvis wo bone [CT bony pelvis 74093] Stat Cat Scan 09/29/24 19:36 Completed XR foot RT min 3V* [id number] Stat Exams 09/29/24 21:39 [place] [id number] Routine Ultrasound 10/01/24 16:20 Completed Pending at discharge Category Date Time Status Bacterial Antigen Stat Lab 09/30/24 10:38 Received Blood Culture Stat Lab 09/29/24 23:22 Results MAG [Magnesium] AM LABS Lab 10/03/24 04:00 Ordered SARS Covid-2 Antigen Routine Lab 10/02/24 09:28 Uncollected Urinalysis Routine Lab 09/30/24 10:38 Received Radiology Impressions Pelvis CT 09/29/24 19:36 IMPRESSION: Acute nondisplaced posterior left acetabular fracture with extension into the articular surface. Foot X-Ray 09/29/24 21:39 IMPRESSION: Nondisplaced fracture through the distal phalanx of the great toe with associated soft tissue swelling. Duplex Scan Lower Extremity Artery 10/01/24 16:20 IMPRESSION: No stenosis or occlusion. Microbiology 09/29/24 23:22 Blood Blood Culture - Preliminary NEGATIVE TO DATE 09/29/24 23:15 Blood Blood Culture - Preliminary NEGATIVE TO DATE Laboratory Results WBC 7.37 10^3/uL (3.29-11.43) 10/02/24 05:16 RBC 4.28 10^6/uL (3.85-5.65) 10/02/24 05:16 Hgb 10.60 g/dL (11.27-16.99) L 10/02/24 05:16 Hct 34.5 % (36-47) L 10/02/24 05:16 MCV 80.6 fl (85-98) L 10/02/24 05:16 MCH 24.8 pg (27-33) L 10/02/24 05:16 MCHC 30.7 g/dL (30-55) 10/02/24 05:16 RDW 16.0 % (12.1-15.1) H 10/02/24 05:16 Plt Count 199 10^3/cmm (157-399) 10/02/24 05:16 MPV 9.3 fL (7.4-10.4) 10/02/24 05:16 Neut % (Auto) 65.5 % 10/02/24 05:16 Lymph % (Auto) 17.0 % 10/02/24 05:16 Reagan % (Auto) 11.9 % 10/02/24 05:16 Eos % (Auto) 4.2 % 10/02/24 05:16 Baso % (Auto) 0.5 % 10/02/24 05:16 Neut # (Auto) 4.82 10^3/uL (1.8-7.7) 10/02/24 05:16 Lymph # (Auto) 1.3 10^3/uL (0.8-4.8) 10/02/24 05:16 Reagan # (Auto) 0.9 10^3/uL (0.2-0.9) 10/02/24 05:16 Eos # (Auto) 0.3 10^3/uL (0.0-0.8) 10/02/24 05:16 Baso # (Auto) 0.0 10^3/uL (0.0-0.1) 10/02/24 05:16 Nucleated RBC % (auto) 0 % 10/02/24 05:16 Nucleated RBCs # 0.0 /100WBC 10/02/24 05:16 PT 14.90 SECONDS (12.1-14.9) 09/30/24 03:30 INR 1.10 (0.8-1.2) 09/30/24 03:30 Sodium 133 mmol/L (136-145) L 10/02/24 05:16 Potassium 3.9 mmol/L (3.5-5.1) 10/02/24 05:16 Chloride 100 mmol/L (98-107) 10/02/24 05:16 Carbon Dioxide 21 mmol/L (22-29) L 10/02/24 05:16 Anion Gap 15.9 (5-19) 10/02/24 05:16 BUN 21 mg/dL (8-23) 10/02/24 05:16 Creatinine 0.9 mg/dL (0.5-0.9) 10/02/24 05:16 GFR Calculation Not Reportable 10/02/24 05:16 Glucose 240 mg/dL (65-115) H 10/02/24 05:16 POC Glucose 272 mg/dL (70-110) H 10/02/24 06:22 Estimat Average Glucose 212 09/30/24 03:30 Hemoglobin A1c 9.0 % (4.0-6.0) H 09/30/24 03:30 Calculated Osmolality 287 mOsm/kg (285-295) 10/02/24 05:16 Calcium 8.3 mg/dL (8.5-10.5) L 10/02/24 05:16 Phosphorus 2.4 mg/dL (2.5-4.5) L 09/30/24 03:30 Magnesium 2.0 mg/dL (1.7-2.3) 10/02/24 05:16 Iron 31 ug/dL (37-145) L 09/30/24 03:30 TIBC 206 mcg/dl 09/30/24 03:30 % Saturation 15.0 % (20-50) L 09/30/24 03:30 Unsat Iron Binding 175 ug/dL (112-347) 09/30/24 03:30 Total Bilirubin 0.5 mg/dL (0.15-1.2) 10/02/24 05:16 AST 16 U/L (0-32) 10/02/24 05:16 ALT 12 U/L (0-33) 10/02/24 05:16 Alkaline Phosphatase 105 U/L (35-105) 10/02/24 05:16 Total Protein 5.7 g/dL (6.6-8.7) L 10/02/24 05:16 Albumin 2.9 g/dL (3.5-5.2) L 10/02/24 05:16 Globulin 2.8 g/dL (1.3-4.6) 10/02/24 05:16 Triglycerides 141 mg/dL (0-150) 10/01/24 05:53 Cholesterol 95 mg/dL (0-200) 10/01/24 05:53 LDL Cholesterol, Calc 35 mg/dL (50-129) L 10/01/24 05:53 Total VLDL Cholesterol 28 mg/dL (0-30) 10/01/24 05:53 HDL Cholesterol 32 mg/dL (60-100) L 10/01/24 05:53 Cholesterol/HDL Ratio 2.97 mg/dL (0.0-4.40) 10/01/24 05:53 Vitamin B12 455 pg/mL (232-1245) 09/30/24 03:30 Folate 9.4 ng/mL (4.8-37.3) 10/01/24 05:53 Procalcitonin 0.10 ng/mL (0-0.5) 09/30/24 03:30 TSH 1.48 uIU/mL (0.27-4.20) 09/30/24 03:30 Amorphous Sediment Not Reportable 09/30/24 10:38 Nasal MRSA (PCR) Not detected (Not Detecte) 09/30/24 13:20 Vitals Last Vital Signs Temp 98.5 F 10/02/24 07:10 Pulse 71 10/02/24 07:10 Resp 16 10/02/24 07:10 BP 116/57 10/02/24 07:10 Pulse Ox 93 10/02/24 07:10 O2 Del Method Room Air 10/02/24 07:10 Discharge Plan Discharge Patient Disposition: Xfer SNF Condition: Stable Prescriptions: New levofloxacin 750 mg tablet 750 mg PO Q24H 7 Days Qty: 7 0RF amoxicillin-pot clavulanate 875-125 mg tablet 1 tab PO BID 7 Days Qty: 14 0RF Continued (DME) Diabetic shoes with 3 inserts See Rx Instructions .ROUTE .MEDSUPPLY Qty: 1 0RF Rx Instructions: As directed by LYNNE&O Colace 100 mg capsule 100 mg PO BID PRN (Reason: Constipation) (DME) diabetic shoes with 3 inserts See Rx Instructions .Route .MEDSUPPLY Qty: 1 0RF Rx Instructions: As directed to home insulin aspart U-100 [Novolog FlexPen U-100 Insulin] 100 unit/mL (3 mL) insulin pen 10 unit SUBCUT TID multivitamin Tablet 1 tab PO QAM atorvastatin 20 mg tablet 20 mg PO QAM duloxetine 30 mg capsule,delayed release(DR/EC) 30 mg PO QAM torsemide 20 mg tablet 20 mg PO QAM cetirizine [Zyrtec] 10 mg Tablet 10 mg PO QAM calcium carbonate-vitamin D3 600 mg-5 mcg (200 unit) Tablet 1 tab PO QAM dorzolamide-timolol 22.3-6.8 mg/mL drops 1 drp ophthalmic (eye) BID Rx Instructions: left eye Lantus Solostar U-100 Insulin 100 unit/mL (3 mL) insulin pen 56 unit SUBCUT BID Eliquis 5 mg tablet 5 mg PO BID 30 Days Qty: 60 0RF Rx Instructions: hold for 3 days, restart 10/05 Ozempic 1 mg/dose (4 mg/3 mL) pen injector 1 mg SUBCUT Q7D nystatin 100,000 unit/gram powder 1 applic TOPICAL BID Discharge Orders: Discharge Order (Routine); Ordered 10/02/24 Ordered By: Maciel Riley Referrals: [facility] [Outside] Anette Velazquez MD [Primary Care Provider, Internal Medicine] Chip Waddell DO [Physician, Orthopedics] - 10/31/24 8:30 am Referral Note: Hector Bunch DPM [Physician, Podiatry] - 10/09/24 1:30 pm Discharge Diet: Usual diet, Cardiac and Diabetic Discharge Activity: Resume usual activity Patient Instructions: Amoxicillin/Clavulanate Potassium (By mouth), Levofloxacin (By mouth) (Levaquin, Levaquin Leva-hanane), Opioid Safety Activity Restrictions/Additional Instructions: Toe-touch weightbearing left lower extremity Follow-up orthopedic clinic in 2 weeks. Betadine wet to dry dressing daily Discharge Attestations Time Spent in Discharge Care*: greater than 30 min Specific Discharge Activities: educating patient, educating and/or supporting family/caregiver, discussing with pcp/other providers, discussing with egg caser/social workers/dc planners, documenting/other paperwork and evaluating patient/reviewing data Status at Discharge: Cognitive status at discharge: cognitively intact, Behavioral status at discharge: cooperative, Functional status at discharge: uses cane/walker, Overall status at discharge: patient is progressing back to baseline Quality Metrics Clinical Quality Measures [ No reported AMI, CVA or VTE this stay] Coding Level of Care Code 00855 Total time (in minutes) for Discharge: 65 Diagnoses Onycholysis of toenail L60.1 Cellulitis of great toe, right L03.031 Cellulitis of foot, right L03.115 Fracture of distal phalanx of right great toe S92.421A Ischemic toe I99.8 Peripheral vascular disease I73.9 Aortic stenosis I35.0 Atrial fibrillation, chronic I48.20 Type 2 diabetes mellitus E11.9 Closed fracture of left acetabulum S32.425A Encounter type: initial encounter Fracture alignment: nondisplaced Sublocation of acetabulum: posterior wall
[2024-10-02 10:50] LABS: Bilirubin Urine Negative (Negative); Blood Urine Negative (Negative); Glucose Urine UA 3+ (Normal); Ketones Urine Negative (Negative); Leukocyte Esterase Urine Negative (Negative); Nitrate Urine Negative (Negative); Protein Urine Negative (Negative); Specific Gravity, Urine 1.017 (1.005-1.030); Urine Appearance Clear (CLEAR); Urine Color Yellow (Yellow); pH Urine 5.5 (5-7)
[2024-10-02 10:55] LABS: Add Urine Microscopic? YES; Bacteria Urine None Seen /hpf; Hyaline Casts Urine 0.81 /lpf; RBC Urine 0-2 /hpf (0-2); Squamous Epithelial Cell Urine 0-5 /hpf (0-5); WBC Urine 0-5 /hpf (0-5)
[2024-10-02 11:06] VITALS: BP 132/61; PULSE 57; RESP 16; TEMP 36.7; O2SAT 92
[2024-10-02] MEDS: insulin glargine 100 units/1 mL 30 UNIT SUBCUT (11:18)
[2024-10-02 11:20] LABS: Glucose Point of Care 423 mg/dL (70-110)
[2024-10-02 12:46] LABS: SARS Covid-2 Antigen Negative (Negative)
== END 2024-10-02 14:20 | disposition skilled nursing facility (03) | DRG 562 ==
LOC: ER 22:36 → ER IP 22:39 → MEDSURG 09-30 06:52
PROVIDERS: Admitting Provider Internal Medicine; Emergency Provider Physician Assistant; PCP Internal Medicine; Visit Provider Student in an Organized Health Care Education/Training Program
DX: S92.401B Displaced unspecified fracture of right great toe, initial encounter for open fracture (principal); S32.425A Nondisplaced fracture of posterior wall of left acetabulum, initial encounter for closed fracture; I48.20 Chronic atrial fibrillation, unspecified; L03.115 Cellulitis of right lower limb; E11.52 Type 2 diabetes mellitus with diabetic peripheral angiopathy with gangrene; Z79.899 Other long term (current) drug therapy; Z79.4 Long term (current) use of insulin; Z79.01 Long term (current) use of anticoagulants; Z88.8 Allergy status to other drugs, medicaments and biological substances; Z88.1 Allergy status to other antibiotic agents; Z87.440 Personal history of urinary (tract) infections; Z91.81 History of falling; I25.2 Old myocardial infarction; I10 Essential (primary) hypertension; I25.10 Atherosclerotic heart disease of native coronary artery without angina pectoris; L03.031 Cellulitis of right toe; W19.XXXA Unspecified fall, initial encounter; L60.1 Onycholysis; E11.628 Type 2 diabetes mellitus with other skin complications; S92.421A Displaced fracture of distal phalanx of right great toe, initial encounter for closed fracture; X58.XXXA Exposure to other specified factors, initial encounter
CPT/HCPCS: 36415; 36416; 72192; 73630; 80053; 80061; 81001; 82607; 82746; 82962; 83036; 83540; 83550; 83735; 84100; 84145; 84443; 85025; 85610; 86403; 87040; 87426; 93926; 96365; 96367; 96372; 96375; 96376; 97161; 97165; 97530; 97535; 99285; A6446; J0696; J1644; J1815; J2270; J2543; J3370; J3490; J9999

== ENCOUNTER → 2024-10-09 13:03 | Outpatient (BNVA) | payer OTHER, MEDICAID, SELFPAY | PROVIDERS: PCP Internal Medicine; Visit Provider Podiatrist Foot & Ankle Surgery | DX: I99.8 Other disorder of circulatory system (principal); S92.421A Displaced fracture of distal phalanx of right great toe, initial encounter for closed fracture; E11.9 Type 2 diabetes mellitus without complications; L03.031 Cellulitis of right toe; X58.XXXA Exposure to other specified factors, initial encounter; Z79.4 Long term (current) use of insulin | CPT/HCPCS: 99213 ==

== ENCOUNTER → 2024-10-23 13:46 | Outpatient (BNVA) | payer OTHER, MEDICAID, SELFPAY | PROVIDERS: PCP Internal Medicine; Visit Provider Podiatrist Foot & Ankle Surgery | DX: M79.673 Pain in unspecified foot (principal); L03.031 Cellulitis of right toe; E11.8 Type 2 diabetes mellitus with unspecified complications; I99.8 Other disorder of circulatory system; E11.621 Type 2 diabetes mellitus with foot ulcer; L97.514 Non-pressure chronic ulcer of other part of right foot with necrosis of bone; S92.421A Displaced fracture of distal phalanx of right great toe, initial encounter for closed fracture; X58.XXXA Exposure to other specified factors, initial encounter; E11.69 Type 2 diabetes mellitus with other specified complication; M86.671 Other chronic osteomyelitis, right ankle and foot; Z79.4 Long term (current) use of insulin; Z79.85 Long-term (current) use of injectable non-insulin antidiabetic drugs | CPT/HCPCS: 73620; 73630; 99214 ==

== ENCOUNTER 2024-10-28 10:25 | Day surgery (SDC) | payer OTHER, MEDICAID, SELFPAY ==
[2024-10-28] VITALS (9 sets, daily range): BP systolic 119–150; BP diastolic 56–69; PULSE 57–68; RESP 14–18; TEMP 36.5–36.6; O2SAT 97–99; BMI 31.6
[2024-10-28] MEDS: acetaminophen 1,000 MG/100 ML PIGGYBACK 400 MG IV (11:22)
[2024-10-28] MEDS: BUPivacaine 0.5% INJ 30 mL INJECTION (11:23)
[2024-10-28] MEDS: insulin regular-human 100 units/1 mL 10 UNIT IVP (11:42)
[2024-10-28] MEDS: midazolam 1 mg/mL INJ 2 mL 2 MG IVP (12:01)
--- NOTE | 2024-10-28 12:03 | P.HPUD_ITS ---
Surgery/Procedure H&P Update DATE OF PROCEDURE: October 28, 2024 DATE H&P PERFORMED: 10/23/24 H&P UPDATE INFORMATION: I have reviewed H&P completed within last 30 days, I have examined patient prior to procedure, No changes to prior documentation, H&P is in [facility] EMR on date indicated and Risks and benefits of the procedure reviewed PREOP DIAGNOSIS: Right hallux osteomyelitis PLANNED PROCEDURE: Operation Date: 10/28/24 13:05 Proposed Procedures p Amputation Toe/s Hallux Amputation(Right) - Hector Bunch DPM
[2024-10-28] MEDS: ceFAZolin 2,000 mg SDV 2000 MG IVP (12:14)
--- NOTE | 2024-10-28 12:51 | PM.OP ---
Operative Report Date of procedure: October 28, 2024 Surgeon: Hector Bunch DPM Procedure: Date of procedure: 10/29/2019 Pre-op diagnosis: Right hallux osteomyelitis Post-op diagnosis: Same Post-op findings: Osteomyelitis right hallux Procedure done: Right hallux amputation CPT 59007 Implants: None Specimens removed: Right hallux Surgeon: Dr. Hector Bunch DPM Statement Clerk: Paola Estimated blood loss: 15 cc Tourniquet time: 6-minute Complications: None Patient is a 81-year-old female that has a history of right hallux gangrene with underlying osteomyelitis. The patient has had the aforementioned chief complaint for some time. Conservative treatment measures have been attempted and the patient has opted for surgical intervention at this time. A lengthy discussion regarding the procedure, including risks and complications has been had with the patient and is noted in the recent clinic note. Written and verbal consent have been obtained. All patient questions have been answered to the patient?s satisfaction. No written or verbal guarantees have been given or implied. The patient has been NPO since midnight. The history has been reviewed and the history and physical is current. The signed consent was confirmed and placed in the patient chart. Patient imaging has been reviewed and is consistent with the diagnosis. Under mild sedation, the patient was brought into the operating room and placed on the table in the supine position. Patient underwent local field block consisting of 0.5% Marcaine plain. The operative extremity was then prepped and draped in the usual fashion. The extremity was then elevated and exsanguinated before the tourniquet was inflated to 250 mmHg. After inflation, the following procedure was then performed. Attention was directed to the right foot where a gangrenous right hallux was noted. Penetrating towel clamp was used to penetrate the distal aspect of the hallux to joystick the toe for incision. #15 blade was used to make a circumferential incision full-thickness down to level of bone. Dissection was carried out to expose the first metatarsophalangeal joint. Hallux was released from the joint passed from the operative field be sent as specimen. First metatarsal head was examined and was noted to be healthy and viable no signs of infection. No abscess visualized. Hemostasis was achieved via electrocautery. Site was irrigated with sterile saline. Incision was then closed using 3-0 Prolene in simple interrupted and retention suture fashion. Tourniquet was let down and good hyperemic response was noted to all remaining digits of the right foot. Incision site was dressed with Xeroform, 4 x 4 gauze, Kerlix, Jah. Patient was placed in a postop shoe. The patient tolerated the procedure and anesthesia well and without complication. The patient was transported from the operating room to the recovery room with vital signs stable and vascular status intact to all digits of the right foot. The patient was given both written and verbal instructions to remain minimal weightbearing to the operative extremity, to keep dressings/splint clean, dry and intact and to take pain medication as directed. The patient will follow-up in the outpatient setting at their scheduled appointment. The patient was discharged with my personal number and was instructed to call if any questions or issues should arise. They were discharged home once anesthesia criteria was met.
== END 2024-10-28 13:10 | disposition home or self-care (01) ==
PROVIDERS: PCP Internal Medicine; Visit Provider Podiatrist Foot & Ankle Surgery
PROC: (CPT 28820; principal; 2024-10-28 12:55)
DX: M86.8X7 Other osteomyelitis, ankle and foot (principal); E11.40 Type 2 diabetes mellitus with diabetic neuropathy, unspecified; E11.10 Type 2 diabetes mellitus with ketoacidosis without coma; Z79.4 Long term (current) use of insulin; I49.5 Sick sinus syndrome; I25.2 Old myocardial infarction; I48.20 Chronic atrial fibrillation, unspecified; M21.42 Flat foot [pes planus] (acquired), left foot; M21.41 Flat foot [pes planus] (acquired), right foot; I10 Essential (primary) hypertension; I25.10 Atherosclerotic heart disease of native coronary artery without angina pectoris; I73.9 Peripheral vascular disease, unspecified; Z83.3 Family history of diabetes mellitus
CPT/HCPCS: 28820; 36416; 82962; 88305; 88311; J0131; J0690; J1815; J2250; J3490; J7030

== ENCOUNTER → 2024-10-31 08:19 | Outpatient (BNVA) | payer OTHER, MEDICAID, SELFPAY | PROVIDERS: PCP Internal Medicine; Visit Provider Orthopaedic Surgery | DX: S32.4 Fracture of acetabulum (principal); X58.XXXD Exposure to other specified factors, subsequent encounter | CPT/HCPCS: 73502; 99213 ==

== ENCOUNTER → 2024-11-04 15:30 | Outpatient (BNVA) | payer OTHER, MEDICAID, SELFPAY | PROVIDERS: PCP Internal Medicine; Visit Provider Podiatrist Foot & Ankle Surgery | DX: I99.8 Other disorder of circulatory system (principal); L03.031 Cellulitis of right toe; E11.69 Type 2 diabetes mellitus with other specified complication; Z89.411 Acquired absence of right great toe; M86.8X7 Other osteomyelitis, ankle and foot; Z79.4 Long term (current) use of insulin | CPT/HCPCS: 99213 ==

== ENCOUNTER → 2024-11-11 15:35 | Outpatient (BNVA) | payer OTHER, MEDICAID, SELFPAY | PROVIDERS: PCP Internal Medicine; Visit Provider Podiatrist Foot & Ankle Surgery | DX: I99.8 Other disorder of circulatory system (principal); L03.031 Cellulitis of right toe; E11.69 Type 2 diabetes mellitus with other specified complication; Z79.4 Long term (current) use of insulin; Z89.411 Acquired absence of right great toe; M86.8X7 Other osteomyelitis, ankle and foot | CPT/HCPCS: 99213 ==

== ENCOUNTER → 2024-11-25 14:30 | Outpatient (BNVA) | payer OTHER, MEDICAID, SELFPAY | PROVIDERS: PCP Internal Medicine; Visit Provider Podiatrist Foot & Ankle Surgery | DX: L03.031 Cellulitis of right toe (principal); I99.8 Other disorder of circulatory system; T81.89XA Other complications of procedures, not elsewhere classified, initial encounter; Y83.8 Other surgical procedures as the cause of abnormal reaction of the patient, or of later complication, without mention of misadventure at the time of the procedure; E11.69 Type 2 diabetes mellitus with other specified complication; Z79.4 Long term (current) use of insulin; Z79.85 Long-term (current) use of injectable non-insulin antidiabetic drugs; Z89.411 Acquired absence of right great toe; M86.8X7 Other osteomyelitis, ankle and foot | CPT/HCPCS: 11042 ==

== ENCOUNTER → 2024-12-03 08:28 | Outpatient (BNVA) | payer OTHER, MEDICAID, SELFPAY | PROVIDERS: PCP Internal Medicine; Visit Provider Orthopaedic Surgery | DX: S32.4 Fracture of acetabulum (principal); X58.XXXD Exposure to other specified factors, subsequent encounter; T81.30XA Disruption of wound, unspecified, initial encounter; Y83.8 Other surgical procedures as the cause of abnormal reaction of the patient, or of later complication, without mention of misadventure at the time of the procedure; E11.69 Type 2 diabetes mellitus with other specified complication; Z79.4 Long term (current) use of insulin | CPT/HCPCS: 11042; 73502; 99024; 99213 ==

== ENCOUNTER → 2024-12-11 13:21 | Outpatient (BNVA) | payer OTHER, MEDICAID, SELFPAY | PROVIDERS: PCP Internal Medicine; Visit Provider Podiatrist Foot & Ankle Surgery | DX: E11.9 Type 2 diabetes mellitus without complications (principal); T81.30XA Disruption of wound, unspecified, initial encounter; Y83.8 Other surgical procedures as the cause of abnormal reaction of the patient, or of later complication, without mention of misadventure at the time of the procedure; Z79.4 Long term (current) use of insulin | CPT/HCPCS: 99214 ==

== ENCOUNTER → 2024-12-19 14:04 | Outpatient (BNVA) | payer OTHER, MEDICAID, SELFPAY | PROVIDERS: PCP Internal Medicine; Visit Provider Podiatrist Foot & Ankle Surgery | DX: T81.30XA Disruption of wound, unspecified, initial encounter (principal); E11.9 Type 2 diabetes mellitus without complications; Y83.8 Other surgical procedures as the cause of abnormal reaction of the patient, or of later complication, without mention of misadventure at the time of the procedure; Z79.4 Long term (current) use of insulin; M86.8X7 Other osteomyelitis, ankle and foot | CPT/HCPCS: 99214 ==

== ENCOUNTER 2024-12-24 13:05 | Emergency (ER) | payer OTHER, MEDICAID, SELFPAY ==
[2024-12-24 13:23] VITALS: BP 141/67; PULSE 75; RESP 17; TEMP 36.7; O2SAT 98; BMI 31.7
--- OUTSIDE RECORDS SUMMARY | 2024-12-24 13:56 | XMS_ITS | Clinical Summary ---
Author Organization [facility] Address [address] [place] [address] Care Team Providers Care Human Resource Consultant Name Role Phone Unavailable Primary Care Provider Unavailabl e Allergies Active Allergy Reactions Criticality Noted Date Comments Benadryl Decongestant Other (See Comments) 04/2021 Pt states she passed out once after taking Benadryl Tetracycline Hives High 05/11/2021 Medications aspirin (ECOTRIN EC) 81 mg Tablet, Delayed Release (E.C.) Take 81 mg by mouth daily. Active cyanocobalamin 1,000 mcg Tablet Take 2,000 mcg by mouth daily. Active blood sugar diagnostic (Blood Glucose Test) Strip 1 Strip by See Admin Instructions route. Active lisinopriL (PRINIVIL) 10 mg tablet Take 10 mg by mouth daily. Active Insulin [place], Disposable, (Pentips) 31 gauge x 3/16 Needle by [facility]Non-Drug; Combo Route) route. Active Blood-Glucose Meter by [facility]Non-Drug; Combo Route) route. Active empagliflozin (Jardiance) 25 mg tablet Take by mouth daily in the morning. Active dulaglutide (Trulicity) 1.5 mg/0.5 mL injection Inject 1.5 mg by subcutaneous injection. Active HYDROcodone-ghanshyam taminophen (NORCO) 5-325 mg tablet Take 1 Tablet by mouth every 4 hours as needed for Pain, Moderate. Active polymyxin b sulfate 500,000 unit Recon Soln by Irrigation route one time only. Active torsemide (DEMADEX) 20 mg tablet Take 20 mg by mouth daily. Active insulin glargine (Lantus Solostar U-100 Insulin) 100 unit/mL pen syringe Inject by subcutaneous injection. Active citalopram (CeleXA) 10 mg tablet Take 10 mg by mouth daily. Active blood-glucose meter (ONE TOUCH ULTRA BONUS PACK [facility]) by [facility]Non-Drug; Combo Route) route. Active apixaban (Eliquis) 2.5 mg tablet Take by mouth 2 times daily. Active atorvastatin (LIPITOR) 20 mg tablet Take 20 mg by mouth daily. Active metoprolol tartrate (LOPRESSOR) 50 mg tablet Take 50 mg by mouth 2 times daily. Active metFORMIN (GLUCOPHAGE) 1,000 mg tablet Take 1,000 mg by mouth 2 times daily with meals. Active Active Problems No known active problems Social History Tobacco Use Types Packs/Day Years Used Date Smoking Tobacco: Never Smokeless Tobacco: Never Comments Unknown Sex and Gender Information Value Date Recorded Sex Assigned at Not on file Legal Sex Female 9:40 AM [employer] Gender Identity Not on file Sexual Orientation Not on file Last Filed Vital Signs Vital Sign Reading Time Taken Comments Blood Pressure - - Pulse - - Temperature - - Respiratory Rate - - Oxygen Saturation - - Inhaled Oxygen Concentration - - Weight 85.3 kg (188 lb) 05/11/2021 2:20 PM [employer] Height 162.6 cm (5' 4 ) 05/11/2021 2:20 PM [employer] Body Mass Index 32.27 05/11/2021 2:20 PM [employer] Plan of Treatment Health Maintenance Due Date Last Done Comments DTAP/TDAP/TD VACCINES (1 - Tdap) 1960 PNEUMOCOCCAL VACCINE 50+ YEARS (1 of 1 - PCV) 05/12/18 92 ZOSTER VACCINE (1 of 2) 1991 OSTEOPOROSIS SCREENING 2006 RSV VACCINE (60+ or ) (1 - 1-dose 75+ series) 2016 INFLUENZA VACCINE (#1) [id number] [place] [address] MEDICAID [facility] DUAL COMPLETE HMO DSNP [facility] [id number]
--- NOTE | 2024-12-24 15:48 | XR_ITS ---
WS: [id number] XR foot RT min 3V* 23885 REASON FOR EXAM: pain FINDINGS: Previous amputation of the first toe distal to the metacarpal secondary to osteomyelitis of the proximal distal phalanx. No acute fracture. No bone erosion or periosteal reaction. 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 XR/XR foot RT min 3V* [id number] IMPRESSION: Postoperative right foot with mild osteoarthritis and no acute or subacute abno rmality.
--- NOTE | 2024-12-24 16:19 | W.ED.WOUNDLC ---
Documented by User: [email or web address] Russell 12/24/24 17:40 HPI - Wound/Laceration General: Chief Complaint: Wound/Laceration Stated Complaint: ampt site red and spreading Time Seen by Provider: 12/24/24 15:55 Source: patient Mode of arrival: ambulatory Limitations: no limitations History of Present Illness: Patient is an 84-year-old female who presents the emergency department status post right great toe amputation 2 months ago, stating she is having pain and redness. No systemic symptoms of fever, nausea/vomiting, syncope, dizziness, lightheadedness, or any other symptoms noted at this time. Has been dressing it appropriately, sees Dr. Bunch for podiatry. She is currently on Bactrim twice a day, she is not reporting any red streaking but does state that the foot has seemed to be more swollen. Has remained ambulatory. Vitals are stable at this time, afebrile. No fevers or chills reported at home either. Family states they sent pictures of foot to crisis worker last night. Onset (ago): day(s) Extremity Location: Right: foot Associated symptoms: Denies chills, fever(s), nausea or vomiting Related Data Home Medications ?Medication ?Instructions ?Recorded ?Confirmed atorvastatin 20 mg tablet 20 mg PO QAM 11/07/21 12/19/24 multivitamin 1 tab PO QAM 11/07/21 12/19/24 duloxetine 30 mg capsule,delayed 30 mg PO QAM 05/12/23 12/19/24 release calcium 600 mg (as 1 tab PO QAM 07/14/23 12/19/24 carbonate)-vitamin D3 5 mcg (200 unit) tablet cetirizine 10 mg tablet (Zyrtec) 10 mg PO QAM 07/14/23 12/19/24 dorzolamide 22.3 mg-timolol 6.8 1 drp ophthalmic (eye) BID 07/14/23 12/19/24 mg/mL eye drops torsemide 20 mg tablet 20 mg PO QAM 07/14/23 12/19/24 docusate sodium 100 mg capsule 100 mg PO BID PRN Constipation 05/16/24 12/19/24 (Colace) insulin aspart U-100 100 unit/mL 10 unit SUBCUT TID 05/16/24 12/19/24 (3 mL) subcutaneous pen (Novolog FlexPen U-100 Insulin aspart) insulin glargine 100 unit/mL (3 56 unit SUBCUT BID 05/16/24 12/19/24 mL) subcutaneous pen (Lantus Solostar U-100 Insulin) nystatin 100,000 unit/gram topical 1 applic topical BID 09/26/24 12/19/24 powder semaglutide 1 mg/dose (4 mg/3 mL) 1 mg SUBCUT Q7D 09/26/24 12/19/24 subcutaneous pen injector (Ozempic) flash glucose sensor (FreeStyle #1 ea 10/09/24 12/19/24 Nemesio 2 Sensor kit) ofloxacin 0.3 % eye drops 1 drp ophthalmic (eye) QID 12/03/24 12/19/24 vancomycin 125 mg capsule 125 mg PO QID 12/03/24 12/19/24 Previous Rx's ?Medication ?Instructions ?Recorded Diabetic shoes with 3 inserts #1 ea 10/20/20 diabetic shoes with 3 inserts #1 ea 08/02/23 apixaban 5 mg tablet (Eliquis) 5 mg PO BID 30 days #60 tabs 10/02/24 cephalexin 500 mg capsule 500 mg PO TID 10 days #30 caps 10/18/24 ciprofloxacin HCl 500 mg tablet 500 mg PO BID 7 days #14 tabs 12/24/24 (Cipro) clindamycin HCl 300 mg capsule 300 mg PO BID 7 days #14 caps 12/24/24 Allergies Allergy/AdvReac Type Severity Reaction Status Date / Time diphenhydramine (From Allergy Unknown unknown Verified 12/19/24 14:19 Benadryl) tetracycline Allergy Unknown unknown Verified 12/19/24 14:19 Review of Systems General: Reports: 10 or more systems reviewed and unremarkable except in HPI and below Const: Denies: fever(s), chills or fatigue Eyes: Denies: change in vision ENMT: Denies: throat pain, ear or mastoid pain or nasal discharge Card: Denies: chest pain, palpitations, swelling of feet/ankles or lightheadedness Resp: Denies: dyspnea, productive cough or wheezing GI: Denies: abdominal pain, nausea, vomiting, diarrhea or constipation : Denies: flank pain, difficulty voiding, dysuria or urinary frequency Musc: Reports: extremity pain (right foot); Denies: neck pain, back pain or joint pain Skin/Breast: Reports: erythema and skin swelling; Denies: rash Neuro: Denies: headache(s), numbness in extremities or weakness in extremities PFSH ED PFSH: Medical History Humerus fracture Type 2 diabetes mellitus Tachy-han syndrome UTI (urinary tract infection) Fall Moderate mitral regurgitation Acute DE, inferior wall High anion gap metabolic acidosis Diabetes with ketoacidosis Cholelithiases Vomiting Atrial fibrillation, chronic Fracture of humerus, left, closed Pes planus of both feet ALISTAIR inhibitor intolerance Essential hypertension Warfarin anticoagulation Lower extremity deep venous thrombosis CAD (coronary artery disease) Fracture of greater trochanter of right femur Peripheral vascular disease Onychodystrophy Diabetic neuropathy associated with diabetes mellitus due to underlying condition Surgical History Status post laparoscopic cholecystectomy Coronary angioplasty status PCI to RCA?2016 Family History Mother Diabetes Denies family history of CAD (coronary artery disease) Clotting disorder Dementia Hyperlipidemia Psychiatric illness Chronic kidney disease (CKD) Suicide Anesthesia complication Bleeding disorder Family history of premature coronary artery disease Lung disease Cancer Hypertension Stroke Social History Smoking and tobacco/nicotine status: never used tobacco/nicotine Second hand smoke exposure: Yes Alcohol intake: never Substance/Drug Use: never Physical Exam Const: COMMON NORMALS: no acute distress, patient oriented x3, no limitations, healthy appearing, alert and well nourished OTHER: nontoxic appearing HENMT: COMMON NORMALS: normocephalic and atraumatic HEAD & SCALP: normocephalic and atraumatic Neck/C-Spine: COMMON NORMALS: full ROM, supple and no meningeal signs Resp: COMMON NORMALS: normal respiratory effort, No use of accessory muscles and clear to auscultation bilaterally AUSCULTATION: clear to auscultation bilaterally Cardio: COMMON NORMALS: regular rate and regular rhythm RATE: regular rate RHYTHM: regular rhythm Extremity: COMMON NORMALS: full ROM, capillary refill normal, no joint enlargement and no clubbing, cyanosis or edema NARRATIVE EXTREMITY EXAM: Status post amputation of right great toe, minimal exposure of bone. Mild surrounding erythema with no evidence of red streaking within the foot or right lower extremity. Mild edema. No active bleeding or drainage. Neuro: COMMON NORMALS: patient oriented x3, moves all extremities, no focal motor deficits and no sensory deficits noted SENSORIUM/ORIENTATION: Yes alert MENINGEAL SIGNS: Yes no meningeal signs Skin: COMMON NORMALS: no rashes or lesions noted GENERAL SKIN EXAM: no rashes or lesions noted Course Vital Signs: Vital signs: Vital Signs Temperature 98.0 F 12/24/24 13:23 Pulse Rate 78 12/24/24 17:40 Respiratory Rate 17 12/24/24 17:40 Blood Pressure 159/86 12/24/24 17:40 Pulse Oximetry 95 12/24/24 17:40 Oxygen Delivery Me thod Room Air 12/24/24 13:23 MDM - Wound/Laceration Medical Decision Making Patient presenting with complaints to previously amputated right great toe, this was performed by Dr. Bunch 2 months ago. Clinically on exam, minimal amount of erythema no significant warmth, no red streaking, no signs of systemic infection overall her vitals are stable. Lab work obtained, no significant elevation with her inflammatory markers or x-ray findings concerning for osteomyelitis. She is currently been on Bactrim, after speaking with the patient's crisis worker, Dr. Bunch, we will opt to switch the patient to dual coverage of Cipro and clindamycin, and they are to follow-up with him in his office next Monday. Overall the patient is stable for discharge, they are informed to return with any signs of systemic infection but otherwise will be switched antibiotics. Lab Data 12/24/24 16:23 12/24/24 16:23 Radiology Impressions Foot X-Ray 12/24/24 15:48 IMPRESSION: Postoperative right foot with mild osteoarthritis and no acute or subacute abnormality. Laboratory Results WBC 8.69 10^3/uL (3.29-11.43) 12/24/24 16: RBC 5.33 10^6/uL (3.85-5.65) 12/24/24 16:23 Hgb 12.90 g/dL (11.27-16.99) 12/24/24 16: Hct 43.1 % (36-47) 12/24/24 16: MCV 80.9 fl (85-98) L 12/24/24 16:23 MCH 24.2 pg (27-33) L 12/24/24 16:23 MCHC 29.9 g/dL (30-55) L 12/24/24 16:23 RDW 16.4 % (12.1-15.1) H 12/24/24 16:23 Plt Count 236 10^3/cmm (157-399) 12/24/24 16: MPV 8.9 fL (7.4-10.4) 12/24/24 16:23 Neut % (Auto) 71.8 % 12/24/24 16:23 Lymph % (Auto) 15.2 % 12/24/24 16:23 Barron % (Auto) 9.7 % 12/24/24 16:23 Eos % (Auto) 2.2 % 12/24/24 16:23 Baso % (Auto) 0.5 % 12/24/24 16: Neut # (Auto) 6.25 10^3/uL (1.8-7.7) 12/24/24 16:23 Lymph # (Auto) 1.3 10^3/uL (0.8-4.8) 12/24/24 16:23 Barron # (Auto) 0.8 10^3/uL (0.2-0.9) 12/24/24 16:23 Eos # (Auto) 0.2 10^3/uL (0.0-0.8) 12/24/24 16:23 Baso # (Auto) 0.0 10^3/uL (0.0-0.1) 12/24/24 16: Nucleated RBC % (auto) 0 % 12/24/24 16: Nucleated RBCs # 0.0 /100WBC 12/24/24 16:23 ESR 66 mm/hr (0-15) H 12/24/24 16:23 Sodium 135 mmol/L (136-145) L 12/24/24 16:23 Potassium 3.8 mmol/L (3.5-5.1) 12/24/24 16:23 Chloride 96 mmol/L (98-107) L 12/24/24 16:23 Carbon Dioxide 24 mmol/L (22-29) 12/24/24 16:23 Anion Gap 18.8 (5-19) 12/24/24 16:23 BUN 19 mg/dL (8-23) 12/24/24 16:23 Creatinine 0.9 mg/dL (0.5-0.9) 12/24/24 16:23 GFR Calculation Not Reportable 12/24/24 16:23 Glucose 215 mg/dL (65-115) H 12/24/24 16:23 Calculated Osmolality 289 mOsm/kg (285-295) 12/24/24 16:23 Calcium 9.5 mg/dL (8.5-10.5) 12/24/24 16:23 Total Bilirubin 0.5 mg/dL (0.15-1.2) 12/24/24 16:23 AST 18 U/L (0-32) 12/24/24 16:23 ALT 19 U/L (0-33) 12/24/24 16:23 Alkaline Phosphatase 200 U/L (35-105) H 12/24/24 16:23 C-Reactive Protein 26.8 mg/L (0.0-4.9) H 12/24/24 16:23 Total Protein 7.4 g/dL (6.6-8.7) 12/24/24 16:23 Albumin 3.6 g/dL (3.5-5.2) 12/24/24 16:23 Globulin 3.8 g/dL (1.3-4.6) 12/24/24 16:23 All radiology interpretation(s) finalized by discharge Discharge Plan Discharge Patient Disposition: Home Clinical Impression: Cellulitis of foot, right Condition: Stable Prescriptions: New clindamycin HCl 300 mg capsule 300 mg PO BID 7 Days Qty: 14 0RF ciprofloxacin HCl [Cipro] 500 mg tablet 500 mg PO BID 7 Days Qty: 14 0RF Discontinued sulfamethoxazole-trimethoprim [Bactrim] 400-80 mg tablet 1 tab PO BID Qty: 14 0RF No Action (DME) Diabetic shoes with 3 inserts See Rx Instructions .ROUTE .MEDSUPPLY Qty: 1 0RF Rx Instructions: As directed by LYNNE&O Colace 100 mg capsule 100 mg PO BID PRN (Reason: Constipation) ofloxacin 0.3 % drops 1 drp ophthalmic (eye) QID vancomycin 125 mg capsule 125 mg PO QID (DME) diabetic shoes with 3 inserts See Rx Instructions .Route .MEDSUPPLY Qty: 1 0RF Rx Instructions: As directed to home insulin aspart U-100 [Novolog FlexPen U-100 Insulin] 100 unit/mL (3 mL) insulin pen 10 unit SUBCUT TID (DME) FreeStyle Nemesio 2 Sensor Kit See Rx Instructions .ROUTE .MEDSUPPLY Qty: 1 Rx Instructions: As directed cephalexin 500 mg capsule 500 mg PO TID 10 Days Qty: 30 0RF multivitamin Tablet 1 tab PO QAM atorvastatin 20 mg tablet 20 mg PO QAM duloxetine 30 mg capsule,delayed release(DR/EC) 30 mg PO QAM torsemide 20 mg tablet 20 mg PO QAM cetirizine [Zyrtec] 10 mg Tablet 10 mg PO QAM calcium carbonate-vitamin D3 600 mg-5 mcg (200 unit) Tablet 1 tab PO QAM dorzolamide-timolol 22.3-6.8 mg/mL drops 1 drp ophthalmic (eye) BID Rx Instructions: left eye Lantus Solostar U-100 Insulin 100 unit/mL (3 mL) insulin pen 56 unit SUBCUT BID Eliquis 5 mg tablet 5 mg PO BID 30 Days Qty: 60 0RF Rx Instructions: hold for 3 days, restart 10/05 Ozempic 1 mg/dose (4 mg/3 mL) pen injector 1 mg SUBCUT Q7D nystatin 100,000 unit/gram powder 1 applic TOPICAL BID Discharge Orders: Discharge ED (Routine); Ordered 12/24/24 Ordered By: Hector Short Referrals: Anette Velazquez MD [Primary Care Provider, Internal Medicine] Patient Instructions: Patient Portal & Jere Instructions Activity Restrictions/Additional Instructions: Cellulitis Discharge Instructions Diagnosis: Cellulitis of the right foot at the site of previous great toe amputation. Antibiotic Therapy: - Discontinue trimethoprim-sulfamethoxazole (Bactrim). - Start ciprofloxacin and clindamycin as prescribed. - Ciprofloxacin and clindamycin are both recommended agents for skin and soft tissue infections, including diabetic foot infections and cellulitis, especially when broad-spectrum coverage is indicated. - Ensure adherence to prescribed dosing and duration. The IDSA and IWGDF/IDSA guidelines recommend a typical duration of 5?14 days, with 1?2 weeks being standard for soft tissue infection, and extension if infection is extensive or slow to resolve. Wound Care and Local Management: - Keep the affected foot clean and dry. - Change dressings as instructed, and monitor for signs of worsening infection (increased redness, swelling, warmth, purulent drainage, or foul odor). - Elevate the limb when possible to reduce edema and promote healing. - Avoid trauma or pressure to the area. Monitoring and Warning Signs: - Watch for systemic symptoms: fever, chills, confusion, or new/worsening pain. - Seek immediate medical attention for: - Rapidly spreading redness or swelling - Signs of sepsis (e.g., fever, tachycardia, hypotension) - New drainage or necrosis - Inability to tolerate oral antibiotics due to gastrointestinal side effects Follow-Up: - Scheduled follow-up with personal crisis worker on Monday, as agreed. - If infection is not improving after 5 days of therapy, or if symptoms worsen, re-evaluation is recommended. - For persistent or recurrent infection, further diagnostic workup (imaging, cultures) may be indicated. Additional Considerations for Elderly Patients: - Clinical presentation may be atypical; absence of fever does not exclude infection. - Polypharmacy and comorbidities may increase risk of adverse drug reactions; monitor for side effects of ciprofloxacin (tendinopathy, QT prolongation, [employer] effects) and clindamycin (diarrhea, risk of C. difficile colitis). - Ensure adequate hydration and nutrition. Prevention of Recurrence: - Address predisposing factors such as edema, skin breakdown, and local trauma. - Optimize glycemic control if diabetic. - Regular podiatric care and foot inspection. Contact Information: - For urgent concerns, contact the clinic or present to the emergency department. Summary: The patient is medically stable for discharge with oral antibiotics, with close outpatient follow-up arranged. Therapy and monitoring are consistent with IDSA and IWGDF/IDSA guidelines for cellulitis and diabetic foot infections. Print Language: Bengali Coding Level of Care Code ED Pediatric Geneticist for g Fwd Documented by User: Daniel Connor DO 12/24/24 17:47 HPI - Wound/Laceration General: Chief Complaint: Wound/Laceration Stated Complaint: ampt site red and spreading Time Seen by Provider: 12/24/24 15:55 Related Data Home Medications ?Medication ?Instructions ?Recorded ?Confirmed atorvastatin 20 mg tablet 20 mg PO QAM 11/07/21 12/19/24 multivitamin 1 tab PO QAM 11/07/21 12/19/24 duloxetine 30 mg capsule,delayed 30 mg PO QAM 05/12/23 12/19/24 release calcium 600 mg (as 1 tab PO QAM 07/14/23 12/19/24 carbonate)-vitamin D3 5 mcg (200 unit) tablet cetirizine 10 mg tablet (Zyrtec) 10 mg PO QAM 07/14/23 12/19/24 dorzolamide 22.3 mg-timolol 6.8 1 drp ophthalmic (eye) BID 07/14/23 12/19/24 mg/mL eye drops torsemide 20 mg tablet 20 mg PO QAM 07/14/23 12/19/24 docusate sodium 100 mg capsule 100 mg PO BID PRN Constipation 05/16/24 12/19/24 (Colace) insulin aspart U-100 100 unit/mL 10 unit SUBCUT TID 05/16/24 12/19/24 (3 mL) subcutaneous pen (Novolog FlexPen U-100 Insulin aspart) insulin glargine 100 unit/mL (3 56 unit SUBCUT BID 05/16/24 12/19/24 mL) subcutaneous pen (Lantus Solostar U-100 Insulin) nystatin 100,000 unit/gram topical 1 applic topical BID 09/26/24 12/19/24 powder semaglutide 1 mg/dose (4 mg/3 mL) 1 mg SUBCUT Q7D 09/26/24 12/19/24 subcutaneous pen injector (Ozempic) flash glucose sensor (FreeStyle #1 ea 10/09/24 12/19/24 Nemesio 2 Sensor kit) ofloxacin 0.3 % eye drops 1 drp ophthalmic (eye) QID 12/03/24 12/19/24 vancomycin 125 mg capsule 125 mg PO QID 12/03/24 12/19/24 Previous Rx's ?Medication ?Instructions ?Recorded Diabetic shoes with 3 inserts #1 ea 10/20/20 diabetic shoes with 3 inserts #1 ea 08/02/23 apixaban 5 mg tablet (Eliquis) 5 mg PO BID 30 days #60 tabs 10/02/24 cephalexin 500 mg capsule 500 mg PO TID 10 days #30 caps 10/18/24 ciprofloxacin HCl 500 mg tablet 500 mg PO BID 7 days #14 tabs 12/24/24 (Cipro) clindamycin HCl 300 mg capsule 300 mg PO BID 7 days #14 caps 12/24/24 Allergies Allergy/AdvReac Type Severity Reaction Status Date / Time diphenhydramine (From Allergy Unknown unknown Verified 12/19/24 14:19 Benadryl) tetracycline Allergy Unknown unknown Verified 12/19/24 14:19 PFS ED PFSH: Medical History Humerus fracture Type 2 diabetes mellitus Tachy-han syndrome UTI (urinary tract infection) Fall Moderate mitral regurgitation Acute DE, inferior wall High anion gap metabolic acidosis Diabetes with ketoacidosis Cholelithiases Vomiting Atrial fibrillation, chronic Fracture of humerus, left, closed Pes planus of both feet ALISTAIR inhibitor intolerance Essential hypertension Warfarin anticoagulation Lower extremity deep venous thrombosis CAD (coronary artery disease) Fracture of greater trochanter of right femur Peripheral vascular disease Onychodystrophy Diabetic neuropathy associated with diabetes mellitus due to underlying condition Surgical History Status post laparoscopic cholecystectomy Coronary angioplasty status PCI to RCA?2015 Family History Mother Diabetes Denies family history of CAD (coronary artery disease) Clotting disorder Dementia Hyperlipidemia Psychiatric illness Chronic kidney disease (CKD) Suicide Anesthesia complication Bleeding disorder Family history of premature coronary artery disease Lung disease Cancer Hypertension Stroke Social History Smoking and tobacco/nicotine status: never used tobacco/nicotine Second hand smoke exposure: Yes Alcohol intake: never Substance/Drug Use: never Course Vital Signs: Vital signs: Vital Signs Temperature 98.0 F 12/24/24 13:23 Pulse Rate 78 12/24/24 17:40 Respiratory Rate 17 12/24/24 17:40 Blood Pressure 159/86 12/24/24 17:40 Pulse Oximetry 95 12/24/24 17:40 Oxygen Delivery Me thod Room Air 12/24/24 13:23 MDM - Wound/Laceration Medical Decision Making Patient presenting with complaints to previously amputated right great toe, this was performed by Dr. Bunch 2 months ago. Clinically on exam, minimal amount of erythema no significant warmth, no red streaking, no signs of systemic infection overall her vitals are stable. Lab work obtained, no significant elevation with her inflammatory markers or x-ray findings concerning for osteomyelitis. She is currently been on Bactrim, after speaking with the patient's crisis worker, Dr. Bunch, we will opt to switch the patient to dual coverage of Cipro and clindamycin, and they are to follow-up with him in his office next Monday. Overall the patient is stable for discharge, they are informed to return with any signs of systemic infection but otherwise will be switched antibiotics. Chart reviewed and patient discussed with midlevel. Agree with assessment and plan. Lab Data 12/24/24 16:23 12/24/24 16:23 Radiology Impressions Foot X-Ray 12/24/24 15:48 IMPRESSION: Postoperative right foot with mild osteoarthritis and no acute or subacute abnormality. Laboratory Results WBC 8.69 10^3/uL (3.29-11.43) 12/24/24 16:23 RBC 5.33 10^6/uL (3.85-5.65) 12/24/24 16:23 Hgb 12.90 g/dL (11.27-16.99) 12/24/24 16:23 Hct 43.1 % (36-47) 12/24/24 16:23 MCV 80.9 fl (85-98) L 12/24/24 16: MCH 24.2 pg (27-33) L 12/24/24 16:23 MCHC 29.9 g/dL (30-55) L 12/24/24 16:23 RDW 16.4 % (12.1-15.1) H 12/24/24 16:23 Plt Count 236 10^3/cmm (157-399) 12/24/24 16: MPV 8.9 fL (7.4-10.4) 12/24/24 16:23 Neut % (Auto) 71.8 % 12/24/24 16:23 Lymph % (Auto) 15.2 % 12/24/24 16:23 Barron % (Auto) 9.7 % 12/24/24 16:23 Eos % (Auto) 2.2 % 12/24/24 16:23 Baso % (Auto) 0.5 % 12/24/24 16: Neut # (Auto) 6.25 10^3/uL (1.8-7.7) 12/24/24 16:23 Lymph # (Auto) 1.3 10^3/uL (0.8-4.8) 12/24/24 16:23 Barron # (Auto) 0.8 10^3/uL (0.2-0.9) 12/24/24 16: Eos # (Auto) 0.2 10^3/uL (0.0-0.8) 12/24/24 16: Baso # (Auto) 0.0 10^3/uL (0.0-0.1) 12/24/24 16: Nucleated RBC % (auto) 0 % 12/24/24 16: Nucleated RBCs # 0.0 /100WBC 12/24/24 16:23 ESR 66 mm/hr (0-15) H 12/24/24 16:23 Sodium 135 mmol/L (136-145) L 12/24/24 16:23 Potassium 3.8 mmol/L (3.5-5.1) 12/24/24 16:23 Chloride 96 mmol/L (98-107) L 12/24/24 16:23 Carbon Dioxide 24 mmol/L (22-29) 12/24/24 16:23 Anion Gap 18.8 (5-19) 12/24/24 16:23 BUN 19 mg/dL (8-23) 12/24/24 16:23 Creatinine 0.9 mg/dL (0.5-0.9) 12/24/24 16:23 GFR Calculation Not Reportable 12/24/24 16:23 Glucose 215 mg/dL (65-115) H 12/24/24 16:23 Calculated Osmolality 289 mOsm/kg (285-295) 12/24/24 16:23 Calcium 9.5 mg/dL (8.5-10.5) 12/24/24 16:23 Total Bilirubin 0.5 mg/dL (0.15-1.2) 12/24/24 16:23 AST 18 U/L (0-32) 12/24/24 16:23 ALT 19 U/L (0-33) 12/24/24 16:23 Alkaline Phosphatase 200 U/L (35-105) H 12/24/24 16:23 C-Reactive Protein 26.8 mg/L (0.0-4.9) H 12/24/24 16:23 Total Protein 7.4 g/dL (6.6-8.7) 12/24/24 16:23 Albumin 3.6 g/dL (3.5-5.2) 12/24/24 16:23 Globulin 3.8 g/dL (1.3-4.6) 12/24/24 16:23 Discharge Plan Discharge Patient Disposition: Home Clinical Impression: Cellulitis of foot, right Condition: Stable Prescriptions: New clindamycin HCl 300 mg capsule 300 mg PO BID 7 Days Qty: 14 0RF ciprofloxacin HCl [Cipro] 500 mg tablet 500 mg PO BID 7 Days Qty: 14 0RF Discontinued sulfamethoxazole-trimethoprim [Bactrim] 400-80 mg tablet 1 tab PO BID Qty: 14 0RF No Action (DME) Diabetic shoes with 3 inserts See Rx Instructions .ROUTE .MEDSUPPLY Qty: 1 0RF Rx Instructions: As directed by LYNNE&O Colace 100 mg capsule 100 mg PO BID PRN (Reason: Constipation) ofloxacin 0.3 % drops 1 drp ophthalmic (eye) QID vancomycin 125 mg capsule 125 mg PO QID (DME) diabetic shoes with 3 inserts See Rx Instructions .Route .MEDSUPPLY Qty: 1 0RF Rx Instructions: As directed to home insulin aspart U-100 [Novolog FlexPen U-100 Insulin] 100 unit/mL (3 mL) insulin pen 10 unit SUBCUT TID (DME) FreeStyle Nemesio 2 Sensor Kit See Rx Instructions .ROUTE .MEDSUPPLY Qty: 1 Rx Instructions: As directed cephalexin 500 mg capsule 500 mg PO TID 10 Days Qty: 30 0RF multivitamin Tablet 1 tab PO QAM atorvastatin 20 mg tablet 20 mg PO QAM duloxetine 30 mg capsule,delayed release(DR/EC) 30 mg PO QAM torsemide 20 mg tablet 20 mg PO QAM cetirizine [Zyrtec] 10 mg Tablet 10 mg PO QAM calcium carbonate-vitamin D3 600 mg-5 mcg (200 unit) Tablet 1 tab PO QAM dorzolamide-timolol 22.3-6.8 mg/mL drops 1 drp ophthalmic (eye) BID Rx Instructions: left eye Lantus Solostar U-100 Insulin 100 unit/mL (3 mL) insulin pen 56 unit SUBCUT BID Eliquis 5 mg tablet 5 mg PO BID 30 Days Qty: 60 0RF Rx Instructions: hold for 3 days, restart 10/05 Ozempic 1 mg/dose (4 mg/3 mL) pen injector 1 mg SUBCUT Q7D nystatin 100,000 unit/gram powder 1 applic TOPICAL BID Discharge Orders: Discharge ED (Routine); Ordered 12/24/24 Ordered By: Hector Short Referrals: Anette Velazquez MD [Primary Care Provider, Internal Medicine] Patient Instructions: Patient Portal & Jere Instructions Activity Restrictions/Additional Instructions: Cellulitis Discharge Instructions Diagnosis: Cellulitis of the right foot at the site of previous great toe amputation. Antibiotic Therapy: - Discontinue trimethoprim-sulfamethoxazole (Bactrim). - Start ciprofloxacin and clindamycin as prescribed. - Ciprofloxacin and clindamycin are both recommended agents for skin and soft tissue infections, including diabetic foot infections and cellulitis, especially when broad-spectrum coverage is indicated. - Ensure adherence to prescribed dosing and duration. The IDSA and IWGDF/IDSA guidelines recommend a typical duration of 5?14 days, with 1?2 weeks being standard for soft tissue infection, and extension if infection is extensive or slow to resolve. Wound Care and Local Management: - Keep the affected foot clean and dry. - Change dressings as instructed, and monitor for signs of worsening infection (increased redness, swelling, warmth, purulent drainage, or foul odor). - Elevate the limb when possible to reduce edema and promote healing. - Avoid trauma or pressure to the area. Monitoring and Warning Signs: - Watch for systemic symptoms: fever, chills, confusion, or new/worsening pain. - Seek immediate medical attention for: - Rapidly spreading redness or swelling - Signs of sepsis (e.g., fever, tachycardia, hypotension) - New drainage or necrosis - Inability to tolerate oral antibiotics due to gastrointestinal side effects Follow-Up: - Scheduled follow-up with personal crisis worker on Monday, as agreed. - If infection is not improving after 5 days of therapy, or if symptoms worsen, re-evaluation is recommended. - For persistent or recurrent infection, further diagnostic workup (imaging, cultures) may be indicated. Additional Considerations for Elderly Patients: - Clinical presentation may be atypical; absence of fever does not exclude infection. - Polypharmacy and comorbidities may increase risk of adverse drug reactions; monitor for side effects of ciprofloxacin (tendinopathy, QT prolongation, VP [employer] effects) and clindamycin (diarrhea, risk of C. difficile colitis). - Ensure adequate hydration and nutrition. Prevention of Recurrence: - Address predisposing factors such as edema, skin breakdown, and local trauma. - Optimize glycemic control if diabetic. - Regular podiatric care and foot inspection. Contact Information: - For urgent concerns, contact the clinic or present to the emergency department. Summary: The patient is medically stable for discharge with oral antibiotics, with close outpatient follow-up arranged. Therapy and monitoring are consistent with IDSA and IWGDF/IDSA guidelines for cellulitis and diabetic foot infections. Print Language: Bengali Coding Level of Care Code ED Pediatric Geneticist for Jared Vallecillo
[2024-12-24 16:48] LABS: Hematocrit 43.1 % (36-47); Hemoglobin 12.90 g/dL (11.27-16.99); Mean Corpuscular HGB Conc 29.9 g/dL (30-55); Mean Corpuscular Hemoglobin 24.2 pg (27-33); Mean Corpuscular Volume 80.9 fl (85-98); Nucleated Red Blood Cells % 0 %; Platelet Count 236 10^3/cmm (157-399); Red Blood Count 5.33 10^6/uL (3.85-5.65); White Blood Count 8.69 10^3/uL (3.29-11.43)
[2024-12-24 17:05] LABS: Albumin Level 3.6 g/dL (3.5-5.2); Alkaline Phosphatase 200 U/L (35-105); Anion Gap 18.8 (5-19); Aspartate Amino Transferase 18 U/L (0-32); Blood Urea Nitrogen 19 mg/dL (8-23); Calcium 9.5 mg/dL (8.5-10.5); Carbon Dioxide 24 mmol/L (22-29); Chloride 96 mmol/L (98-107); Creatinine Clr Calc Pharmacy 49.6358; Globulin 3.8 g/dL (1.3-4.6); Glucose 215 mg/dL (65-115); Osmolality Calculated 289 mOsm/kg (285-295); Potassium 3.8 mmol/L (3.5-5.1); Sodium 135 mmol/L (136-145); Total Protein 7.4 g/dL (6.6-8.7)
[2024-12-24 17:17] LABS: Alanine Aminotransferase 19 U/L (0-33)
[2024-12-24 17:40] VITALS: BP 159/86; PULSE 78; RESP 17; O2SAT 95
[2024-12-24 17:48] VITALS: BP 159/86; PULSE 71; O2SAT 96
== END 2024-12-24 17:50 | disposition home or self-care (01) ==
PROVIDERS: Family Medicine; Emergency Provider Physician Assistant; PCP Internal Medicine
DX: L03.115 Cellulitis of right lower limb (principal); Z89.411 Acquired absence of right great toe; Z98.890 Other specified postprocedural states; Z79.4 Long term (current) use of insulin; Z79.01 Long term (current) use of anticoagulants; I10 Essential (primary) hypertension; E11.40 Type 2 diabetes mellitus with diabetic neuropathy, unspecified; I25.10 Atherosclerotic heart disease of native coronary artery without angina pectoris
CPT/HCPCS: 36415; 73630; 80053; 85025; 85651; 86140; 99284

== ENCOUNTER 2024-12-30 07:59 | Day surgery (SDC) | payer OTHER, MEDICAID, SELFPAY ==
[2024-12-30] VITALS (7 sets, daily range): BP systolic 96–151; BP diastolic 45–84; PULSE 60–74; RESP 16–18; TEMP 36.1–36.3; O2SAT 92–99
[2024-12-30] MEDS: acetaminophen 1,000 MG/100 ML PIGGYBACK 400 MG IV (08:38)
--- NOTE | 2024-12-30 08:46 | ANES.PREANE2 ---
Pre-Anesthetic Assessment Height/Weight: Height 1.63 m Weight 81.647 kg Temp Pulse Resp BP Pulse Ox O2 Del Method 97.4 F L 65 16 112/52 97 Room Air 12/30/24 08:17 12/30/24 08:17 12/30/24 08:17 12/30/24 08:17 12/30/24 08:17 12/30/24 08:17 Preop Diagnosis: Osteomyelitis right first metatarsal Operation Date: 12/30/24 09:30 Proposed Procedures p RIGHT First Metatarsal Incision of Bone Cortex(Right) - Hector Bunch DPM Familial anesthetic complications: None Was Beta Jayson taken within 24 hours: N/A Was Clonidine taken within 24 hours: N/A Last intake: Intake Last Liquid Date 12/29/24 Last Liquid Time 21:00 Last Solid Date 12/29/24 Last Solid Time 18:00 Social No alcohol and No tobacco Exam alert, oriented x 3, clear to auscultation bilaterally and regular rate & rhythm Airway Mallampati: Class II Dentition: other (none) CV/HEM Atrial Fibrillation, Coronary Artery Disease and Peripheral Vascular Disease Mod Metabolic Diabetes Mellitus and Hyperlipidemia Anesthetic Plan ASA status: 4 Anesthesia: MAC Risk of > 500 ml blood loss (7ml/kg in children): No Medications/Allergies Home Medications ?Medication ?Instructions ?Recorded ?Confirmed ?Last Taken ?Type Diabetic shoes with 3 inserts #1 ea 10/20/20 12/30/24 Unknown Rx atorvastatin 20 mg tablet 20 mg PO QAM 11/07/21 12/30/24 12/27/24 History multivitamin 1 tab PO QAM 11/07/21 12/30/24 12/27/24 History duloxetine 30 mg capsule,delayed 30 mg PO QAM 05/12/23 12/30/24 12/27/24 History release calcium 600 mg (as 1 tab PO QAM 07/14/23 12/30/24 12/27/24 History carbonate)-vitamin D3 5 mcg (200 unit) tablet cetirizine 10 mg tablet (Zyrtec) 10 mg PO QAM 07/14/23 12/30/24 12/27/24 History dorzolamide 22.3 mg-timolol 6.8 1 drp ophthalmic (eye) BID 07/14/23 12/30/24 12/27/24 History mg/mL eye drops torsemide 20 mg tablet 20 mg PO QAM 07/14/23 12/30/24 12/27/24 History diabetic shoes with 3 inserts #1 ea 08/02/23 12/30/24 Unknown Rx docusate sodium 100 mg capsule 100 mg PO BID PRN Constipation 05/16/24 12/30/24 09/25/24 History (Colace) insulin aspart U-100 100 unit/mL 10 unit SUBCUT TID 05/16/24 12/30/24 12/27/24 History (3 mL) subcutaneous pen (Novolog FlexPen U-100 Insulin aspart) insulin glargine 100 unit/mL (3 56 unit SUBCUT BID 05/16/24 12/30/24 12/29/24 History mL) subcutaneous pen (Lantus 28 Solostar U-100 Insulin) nystatin 100,000 unit/gram topical 1 applic topical BID PRN galding 09/26/24 12/30/24 Unknown History powder semaglutide 1 mg/dose (4 mg/3 mL) 1 mg SUBCUT Q7D 09/26/24 12/30/24 12/18/24 History subcutaneous pen injector (Ozempic) apixaban 5 mg tablet (Eliquis) 5 mg PO BID 30 days #60 tabs 10/02/24 12/30/24 12/27/24 Rx flash glucose sensor (FreeStyle #1 ea 10/09/24 12/30/24 Unknown History Nemesio 2 Sensor kit) ofloxacin 0.3 % eye drops 1 drp ophthalmic (eye) QID 12/03/24 12/30/24 12/27/24 History ciprofloxacin HCl 500 mg tablet 500 mg PO BID 7 days #14 tabs 12/24/24 12/30/24 12/27/24 Rx (Cipro) clindamycin HCl 300 mg capsule 300 mg PO BID 7 days #14 caps 12/24/24 12/30/24 12/27/24 Rx Allergies Allergy/AdvReac Type Severity Reaction Status Date / Time diphenhydramine (From Allergy Unknown unknown Verified 12/27/24 09:41 Benadryl) tetracycline Allergy Unknown unknown Verified 12/27/24 09:41 Current Medications Generic Name Dose Route Start Last Admin Trade Name Freq PRN Reason Stop Dose Admin Sodium Chloride 1,000 mls @ 30 mls/hr 12/30/24 08:15 12/30/24 08:38 Sodium Chloride 0.9% IV 12/31/24 08:14 30 mls/hr .Q24H TERRY Administration PFSH Anesthesia Medical History (Updated 12/24/24 @ 17:34 by RAGHU Russell) Humerus fracture Type 2 diabetes mellitus Tachy-han syndrome UTI (urinary tract infection) Fall Moderate mitral regurgitation Acute VT, inferior wall High anion gap metabolic acidosis Diabetes with ketoacidosis Cholelithiases Vomiting Atrial fibrillation, chronic Fracture of humerus, left, closed Pes planus of both feet ALISTAIR inhibitor intolerance Essential hypertension Warfarin anticoagulation Lower extremity deep venous thrombosis CAD (coronary artery disease) Fracture of greater trochanter of right femur Peripheral vascular disease Onychodystrophy Diabetic neuropathy associated with diabetes mellitus due to underlying condition Surgical History Status post laparoscopic cholecystectomy Coronary angioplasty status PCI to RCA?2016 Family History Mother Diabetes Denies family history of CAD (coronary artery disease) Clotting disorder Dementia Hyperlipidemia Psychiatric illness Chronic kidney disease (CKD) Suicide Anesthesia complication Bleeding disorder Family history of premature coronary artery disease Lung disease Cancer Hypertension Stroke Social History Smoking and tobacco/nicotine status: never used tobacco/nicotine Second hand smoke exposure: Yes Alcohol intake: never Substance/Drug Use: never Data Anesthesia Cardiac Studies: Echocardiogram 05/07/24 Cardiac Event Monitor 11/15/21
--- NOTE | 2024-12-30 08:58 | P.HPUD_ITS ---
Surgery/Procedure H&P Update DATE OF PROCEDURE: December 30, 2024 DATE H&P PERFORMED: 12/19/24 H&P UPDATE INFORMATION: I have reviewed H&P completed within last 30 days, I have examined patient prior to procedure, No changes to prior documentation, H&P is in [facility] EMR on date indicated and Risks and benefits of the procedure reviewed PREOP DIAGNOSIS: Osteomyelitis right first metatarsal PLANNED PROCEDURE: Operation Date: 12/30/24 09:30 Proposed Procedures p RIGHT First Metatarsal Incision of Bone Cortex(Right) - Hector Bunch DPM
[2024-12-30] MEDS: ceFAZolin 2,000 mg SDV 2000 MG IVP (09:30)
[2024-12-30] MEDS: BUPivacaine 0.5% INJ 30 mL INJECTION (09:35)
--- NOTE | 2024-12-30 09:53 | P.OP_ITS ---
Operative Report Date of procedure: December 30, 2024 Surgeon: Hector Bunch DPM Procedure: Date of procedure: 12/30/2024 Pre-op diagnosis: Right first metatarsal osteomyelitis Post-op diagnosis: Same Post-op findings: Degenerative changes of first metatarsal head right foot consistent with osteomyelitis Procedure done: Incision bone cortex right foot CPT 67340 Implants: None Specimens removed: First metatarsal head right foot Surgeon: Dr. 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 The patient has had the aforementioned chief complaint for some time. Conservative treatment measures have been attempted and the patient has opted for surgical intervention at this time. A lengthy discussion regarding the procedure, including risks and complications has been had with the patient and is noted in the recent clinic note. Written and verbal consent have been obtained. All patient questions have been answered to the patient?s satisfaction. No written or verbal guarantees have been given or implied. The patient has been NPO since midnight. The history has been reviewed and the history and physical is current. The signed consent was confirmed and placed in the patient chart. Patient imaging has been reviewed and is consistent with the diagnosis. Under mild sedation, the patient was brought into the operating room and placed on the table in the supine position. IV antibiotics were given by the anesthesia team as preoperative surgical prophylaxis. IV sedation was then performed by the anesthesiateam. A pneumatic tourniquet was then placed about the right ankle. The operative extremity was then prepped and draped in the usual fashion. The extremity was then elevated and exsanguinated before the tourniquet was inflated to 250 mmHg. After inflation, the following procedure was then performed. Attention was directed to the right foot where a full-thickness ulceration was noted at the distal aspect of the first metatarsal and hallux amputation site. #15 blade was used to make a full-thickness incision around the wound and onto the dorsal medial aspect of the first metatarsal and racquet style incision. Dissection was carried down to the level of bone cortex which was incised using #15 blade. Periosteum was reflected to expose the underlying first metatarsal. Once dissection was carried out to expose the distal aspect of the first metatarsal it was evaluated and there was noted to be degenerative changes consistent with osteomyelitis. Sagittal bone saw was used to remove the distal aspect of the first metatarsal which was passed from the operative field and sent a surgical specimen. Remaining tissue and bone appeared healthy and viable. Site was irrigated with sterile saline before attention was directed to closure. Incision was reapproximated using 3-0 Prolene. Tourniquet was let down good hyperemic response was noted to all remaining digits of the right foot. Incision was dressed with Xeroform, 4 x 4 gauze, Kerlix, Jah. Patient was placed in a postop shoe. The patient tolerated the procedure and anesthesia well and without complication. The patient was transported from the operating room to the recovery room with vital signs stable and vascular status intact to all digits of the right foot. The patient was given both written and verbal instructions to remain weightbearing as tolerated to the operative extremity, to keep dressings/splint clean, dry and intact and to take pain medication as directed. The patient will follow-up in the outpatient setting at their scheduled appointment. The patient was discharged with my personal number and was instructed to call if any questions or issues should arise. They were discharged home once anesthesia criteria was met.
--- NOTE | 2024-12-30 10:45 | ANE.PACU2 ---
Inpatient post-anesthesia follow up: Airway intact: Yes Vital signs: Temperature 97 F Pulse Rate 67 Respiratory Rate 16 Blood Pressure 151/70 Pulse Oximetry 96 Oxygen Delivery Me thod Room Air Oxygen Flow Rate 7 Fraction of Inspir ed Oxygen Hydration adequate: Yes Nausea and vomiting: No Pain level: 1 Mental status: Baseline
== END 2024-12-30 10:45 | disposition home or self-care (01) ==
PROVIDERS: PCP Internal Medicine; Visit Provider Podiatrist Foot & Ankle Surgery
PROC: (CPT 28005; principal; 2024-12-30 09:20)
DX: M86.071 Acute hematogenous osteomyelitis, right ankle and foot (principal); E11.9 Type 2 diabetes mellitus without complications; I49.5 Sick sinus syndrome; Z79.4 Long term (current) use of insulin; I25.2 Old myocardial infarction; I48.20 Chronic atrial fibrillation, unspecified; I10 Essential (primary) hypertension; I73.9 Peripheral vascular disease, unspecified; I25.10 Atherosclerotic heart disease of native coronary artery without angina pectoris; E78.5 Hyperlipidemia, unspecified
CPT/HCPCS: 28005; 36416; 82962; 88307; 88311; J0131; J0690; J2704; J3010; J3490; J7030; J9999

== ENCOUNTER → 2025-01-06 13:31 | Outpatient (BNVA) | payer OTHER, MEDICAID, SELFPAY | PROVIDERS: PCP Internal Medicine; Visit Provider Podiatrist Foot & Ankle Surgery | DX: T81.30XA Disruption of wound, unspecified, initial encounter (principal); Y83.8 Other surgical procedures as the cause of abnormal reaction of the patient, or of later complication, without mention of misadventure at the time of the procedure; E11.69 Type 2 diabetes mellitus with other specified complication; Z79.84 Long term (current) use of oral hypoglycemic drugs; Z79.85 Long-term (current) use of injectable non-insulin antidiabetic drugs; M86.8X7 Other osteomyelitis, ankle and foot | CPT/HCPCS: 99213 ==

== ENCOUNTER → 2025-01-13 15:15 | Outpatient (BNVA) | payer OTHER, MEDICAID, SELFPAY | PROVIDERS: PCP Internal Medicine; Visit Provider Podiatrist Foot & Ankle Surgery | DX: T81.30XA Disruption of wound, unspecified, initial encounter (principal); Y83.8 Other surgical procedures as the cause of abnormal reaction of the patient, or of later complication, without mention of misadventure at the time of the procedure; E11.69 Type 2 diabetes mellitus with other specified complication; Z79.4 Long term (current) use of insulin; Z79.85 Long-term (current) use of injectable non-insulin antidiabetic drugs; M86.8X7 Other osteomyelitis, ankle and foot | CPT/HCPCS: 99024 ==

== ENCOUNTER → 2025-01-20 15:03 | Outpatient (BNVA) | payer OTHER, MEDICAID, SELFPAY | PROVIDERS: PCP Internal Medicine; Visit Provider Podiatrist Foot & Ankle Surgery | DX: T81.30XA Disruption of wound, unspecified, initial encounter (principal); Z48.89 Encounter for other specified surgical aftercare; Y83.8 Other surgical procedures as the cause of abnormal reaction of the patient, or of later complication, without mention of misadventure at the time of the procedure; E11.69 Type 2 diabetes mellitus with other specified complication; Z89.421 Acquired absence of other right toe(s); M86.8X7 Other osteomyelitis, ankle and foot; Z79.4 Long term (current) use of insulin; Z79.85 Long-term (current) use of injectable non-insulin antidiabetic drugs | CPT/HCPCS: 99024 ==

== ENCOUNTER → 2025-01-22 13:07 | Outpatient (BNVA) | payer OTHER, MEDICAID, SELFPAY | PROVIDERS: PCP Internal Medicine; Visit Provider Thoracic Surgery (Cardiothoracic Vascular Surgery) | DX: I96 Gangrene, not elsewhere classified (principal); T87.81 Dehiscence of amputation stump; Y83.8 Other surgical procedures as the cause of abnormal reaction of the patient, or of later complication, without mention of misadventure at the time of the procedure; Z89.421 Acquired absence of other right toe(s) | CPT/HCPCS: 97597; 99213 ==

== ENCOUNTER → 2025-01-29 08:59 | Outpatient (BNVA) | payer OTHER, MEDICAID, SELFPAY | PROVIDERS: PCP Internal Medicine; Visit Provider Thoracic Surgery (Cardiothoracic Vascular Surgery) | DX: I96 Gangrene, not elsewhere classified (principal); T87.81 Dehiscence of amputation stump; Y83.8 Other surgical procedures as the cause of abnormal reaction of the patient, or of later complication, without mention of misadventure at the time of the procedure; Z89.421 Acquired absence of other right toe(s) | CPT/HCPCS: 97597; J9999 ==

== ENCOUNTER 2025-01-30 17:40 | Emergency (ER) | payer OTHER, MEDICAID, SELFPAY ==
[2025-01-30 17:40] VITALS: BP 142/90; PULSE 83; RESP 16; TEMP 36.7; O2SAT 94; BMI 31.7
--- OUTSIDE RECORDS SUMMARY | 2025-01-30 17:43 | XMS_ITS | Clinical Summary ---
Author Organization [facility] Address [address] [facility] [facility] [place] [address] Care Team Providers Care Enrollment Advisor Name Role Phone Unavailable Primary Care Provider [...] 10 mg by mouth daily. Active Insulin [place], Disposable, (Pentips) 31 gauge x 3/16 Needle by [facility] [place].(Non-Drug; Combo Route) route. Active Blood-Glucose Meter by [facility] [place].(Non-Drug; Combo Route) route. Active empagliflozin (Jardiance) 25 [...] blood-glucose meter (ONE TOUCH ULTRA BONUS PACK [facility]) by [facility] [place].(Non-Drug; Combo Route) route. 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 Gender Identity Not on file Sexual Orientation Not on file Last Filed Vital Signs Vital Sign Reading Time Taken Comments Blood Pressure - - Pulse - - Temperature - - Respiratory Rate - - Oxygen Saturation - - Inhaled Oxygen Concentration - - Weight 85.3 kg (188 lb) 05/11/2021 2:20 PM PRINT B[employer]ING WORKER Height 162.6 cm (5' 4 ) 05/11/2021 2:20 PM [employer]INT B[employer]ING WORKER Body Mass Index 32.27 05/11/2021 2:20 PM [employer]INT B[employer]ING WORKER Plan of Treatment Health Maintenance Due Date Last Done Comments DTAP/TDAP/TD VACCINES (1 - Tdap) 1960 PNEUMOCOCCAL VACCINE 50+ YEARS (1 of 1 - PCV) 05/12/18 92 ZOSTER VACCINE (1 of 2) 1991 OSTEOPOROSIS SCREENING 2006 RSV VACCINE (60+ or ) (1 - 1-dose 75+ series) 2016 INFLUENZA VACCINE (#1) [id number] [place] [address] MEDICAID [facility] DUAL COMPLETE HMO DSNP [facility] [id number]
--- NOTE | 2025-01-30 17:49 | W.ED.NAVMDI ---
HPI - Nausea/Vomiting/Diarrhea General: Chief complaint: Nausea/Vomiting/Diarrhea Stated complaint: n/v/d History of Present Illness: 84-year-old female with a history of type 2 diabetes, obesity, tachybradycardia syndrome, chronic anticoagulation on Eliquis, insulin-dependent diabetes, coronary artery disease, DVT, diabetic neuropathy, hypertension and mitral regurgitation who presents to the emergency room with nausea vomiting and diarrhea. She has had diarrhea for 3 days and then started vomiting today. No abdominal pain. No altered mental status. No chest pain. Vitals are normal on presentation. Related Data Home Medications ?Medication ?Instructions ?Recorded ?Confirmed atorvastatin 20 mg tablet 20 mg PO QAM 11/07/21 01/20/25 multivitamin 1 tab PO QAM 11/07/21 01/20/25 duloxetine 30 mg capsule,delayed 30 mg PO QAM 05/12/23 01/20/25 release calcium 600 mg (as 1 tab PO 07/14/23 01/20/25 carbonate)-vitamin D3 5 mcg (200 unit) tablet cetirizine 10 mg tablet (Zyrtec) 10 mg PO QAM 07/14/23 01/20/25 dorzolamide 22.3 mg-timolol 6.8 1 drp ophthalmic (eye) BID 07/14/23 01/20/25 mg/mL eye drops torsemide 20 mg tablet 20 mg PO QAM 07/14/23 01/20/25 docusate sodium 100 mg capsule 100 mg PO BID PRN Constipation 05/16/24 01/20/25 (Colace) insulin aspart U-100 100 unit/mL 10 unit SUBCUT TID 05/16/24 01/20/25 (3 mL) subcutaneous pen (Novolog FlexPen U-100 Insulin aspart) insulin glargine 100 unit/mL (3 56 unit SUBCUT BID 05/16/24 01/20/25 mL) subcutaneous pen (Lantus Solostar U-100 Insulin) nystatin 100,000 unit/gram topical 1 applic topical BID PRN galding 09/26/24 01/20/25 powder semaglutide 1 mg/dose (4 mg/3 mL) 1 mg SUBCUT Q7D 09/26/24 01/20/25 subcutaneous pen injector (Ozempic) flash glucose sensor (FreeStyle #1 ea 10/09/24 01/20/25 Nemesio 2 Sensor kit) ofloxacin 0.3 % eye drops 1 drp ophthalmic (eye) QID 12/03/24 01/20/25 Previous Rx's ?Medication ?Instructions ?Recorded Diabetic shoes with 3 inserts #1 ea 10/20/20 diabetic shoes with 3 inserts #1 ea 08/02/23 apixaban 5 mg tablet (Eliquis) 5 mg PO BID 30 days #60 tabs 10/02/24 tramadol 50 mg tablet 50 mg PO Q6H PRN pain #16 tabs 12/30/24 ciprofloxacin HCl 500 mg tablet 500 mg PO BID 10 days #20 tabs 01/30/25 metronidazole 500 mg tablet 500 mg PO Q8H 10 days #30 tabs 01/30/25 ondansetron 8 mg disintegrating 8 mg PO Q6H #14 tabs 01/30/25 tablet Allergies Allergy/AdvReac Type Severity Reaction Status Date / Time diphenhydramine (From Allergy Unknown unknown Verified 01/20/25 15:04 Benadryl) tetracycline Allergy Unknown unknown Verified 01/20/25 15:04 Review of Systems Narrative: Constitutional symptoms: Negative except as documented in HPI. Skin symptoms: Negative except as documented in HPI. Eye symptoms: Negative except as documented in HPI. ENMT symptoms: Negative except as documented in HPI. Respiratory symptoms: Negative except as documented in HPI. Cardiovascular symptoms: Negative except as documented in HPI. Gastrointestinal symptoms: Negative except as documented in HPI. Genitourinary symptoms: Negative except as documented in HPI. Musculoskeletal symptoms: Negative except as documented in HPI. Neurologic symptoms: Negative except as documented in HPI. Psychiatric symptoms: Negative except as documented in HPI. Endocrine symptoms: Negative except as documented in HPI. PFSH ED PFSH: Medical History (Updated 01/30/25 @ 20:23 by Johanne Liu MD) Humerus fracture Type 2 diabetes mellitus Tachy-han syndrome UTI (urinary tract infection) Fall Moderate mitral regurgitation Acute PA, inferior wall High anion gap metabolic acidosis Diabetes with ketoacidosis Cholelithiases Vomiting Atrial fibrillation, chronic Fracture of humerus, left, closed Pes planus of both feet ALISTAIR inhibitor intolerance Essential hypertension Warfarin anticoagulation Lower extremity deep venous thrombosis CAD (coronary artery disease) Fracture of greater trochanter of right femur Peripheral vascular disease Onychodystrophy Diabetic neuropathy associated with diabetes mellitus due to underlying condition Surgical History Status post laparoscopic cholecystectomy Coronary angioplasty status PCI to RCA?2016 Family History Mother Diabetes Denies family history of CAD (coronary artery disease) Clotting disorder Dementia Hyperlipidemia Psychiatric illness Chronic kidney disease (CKD) Suicide Anesthesia complication Bleeding disorder Family history of premature coronary artery disease Lung disease Cancer Hypertension Stroke Social History Smoking and tobacco/nicotine status: never used tobacco/nicotine Second hand smoke exposure: Yes Alcohol intake: never Substance/Drug Use: never Physical Exam Narrative: EXAM NARRATIVE: General: Alert, no acute distress. Skin: Warm, dry. Head: Normocephalic, atraumatic. Neck: Supple, trachea midline. Eye: Extraocular movements are intact. Ears, nose, mouth and throat: Tacky oral mucosa Cardiovascular: Regular, Normal peripheral perfusion. Respiratory: Lungs are clear to auscultation, respirations are non-labored, breath sounds are equal, Symmetrical chest wall expansion. Gastrointestinal: Soft, Nontender, Non distended Musculoskeletal: Normal ROM, no deformity. Neurological: Alert and oriented, No focal neurological deficit observed. Psychiatric: Cooperative, appropriate mood & affect. Course Vital Signs: Vital signs: Vital Signs Temperature 98.1 F 01/30/25 17:40 Pulse Rate 83 01/30/25 17:40 Respiratory Rate 16 01/30/25 17:40 Blood Pressure 142/90 01/30/25 17:40 Pulse Oximetry 94 01/30/25 17:40 Oxygen Delivery Me thod Room Air 01/30/25 17:40 MDM - Nausea/Vomiting/Diarrhea Medical Decision Making Medical decision making: Patient's reason for coming to the emergency room: Nausea vomiting and diarrhea Social determinants: Patient is retired I reviewed the patient's medical record. 84-year-old female with a history of type 2 diabetes, obesity, tachybradycardia syndrome, chronic anticoagulation on Eliquis, insulin-dependent diabetes, coronary artery disease, DVT, diabetic neuropathy, hypertension and mitral regurgitation I reviewed the patient's current home meds I reviewed prescription monitoring program. She has had 2 prescriptions for Ultram in the last year. She is on Eliquis. She is on insulin. Alternate historians: I did also speak with the daughter who discussed that she had had H. pylori recently. Differential diagnosis for this patient with nausea and vomiting including but not limited to and based on the above HPI, review of systems and physical exam: Urinary tract infection. Appendicitis. Cholecystitis. Colitis. small bowel obstruction. crohn's flare. pancreatitis. gastritis. peptic ulcer. cyclic vomiting. Viral illness. Influenza. COVID. Orders placed to evaluate differential diagnosis based on the above differential, HPI and physical exam Lab Review: Laboratory results were reviewed and interpreted by myself the emergency room physician. Leukocytosis with a white count 18,000. No anemia. Mild elevation in her BUN with a normal creatinine. Mild elevation in her glucose at 228. No urinary tract infection CT of the abdomen pelvis: Appears to have diverticulitis versus a colitis. No obstruction. This was reviewed and interpreted by myself the emergency room physician. I also reviewed the radiology report. Assessment of risk: - Level of risk moderate secondary to multiple comorbidities - Was hospitalization considered? Yes. I discussed this with family but she has some leukocytosis but no lactic acidosis and is relatively asymptomatic and tolerating fluids. I am going to give some IV antibiotics here but we are going to attempt a go home for now. Reexamination: Patient remained stable. No increased work of breathing. No altered mental status. No focal motor deficits. Patient is tolerating small amount of fluids Assessment and plan: Colitis Dehydration Diverticulitis ? Fluid bolus. IV Flagyl and Cipro. 2 doses of IV Zofran. - Discharged home - Discussed plan with patient. Answered any questions. - Evaluation and treatment of this problem were appropriate in the emergency setting. Lab Data 01/30/25 17:15 01/30/25 17:15 Radiology Impressions Abdomen/Pelvis CT 01/30/25 18:22 IMPRESSION: 1. Diffuse sigmoid wall thickening with pericolonic stranding in the setting of diverticulosis. Findings may represent segmental colitis with associated diverticulosis or mild diverticulitis without a focal inflamed diverticulum. No evidence of abscess or perforation. 2. Compression deformity of the L2 vertebral body with approximately 50% vertebral body height loss, likely acute to subacute. Laboratory Results WBC 18.47 10^3/uL (3.29-11.43) H 01/30/25 17:15 RBC 5.12 10^6/uL (3.85-5.65) 01/30/25 17:15 Hgb 12.80 g/dL (11.27-16.99) 01/30/25 17:15 Hct 38.7 % (36-47) 01/30/25 17:15 MCV 75.6 fl (85-98) L 01/30/25 17:15 MCH 25.0 pg (27-33) L 01/30/25 17:15 MCHC 33.1 g/dL (30-55) 01/30/25 17:15 RDW 17.1 % (12.1-15.1) H 01/30/25 17:15 Plt Count 182 10^3/cmm (157-399) 01/30/25 17:15 MPV 9.3 fL (7.4-10.4) 01/30/25 17:15 Neut % (Auto) 86.8 % 01/30/25 17:15 Lymph % (Auto) 5.6 % 01/30/25 17:15 [place] % (Auto) 6.6 % 01/30/25 17:15 Eos % (Auto) 0.2 % 01/30/25 17:15 Baso % (Auto) 0.3 % 01/30/25 17:15 Neut # (Auto) 16.06 10^3/uL (1.8-7.7) H 01/30/25 17:15 Lymph # (Auto) 1.0 10^3/uL (0.8-4.8) 01/30/25 17:15 [place] # (Auto) 1.2 10^3/uL (0.2-0.9) H 01/30/25 17:15 Eos # (Auto) 0.0 10^3/uL (0.0-0.8) 01/30/25 17:15 Baso # (Auto) 0.1 10^3/uL (0.0-0.1) 01/30/25 17:15 Nucleated RBC % (auto) 0 % 01/30/25 17:15 Nucleated RBCs # 0.0 /100WBC 01/30/25 17:15 Sodium 137 mmol/L (136-145) 01/30/25 17:15 Potassium 3.2 mmol/L (3.5-5.1) L 01/30/25 17:15 Chloride 98 mmol/L (98-107) 01/30/25 17:15 Carbon Dioxide 24 mmol/L (22-29) 01/30/25 17:15 Anion Gap 18.2 (5-19) 01/30/25 17:15 BUN 21 mg/dL (8-23) 01/30/25 17:15 Creatinine 0.9 mg/dL (0.5-0.9) 01/30/25 17:15 GFR Calculation Not Reportable 01/30/25 17:15 Glucose 228 mg/dL (65-115) H 01/30/25 17:15 Calculated Osmolality 294 mOsm/kg (285-295) 01/30/25 17:15 Lactic Acid 2.1 mmol/L (0.5-2.2) 01/30/25 17:15 Calcium 9.0 mg/dL (8.5-10.5) 01/30/25 17:15 Total Bilirubin 1.1 mg/dL (0.15-1.2) 01/30/25 17:15 AST 23 U/L (0-32) 01/30/25 17:15 ALT 16 U/L (0-33) 01/30/25 17:15 Alkaline Phosphatase 152 U/L (35-105) H 01/30/25 17:15 C-Reactive Protein 55.3 mg/L (0.0-4.9) H 01/30/25 17:15 Total Protein 6.8 g/dL (6.6-8.7) 01/30/25 17:15 Albumin 3.7 g/dL (3.5-5.2) 01/30/25 17:15 Globulin 3.1 g/dL (1.3-4.6) 01/30/25 17:15 Lipase 15 U/L (13-60) 01/30/25 17:15 Urine Color Yellow (Yellow) 01/30/25 18:30 Urine Appearance Clear (CLEAR) 01/30/25 18:30 Urine pH 5.0 (5-7) 01/30/25 18:30 Ur Specific [place] 1.023 (1.005-1.030) 01/30/25 18:30 Urine Protein 1+ (Negative) A 01/30/25 18:30 Urine Glucose (UA) 2+ (Normal) H 01/30/25 18:30 Urine Ketones Negative (Negative) 01/30/25 18:30 Urine Blood Trace (Negative) A 01/30/25 18:30 Urine Nitrate Negative (Negative) 01/30/25 18:30 Urine Bilirubin Negative (Negative) 01/30/25 18:30 Urine Urobilinogen 0.2 mg/dL (Negative) 01/30/25 18:30 Ur Leukocyte Esterase Negative (Negative) 01/30/25 18:30 Urine RBC 0-2 /hpf (0-2) 01/30/25 18:30 Urine WBC 0-5 /hpf (0-5) 01/30/25 18:30 Ur Squamous Epith Cells 0-5 /hpf (0-5) 01/30/25 18:30 Amorphous Sediment Not Reportable 01/30/25 18:30 Urine Bacteria None seen /hpf (NONE) 01/30/25 18:30 Hyaline Casts 2.46 /lpf 01/30/25 18:30 Influenza A (PCR) Negative (Negative) 01/30/25 18:21 Influenza Type B (PCR) Negative (Negative) 01/30/25 18:21 RSV (PCR) Negative (Negative) 01/30/25 18:21 SARS-CoV-2 (PCR) Negative (Negative) 01/30/25 18:21 All radiology interpretation(s) finalized by discharge Discharge Plan Discharge Patient Disposition: Home Clinical Impression: Diverticulitis, Colitis, Dehydration Condition: Stable Prescriptions: New metronidazole 500 mg tablet 500 mg PO Q8H 10 Days Qty: 30 0RF ciprofloxacin HCl 500 mg tablet 500 mg PO BID 10 Days Qty: 20 0RF ondansetron 8 mg tablet,disintegrating 8 mg PO Q6H Qty: 14 0RF Rx Instructions: Take 1/2-1 tab every 6 hours as needed for nausea and vomiting No Action (DME) Diabetic shoes with 3 inserts See Rx Instructions .ROUTE .MEDSUPPLY Qty: 1 0RF Rx Instructions: As directed by LYNNE&O Colace 100 mg capsule 100 mg PO BID PRN (Reason: Constipation) ofloxacin 0.3 % drops 1 drp ophthalmic (eye) QID (DME) diabetic shoes with 3 inserts See Rx Instructions .Route .MEDSUPPLY Qty: 1 0RF Rx Instructions: As directed to home insulin aspart U-100 [Novolog FlexPen U-100 Insulin] 100 unit/mL (3 mL) insulin pen 10 unit SUBCUT TID (DME) FreeStyle Nemesio 2 Sensor Kit See Rx Instructions .ROUTE .MEDSUPPLY Qty: 1 Rx Instructions: As directed multivitamin Tablet 1 tab PO QAM atorvastatin 20 mg tablet 20 mg PO QAM duloxetine 30 mg capsule,delayed release(DR/EC) 30 mg PO QAM torsemide 20 mg tablet 20 mg PO QAM cetirizine [Zyrtec] 10 mg Tablet 10 mg PO QAM calcium carbonate-vitamin D3 600 mg-5 mcg (200 unit) Tablet 1 tab PO QAM dorzolamide-timolol 22.3-6.8 mg/mL drops 1 drp ophthalmic (eye) BID Rx Instructions: left eye Lantus Solostar U-100 Insulin 100 unit/mL (3 mL) insulin pen 56 unit SUBCUT BID Eliquis 5 mg tablet 5 mg PO BID 30 Days Qty: 60 0RF Rx Instructions: hold for 3 days, restart 10/05 Ozempic 1 mg/dose (4 mg/3 mL) pen injector 1 mg SUBCUT Q7D nystatin 100,000 unit/gram powder 1 applic TOPICAL BID PRN (Reason: galding) tramadol 50 mg tablet 50 mg PO Q6H PRN (Reason: pain) Qty: 16 0RF Discharge Orders: Discharge ED (Routine); Ordered 01/30/25 Ordered By: Johanne Liu Referrals: Anette Velazquez MD [Primary Care Provider, Internal Medicine] Discharge Diet: Advance as tolerated and As Directed Patient Instructions: Diverticulitis (DC), Colitis (ED), Opioid Safety, Pain Management, Patient Portal & Jere Instructions Activity Restrictions/Additional Instructions: Thank you for choosing [facility] for your healthcare needs today. You have been screened and evaluated and felt safe for discharge. Health conditions do change or evolve sometimes and as such it is important that you follow up with your Primary Doctor to be re checked, 3-5 days is a general good time frame for follow up. You are always welcome to return to the ED for re assessment if your symptoms are worsening or you have new concerns Print Language: Wolof Coding Level of Care Code ED Food Service Worker for Jared Vallecillo
[2025-01-30 17:54] LABS: Hematocrit 38.7 % (36-47); Hemoglobin 12.80 g/dL (11.27-16.99); Mean Corpuscular HGB Conc 33.1 g/dL (30-55); Mean Corpuscular Hemoglobin 25.0 pg (27-33); Mean Corpuscular Volume 75.6 fl (85-98); Nucleated Red Blood Cells % 0 %; Platelet Count 182 10^3/cmm (157-399); Red Blood Count 5.12 10^6/uL (3.85-5.65); White Blood Count 18.47 10^3/uL (3.29-11.43)
[2025-01-30 18:11] LABS: Alanine Aminotransferase 16 U/L (0-33); Albumin Level 3.7 g/dL (3.5-5.2); Alkaline Phosphatase 152 U/L (35-105); Anion Gap 18.2 (5-19); Aspartate Amino Transferase 23 U/L (0-32); Blood Urea Nitrogen 21 mg/dL (8-23); Calcium 9.0 mg/dL (8.5-10.5); Carbon Dioxide 24 mmol/L (22-29); Chloride 98 mmol/L (98-107); Creatinine Clr Calc Pharmacy 49.6358; Globulin 3.1 g/dL (1.3-4.6); Glucose 228 mg/dL (65-115); Lipase 15 U/L (13-60); Osmolality Calculated 294 mOsm/kg (285-295); Potassium 3.2 mmol/L (3.5-5.1); Sodium 137 mmol/L (136-145); Total Protein 6.8 g/dL (6.6-8.7)
[2025-01-30 18:12] LABS: Lactic Sepsis W/Reflex 2.1 mmol/L (0.5-2.2)
--- NOTE | 2025-01-30 18:22 | CTR_ITS ---
PROCEDURE INFORMATION: Exam: CT Abdomen And Pelvis With Contrast Exam date and time: 01/30/2025 6:57 PM Age: 84 years old Clinical indication: Nausea, vomiting and diarrhea TECHNIQUE: Imaging protocol: Computed tomography of the abdomen and pelvis with contrast. Radiation optimization: All CT scans at this facility use at least one of these dose optimization techniques: automated exposure control; mA and/or kV adjustment per patient size (includes targeted exams where dose is matched to clinical indication); or iterative reconstruction. Contrast material: [id number]; Contrast volume: 100 ml; Contrast route: INTRAVENOUS (IV); COMPARISON: CT bony pelvis [id number] 09/29/2024 7:45 PM RADIATION DOSE METRICS: Total DLP (mGy-cm): 954.84 FINDINGS: Lungs: Subsegmental dependent atelectasis. Heart: Coronary vascular and valvular calcifications. Liver: Scattered punctate calcifications. No mass. Gallbladder and biliary ducts: The gallbladder is surgically absent. No biliary ductal dilation. Pancreas: Normal. No ductal dilation. Spleen: No splenomegaly. Punctate splenic calcifications. Adrenal glands: No adrenal nodule. Kidneys and ureters: No hydronephrosis. Nonobstructing punctate renal stones. Stomach and bowel: Extensive colonic diverticulosis. There is wall thickening with adjacent inflammatory stranding of the sigmoid colon. Inflammatory changes are fairly diffuse throughout the sigmoid colon and do not appear to be centered around a specific diverticula. No bowel obstruction. Appendix: The appendix is normal. Intraperitoneal space: No free air. No organized fluid collection. Vasculature: No aortic aneurysm. Atherosclerosis. Lymph nodes: No lymphadenopathy by CT size criteria. Urinary bladder: Unremarkable as visualized. Reproductive: The uterus is surgically absent. No adnexal mass. Bones/joints: There is a compression deformity of the L2 vertebral body with approximately 50% vertebral body height loss, likely acute to subacute Soft tissues: Unremarkable. CT/CT abdomen pelvis w con* [id number] IMPRESSION: 1. Diffuse sigmoid wall thickening with pericolonic stranding in the setting of diverticulosis. Findings may represent segmental colitis with associated diverticulosis or mild diverticulitis without a focal inflamed diverticulum. No evidence of abscess or perforation. 2. Compression deformity of the L2 vertebral body with approximately 50% vertebral body height loss, likely acute to subacute.
[2025-01-30 19:00] LABS: Glucose Urine UA 2+ (Normal); Nitrate Urine Negative (Negative); Specific Gravity, Urine 1.023 (1.005-1.030)
[2025-01-30] MEDS: iohexol 350 mg/mL 500 mL Btl (per mL) IV (19:04)
--- NOTE | 2025-01-30 19:06 | PC.NURSE ---
Laney MENEZES returned Zofran to [facility] due to patient's refusal.
[2025-01-30 19:36] LABS: UA Slide Review UA Slide Review Perf
[2025-01-30 19:36] LABS: Reflex Lactate Order REFLEX LACTIC ORDERD
[2025-01-30] MEDS: ondansetron 2 mg/ML SDV 2 mL 4 MG IVP ×2 (19:36→20:51)
[2025-01-30 19:45] LABS: Respiratory Syncytial Virus Ce NEGATIVE (Negative); SARS-CoV-2 PCR NEGATIVE (Negative)
[2025-01-30 20:34] LABS: Lactic Acid level (Lactate) 1.4 mmol/L (0.5-2.2)
[2025-01-30] MEDS: metroNIDAZOLE IV 500 MG/100 ML PREMIX 100 MG IV (20:51)
[2025-01-30 22:26] VITALS: BP 154/82; PULSE 69; O2SAT 94
== END 2025-01-30 22:28 | disposition home or self-care (01) ==
PROVIDERS: Emergency Provider Emergency Medicine; PCP Internal Medicine
DX: K57.32 Diverticulitis of large intestine without perforation or abscess without bleeding (principal); K52.9 Noninfective gastroenteritis and colitis, unspecified; E86.0 Dehydration; Z79.4 Long term (current) use of insulin; Z79.01 Long term (current) use of anticoagulants; Z11.52 Encounter for screening for COVID-19; I25.10 Atherosclerotic heart disease of native coronary artery without angina pectoris; E11.40 Type 2 diabetes mellitus with diabetic neuropathy, unspecified
CPT/HCPCS: 36415; 74177; 80053; 81001; 83605; 83690; 85025; 86140; 87040; 87637; 96361; 96365; 96375; 96376; 99285; J0744; J2405; J3490; J7030; Q0162

== ENCOUNTER 2025-02-10 12:13 | Outpatient (CLI) | payer OTHER, MEDICAID, SELFPAY ==
--- NOTE | 2025-02-10 12:45 | USCV_ITS ---
Kianna Dotson Age: 84 Gender: F : 1940 Exam Date: 02/10/2025 12:38 Ordering Phys: Ronnie Willis M.D ([email or web address]) Technologist: Exam Location[place] [facility] [place]ication: as BP: 132 / 73 HR: 71 Rhythm: Sinus Technical Quality: Adequate MEASUREMENTS (Male / Female) Normal Values 2D ECHO LV Diastolic Diameter PLAX 4.3 cm 4.2 - 5.9 / 3.9 - 5.3 cm IVS Diastolic Thickness 1.5 cm 0.6 - 1.0 / 0.6 - 0.9 cm IVS Systolic Thickness 2.0 cm LVPW Diastolic Thickness 1.3 cm 0.6 - 1.0 / 0.6 - 0.9 cm LVPW Systolic Thickness 1.6 cm LVOT Diameter 2.1 cm LV Ejection Fraction 2D Teich 68.9 % LV Ejection Fraction MOD 4C 61.1 % LV Ejection Fraction MOD 2C 52.3 % LV Ejection Fraction 2C AL 50.8 % LA Diameter 5.6 cm RA Systolic Volume 4C AL 28.1 ml RA Systolic Volume 4C MOD 28.9 ml Aorta at Sinotubular Diameter 3.0 cm IVC Diameter 1.8 cm M-MODE LA Ao Ratio MM 1.6 AV Cusp Separation MM 0.9 cm DOPPLER AV Peak Velocity 271.0 cm/s LVOT Peak Velocity 89.0 cm/s AV Area Cont Eq vti 1.4 cm squared AV Area Cont Eq pk 1.1 cm squared MV Peak Velocity 174.0 cm/s MV Area PHT 3.8 cm squared Mitral E to A Ratio 3.0 TR Peak Velocity 224.0 cm/s TR Peak Gradient 20.1 mmHg PV Peak Velocity 101.0 cm/s FINDINGS Left Ventricle Normal left ventricular size and systolic function, EF of 55- 60%. No regional wall motion abnormalities. Right Ventricle Normal right ventricular size and systolic function. Right Atrium Normal right atrial size. Left Atrium Severely dilated IA Septum Grossly normal Mitral Valve Moderate mitral annular calcification. Moderate mitral regurgitation Aortic Valve Thickened aortic valve. Mild to moderate aortic stenosis with aortic valve area of 1.3 cm squared and mean gradient of 13 mmHg Tricuspid Valve Insufficient TR jet to calculate RVSP Pulmonic Valve Not well visualized Pericardium Normal Aorta Normal in size IVC Appears to be normal CONCLUSIONS LV systolic function is normal with EF of 55-60%. Severely dilated left atrium Moderate mitral regurgitation Mild to moderate aortic stenosis Compared to prior echocardiogram from 05/07/2024, no significant changes are seen Ronnie Willis MD (Electronically Signed) Final Date: 23 February 2025 10:01 S
== END 2025-02-10 12:14 | disposition home or self-care (01) ==
LOC: RAD 12:14
PROVIDERS: PCP Internal Medicine; Visit Provider Internal Medicine
DX: I35.0 Nonrheumatic aortic (valve) stenosis (principal); I51.7 Cardiomegaly; I34.81 Nonrheumatic mitral (valve) annulus calcification; I34.0 Nonrheumatic mitral (valve) insufficiency; I35.8 Other nonrheumatic aortic valve disorders; Z09 Encounter for follow-up examination after completed treatment for conditions other than malignant neoplasm; Z87.2 Personal history of diseases of the skin and subcutaneous tissue
CPT/HCPCS: 93306; 99212; A6212; J9999

== ENCOUNTER 2025-02-19 12:21 | Outpatient (CLI) | payer OTHER, MEDICAID, SELFPAY ==
--- NOTE | 2025-02-19 12:28 | XR_ITS ---
WS: [id number] Exam: XR ankle LT min 3V* [id number] Date/Time of Exam: 02/19/2025 12:47 PM Reason For Exam: PAIN IN LEFT ANKLE There is a nondisplaced fracture of the lower fibula with soft tissue swelling. No other fractures of the ankle are noted. Degenerative change of the ankle mortise. Degenerative changes seen in the midfoot joints and the subtalar joints. Extensive vascular calcifications about the ankle. XR/XR ankle LT min 3V* [id number] IMPRESSION: 1. Nondisplaced lower fibular fracture and soft tissue swelling. 2. Advanced degenerative changes as above.
== END 2025-02-19 12:22 | disposition home or self-care (01) ==
LOC: RAD 12:23
PROVIDERS: PCP Internal Medicine; Visit Provider Internal Medicine
DX: M25.572 Pain in left ankle and joints of left foot (principal); M19.072 Primary osteoarthritis, left ankle and foot; I70.202 Unspecified atherosclerosis of native arteries of extremities, left leg; S82.65XA Nondisplaced fracture of lateral malleolus of left fibula, initial encounter for closed fracture; X58.XXXA Exposure to other specified factors, initial encounter
CPT/HCPCS: 73610

== ENCOUNTER 2025-02-19 14:21 | Outpatient (CLI) | payer OTHER, MEDICAID, SELFPAY | END 2025-02-19 14:22 | disposition home or self-care (01) | LOC: SPT 14:21 | PROVIDERS: PCP Internal Medicine; Visit Provider Podiatrist Foot & Ankle Surgery | DX: Z46.89 Encounter for fitting and adjustment of other specified devices (principal); S82.402D Unspecified fracture of shaft of left fibula, subsequent encounter for closed fracture with routine healing; X58.XXXD Exposure to other specified factors, subsequent encounter | CPT/HCPCS: L4361 ==

== ENCOUNTER 2025-02-21 21:19 | Emergency (ER) | payer MEDICARE, MEDICAID, SELFPAY ==
[2025-02-21 21:21] VITALS: BP 147/65; PULSE 78; RESP 16; TEMP 37.3; O2SAT 97; BMI 31.7
--- OUTSIDE RECORDS SUMMARY | 2025-02-21 21:23 | XMS_ITS | Clinical Summary ---
Author Organization [facility] Address [address] [place] [address] Care Team Providers Care Daycare Worker Name Role Phone Unavailable Primary Care Provider [...] 10 mg by mouth daily. Active Insulin [place], Disposable, (Pentips) 31 gauge x 3/16 Needle [place] [facility] [place]Non[place]rug; Combo Route) route. Active Blood-Glucose Meter [place] [facility] [place]Non[place]Drug; Combo Route) route. Active [...] blood-glucose meter (ONE TOUCH ULTRA BONUS PACK [facility] by Misc.(Non-Drug; Combo Route) route. Active apixaban (Eliquis) 2.5 [...] on file Legal Sex Female 9:40 AM BRIM SHAPER Gender Identity Not on file Sexual Orientation Not on file Last Filed Vital Signs Vital Sign Reading Time Taken Comments Blood Pressure - - Pulse - - Temperature - - Respiratory Rate - - Oxygen Saturation - - Inhaled Oxygen Concentration - - Weight 85.3 kg (188 lb) 05/11/2021 2:20 PM BRIM SHAPER Height 162.6 cm (5' 4 ) 05/11/2021 2:20 PM BRIM SHAPER Body Mass Index 32.27 05/11/2021 2:20 PM BRIM SHAPER Plan of Treatment Health Maintenance Due Date Last Done Comments DTAP/TDAP/TD VACCINES (1 - Tdap) 1960 PNEUMOCOCCAL VACCINE 50+ YEARS (1 of 1 - PCV) 05/12/18 92 ZOSTER VACCINE (1 of 2) 1991 OSTEOPOROSIS SCREENING 2006 RSV VACCINE (60+ or ) (1 - 1-dose 75+ series) 2016 INFLUENZA VACCINE (#1) [id number] [place] [address] MEDICAID [facility] DUAL COMPLETE HMO DSNP [facility] [id number]
[2025-02-21 22:19] VITALS: BP 158/67; PULSE 82; RESP 17; O2SAT 94
[2025-02-21 22:37] VITALS: BP 176/68; PULSE 83; RESP 18; O2SAT 92
--- NOTE | 2025-02-21 22:41 | CTR_ITS ---
PROCEDURE INFORMATION: Exam: CT Cervical Spine Without Contrast Exam date and time: 02/21/2025 10:57 PM Age: 84 years old Clinical indication: Injury or trauma; Blunt trauma; EMS arrival for ground level fall. Focal C/O RT chest wall pain. Unsure if patient struck head. Anticoagulated. ; Additional info: Fall, on eliquis TECHNIQUE: Imaging protocol: Computed tomography of the cervical spine without contrast. Radiation optimization: All CT scans at this facility use at least one of these dose optimization techniques: automated exposure control; mA and/or kV adjustment per patient size (includes targeted exams where dose is matched to clinical indication); or iterative reconstruction. COMPARISON: CT cervical spin wo con* [id number] 03/09/2022 10:44 PM RADIATION DOSE METRICS: Total DLP (mGy-cm): 367.27 FINDINGS: Bones: Atlantoaxial osteoarthritis is present. Uncovertebral osteoarthritis is present. Mild retrolisthesis of C1 on C2 at the left lateral articular facet is noted, likely rotational. Mild multilevel intervertebral disc height loss is noted. Degenerative joint and disc disease is most prominent at C4-C5. C4-C5 posterior disc osteophyte complex. Mild spinal canal stenosis is noted. No acute fracture or compression deformity is noted. Lungs: Lung apices are normal. Soft tissues: Partially imaged subcentimeter thyroid nodule. No prevertebral or paravertebral soft tissue edema. CT/CT cervical spin wo con* [id number] IMPRESSION: 1. No acute fracture or compression deformity. 2. Mild retrolisthesis of C1 on C2 at the left lateral articular facet is noted, likely positional due to rotation. Correlate with patient history/physical exam. 3. Multilevel degenerative changes, most prominent at C4-C5. 4. Partially imaged left thyroid nodule, better characterized on prior CT cervical spine dated 03/09/2022. Consider thyroid sonogram if not previously obtained. COMMENTS: Consistent with the [employer] [place] [employer]'s Incidental Findings Committee white paper (J Am Nicholas Radiol 2015): In patients aged 35 years and older with an incidental thyroid nodule equal to or greater than 1.[address], MRI or extrathyroidal US, further evaluation with dedicated thyroid US is recommended for patients with normal life expectancy and without comorbidities. For smaller nodules without suspicious features, no further evaluation or follow up is recommended.
--- NOTE | 2025-02-21 22:41 | CTR_ITS ---
PROCEDURE INFORMATION: Exam: CT Head Without Contrast Exam date and time: 02/21/2025 10:55 PM Age: 84 years old Clinical indication: Injury or trauma; Blunt trauma (contusions or hematomas); EMS arrival for ground level fall. Focal C/O RT chest wall pain. Unsure if patient struck head. Anticoagulated. ; Additional info: Fall, on eliquis TECHNIQUE: Imaging protocol: Computed tomography of the head without contrast. Radiation optimization: All CT scans at this facility use at least one of these dose optimization techniques: automated exposure control; mA and/or kV adjustment per patient size (includes targeted exams where dose is matched to clinical indication); or iterative reconstruction. COMPARISON: CT head wo con* [id number] 07/14/2023 10:26 AM RADIATION DOSE METRICS: Total DLP (mGy-cm): 1016.34 FINDINGS: Brain: Chronic bilateral basal ganglia infarcts. Daniels-white differentiation is maintained. No evidence of acute ischemic stroke. Basal cisterns are patent. Cerebral volume loss is noted, likely age related. Periventricular white matter hypoattenuation favors sequela of chronic ischemic microvascular disease. No acute intracranial hemorrhage. Benign dural calcifications are present. Cerebral ventricles: No ventriculomegaly. Paranasal sinuses: Visualized sinuses are unremarkable. No fluid levels. Mastoid air cells: Visualized mastoid air cells are well aerated. Orbital cavities: Bilateral cataract extractions are noted. Bones: Unremarkable. No acute fracture. Hyperostosis frontalis interna is present. Soft tissues: Unremarkable. Vasculature: Calcification of the V4 segment of the vertebral arteries is noted. CT/CT head wo con* [id number] IMPRESSION: 1. No evidence of acute ischemic infarct. 2. No acute intracranial hemorrhage. 3. Parenchymal loss and white matter changes favored to represent sequela of chronic microvascular disease.
--- NOTE | 2025-02-21 22:42 | CTR_ITS ---
PROCEDURE INFORMATION: Exam: CT Chest Without Contrast; Diagnostic Exam date and time: 02/21/2025 10:59 PM Age: 84 years old Clinical indication: Injury or trauma; Blunt trauma (contusions or hematomas); Prior surgery; Surgery date: 6+ months; Surgery type: Coronary stents. Gb; EMS arrival for ground level fall. Focal C/O RT chest wall pain. Unsure if patient struck head. Anticoagulated. ; Additional info: Fall, contusion TECHNIQUE: Imaging protocol: Diagnostic computed tomography of the chest without contrast. Radiation optimization: All CT scans at this facility use at least one of these dose optimization techniques: automated exposure control; mA and/or kV adjustment per patient size (includes targeted exams where dose is matched to clinical indication); or iterative reconstruction. COMPARISON: CR XR chest 1V portable [id number] 07/14/2023 10:18 AM RADIATION DOSE METRICS: Total DLP (mGy-cm): 901.18 FINDINGS: Lungs: Unremarkable. No consolidation. No masses. Pleural spaces: No focal consolidation, pleural effusion, or pneumothorax. Heart: Cardiomegaly. Calcified mitral annulus. Lymph nodes: Unremarkable. No enlarged lymph nodes. Vasculature: Unremarkable. No aortic aneurysm. Diaphragm: Small hiatal hernia. Liver: Calcified hepatic granulomas. Gallbladder and biliary ducts: Cholecystectomy clips. Spleen: Multiple calcified splenic granulomas. Bones/joints: Severe osteoarthritis of the bilateral shoulders. Acute fracture of the right 5th and 8th ribs. Multiple old, healed bilateral posterior rib fractures are present. Soft tissues: Unremarkable. CT/CT chest con [id number] IMPRESSION: 1. No pneumothorax. 8 2. Acute fracture of the right 5th and 8th ribs.
--- NOTE | 2025-02-21 22:54 | W.ED.FALL ---
HPI - Fall General: Chief Complaint: Fall Stated Complaint: fall back pain Time Seen by Provider: 02/21/25 22:30 History of Present Illness: Patient is a 84-year-old female with DM, A-fib on Eliquis, presents to the ED after a fall at home. She lives with her granddaughter. Granddaughter was in the next room doing laundry, when she heard her grandmother fall. Patient states that she slipped, and fell contusing the right side of her chest, and granddaughter notes her head was on the side of the bed table, her arm was inside the laundry basket, and the walker was on top of her. She just had a fall this last Monday, and was placed in a walking boot. Granddaughter relates that history of UTIs. She has now finished all of her antibiotics. She was taken off Eliquis for some time due to fall risk, and granddaughter is unsure whether or placed her back on it. She is having increasing falls frequency and weakness. Associated symptoms-after fall: Reports chest pain (chest wall pain) and difficulty walking; Denies abdominal pain, headache(s), neck pain or vertigo Related Data Home Medications ?Medication ?Instructions ?Recorded ?Confirmed atorvastatin 20 mg tablet 20 mg PO QAM 11/07/21 01/20/25 multivitamin 1 tab PO QAM 11/07/21 01/20/25 duloxetine 30 mg capsule,delayed 30 mg PO QAM 05/12/23 01/20/25 release calcium 600 mg (as 1 tab PO QAM 07/14/23 01/20/25 carbonate)-vitamin D3 5 mcg (200 unit) tablet cetirizine 10 mg tablet (Zyrtec) 10 mg PO QAM 07/14/23 01/20/25 dorzolamide 22.3 mg-timolol 6.8 1 drp ophthalmic (eye) BID 07/14/23 01/20/25 mg/mL eye drops torsemide 20 mg tablet 20 mg PO QAM 07/14/23 01/20/25 docusate sodium 100 mg capsule 100 mg PO BID PRN Constipation 05/16/24 01/20/25 (Colace) insulin aspart U-100 100 unit/mL 10 unit SUBCUT TID 05/16/24 01/20/25 (3 mL) subcutaneous pen (Novolog FlexPen U-100 Insulin aspart) insulin glargine 100 unit/mL (3 56 unit SUBCUT BID 05/16/24 01/20/25 mL) subcutaneous pen (Lantus Solostar U-100 Insulin) nystatin 100,000 unit/gram topical 1 applic topical BID PRN galding 09/26/24 01/20/25 powder semaglutide 1 mg/dose (4 mg/3 mL) 1 mg SUBCUT Q7D 09/26/24 01/20/25 subcutaneous pen injector (Ozempic) flash glucose sensor (FreeStyle #1 ea 10/09/24 01/20/25 Nemesio 2 Sensor kit) ofloxacin 0.3 % eye drops 1 drp ophthalmic (eye) QID 12/03/24 01/20/25 Previous Rx's ?Medication ?Instructions ?Recorded Diabetic shoes with 3 inserts #1 ea 10/20/20 diabetic shoes with 3 inserts #1 ea 08/02/23 apixaban 5 mg tablet (Eliquis) 5 mg PO BID 30 days #60 tabs 10/02/24 tramadol 50 mg tablet 50 mg PO Q6H PRN pain #16 tabs 12/30/24 ondansetron 8 mg disintegrating 8 mg PO Q6H #14 tabs 01/30/25 tablet Cam Boot to the Left #1 ea 02/19/25 amoxicillin 875 mg-potassium 1 tab PO Q12H #20 tabs 02/21/25 clavulanate 125 mg tablet Allergies Allergy/AdvReac Type Severity Reaction Status Date / Time diphenhydramine (From Allergy Unknown unknown Verified 01/20/25 15:04 Benadryl) tetracycline Allergy Unknown unknown Verified 01/20/25 15:04 Review of Systems General: Reports: 10 or more systems reviewed and unremarkable except in HPI and below Const: Denies: fever(s) or chills Eyes: Denies: change in vision or blurry vision ENMT: Denies: throat pain, change in hearing or nasal discharge Card: Reports: chest pain (chest wall pain); Denies: palpitations Resp: Denies: dyspnea or non-productive cough GI: Denies: abdominal pain, nausea or vomiting : Denies: flank pain or dysuria Musc: Reports: joint pain; Denies: neck pain or back pain Skin/Breast: Denies: rash or pruritus Neuro: Reports: lack of coordination, difficulty walking and frequent falls; Denies: headache(s), numbness in extremities, sensory changes, dizziness or vertigo Psych: Reports: anxiety; Denies: depression PFSH ED PFSH: Medical History (Updated 02/21/25 @ 23:37 by RAGHU Anderson) Humerus fracture Type 2 diabetes mellitus Tachy-han syndrome UTI (urinary tract infection) Fall Moderate mitral regurgitation Acute AL, inferior wall High anion gap metabolic acidosis Diabetes with ketoacidosis Cholelithiases Vomiting Atrial fibrillation, chronic Fracture of humerus, left, closed Pes planus of both feet ALISTAIR inhibitor intolerance Essential hypertension Warfarin anticoagulation Lower extremity deep venous thrombosis CAD (coronary artery disease) Fracture of greater trochanter of right femur Peripheral vascular disease Onychodystrophy Diabetic neuropathy associated with diabetes mellitus due to underlying condition Surgical History Status post laparoscopic cholecystectomy Coronary angioplasty status PCI to RCA?2016 Family History Mother Diabetes Denies family history of CAD (coronary artery disease) Clotting disorder Dementia Hyperlipidemia Psychiatric illness Chronic kidney disease (CKD) Suicide Anesthesia complication Bleeding disorder Family history of premature coronary artery disease Lung disease Cancer Hypertension Stroke Social History Smoking and tobacco/nicotine status: never used tobacco/nicotine Second hand smoke exposure: Yes Alcohol intake: never Substance/Drug Use: never Physical Exam Const: COMMON NORMALS: no acute distress, average body habitus and patient oriented x3 EXAM LIMITATIONS: no altered mental status GENERAL APPEARANCE: cooperative and comfortable HENMT: COMMON NORMALS: normocephalic and atraumatic HEAD & SCALP: normocephalic and atraumatic Eye: COMMON NORMALS: Equal, round and reactive pupils present, EOMs intact bilaterally, conjunctivae normal and no scleral icterus CONJUNCTIVA: Yes conjunctivae normal PUPIL: Yes Equal, round and reactive pupils present Neck/C-Spine: COMMON NORMALS: full ROM and no lymphadenopathy Lymph: LYMPHATIC: no lymphadenopathy noted Chest: CHEST: Yes abnormal inspection of the chest (Chest wall tenderness right lateral) Resp: COMMON NORMALS: normal respiratory effort, No retractions and No use of accessory muscles Cardio: COMMON NORMALS: regular rate and regular rhythm RATE: regular rate RHYTHM: regular rhythm HEART SOUNDS: Murmur heart sound present (Systolic ejection 3/6) GI: COMMON NORMALS: Normal to inspection, nondistended, normoactive bowel sounds present, Soft to palpation and non-tender PALPATION: Yes Soft to palpation : COMMON NORMALS: Yes no CVA tenderness BLADDER/KIDNEY EXAM: Yes no CVA tenderness Back/Pelvis: COMMON NORMALS: no CVA tenderness Extremity: COMMON NORMALS: normal to inspection, full ROM and capillary refill normal Neuro: COMMON NORMALS: patient oriented x3, CN's II-XII intact bilaterally and moves all extremities Course Vital Signs: Vital signs: Vital Signs Temperature 99.1 F 02/21/25 21:21 Pulse Rate 81 02/22/25 01:21 Respiratory Rate 18 02/22/25 01:21 Blood Pressure 143/64 02/22/25 01:21 Pulse Oximetry 92 02/22/25 01:21 Oxygen Delivery Me thod Room Air 02/21/25 21:21 MDM - Fall Medical Decision Making Patient is a 4-year-old female on Eliquis for A-fib that presents to the ED with complaint of fall this was heard by granddaughter in the next room. Granddaughter was unsure why she was even getting up, however heard the fall, and immediately presented to the room. Patient denied any head injury, however her head was up against the bedside table, walker was on top of her, and her arm was down in the laundry basket. I will CT her head and neck. This is a second fall in the last 1 week. I am stopping her Eliquis given her fall risk outweighs her risk of stroke for safety and danger. Discussed with granddaughter and patient. Will check urinalysis with her history of UTIs. Will obtain a chest CT without to rule out fracture as well. Medical Records I reviewed the patient's medical records. Lab Data I reviewed the patient's lab results. 02/21/25 23:45 02/21/25 23:45 Radiology Impressions Cervical Spine CT 02/21/25 22:41 IMPRESSION: 1. No acute fracture or compression deformity. 2. Mild retrolisthesis of C1 on C2 at the left lateral articular facet is noted, likely positional due to rotation. Correlate with patient history/physical exam. 3. Multilevel degenerative changes, most prominent at C4-C5. 4. Partially imaged left thyroid nodule, better characterized on prior CT cervical spine dated 03/09/2022. Consider thyroid sonogram if not previously obtained. COMMENTS: Consistent with the [employer]'s Incidental Findings Committee white paper (J Am Nicholas Radiol 2015): In patients aged 35 years and older with an incidental thyroid nodule equal to or greater than 1.[address], MRI or extrathyroidal US, further evaluation with dedicated thyroid US is recommended for patients with normal life expectancy and without comorbidities. For smaller nodules without suspicious features, no further evaluation or follow up is recommended. Head CT 02/21/25 22:41 IMPRESSION: 1. No evidence of acute ischemic infarct. 2. No acute intracranial hemorrhage. 3. Parenchymal loss and white matter changes favored to represent sequela of chronic microvascular disease. Chest CT 02/21/25 22:42 IMPRESSION: 1. No pneumothorax. 8 2. Acute fracture of the right 5th and 8th ribs. ADDENDUM: 02/21/25 [id number] IMPRESSION: 1. No pneumothorax. 2. Acute fracture of the right 5th and 8th ribs. Laboratory Results WBC 8.59 10^3/uL (3.29-11.43) 02/21/25 23:45 RBC 4.60 10^6/uL (3.85-5.65) 02/21/25 23:45 Hgb 11.50 g/dL (11.27-16.99) 02/21/25 23:45 Hct 37.1 % (36-47) 02/21/25 23:45 MCV 80.7 fl (85-98) L 02/21/25 23:45 MCH 25.0 pg (27-33) L 02/21/25 23:45 MCHC 31.0 g/dL (30-55) 02/21/25 23:45 RDW 19.0 % (12.1-15.1) H 02/21/25 23:45 Plt Count 219 10^3/cmm (157-399) 02/21/25 23:45 MPV 9.1 fL (7.4-10.4) 02/21/25 23:45 Neut % (Auto) 75.1 % 02/21/25 23:45 Lymph % (Auto) 11.9 % 02/21/25 23:45 [place] % (Auto) 9.8 % 02/21/25 23:45 Eos % (Auto) 2.1 % 02/21/25 23:45 Baso % (Auto) 0.6 % 02/21/25 23:45 Neut # (Auto) 6.46 10^3/uL (1.8-7.7) 02/21/25 23:45 Lymph # (Auto) 1.0 10^3/uL (0.8-4.8) 02/21/25 23:45 [place] # (Auto) 0.8 10^3/uL (0.2-0.9) 02/21/25 23:45 Eos # (Auto) 0.2 10^3/uL (0.0-0.8) 02/21/25 23:45 Baso # (Auto) 0.1 10^3/uL (0.0-0.1) 02/21/25 23:45 Nucleated RBC % (auto) 0 % 02/21/25 23:45 Nucleated RBCs # 0.0 /100WBC 02/21/25 23:45 Sodium 141 mmol/L (136-145) 02/21/25 23:45 Potassium 4.2 mmol/L (3.5-5.1) 02/21/25 23:45 Chloride 101 mmol/L (98-107) 02/21/25 23:45 Carbon Dioxide 30 mmol/L (22-29) H 02/21/25 23:45 Anion Gap 14.2 (5-19) 02/21/25 23:45 BUN 19 mg/dL (8-23) 02/21/25 23:45 Creatinine 1.1 mg/dL (0.5-0.9) H 02/21/25 23:45 GFR Calculation Not Reportable 02/21/25 23:45 Glucose 198 mg/dL (65-115) H 02/21/25 23:45 Calculated Osmolality 300 mOsm/kg (285-295) H 02/21/25 23:45 Calcium 9.4 mg/dL (8.5-10.5) 02/21/25 23:45 Total Bilirubin 0.4 mg/dL (0.15-1.2) 02/21/25 23:45 AST 26 U/L (0-32) 02/21/25 23:45 ALT 18 U/L (0-33) 02/21/25 23:45 Alkaline Phosphatase 131 U/L (35-105) H 02/21/25 23:45 Total Protein 6.2 g/dL (6.6-8.7) L 02/21/25 23:45 Albumin 3.5 g/dL (3.5-5.2) 02/21/25 23:45 Globulin 2.7 g/dL (1.3-4.6) 02/21/25 23:45 Urine Color Yellow (Yellow) 02/21/25 22:54 Urine Appearance Turbid (CLEAR) A 02/21/25 22:54 Urine pH 5.5 (5-7) 02/21/25 22:54 Ur Specific [place] 1.015 (1.005-1.030) 02/21/25 22:54 Urine Protein Negative (Negative) 02/21/25 22:54 Urine Glucose (UA) Negative (Normal) 02/21/25 22:54 Urine Ketones Negative (Negative) 02/21/25 22:54 Urine Blood 1+ (Negative) A 02/21/25 22:54 Urine Nitrate Positive (Negative) A 02/21/25 22:54 Urine Bilirubin Negative (Negative) 02/21/25 22:54 Urine Urobilinogen 1.0 mg/dL (Negative) 02/21/25 22:54 Ur Leukocyte Esterase 3+ (Negative) A 02/21/25 22:54 Urine RBC 0-2 /hpf (0-2) 02/21/25 22:54 Urine WBC >100 /hpf (0-5) H 02/21/25 22:54 Ur Squamous Epith Cells 0-5 /hpf (0-5) 02/21/25 22:54 Amorphous Sediment Not Reportable 02/21/25 22:54 Urine Bacteria 4+ /hpf (NONE) H 02/21/25 22:54 Hyaline Casts 1.65 /lpf 02/21/25 22:54 All radiology interpretation(s) finalized by discharge ED provider radiology interpretation(s): acute findings as noted Discharge Plan Discharge Patient Disposition: Home Clinical Impression: Fracture of right fifth rib, Fracture of right eighth rib, ESBL E. coli carrier, Pyuria Closed rib fracture Qualifiers: Encounter type: initial encounter Rib fracture type: multiple ribs Laterality: right Qualified Code(s): S22.41XA - Multiple fractures of ribs, right side, initial encounter for closed fracture Condition: Stable Prescriptions: New amoxicillin-pot clavulanate 875-125 mg tablet 1 tab PO Q12H Qty: 20 0RF No Action (DME) Diabetic shoes with 3 inserts See Rx Instructions .ROUTE .MEDSUPPLY Qty: 1 0RF Rx Instructions: As directed by LYNNE&O Colace 100 mg capsule 100 mg PO BID PRN (Reason: Constipation) ofloxacin 0.3 % drops 1 drp ophthalmic (eye) QID (DME) diabetic shoes with 3 inserts See Rx Instructions .Route .MEDSUPPLY Qty: 1 0RF Rx Instructions: As directed to home insulin aspart U-100 [Novolog FlexPen U-100 Insulin] 100 unit/mL (3 mL) insulin pen 10 unit SUBCUT TID (DME) FreeStyle Nemesio 2 Sensor Kit See Rx Instructions .ROUTE .MEDSUPPLY Qty: 1 Rx Instructions: As directed (DME) Cam Boot to the Left See Rx Instructions .Route .MEDSUPPLY Qty: 1 0RF Rx Instructions: As directed multivitamin Tablet 1 tab PO QAM atorvastatin 20 mg tablet 20 mg PO QAM duloxetine 30 mg capsule,delayed release(DR/EC) 30 mg PO QAM torsemide 20 mg tablet 20 mg PO QAM cetirizine [Zyrtec] 10 mg Tablet 10 mg PO QAM calcium carbonate-vitamin D3 600 mg-5 mcg (200 unit) Tablet 1 tab PO QAM dorzolamide-timolol 22.3-6.8 mg/mL drops 1 drp ophthalmic (eye) BID Rx Instructions: left eye Lantus Solostar U-100 Insulin 100 unit/mL (3 mL) insulin pen 56 unit SUBCUT BID Eliquis 5 mg tablet 5 mg PO BID 30 Days Qty: 60 0RF Rx Instructions: hold for 3 days, restart 10/05 ondansetron 8 mg tablet,disintegrating 8 mg PO Q6H Qty: 14 0RF Rx Instructions: Take 1/2-1 tab every 6 hours as needed for nausea and vomiting Ozempic 1 mg/dose (4 mg/3 mL) pen injector 1 mg SUBCUT Q7D nystatin 100,000 unit/gram powder 1 applic TOPICAL BID PRN (Reason: galding) tramadol 50 mg tablet 50 mg PO Q6H PRN (Reason: pain) Qty: 16 0RF Discharge Orders: Discharge ED (Routine); Ordered 02/21/25 Ordered By: Sara Faith Referrals: Anette Velazquez MD [Primary Care Provider, Internal Medicine] Discharge Diet: Usual diet Discharge Activity: Resume usual activity and Use walker/crutches as instructed Patient Instructions: Rib Fracture (ED), Urinary Tract Infection in Older Adults (ED), Patient Portal & Jere Instructions Activity Restrictions/Additional Instructions: -Place Lidoderm patches on the right side of the chest. Follow awom-iiz-ogxienx instructions on use. You may require tape over the patches to keep in place. -Use ice on the right side of the chest for pain -Make sure you take deep breaths so you do not get pneumonia with your rib fractures -Tylenol for pain - Wrap a blanket or towel around the chest in order to take deep breaths and hold compression there - Stop your Eliquis. You are at risk for falls, and your risk of falls is greater than your risk of stroke. - Call your doctor on Monday for follow-up next week. - Take your antibiotics as prescribed: Augmentin (amoxicillin/clavulanate) has been sent to the pharmacy. Start in the morning. Use as directed. Take with food. Utilize active culture yogurt or daily probiotic to avoid infectious diarrhea - You have had a special kind of urine infection in the past, and it is important to take your antibiotics as prescribed. Tolerance is difficult with this antibiotic, however it is extremely important. - Return to ED with worsening issues such as falling issues, intolerance of your antibiotics, nausea, vomiting, fevers greater than 100.4 ?F Thank you for choosing [facility] for your healthcare needs today. You have been screened and evaluated and felt safe for discharge. Health conditions do change or evolve sometimes and as such it is important that you follow up with your Primary Doctor to be re checked, 3-5 days is a general good time frame for follow up. You are always welcome to return to the ED for re assessment if your symptoms are worsening or you have new concerns Print Language: Maori Coding Level of Care Code ED Test Engineer for Jared Vallecillo
[2025-02-21 22:58] LABS: Glucose Urine UA Negative (Normal); Nitrate Urine Positive (Negative); Specific Gravity, Urine 1.015 (1.005-1.030)
[2025-02-21 23:03] LABS: Add Urine Microscopic? YES
[2025-02-21 23:29] VITALS: PULSE 83; RESP 16; O2SAT 92
[2025-02-22 00:04] LABS: Hematocrit 37.1 % (36-47); Hemoglobin 11.50 g/dL (11.27-16.99); Mean Corpuscular HGB Conc 31.0 g/dL (30-55); Mean Corpuscular Hemoglobin 25.0 pg (27-33); Mean Corpuscular Volume 80.7 fl (85-98); Nucleated Red Blood Cells % 0 %; Platelet Count 219 10^3/cmm (157-399); Red Blood Count 4.60 10^6/uL (3.85-5.65); White Blood Count 8.59 10^3/uL (3.29-11.43)
[2025-02-22 00:06] LABS: Alanine Aminotransferase 18 U/L (0-33); Albumin Level 3.5 g/dL (3.5-5.2); Alkaline Phosphatase 131 U/L (35-105); Anion Gap 14.2 (5-19); Aspartate Amino Transferase 26 U/L (0-32); Blood Urea Nitrogen 19 mg/dL (8-23); Calcium 9.4 mg/dL (8.5-10.5); Carbon Dioxide 30 mmol/L (22-29); Chloride 101 mmol/L (98-107); Globulin 2.7 g/dL (1.3-4.6); Glucose 198 mg/dL (65-115); Osmolality Calculated 300 mOsm/kg (285-295); Potassium 4.2 mmol/L (3.5-5.1); Sodium 141 mmol/L (136-145); Total Protein 6.2 g/dL (6.6-8.7)
[2025-02-22] MEDS: piperacillin-tazobactam 4.5 GM in sodium chloride 0.9% (plus) 50 ML IV (00:42)
[2025-02-22 01:10] VITALS: BP 143/64; PULSE 82; RESP 16; O2SAT 91
[2025-02-22 01:21] VITALS: BP 143/64; PULSE 81; RESP 18; O2SAT 92
== END 2025-02-22 01:23 | disposition home or self-care (01) ==
PROVIDERS: Emergency Provider Physician Assistant; PCP Internal Medicine
DX: S22.41XA Multiple fractures of ribs, right side, initial encounter for closed fracture (principal); Z22.358 Carrier of other Enterobacterales; R82.81 Pyuria; Z79.4 Long term (current) use of insulin; Z79.01 Long term (current) use of anticoagulants; I25.10 Atherosclerotic heart disease of native coronary artery without angina pectoris; I10 Essential (primary) hypertension; E11.40 Type 2 diabetes mellitus with diabetic neuropathy, unspecified; W19.XXXA Unspecified fall, initial encounter
CPT/HCPCS: 36415; 70450; 71250; 72125; 80053; 81001; 85025; 87077; 87086; 87186; 96365; 99285; J2543; J9999

== ENCOUNTER 2025-02-23 22:33 | Inpatient (IN) | payer MEDICARE, MEDICAID, SELFPAY ==
[2025-02-23 22:41] VITALS: BP 107/57; PULSE 87; RESP 18; TEMP 36.9; O2SAT 94; BMI 32.2
--- OUTSIDE RECORDS SUMMARY | 2025-02-23 22:41 | XMS_ITS | Clinical Summary ---
Author Organization [facility] Address [address] [place] [address] Care Team Providers Care Anatomy And Physiology Instructor Name Role Phone Unavailable Primary Care Provider [...] 10 mg by mouth daily. Active Insulin S[place], Disposable, (Pentips) 31 gauge x 3/16 Needle by [facility].(Non-Drug; Combo Route) route. Active Blood-Glucose Meter by [facility].(Non-Drug; Combo Route) route. Active empagliflozin (Jardiance) 25 [...] blood-glucose meter (ONE TOUCH ULTRA BONUS PACK [facility]) by Misc.(Non-Drug; Combo Route) route. Active apixaban [...] on file Legal Sex Female 9:40 AM RN IV THERAPY Gender Identity Not on file Sexual Orientation Not on file Last Filed Vital Signs Vital Sign Reading Time Taken Comments Blood Pressure - - Pulse - - Temperature - - Respiratory Rate - - Oxygen Saturation - - Inhaled Oxygen Concentration - - Weight 85.3 kg (188 lb) 05/11/2021 2:20 PM RN IV THERAPY Height 162.6 cm (5' 4 ) 05/11/2021 2:20 PM RN IV THERAPY Body Mass Index 32.27 05/11/2021 2:20 PM RN IV THERAPY Plan of Treatment Health Maintenance Due Date Last Done Comments DTAP/TDAP/TD VACCINES (1 - Tdap) 1960 PNEUMOCOCCAL VACCINE 50+ YEARS (1 of 1 - PCV) 05/12/18 92 ZOSTER VACCINE (1 of 2) 1991 OSTEOPOROSIS SCREENING 2006 RSV VACCINE (60+ or ) (1 - 1-dose 75+ series) 2016 INFLUENZA VACCINE (#1) [id number] [place] [address] MEDICAID [place] [facility] DUAL COMPLETE HMO DSNP [facility] [id number]
[2025-02-23 22:49] VITALS: BP 117/72; PULSE 96; O2SAT 98
--- NOTE | 2025-02-23 23:01 | CTR_ITS ---
PROCEDURE INFORMATION: Exam: CT Chest With Contrast; Diagnostic Exam date and time: 02/23/2025 11:45 PM Age: 84 years old Clinical indication: Fever and other: Diarrhea; Prior surgery; Surgery date: 6+ months; Surgery type: Gb; C/O RT sided rib pain with fever and diarrhea. Patient sustained a fall on 02/21/2025 resulting in RT sided rib fractures. ; Additional info: Fall HX rib FX, chest pain, SOB, diarrhea TECHNIQUE: Imaging protocol: Diagnostic computed tomography of the chest with contrast. Radiation optimization: All CT scans at this facility use at least one of these dose optimization techniques: automated exposure control; mA and/or kV adjustment per patient size (includes targeted exams where dose is matched to clinical indication); or iterative reconstruction. Contrast material: OMNI 350; Contrast volume: 80 ml; Contrast route: INTRAVENOUS (IV); COMPARISON: CT chest wo con [id number] 02/21/2025 10:59 PM RADIATION DOSE METRICS: Total DLP (mGy-cm): 2269.19 FINDINGS: Lungs: Unremarkable. No consolidation. No masses. Pleural spaces: No focal consolidation, pleural effusion, or pneumothorax. Heart: Cardiomegaly. Calcified mitral annulus. Lymph nodes: Unremarkable. No enlarged lymph nodes. Vasculature: Atherosclerotic changes of the aorta. Bones/joints: Severe osteoarthritis of the bilateral shoulders. Old, healed bilateral rib fractures. Degenerative changes of the spine. Soft tissues: Unremarkable. Other findings: 81 PROCEDURE INFORMATION: Exam: CT Abdomen And Pelvis With Contrast Exam date and time: 02/23/2025 11:45 PM Age: 84 years old Clinical indication: Fever and other: Diarrhea; Prior surgery; Surgery date: 6+ months; Surgery type: Gb; C/O RT sided rib pain with fever and diarrhea. Patient sustained a fall on 02/21/2025 resulting in RT sided rib fractures. ; Additional info: Fall HX rib FX, chest pain, SOB, diarrhea TECHNIQUE: Imaging protocol: Computed tomography of the abdomen and pelvis with contrast. Radiation optimization: All CT scans at this facility use at least one of these dose optimization techniques: automated exposure control; mA and/or kV adjustment per patient size (includes targeted exams where dose is matched to clinical indication); or iterative reconstruction. Contrast material: OMNI 350; Contrast volume: 80 ml; Contrast route: INTRAVENOUS (IV); COMPARISON: CT abdomen pelvis w con* [id number] 01/30/2025 6:57 PM RADIATION DOSE METRICS: Total DLP (mGy-cm): 2269.19 FINDINGS: Liver: Calcified hepatic and splenic granulomas. Gallbladder and biliary ducts: Cholecystectomy clips Pancreas: Normal. No ductal dilation. Spleen: See Liver finding. Adrenal glands: Normal. No mass. Kidneys and ureters: Normal. No hydronephrosis. Stomach and bowel: Circumferential wall thickening of the sigmoid colon with surrounding inflammation, consistent with colitis. Diverticulosis, without acute focal diverticulitis. Appendix: No evidence of appendicitis. Intraperitoneal space: Unremarkable. No free air. No significant fluid collection. Vasculature: Atherosclerotic changes of the aorta. Lymph nodes: Unremarkable. No enlarged lymph nodes. Urinary bladder: Unremarkable as visualized. Reproductive: Unremarkable as visualized. Bones/joints: Degenerative changes of the spine. Chronic compression deformity of L2 Soft tissues: Unremarkable. CT/CT chest abdpel w/*[id number] IMPRESSION: No focal consolidation, pleural effusion, or pneumothorax. IMPRESSION: Circumferential wall thickening of the sigmoid colon with surrounding inflammation, consistent with colitis.
--- NOTE | 2025-02-23 23:01 | CTR_ITS ---
PROCEDURE INFORMATION: Exam: CT Head Without Contrast Exam date and time: 02/23/2025 11:42 PM Age: 84 years old Clinical indication: Altered mental status/memory loss; Lethargy with confusion. Patient sustained a fall on 02/21/2025. ; Additional info: Fall weakness TECHNIQUE: Imaging protocol: Computed tomography of the head without contrast. Radiation optimization: All CT scans at this facility use at least one of these dose optimization techniques: automated exposure control; mA and/or kV adjustment per patient size (includes targeted exams where dose is matched to clinical indication); or iterative reconstruction. COMPARISON: CT head wo con* [id number] 02/21/2025 10:55 PM RADIATION DOSE METRICS: Total DLP (mGy-cm): 1095.68 FINDINGS: Brain: No acute intracranial hemorrhage. No midline shift or mass effect. No acute territorial infarct. Global age-related cerebral atrophy. Chronic, age related microangiopathy, consistent periventricular and subcortical white matter hypoattenuation. Cerebral ventricles: No ventriculomegaly. Paranasal sinuses: Visualized sinuses are unremarkable. No fluid levels. Mastoid air cells: Visualized mastoid air cells are well aerated. Bones: Unremarkable. No acute fracture. Soft tissues: Unremarkable. CT/CT head wo con* [id number] IMPRESSION: No acute intracranial hemorrhage. No midline shift or mass effect.
[2025-02-23 23:22] LABS: ABG PCO2 33.7 mmHg (35-45); ABG PH Result 7.47 (7.35-7.45); Arterial Blood Gas Hematocrit 34.9 % (37-47); Blood Gas Allen Test Pos; Blood Gas Sample Site Radial, right; Blood Gas Sample Type Arterial; HCO3 ABG 24.6 mmol/L (22-26); PO2 ABG 64.4 mmHg (80.0-100.0)
[2025-02-23 23:39] LABS: Hematocrit 38.2 % (36-47); Hemoglobin 11.40 g/dL (11.27-16.99); Mean Corpuscular HGB Conc 29.8 g/dL (30-55); Mean Corpuscular Hemoglobin 24.8 pg (27-33); Mean Corpuscular Volume 83.2 fl (85-98); Nucleated Red Blood Cells % 0 %; Platelet Count 205 10^3/cmm (157-399); Red Blood Count 4.59 10^6/uL (3.85-5.65); White Blood Count 15.65 10^3/uL (3.29-11.43)
[2025-02-23] MEDS: iohexol 350 mg/mL 500 mL Btl (per mL) IV (23:45)
[2025-02-23 23:49] VITALS: BP 127/74; PULSE 82; O2SAT 97
[2025-02-23 23:54] LABS: Lactic Sepsis W/Reflex 2.4 mmol/L (0.5-2.2)
[2025-02-23 23:58] LABS: Troponin(5th) Baseline 28 ng/L (0-10)
[2025-02-24] VITALS (11 sets, daily range): BP systolic 109–134; BP diastolic 49–78; PULSE 73–86; RESP 16–18; TEMP 36.8–37.1; O2SAT 90–100; BMI 33.3
[2025-02-24 00:05] LABS: Alanine Aminotransferase 13 U/L (0-33); Albumin Level 3.3 g/dL (3.5-5.2); Alkaline Phosphatase 129 U/L (35-105); Anion Gap 17.2 (5-19); Aspartate Amino Transferase 15 U/L (0-32); Blood Urea Nitrogen 19 mg/dL (8-23); Calcium 8.4 mg/dL (8.5-10.5); Carbon Dioxide 23 mmol/L (22-29); Chloride 96 mmol/L (98-107); Globulin 2.4 g/dL (1.3-4.6); Glucose 266 mg/dL (65-115); Magnesium 1.7 mg/dL (1.7-2.3); NT Pro B Type Natriuretic Pept 2337 pg/mL (0-450); Osmolality Calculated 288 mOsm/kg (285-295); Potassium 3.2 mmol/L (3.5-5.1); Sodium 133 mmol/L (136-145); Total Protein 5.7 g/dL (6.6-8.7)
[2025-02-24 00:16] LABS: Glucose Urine UA 2+ (Normal); Nitrate Urine Negative (Negative); Specific Gravity, Urine 1.015 (1.005-1.030)
[2025-02-24 00:19] LABS: Reflex Lactate Order REFLEX LACTIC ORDERD
[2025-02-24 00:21] LABS: Add Urine Microscopic? YES; Universal Test for UA Present (0)
[2025-02-24] MEDS: sodium chloride 0.9% 2,558.25 ML 2558.25 ML IV (00:44)
[2025-02-24] MEDS: piperacillin-tazobactam 4.5 GM in sodium chloride 0.9% (plus) 50 ML IV (00:45)
--- NOTE | 2025-02-24 01:08 | W.ED.WEAKNES ---
HPI - Weakness General: Chief complaint: Weakness Stated complaint: Fever\Possible UTI\Confused Time Seen by Provider: 02/23/25 22:51 History of Present Illness: Patient is an elderly female presenting with increased generalized weakness, fever, and confusion. She has experienced two falls within the past week - one resulting in left rib fractures and another on Monday causing an ankle fracture that wasn't identified until Monday. She reports significant weakness all over and becomes very winded with minimal exertion. Patient was recently diagnosed with a UTI and started on Augmentin two days ago (first dose Monday evening), but continues to have fever that reportedly started today. She has been experiencing multiple episodes of diarrhea as a side effect of the antibiotic. Patient also reports some coughing that is painful due to her rib fractures, though she denies productive cough. She previously had abdominal pain but states this has improved. She denies nausea or vomiting. The patient has been notably lethargic, reportedly sleeping most of the day, and demonstrates some confusion. Related Data Home Medications ?Medication ?Instructions ?Recorded ?Confirmed atorvastatin 20 mg tablet 20 mg PO QAM 11/07/21 01/20/25 multivitamin 1 tab PO QAM 11/07/21 01/20/25 duloxetine 30 mg capsule,delayed 30 mg PO QAM 05/12/23 01/20/25 release calcium 600 mg (as 1 tab PO QAM 07/14/23 01/20/25 carbonate)-vitamin D3 5 mcg (200 unit) tablet cetirizine 10 mg tablet (Zyrtec) 10 mg PO QAM 07/14/23 01/20/25 dorzolamide 22.3 mg-timolol 6.8 1 drp ophthalmic (eye) BID 07/14/23 01/20/25 mg/mL eye drops torsemide 20 mg tablet 20 mg PO QAM 07/14/23 01/20/25 docusate sodium 100 mg capsule 100 mg PO BID PRN Constipation 05/16/24 01/20/25 (Colace) insulin aspart U-100 100 unit/mL 10 unit SUBCUT TID 05/16/24 01/20/25 (3 mL) subcutaneous pen (Novolog FlexPen U-100 Insulin aspart) insulin glargine 100 unit/mL (3 56 unit SUBCUT BID 05/16/24 01/20/25 mL) subcutaneous pen (Lantus Solostar U-100 Insulin) nystatin 100,000 unit/gram topical 1 applic topical BID PRN galding 09/26/24 01/20/25 powder semaglutide 1 mg/dose (4 mg/3 mL) 1 mg SUBCUT Q7D 09/26/24 01/20/25 subcutaneous pen injector (Ozempic) flash glucose sensor (FreeStyle #1 ea 10/09/24 01/20/25 Nemesio 2 Sensor kit) ofloxacin 0.3 % eye drops 1 drp ophthalmic (eye) QID 12/03/24 01/20/25 Previous Rx's ?Medication ?Instructions ?Recorded Diabetic shoes with 3 inserts #1 ea 10/20/20 diabetic shoes with 3 inserts #1 ea 08/02/23 apixaban 5 mg tablet (Eliquis) 5 mg PO BID 30 days #60 tabs 10/02/24 tramadol 50 mg tablet 50 mg PO Q6H PRN pain #16 tabs 12/30/24 ondansetron 8 mg disintegrating 8 mg PO Q6H #14 tabs 01/30/25 tablet Cam Boot to the Left #1 ea 02/19/25 amoxicillin 875 mg-potassium 1 tab PO Q12H #20 tabs 02/21/25 clavulanate 125 mg tablet Allergies Allergy/AdvReac Type Severity Reaction Status Date / Time diphenhydramine (From Allergy Unknown unknown Verified 01/20/25 15:04 Benadryl) tetracycline Allergy Unknown unknown Verified 01/20/25 15:04 [facility] PFSH: Medical History Humerus fracture Type 2 diabetes mellitus Tachy-han syndrome UTI (urinary tract infection) Fall Moderate mitral regurgitation Acute DE, inferior wall High anion gap metabolic acidosis Diabetes with ketoacidosis Cholelithiases Vomiting Atrial fibrillation, chronic Fracture of humerus, left, closed Pes planus of both feet ALISTAIR inhibitor intolerance Essential hypertension Warfarin anticoagulation Lower extremity deep venous thrombosis CAD (coronary artery disease) Fracture of greater trochanter of right femur Peripheral vascular disease Onychodystrophy Diabetic neuropathy associated with diabetes mellitus due to underlying condition Surgical History Status post laparoscopic cholecystectomy Coronary angioplasty status PCI to RCA?2016 Family History Mother Diabetes Denies family history of CAD (coronary artery disease) Clotting disorder Dementia Hyperlipidemia Psychiatric illness Chronic kidney disease (CKD) Suicide Anesthesia complication Bleeding disorder Family history of premature coronary artery disease Lung disease Cancer Hypertension Stroke Social History Smoking and tobacco/nicotine status: never used tobacco/nicotine Second hand smoke exposure: Yes Alcohol intake: never Substance/Drug Use: never Physical Exam Const: GENERAL APPEARANCE: cooperative, ill appearing and frail appearing HENMT: COMMON NORMALS: normocephalic, atraumatic and Normal external nose present HEAD & SCALP: normocephalic and atraumatic FACE & SINUS: normal facial exam and face symmetric NOSE: Normal external nose present Eye: COMMON NORMALS: Equal, round and reactive pupils present and EOMs intact bilaterally PUPIL: Yes Equal, round and reactive pupils present Neck/C-Spine: GENERAL: Yes trachea midline Chest: CHEST: Yes Symmetrical chest wall rise Resp: COMMON NORMALS: normal respiratory effort, No retractions, No use of accessory muscles and clear to auscultation bilaterally AUSCULTATION: clear to auscultation bilaterally Cardio: COMMON NORMALS: regular rate and regular rhythm RATE: regular rate RHYTHM: regular rhythm HEART SOUNDS: Murmur heart sound present GI: INSPECTION: Yes abdominal distension (mild) PALPATION: Yes Tenderness to palpation present (GI) (diffuse) Extremity: COMMON NORMALS: no pedal edema Neuro: BRITNEY COMA SCALE: document GCS findings [place] coma scale eye opening: Spontaneous [place] coma scale verbal response: Orientated Britney coma scale motor response: Obey commands [place] coma scale total score: 15 SENSORY EXAM: Yes extremities (intact) Psych: COMMON NORMALS: speech normal SPEECH: Yes normal speech Skin: COMMON NORMALS: no rashes or lesions noted GENERAL SKIN EXAM: no rashes or lesions noted Course Vital Signs: Vital signs: Vital Signs Temperature 98.4 F 02/23/25 22:41 Pulse Rate 82 02/23/25 23:49 Respiratory Rate 18 02/23/25 22:41 Blood Pressure 127/74 02/23/25 23:49 Pulse Oximetry 97 02/23/25 23:49 Oxygen Delivery Me thod Room Air 02/23/25 23:49 MDM - Weakness Medical Decision Making Vitals have been stable here. She is afebrile here. White blood cell count is 15. 7. Lactic acid is minimally elevated. Potassium is low at 3.2. Potassium is repleted. She is given a sepsis bolus. CRP is 77.6. Antibiotics are started following blood cultures. CT reveals colitis. She is weak, not able to walk or get around. She will require admission. Stool samples been sent. Spoke with hospitalist who agrees to see the patient. Lab Data 02/23/25:02/23/25: Radiology Impressions Chest/Abdomen/Pelvis CT 02/23/25: IMPRESSION: No focal consolidation, pleural effusion, or pneumothorax. IMPRESSION: Circumferential wall thickening of the sigmoid colon with surrounding inflammation, consistent with colitis. ADDENDUM: 02/24/25 0009 Please disregard the following sentence: Other findings: [address] 02/23/25: IMPRESSION: No acute intracranial hemorrhage. No midline shift or mass effect. Laboratory Results WBC 15.65 10^3/uL (3.29-11.43) H 02/23/25: RBC 4.59 10^6/uL (3.85-5.65) 02/23/25: Hgb 11.40 g/dL (11.27-16.99) 02/23/25: Hct 38.2 % (36-47) 02/23/25: MCV 83.2 fl (85-98) L 02/23/25: MCH 24.8 pg (27-33) L 02/23/25: MCHC 29.8 g/dL (30-55) L 02/23/25: RDW 18.7 % (12.1-15.1) H 02/23/25: Plt Count 205 10^3/cmm (157-399) 02/23/25: MPV 9.4 fL (7.4-10.4) 02/23/25: Neut % (Auto) 78.5 % 02/23/25: Lymph % (Auto) 6.6 % 02/23/25: [place] % (Auto) 13.0 % 02/23/25 23:25 Eos % (Auto) 0.4 % 02/23/25 23:25 Baso % (Auto) 0.3 % 02/23/25 23:25 Neut # (Auto) 12.28 10^3/uL (1.8-7.7) H 02/23/25 23:25 Lymph # (Auto) 1.0 10^3/uL (0.8-4.8) 02/23/25 23:25 [place] # (Auto) 2.0 10^3/uL (0.2-0.9) H 02/23/25 23:25 Eos # (Auto) 0.1 10^3/uL (0.0-0.8) 02/23/25 23: Baso # (Auto) 0.1 10^3/uL (0.0-0.1) 02/23/25 23:25 Nucleated RBC % (auto) 0 % 02/23/25 23: Nucleated RBCs # 0.0 /100WBC 02/23/25 23:25 Specimen Type Arterial 02/23/25 23:11 Sample Site Radial, right 02/23/25 23:11 ABG pH 7.47 (7.35-7.45) H 02/23/25 23:11 ABG pCO2 33.7 mmHg (35-45) L 02/23/25 23:11 ABG pO2 64.4 mmHg (80.0-100.0) L 02/23/25 23:11 ABG HCO3 24.6 mmol/L (22-26) 02/23/25 23:11 ABG Base Excess 1.3 mmol/L (-2.0-2.0) 02/23/25 23:11 Markel Test Pos 02/23/25 23:11 Hematocrit 34.9 % (37-47) L 02/23/25 23:11 O2 Delivery Device Room air 02/23/25 23:11 Equipment Installation Professional ID [email or web address] 02/23/25 23:11 Sodium 133 mmol/L (136-145) L 02/23/25 23:25 Potassium 3.2 mmol/L (3.5-5.1) L 02/23/25 23:25 Chloride 96 mmol/L (98-107) L 02/23/25 23:25 Carbon Dioxide 23 mmol/L (22-29) 02/23/25 23:25 Anion Gap 17.2 (5-19) 02/23/25 23:25 BUN 19 mg/dL (8-23) 02/23/25 23:25 Creatinine 0.9 mg/dL (0.5-0.9) 02/23/25 23:25 GFR Calculation Not Reportable 02/23/25 23:25 Glucose 266 mg/dL (65-115) H 02/23/25 23:25 Calculated Osmolality 288 mOsm/kg (285-295) 02/23/25 23:25 Lactic Acid 2.4 mmol/L (0.5-2.2) H 02/23/25 23:25 Calcium 8.4 mg/dL (8.5-10.5) L 02/23/25 23: Magnesium 1.7 mg/dL (1.7-2.3) 02/23/25 23:25 Total Bilirubin 0.9 mg/dL (0.15-1.2) 02/23/25 23:25 AST 15 U/L (0-32) 02/23/25 23:25 ALT 13 U/L (0-33) 02/23/25 23:25 Alkaline Phosphatase 129 U/L (35-105) H 02/23/25 23:25 Creatine Kinase 43 U/L (26-192) 02/23/25 23:25 Troponin T Baseline 28 ng/L (0-10) H 02/23/25 23:25 C-Reactive Protein 77.6 mg/L (0.0-4.9) H 02/23/25 23:25 NT-Pro-B Natriuret Pep 2337 pg/mL (0-450) H 02/23/25 23:25 Total Protein 5.7 g/dL (6.6-8.7) L 02/23/25 23:25 Albumin 3.3 g/dL (3.5-5.2) L 02/23/25 23:25 Globulin 2.4 g/dL (1.3-4.6) 02/23/25 23:25 Urine Color Yellow (Yellow) 02/24/25 00:10 Urine Appearance Clear (CLEAR) 02/24/25 00:10 Urine pH 5.0 (5-7) 02/24/25 00:10 Ur Specific [place] 1.015 (1.005-1.030) 02/24/25 00:10 Urine Protein Negative (Negative) 02/24/25 00:10 Urine Glucose (UA) 2+ (Normal) H 02/24/25 00:10 Urine Ketones Negative (Negative) 02/24/25 00:10 Urine Blood Negative (Negative) 02/24/25 00:10 Urine Nitrate Negative (Negative) 02/24/25 00:10 Urine Bilirubin Negative (Negative) 02/24/25 00:10 Urine Urobilinogen 0.2 mg/dL (Negative) 02/24/25 00:10 Ur Leukocyte Esterase Negative (Negative) 02/24/25 00:10 Urine RBC 0-2 /hpf (0-2) 02/24/25 00:10 Urine WBC 6-10 /hpf (0-5) 02/24/25 00:10 Ur Squamous Epith Cells 6-10 /hpf (0-5) 02/24/25 00:10 Amorphous Sediment Not Reportable 02/24/25 00:10 Urine Bacteria None seen /hpf (NONE) 02/24/25 00:10 Hyaline Casts 33.49 /lpf 02/24/25 00:10 All radiology interpretation(s) finalized by discharge Discharge Plan Discharge Patient Disposition: Admitted As Inpatient Clinical Impression: Colitis Condition: Stable Coding Level of Care Code ED Dandy Tender for Jared Vallecillo
[2025-02-24] MEDS: potassium chloride oral liq 20 mEq/15 mL UDC 40 MEQ PO (01:29)
--- NOTE | 2025-02-24 01:32 | PM.HP ---
Providers/Chief Complaint Admitting Physician: Chong Ingram DO Primary Care Provider: Anette Velazquez MD Chief Complaint: Fever\Possible UTI\Confused History of Present Illness Kianna Dotson is a 84 year old female Medications/Allergies Home Medications ?Medication ?Instructions ?Recorded ?Confirmed ?Last Taken ?Type Diabetic shoes with 3 inserts #1 ea 10/20/20 01/20/25 Unknown Rx atorvastatin 20 mg tablet 20 mg PO QAM 11/07/21 01/20/25 12/27/24 History multivitamin 1 tab PO QAM 11/07/21 01/20/25 12/27/24 History duloxetine 30 mg capsule,delayed 30 mg PO QAM 05/12/23 01/20/25 12/27/24 History release calcium 600 mg (as 1 tab PO QAM 07/14/23 01/20/25 12/27/24 History carbonate)-vitamin D3 5 mcg (200 unit) tablet cetirizine 10 mg tablet (Zyrtec) 10 mg PO QAM 07/14/23 01/20/25 12/27/24 History dorzolamide 22.3 mg-timolol 6.8 1 drp ophthalmic (eye) BID 07/14/23 01/20/25 12/27/24 History mg/mL eye drops torsemide 20 mg tablet 20 mg PO QAM 07/14/23 01/20/25 12/27/24 History diabetic shoes with 3 inserts #1 ea 08/02/23 01/20/25 Unknown Rx docusate sodium 100 mg capsule 100 mg PO BID PRN Constipation 05/16/24 01/20/25 09/25/24 History (Colace) insulin aspart U-100 100 unit/mL 10 unit SUBCUT TID 05/16/24 01/20/25 12/27/24 History (3 mL) subcutaneous pen (Novolog FlexPen U-100 Insulin aspart) insulin glargine 100 unit/mL (3 56 unit SUBCUT BID 05/16/24 01/20/25 12/29/24 History mL) subcutaneous pen (Lantus 28 Solostar U-100 Insulin) nystatin 100,000 unit/gram topical 1 applic topical BID PRN galding 09/26/24 01/20/25 Unknown History powder semaglutide 1 mg/dose (4 mg/3 mL) 1 mg SUBCUT Q7D 09/26/24 01/20/25 12/18/24 History subcutaneous pen injector (Ozempic) apixaban 5 mg tablet (Eliquis) 5 mg PO BID 30 days #60 tabs 10/02/24 01/20/25 12/27/24 Rx flash glucose sensor (FreeStyle #1 ea 10/09/24 01/20/25 Unknown History Nemesio 2 Sensor kit) ofloxacin 0.3 % eye drops 1 drp ophthalmic (eye) QID 12/03/24 01/20/25 12/27/24 History tramadol 50 mg tablet 50 mg PO Q6H PRN pain #16 tabs 12/30/24 01/20/25 Unknown Rx ondansetron 8 mg disintegrating 8 mg PO Q6H #14 tabs 01/30/25 Unknown Rx tablet Cam Boot to the Left #1 ea 02/19/25 Unknown Rx amoxicillin 875 mg-potassium 1 tab PO Q12H #20 tabs 02/21/25 Unknown Rx clavulanate 125 mg tablet Allergies Allergy/AdvReac Type Severity Reaction Status Date / Time diphenhydramine (From Allergy Unknown unknown Verified 01/20/25 15:04 Benadryl) tetracycline Allergy Unknown unknown Verified 01/20/25 15:04 PFSH Acute PFSH: Medical History Humerus fracture Type 2 diabetes mellitus Tachy-han syndrome UTI (urinary tract infection) Fall Moderate mitral regurgitation Acute MD, inferior wall High anion gap metabolic acidosis Diabetes with ketoacidosis Cholelithiases Vomiting Atrial fibrillation, chronic Fracture of humerus, left, closed Pes planus of both feet ALISTAIR inhibitor intolerance Essential hypertension Warfarin anticoagulation Lower extremity deep venous thrombosis CAD (coronary artery disease) Fracture of greater trochanter of right femur Peripheral vascular disease Onychodystrophy Diabetic neuropathy associated with diabetes mellitus due to underlying condition Surgical History Status post laparoscopic cholecystectomy Coronary angioplasty status PCI to RCA?2016 Family History Mother Diabetes Denies family history of CAD (coronary artery disease) Clotting disorder Dementia Hyperlipidemia Psychiatric illness Chronic kidney disease (CKD) Suicide Anesthesia complication Bleeding disorder Family history of premature coronary artery disease Lung disease Cancer Hypertension Stroke Social History Smoking and tobacco/nicotine status: never used tobacco/nicotine Second hand smoke exposure: Yes Alcohol intake: never Substance/Drug Use: never Vitals/I&O/Wt Last Vital Signs Temp 98.4 F 02/23/25 22:41 Pulse 82 02/23/25 23:49 Resp 18 02/23/25 22:41 BP 127/74 02/23/25 23:49 Pulse Ox 97 02/23/25 23:49 O2 Del Method Room Air 02/23/25 23:49 02/23/25 02/23/25 02/24/25 14:59 22:59 06:59 Intake Total 50 / 50 Balance 50 / 50 Weight last 48 hrs Weight 85.275 kg Data 02/23/25 23:25 02/23/25 23:25 A&P Assessment and plan 1. Colitis: Plan: START OF MEDICAL REPORT Chong Ingram D.O. Board Certified Internal Medicine Chief Complaint: Weakness, diarrhea History of Present Illness: The patient is an 84-year-old female who present chief complaint of 24 hour history of weakness and diarrhea. The patient states she has had numerous episodes of diarrhea however is unable to process provide a precise number. The patient presented to the emergency department at this facility 2 days prior to hospitalization with generalized weakness and was found to have urinary tract infection for which he was prescribed oral antibiotics. In the 48 hours leading up to her hospitalization she admits to fever, rigors, nausea, emesis, dysuria, dyspnea. She denies cough, wheeze, abdominal pain, myalgia, chest pain, melena, hematochezia. The patient presents for further evaluation I have explained to the patient (if they are coherent, able to comprehend, and/or are communicative) and/or their family member(s), friend(s), guardian(s), and/or other individual(s) present on the patient?s behalf (if present) the patient?s current medical condition, the patient?s current plan of care, and I have answered all questions posed to me. Family History: Diabetes Physical Examination: General: -Alert. -No acute distress. -No dyspnea. -No tachypnea. ? Obese Head: -Atraumatic. -Normocephalic. Eyes: -Pupils equally round and reactive to light and accommodation. -Extraocular muscles intact. Neurological: -Cranial nerves II-XII intact. Neck: -No jugular venous distention. -No thyromegaly. -No cervical lymphadenopathy. Heart: -Regular rate. -Regular rhythm. ? 3/6 systolic murmur -No gallops. -No rubs. Lungs: -No wheeze. -No rhonchi. -No rales. Abdomen: -Normal bowel sounds in all four quadrants. -No rebound. -No guarding. -No tenderness. Extremities: -2/4 pulse in all four extremities. -No clubbing. -No cyanosis. -No edema. -No calf tenderness present bilaterally. -Negative Carleen?s sign bilaterally. Musculoskeletal: -5/5 bilateral upper extremity strength. -5/5 bilateral lower extremity strength. -Sensorium of bilateral upper extremities are equal and intact. -Sensorium of bilateral lower extremities are equal and intact. Additional Details / Additional Findings / Exceptions / Miscellaneous: Left lower extremity is in a boot Pertinent Laboratory Results / Pertinent Radiology Results / Pertinent Diagnostic Results / Pertinent Vital Signs: Blood pressure 1 2774, heart rate 82, respirations 18, temperature 98.4?, 97% room air. Sodium 133, potassium 3.2, calcium 8.4, alkaline phosphatase 129, white blood count 15.7, MCV 83.2 Social History: Caffeine: Coffee Tobacco: Never Alcohol: Denies Pets: Denies + Allergies: Benadryl, tetracycline Code Status: DNR, DNI Admission Date: 1:29 AM on February 24, 2025 Discharge Date: History of Present Illness / Hospital Course Summary: The patient is an 84-year-old female who present chief complaint of 24 hour history of weakness and diarrhea. The patient states she has had numerous episodes of diarrhea however is unable to process provide a precise number. The patient presented to the emergency department at this facility 2 days prior to hospitalization with generalized weakness and was found to have urinary tract infection for which he was prescribed oral antibiotics. In the 48 hours leading up to her hospitalization she admits to fever, rigors, nausea, emesis, dysuria, dyspnea. She denies cough, wheeze, abdominal pain, myalgia, chest pain, melena, hematochezia. The patient presents for further evaluation Surgical History: Cholecystectomy, history acne, ?2, cardiac stent placement, right foot toe amputation, right ankle surgery Assessment / Plan + Medical History: Colitis. Stool panel pending. Flagyl 500 mg IV every 8 hours plus IV normal saline 75 ML?s per hour Glaucoma History of constipation Per graph seasonal allergies Urinary tract infection. Rocephin 1 g IV daily Coronary artery disease, status post MD, status post stent Hyponatremia. Will monitor sodium level intermittently. IV normal saline 75 ML?s per hour Hypokalemia. We will monitor potassium level intermittently and supplemented as necessary Hypocalcemia. We will monitor calcium level intermittently and supplemented as necessary Diabetes. Will check fasting glucose every before meals and at bedtime and provide insulin sliding scale per graph hyperlipidemia Hypertension Obesity. The patient will be counseled regarding lifestyle modification Depression History of iron deficiency Microcytosis Aortic stenosis. Strict I/O. Daily weight. Left distal fibular fracture. Outpatient follow-up with orthopedic surgery or podiatry upon discharge as directed Atrial fibrillation. Telemetry monitoring. Eliquis 5 mg by mouth twice a day Neuropathy Peripheral vascular disease Diverticulosis Osteoarthritis Thyroid nodule. The patient will need to schedule thyroid ultrasound with her primary care physician or a provider DVT prophylaxis. Eliquis 5 mg by mouth twice a day Consultations: None Disposition: Anticipate discharge in 24-72 hours. Physical therapy and occupational therapy evaluations have been ordered Left distal fibular fracture. Outpatient follow-up with orthopedic surgery or podiatry upon discharge as directed Thyroid nodule. The patient will need to schedule thyroid ultrasound with her primary care physician or a provider + Discharge Diet: 2 g sodium, cardiac, ADA Discharge Activity: Discharge Condition: Discharge Medications: Time Spent with Patient: Greater than 30 minutes. Chong Ingram D.O. Board Certified Internal Medicine END OF MEDICAL REPORT PDMP PDMP Reviewed: Not Reviewed Attestations Medical Necessity Statement*: Anticipate discharge in 24-72 hours. Coding Level of Care Code Acute Code for Chg Fwd Diagnoses Colitis K52.9
[2025-02-24 02:01] LABS: Troponin 5 2HR 25.60 ng/L (0-10)
[2025-02-24 02:02] LABS: Troponin 5 2HR Delta -2.40 ABS# (0-10)
--- NOTE | 2025-02-24 02:02 | PC.NURSE ---
extra 558ml NS given as part of bolus due to per report from ER 2L of 2558 ml currently running
[2025-02-24 02:48] LABS: Anion Gap 12.7 (5-19); Blood Urea Nitrogen 17 mg/dL (8-23); Calcium 7.7 mg/dL (8.5-10.5); Carbon Dioxide 25 mmol/L (22-29); Chloride 100 mmol/L (98-107); Creatinine Clr Calc Pharmacy 50.8973; Glucose 238 mg/dL (65-115); Lactic Acid level (Lactate) 2.2 mmol/L (0.5-2.2); Osmolality Calculated 287 mOsm/kg (285-295); Potassium 3.7 mmol/L (3.5-5.1); Sodium 134 mmol/L (136-145)
[2025-02-24 02:54] LABS: Hematocrit 33.7 % (36-47); Hemoglobin 10.50 g/dL (11.27-16.99); Mean Corpuscular HGB Conc 31.2 g/dL (30-55); Mean Corpuscular Hemoglobin 25.2 pg (27-33); Mean Corpuscular Volume 80.8 fl (85-98); Nucleated Red Blood Cells % 0 %; Platelet Count 180 10^3/cmm (157-399); Red Blood Count 4.17 10^6/uL (3.85-5.65); White Blood Count 13.37 10^3/uL (3.29-11.43)
[2025-02-24] MEDS: metroNIDAZOLE IV 500 MG/100 ML PREMIX 100 MG IV ×2 (02:56→10:34)
--- NOTE | 2025-02-24 05:03 | ECG_ITS ---
[facility] Date: 2025-02[facility]24 Pat Name: Kianna Dotson Department: Room: 268 Gender: Female Expediter Clerk: : 1940 Requested By: Amos Mckeon Order Number: [id number] Daljit MD: Cathleen Vu M.D. Measurements Intervals [place] Rate: 80 P: 0 MI: 0 QRS: 21 QRSD: 96 T: 0 QT: 380 QTc: 441 Interpretive Statements ATRIAL FLUTTER/TACHYCARDIA WITH ABERRANT CONDUCTION OR VENTRICULAR PREMATURE COMPLEXES NONSPECIFIC ST & T-WAVE ABNORMALITY ABNORMAL RHYTHM ECG Compared to ECG 08/10/2023 15:44:57 Ventricular premature complex(es) now present Aberrant conduction of supraventricular beat(s) now present T-wave abnormality still present Electronically Signed On 02-27-2025 00:25:56 CREDIT RATING CHECKER by Cathleen Vu M.D. [email or web address]
[2025-02-24] MEDS: cefTRIAXone 1,000 mg SDV 1000 MG IVP (05:39)
[2025-02-24 05:47] LABS: Troponin 5 6HR 26.07 ng/L (0-10)
[2025-02-24 05:48] LABS: Troponin 5 6HR Delta -1.93 ng/L (0-12)
--- NOTE | 2025-02-24 13:48 | P.PN_ITS ---
Vitals/I&O/Wt Last Vital Signs Temp 98.8 F 02/24/25 10:53 Pulse 78 02/24/25 10:53 Resp 18 02/24/25 10:53 BP 117/49 02/24/25 10:53 Pulse Ox 94 02/24/25 10:53 O2 Del Method Room Air 02/24/25 10:53 02/23/25 02/24/25 02/24/25 22:59 06:59 14:59 Intake Total 2858.25 / 2858.25 480 / 480 Output Total 1000 / 1000 1400 / 1400 Balance 1858.25 / 1858.25 -920 / -920 Weight last 48 hrs Weight 87.997 kg Weight 88.133 kg Weight 85.275 kg Physical Exam 2 Const: COMMON NORMALS: no acute distress and patient oriented x3 Resp: COMMON NORMALS: normal respiratory effort, No retractions, No use of accessory muscles and clear to auscultation bilaterally AUSCULTATION: clear to auscultation bilaterally Cardio: COMMON NORMALS: regular rate, regular rhythm, S1 normal heart sound present and S2 normal heart sound present RATE: regular rate RHYTHM: r egular rhythm HEART SOUNDS: S1 normal heart sound present and S2 normal heart sound present GI: COMMON NORMALS: Normal to inspection, nondistended, normoactive bowel sounds present and non-tender Extremity: COMMON NORMALS: no pedal edema Neuro: COMMON NORMALS: patient oriented x3 Psych: COMMON NORMALS: mental status grossly normal Data 02/24/25 02:22 02/24/25 02:22 Micro: Microbiology 02/23/25 23:15 Blood Culture - Preliminary Blood SPECIMEN COLLECTED 02/23/25 23:25 Blood Culture - Preliminary Blood SPECIMEN COLLECTED A&P Assessment and plan 1. Colitis: 2. UTI due to extended-spectrum beta lactamase (ESBL) producing Escherichia coli: Plan: ESBL E. coli UTI - IV meropenem Colitis, diarrhea IMPRESSION: Circumferential wall thickening of the sigmoid colon with surrounding inflammation, consistent with colitis. Plan - Stool studies - Will await C. difficile testing - Meropenem as above Hyponatremia, resolving Hypokalemia, resolving Hypocalcemia, monitor Coronary artery disease, status post [place], status post stent Type 2 diabetes mellitus, low-dose insulin sliding scale Hypertension, hold blood pressure medications Aortic stenosis. Strict I/O. Daily weight. Left distal fibular fracture XR/XR ankle LT min 3V* [id number] IMPRESSION: 1. Nondisplaced lower fibular fracture and soft tissue swelling. 2. Advanced degenerative changes as above. Plan - Left foot in a boot Rib fractures acute fracture 5th and 8th rib - pain control, incentive spirometer, flutter valve Atrial fibrillation - Eliquis Thyroid nodule. Will need to follow-up with primary care DVT prophylaxis Eliquis therapy PDMP PDMP Reviewed: Not Reviewed Attestations 2 Medical Necessity Statement*: Patient requires hospitalization for ESBL E. coli UTI, colitis, left distal fibula fracture Diagnoses Colitis K52.9 UTI due to extended-spectrum beta lactamase (ESBL) producing Escherichia coli N39.0; B96.29; Z16.12
[2025-02-24 16:08] LABS: C.Diff PCR (Lab) POSITIVE (Negative)
[2025-02-24 17:03] LABS: Clostridioides Difficile Toxin POSITIVE (Negative)
[2025-02-24] MEDS: dorzolamide/timolol Op Soln 10 mL Btl 1 DROP EYE-BOTH (17:39)
[2025-02-25] VITALS (9 sets, daily range): BP systolic 116–139; BP diastolic 61–74; PULSE 65–90; RESP 16–18; TEMP 36.5–37; O2SAT 91–95; BMI 33.3
[2025-02-25] MEDS: ATORVASTATIN 20 MG TABLET PO (05:24)
[2025-02-25] MEDS: dorzolamide/timolol Op Soln 10 mL Btl 1 DROP EYE-BOTH ×2 (05:25→17:11)
[2025-02-25 05:35] LABS: Hematocrit 34.1 % (36-47); Hemoglobin 10.20 g/dL (11.27-16.99); Mean Corpuscular HGB Conc 29.9 g/dL (30-55); Mean Corpuscular Hemoglobin 24.8 pg (27-33); Mean Corpuscular Volume 82.8 fl (85-98); Nucleated Red Blood Cells % 0 %; Platelet Count 189 10^3/cmm (157-399); Red Blood Count 4.12 10^6/uL (3.85-5.65); White Blood Count 12.29 10^3/uL (3.29-11.43)
[2025-02-25 06:03] LABS: Alanine Aminotransferase 10 U/L (0-33); Albumin Level 2.7 g/dL (3.5-5.2); Alkaline Phosphatase 107 U/L (35-105); Anion Gap 9.5 (5-19); Aspartate Amino Transferase 11 U/L (0-32); Blood Urea Nitrogen 16 mg/dL (8-23); Calcium 7.8 mg/dL (8.5-10.5); Carbon Dioxide 23 mmol/L (22-29); Chloride 106 mmol/L (98-107); Creatinine Clr Calc Pharmacy 57.2137; Globulin 2.6 g/dL (1.3-4.6); Glucose 224 mg/dL (65-115); Osmolality Calculated 288 mOsm/kg (285-295); Potassium 3.5 mmol/L (3.5-5.1); Sodium 135 mmol/L (136-145); Total Protein 5.3 g/dL (6.6-8.7)
[2025-02-25] MEDS: insulin glargine 100 units/1 mL 15 UNIT SUBCUT ×2 (09:02→21:35)
--- NOTE | 2025-02-25 10:18 | PC.CHAP ---
Pastoral Care Encounter/Spiritual Assessment Type of Contact [] Declined medical facilities section director visit [] Patient/Family/Request visit [] Outpatient visit [] Follow-up visit [] Physician referral [] Code/Alert [] Routine visit [] Staff referral [] Actively dying [] Patient sleeping [] Family support [] [] Out of room [] Palliative care [] [] Receiving care in room [] Pre-surgical visit [] Trauma [] Long length of stay [] ICU visit [x] Other:Contact precautions. No visit. Relational/Emotional Strength [] Patient feels connected with others/family/visitors/staff [] Distress [] Loneliness/isolation [] Abandonment Spirituality of Patient [] Person of Althea [] Attends Yazidi of their Althea [] Believes in Prayer [] Reads Bible or Anabaptist materials [] There are Spiritual issues to be addressed Public Events Facilities Rental Manager Interventions [] Prayer [] Active listening [] Non-anxious presence [] Spiritual/emotional support [] Crisis/trauma care [] Spiritual counseling [] Bereavement support [] Provided bereavement packet [] Provided Bible/devotional materials [] Provided toy/stuffed animal, coloring book to patient or family member [] Provided Communion [] Anointing/[place] [] Salvation [] Completed spiritual assessment [] Other: Impact on Illness or Injury [] Angry [] Fearful [] Anxious [] Often cries [] Exhaustion [] Unable to work [] Unable to attend sikhism [] Unable to walk/stand [] Unable to read [] Unable to drive [] Unable to eat/drink [] Unable to sleep [] Unable to be with family [] Patient intubated [] Other: Summary Time spent with patient
--- NOTE | 2025-02-25 16:15 | P.PN_ITS ---
Subjective 2 Subjective: Patient was seen this morning, alert oriented x 3, following commands, she reports that her diarrhea is improving, no abdominal pain, is passing gas from below, does report generalized weakness, fatigue Vitals/I&O/Wt Last Vital Signs Temp 97.7 F 02/25/25 11:13 Pulse 90 02/25/25 11:13 Resp 18 02/25/25 11:13 BP 116/70 02/25/25 11:13 Pulse Ox 92 02/25/25 11:13 O2 Del Method Room Air 02/25/25 11:13 02/25/25 02/25/25 02/25/25 06:59 14:59 22:59 Intake Total 600 / 600 Output Total 0 / 2100 Balance 0 / 110 600 / 600 Weight last 48 hrs Weight 87.997 kg Weight 87.997 kg Weight 87.997 kg Weight 88.133 kg Weight 85.275 kg Physical Exam 2 Const: COMMON NORMALS: no acute distress and patient oriented x3 Resp: COMMON NORMALS: normal respiratory effort, No retractions, No use of accessory muscles and clear to auscultation bilaterally AUSCULTATION: clear to auscultation bilaterally Cardio: COMMON NORMALS: regular rate, regular rhythm, S1 normal heart sound present and S2 normal heart sound present RATE: regular rate RHYTHM: r egular rhythm HEART SOUNDS: S1 normal heart sound present and S2 normal heart sound present GI: COMMON NORMALS: Normal to inspection, nondistended, normoactive bowel sounds present and non-tender Extremity: COMMON NORMALS: no pedal edema Neuro: COMMON NORMALS: patient oriented x3 Psych: COMMON NORMALS: mental status grossly normal Data 02/25/25 05:01 02/25/25 05:01 Micro: Microbiology 02/23/25 23:15 Blood Culture - Preliminary Blood NEGATIVE TO DATE 02/23/25 23:25 Blood Culture - Preliminary Blood NEGATIVE TO DATE 02/24/25 14:53 Stool Lactoferrin - Final Stool Occult Blood (FIT) - Final A&P Assessment and plan 1. Colitis: 2. UTI due to extended-spectrum beta lactamase (ESBL) producing Escherichia coli: Plan: ESBL E. coli UTI - IV meropenem - Will need 5 more days of IV or ertapenem Colitis, diarrhea IMPRESSION: Circumferential wall thickening of the sigmoid colon with surrounding inflammation, consistent with colitis. -C. difficile colitis, C. difficile positive Plan - PO vancomycin - Meropenem as above Hyponatremia, resolving Hypokalemia, resolving Hypocalcemia, monitor Coronary artery disease, status post [place], status post stent Type 2 diabetes mellitus, low-dose insulin sliding scale Hypertension, hold blood pressure medications Aortic stenosis. Strict I/O. Daily weight. Left distal fibular fracture XR/XR ankle LT min 3V* [id number] IMPRESSION: 1. Nondisplaced lower fibular fracture and soft tissue swelling. 2. Advanced degenerative changes as above. Plan - Left foot in a boot, weightbearing as tolerated Rib fractures acute fracture 5th and 8th rib - pain control, incentive spirometer, flutter valve Atrial fibrillation - Eliquis Thyroid nodule. Will need to follow-up with primary care DVT prophylaxis Eliquis therapy PDMP PDMP Reviewed: Not Reviewed Attestations 2 Medical Necessity Statement*: Patient requires hospitalization for C. difficile colitis, ESBL UTI Diagnoses Colitis K52.9 UTI due to extended-spectrum beta lactamase (ESBL) producing Escherichia coli N39.0; B96.29; Z16.12
[2025-02-26] VITALS: BP 130/70; PULSE 68; RESP 18; TEMP 36.8; O2SAT 94
[2025-02-26 03:42] VITALS: BP 130/75; PULSE 70; RESP 16; TEMP 36.7; O2SAT 94
--- OUTSIDE RECORDS SUMMARY | 2025-02-26 04:20 | XMS_ITS | Clinical Summary ---
Author Organization [facility] Address [address] [place] [address] Care Team Providers Care Customer Care Team Coach Name Role Phone Unavailable Primary Care Provider [...] 10 mg by mouth daily. Active Insulin Plato, Disposable, (Pentips) 31 gauge x 3/16 Needle by [facility].(Non-Drug; Combo Route) route. Active Blood-Glucose Meter by [facility].(Non-Drug; Combo Route) route. Active empagliflozin (Jardiance) 25 [...] blood-glucose meter (ONE TOUCH ULTRA BONUS PACK [facility]) by Misc.(Non-Drug; Combo Route) route. Active apixaban [...] on file Legal Sex Female 9:40 AM WOOD TANK ERECTOR Gender Identity Not on file Sexual Orientation Not on file Last Filed Vital Signs Vital Sign Reading Time Taken Comments Blood Pressure - - Pulse - - Temperature - - Respiratory Rate - - Oxygen Saturation - - Inhaled Oxygen Concentration - - Weight 85.3 kg (188 lb) 05/11/2021 2:20 PM WOOD TANK ERECTOR Height 162.6 cm (5' 4 ) 05/11/2021 2:20 PM WOOD TANK ERECTOR Body Mass Index 32.27 05/11/2021 2:20 PM WOOD TANK ERECTOR Plan of Treatment Health Maintenance Due Date Last Done Comments DTAP/TDAP/TD VACCINES (1 - Tdap) 1960 PNEUMOCOCCAL VACCINE 50+ YEARS (1 of 1 - PCV) 05/12/18 92 ZOSTER VACCINE (1 of 2) 1991 OSTEOPOROSIS SCREENING 2006 RSV VACCINE (60+ or ) (1 - 1-dose 75+ series) 2016 INFLUENZA VACCINE (#1) [id number] [place] [address] MEDICAID [facility] DUAL COMPLETE HMO DSNP [facility] [id number]
[2025-02-26 05:32] LABS: Hematocrit 33.4 % (36-47); Hemoglobin 10.20 g/dL (11.27-16.99); Mean Corpuscular HGB Conc 30.5 g/dL (30-55); Mean Corpuscular Hemoglobin 25.1 pg (27-33); Mean Corpuscular Volume 82.3 fl (85-98); Nucleated Red Blood Cells % 0 %; Platelet Count 198 10^3/cmm (157-399); Red Blood Count 4.06 10^6/uL (3.85-5.65); White Blood Count 10.58 10^3/uL (3.29-11.43)
[2025-02-26 05:49] LABS: Alanine Aminotransferase 10 U/L (0-33); Albumin Level 2.5 g/dL (3.5-5.2); Alkaline Phosphatase 111 U/L (35-105); Anion Gap 11.7 (5-19); Aspartate Amino Transferase 15 U/L (0-32); Blood Urea Nitrogen 15 mg/dL (8-23); Calcium 7.8 mg/dL (8.5-10.5); Carbon Dioxide 22 mmol/L (22-29); Chloride 104 mmol/L (98-107); Creatinine Clr Calc Pharmacy 59.1309; Globulin 2.5 g/dL (1.3-4.6); Glucose 277 mg/dL (65-115); Osmolality Calculated 289 mOsm/kg (285-295); Potassium 3.7 mmol/L (3.5-5.1); Sodium 134 mmol/L (136-145); Total Protein 5.0 g/dL (6.6-8.7)
[2025-02-26] MEDS: ATORVASTATIN 20 MG TABLET PO (05:51)
[2025-02-26 05:53] VITALS: PULSE 87
[2025-02-26] MEDS: dorzolamide/timolol Op Soln 10 mL Btl 1 DROP EYE-BOTH ×2 (06:00)
[2025-02-26 07:29] VITALS: BP 114/48; PULSE 65; RESP 18; TEMP 36.7; O2SAT 94
[2025-02-26] MEDS: insulin glargine 100 units/1 mL 15 UNIT SUBCUT (08:01)
--- NOTE | 2025-02-26 11:03 | PC.SOCIAL ---
Updated IMM Updated pt on IMM. No questions voiced. Provided pt a copy. Initialed, dated, & timed a copy & placed in chart.
[2025-02-26 11:14] VITALS: BP 119/46; PULSE 68; RESP 17; TEMP 36.6; O2SAT 93
--- NOTE | 2025-02-26 11:33 | PM.DCS ---
Discharge Providers Date of Admission: 02/24/25 01:00 Date of Discharge: February 26, 2025 Attending Provider at Admission: Chong Ingram DO Attending Provider at Discharge: Jesse De La Vega MD Primary Care Provider: Anette Velazquez MD Diagnoses at Discharge Discharge Diagnosis 1. Colitis: 2. UTI due to extended-spectrum beta lactamase (ESBL) producing Escherichia coli: Reason for Visit Reason for Visit: Fever\Possible UTI\Confused Hospital Course Hospital Course This is a 89-year-old female with a past medical history of aortic stenosis, recent history of rib fracture after fall, recent history of left distal tibial fibula fracture in a boot, CAD, diabetes who presents to [facility] for weakness, fatigue, diarrhea Patient was admitted to [facility] for ESBL E. coli UTI - Received IV meropenem during hospitalization - Will need 5 more days of IV or ertapenem Colitis, diarrhea IMPRESSION: Circumferential wall thickening of the sigmoid colon with surrounding inflammation, consistent with colitis. -C. difficile colitis, C. difficile positive Manage on - PO vancomycin - Overall clinically improved, diarrhea is resolved, discharged on p.o. vancomycin on discharge - Discussed handwashing, using bleach products to clean toiletries, to decrease risk of fecal oral transmission, trying to use a different bathroom for the rest of the family Left distal fibular fracture XR/XR ankle LT min 3V* [id number] IMPRESSION: 1. Nondisplaced lower fibular fracture and soft tissue swelling. 2. Advanced degenerative changes as above. Plan - Left foot in a boot, weightbearing as tolerated - Discussed with podiatry, discharged with close follow-up with podiatry, keep left foot in the boot Rib fractures acute fracture 5th and 8th rib - pain control, incentive spirometer, flutter valve Atrial fibrillation - Eliquis on discharge Physical Exam Const: COMMON NORMALS: no acute distress and patient oriented x3 Resp: COMMON NORMALS: normal respiratory effort, No retractions, No use of accessory muscles and clear to auscultation bilaterally AUSCULTATION: clear to auscultation bilaterally Cardio: COMMON NORMALS: regular rate, regular rhythm, S1 normal heart sound present and S2 normal heart sound present RATE: regular rate RHYTHM: regular rhythm HEART SOUNDS: S1 normal heart sound present and S2 normal heart sound present GI: COMMON NORMALS: Normal to inspection, nondistended, normoactive bowel sounds present and non-tender Extremity: COMMON NORMALS: no pedal edema Neuro: COMMON NORMALS: patient oriented x3, CN's II-XII intact bilaterally and moves all extremities Psych: COMMON NORMALS: mental status grossly normal Discharge Data Studies Completed and Pending Completed Studies During Hospitalization Category Date Time Status CT chest abdomen pelvis [CT chest abdpel w/*[id number] Cat Scan 02/23/25 23:01 Completed ] Stat CT head wo con* [id number] Stat Cat Scan 02/23/25 23:01 Completed Pending at discharge Category Date Time Status Blood Culture Stat Lab 02/23/25 23:15 Results Complete Blood Count w/Auto AM LABS Lab 02/27/25 04:00 Ordered Comprehensive Metabolic Panel AM LABS Lab 02/27/25 04:00 Ordered OVA and Parasites, Conc and PE Routine Lab 02/24/25 14:53 Received Salmonella / Shigella / Campy Routine Lab 02/24/25 14:53 Received Radiology Impressions Chest/Abdomen/Pelvis CT 02/23/25 23:01 IMPRESSION: No focal consolidation, pleural effusion, or pneumothorax. IMPRESSION: Circumferential wall thickening of the sigmoid colon with surrounding inflammation, consistent with colitis. ADDENDUM: 02/24/25 0009 Please disregard the following sentence: Other findings: [address] 02/23/25 23:01 IMPRESSION: No acute intracranial hemorrhage. No midline shift or mass effect. Laboratory Results WBC 10.58 10^3/uL (3.29-11.43) 02/26/25 05:21 RBC 4.06 10^6/uL (3.85-5.65) 02/26/25 05:21 Hgb 10.20 g/dL (11.27-16.99) L 02/26/25 05:21 Hct 33.4 % (36-47) L 02/26/25 05:21 MCV 82.3 fl (85-98) L 02/26/25 05:21 MCH 25.1 pg (27-33) L 02/26/25 05:21 MCHC 30.5 g/dL (30-55) 02/26/25 05:21 RDW 18.2 % (12.1-15.1) H 02/26/25 05:21 Plt Count 198 10^3/cmm (157-399) 02/26/25 05:21 MPV 9.3 fL (7.4-10.4) 02/26/25 05:21 Neut % (Auto) 64.6 % 02/26/25 05:21 Lymph % (Auto) 13.7 % 02/26/25 05:21 Sauk % (Auto) 12.8 % 02/26/25 05:21 Eos % (Auto) 5.7 % 02/26/25 05:21 Baso % (Auto) 0.9 % 02/26/25 05:21 Neut # (Auto) 6.85 10^3/uL (1.8-7.7) 02/26/25 05:21 Lymph # (Auto) 1.5 10^3/uL (0.8-4.8) 02/26/25 05:21 [place] # (Auto) 1.4 10^3/uL (0.2-0.9) H 02/26/25 05:21 Eos # (Auto) 0.6 10^3/uL (0.0-0.8) 02/26/25 05:21 Baso # (Auto) 0.1 10^3/uL (0.0-0.1) 02/26/25 05:21 Nucleated RBC % (auto) 0 % 02/26/25 05:21 Nucleated RBCs # 0.0 /100WBC 02/26/25 05:21 Specimen Type Arterial 02/23/25 23:11 Sample Site Radial, right 02/23/25 23:11 ABG pH 7.47 (7.35-7.45) H 02/23/25 23:11 ABG pCO2 33.7 mmHg (35-45) L 02/23/25 23:11 ABG pO2 64.4 mmHg (80.0-100.0) L 02/23/25 23:11 ABG HCO3 24.6 mmol/L (22-26) 02/23/25 23:11 ABG Base Excess 1.3 mmol/L (-2.0-2.0) 02/23/25 23:11 Markel Test Pos 02/23/25 23:11 Hematocrit 34.9 % (37-47) L 02/23/25 23:11 O2 Delivery Device Room air 02/23/25 23:11 Garnett Machine Operator Helper ID [email or web address] 02/23/25 23:11 Sodium 134 mmol/L (136-145) L 02/26/25 05:21 Potassium 3.7 mmol/L (3.5-5.1) 02/26/25 05:21 Chloride 104 mmol/L (98-107) 02/26/25 05:21 Carbon Dioxide 22 mmol/L (22-29) 02/26/25 05:21 Anion Gap 11.7 (5-19) 02/26/25 05:21 BUN 15 mg/dL (8-23) 02/26/25 05:21 Creatinine 0.8 mg/dL (0.5-0.9) 02/26/25 05:21 GFR Calculation Not Reportable 02/26/25 05:21 Glucose 277 mg/dL (65-115) H 02/26/25 05:21 POC Glucose 258 mg/dL (70-110) H 02/26/25 06:35 Calculated Osmolality 289 mOsm/kg (285-295) 02/26/25 05:21 Lactic Acid 2.4 mmol/L (0.5-2.2) H 02/23/25 23:25 Lactic Acid (Sepsis) 2.2 mmol/L (0.5-2.2) 02/24/25 02:22 Calcium 7.8 mg/dL (8.5-10.5) L 02/26/25 05:21 Magnesium 1.7 mg/dL (1.7-2.3) 02/23/25 23:25 Total Bilirubin 0.3 mg/dL (0.15-1.2) 02/26/25 05:21 AST 15 U/L (0-32) 02/26/25 05:21 ALT 10 U/L (0-33) 02/26/25 05:21 Alkaline Phosphatase 111 U/L (35-105) H 02/26/25 05:21 Creatine Kinase 43 U/L (26-192) 02/23/25 23:25 Troponin T Baseline 28 ng/L (0-10) H 02/23/25 23:25 Troponin T 120 Minute 25.60 ng/L (0-10) H 02/24/25 01:25 Delta Troponin T -2.40 ABS# (0-10) L 02/24/25 01:25 Troponin T Hi Sens 6Hr 26.07 ng/L (0-10) H 02/24/25 05:22 Troponin T Hi Sens 6Hr Delta -1.93 ng/L (0-12) L 02/24/25 05:22 C-Reactive Protein 77.6 mg/L (0.0-4.9) H 02/23/25 23:25 NT-Pro-B Natriuret Pep 2337 pg/mL (0-450) H 02/23/25 23:25 Total Protein 5.0 g/dL (6.6-8.7) L 02/26/25 05:21 Albumin 2.5 g/dL (3.5-5.2) L 02/26/25 05:21 Globulin 2.5 g/dL (1.3-4.6) 02/26/25 05:21 Urine Color Yellow (Yellow) 02/24/25 00:10 Urine Appearance Clear (CLEAR) 02/24/25 00:10 Urine pH 5.0 (5-7) 02/24/25 00:10 Ur Specific [place] 1.015 (1.005-1.030) 02/24/25 00:10 Urine Protein Negative (Negative) 02/24/25 00:10 Urine Glucose (UA) 2+ (Normal) H 02/24/25 00:10 Urine Ketones Negative (Negative) 02/24/25 00:10 Urine Blood Negative (Negative) 02/24/25 00:10 Urine Nitrate Negative (Negative) 02/24/25 00:10 Urine Bilirubin Negative (Negative) 02/24/25 00:10 Urine Urobilinogen 0.2 mg/dL (Negative) 02/24/25 00:10 Ur Leukocyte Esterase Negative (Negative) 02/24/25 00:10 Urine RBC 0-2 /hpf (0-2) 02/24/25 00:10 Urine WBC 6-10 /hpf (0-5) 02/24/25 00:10 Ur Squamous Epith Cells 6-10 /hpf (0-5) 02/24/25 00:10 Amorphous Sediment Not Reportable 02/24/25 00:10 Urine Bacteria None seen /hpf (NONE) 02/24/25 00:10 Hyaline Casts 33.49 /lpf 02/24/25 00:10 C. difficile (PCR) Positive (Negative) H 02/24/25 14:53 C.difficile Tox Confrm Positive (Negative) H 02/24/25 14:53 Vitals Last Vital Signs Temp 97.9 F 02/26/25 11:14 Pulse 68 02/26/25 11:14 Resp 17 02/26/25 11:14 BP 119/46 02/26/25 11:14 Pulse Ox 93 02/26/25 11:14 O2 Del Method Room Air 02/26/25 11:14 Discharge Plan Discharge Patient Disposition: Home Health Service Condition: Stable Prescriptions: New vancomycin 125 mg Capsule 125 mg PO Q6H 10 Days Qty: 40 0RF ertapenem 1 gram recon soln 1 g IV DAILY 5 Days Continued (DME) Diabetic shoes with 3 inserts See Rx Instructions .ROUTE .MEDSUPPLY Qty: 1 0RF Rx Instructions: As directed by LYNNE&O Colace 100 mg capsule 100 mg PO BID PRN (Reason: Constipation) (DME) diabetic shoes with 3 inserts See Rx Instructions .Route .MEDSUPPLY Qty: 1 0RF Rx Instructions: As directed to home (DME) FreeStyle Nemesio 2 Sensor Kit See Rx Instructions .ROUTE .MEDSUPPLY Qty: 1 Rx Instructions: As directed (DME) Cam Boot to the Left See Rx Instructions .Route .MEDSUPPLY Qty: 1 0RF Rx Instructions: As directed multivitamin Tablet 1 tab PO QAM atorvastatin 20 mg tablet 20 mg PO QAM duloxetine 30 mg capsule,delayed release(DR/EC) 30 mg PO QAM cetirizine [Zyrtec] 10 mg Tablet 10 mg PO QAM calcium carbonate-vitamin D3 600 mg-5 mcg (200 unit) Tablet 1 tab PO QAM dorzolamide-timolol 22.3-6.8 mg/mL drops 1 drp ophthalmic (eye) BID Rx Instructions: left eye Eliquis 5 mg tablet 5 mg PO BID 30 Days Qty: 60 0RF ondansetron 8 mg tablet,disintegrating 8 mg PO Q6H Qty: 14 0RF Rx Instructions: Take 1/2-1 tab every 6 hours as needed for nausea and vomiting Ozempic 1 mg/dose (4 mg/3 mL) pen injector 1 mg SUBCUT Q7D Rx Instructions: on Wednesdays nystatin 100,000 unit/gram powder 1 applic TOPICAL BID PRN (Reason: galding) Changed insulin glargine [Lantus Solostar U-100 Insulin] 100 unit/mL (3 mL) insulin pen See Rx Instructions .ROUTE .COMPLEX 30 Days Qty: 0 0RF Rx Instructions: INJECT 20 UNITS SUBCUTANEOUSLY IN THE MORNING AND 20Units IN THE EVENING insulin lispro 100 unit/mL insulin pen See Rx Instructions .ROUTE .COMPLEX 30 Days Qty: 15 0RF Rx Instructions: inject, subcut, tidwmeals, based on low dose insulin sliding scale Held torsemide 20 mg tablet 20 mg PO QAM Hold Instructions: Resume on 03/01/25. Discontinued amoxicillin-pot clavulanate 875-125 mg tablet 1 tab PO Q12H Qty: 20 0RF Referrals: [facility] Infusion Center [Outside] Referral Note: On & Monday [facility] need [facility]. you need to be there at 12:30pm & on Monday at 10:00Am You will need to follow up in Out patient surgery for your infusion on Monday-03/01 & Monday-03/02 at 1000Am. [facility] ([facility]) [Outside] Referral Note: [facility] will follow up with you on Saturday 03/03. Anette Velazquez MD [Primary Care Provider, Internal Medicine] - 03/11/25 11:00 am Discharge Diet: Cardiac Discharge Activity: Resume usual activity Patient Instructions: Vancomycin (By mouth), C. Diff (Clostridioides Difficile) Infection (GEN), Extended Spectrum Beta-Lactamase (GEN), Opioid Safety, Pain Management, Patient Portal & Jere Instructions Activity Restrictions/Additional Instructions: -Please monitor your blood sugars closely -Monitor your blood sugars 3 times daily as after meals -Please record your blood sugars, and a blood sugar log -For your lispro -Please inject blood sugar after meals based on sliding scale provided -Do not inject insulin if you do not eat as hypoglycemia kills -This is a lispro sliding scale -Insulin sliding ?fingerstick? Insulin ?141-180?0 units/sq 181-220?2 units/sq ?221-260?4 units/sq ?261-300 6 units/sq ?301-350?8 units/sq ?351-400 10 units/sq ?401-450?12 units/sq >450? 14units/sq -If your blood sugar is greater than 500 go to the emergency room -If your blood sugar is less than 60 or at anytime you feel lightheaded or dizzy or diaphoretic or have chest palpitations check your blood sugar, and eat a hard candy or drink orange juice and go immediately to the emergency room -Remember hypoglycemia kills, so if his blood sugar is less than 60 we have to increase it by taking in a sugary meal such as a hard candy or orange juice and go to the emergency room -If you have any questions please call us where here to help Discharge Attestations Time Spent in Discharge Care*: greater than 30 min Status at Discharge: Cognitive status at discharge: cognitively intact, Behavioral status at discharge: cooperative, Quality Metrics Clinical Quality Measures [ No reported AMI, CVA or VTE this stay] Coding Level of Care Code 41074 Total time (in minutes) for Discharge: 45 Diagnoses Colitis K52.9 UTI due to extended-spectrum beta lactamase (ESBL) producing Escherichia coli N39.0; B96.29; Z16.12
[2025-02-26] MEDS: ertapenem 1,000 mg SDV 1000 MG IVP (12:23)
[2025-02-26 13:36] VITALS: BP 119/46; PULSE 68; RESP 17; TEMP 36.6; O2SAT 93
--- NOTE | 2025-02-26 13:37 | PC.NURSE ---
Discharge Note Patient discharged to home via private vehicle accompanied by daughter. Discharge instructions reviewed with patient and/or parts sales representative. Mobile pharmacy medications and/or prescriptions provided. Belongings/home medications returned.
== END 2025-02-26 13:38 | disposition home health service (06) | DRG 372 ==
LOC: ER 02-24 01:00 → MEDSURG 02-24 01:56
PROVIDERS: Admitting Provider Internal Medicine; Emergency Provider Emergency Medicine; PCP Internal Medicine; Visit Provider Family Medicine
DX: A04.72 Enterocolitis due to Clostridium difficile, not specified as recurrent (principal); E87.1 Hypo-osmolality and hyponatremia; N39.0 Urinary tract infection, site not specified; Z66 Do not resuscitate; I25.10 Atherosclerotic heart disease of native coronary artery without angina pectoris; H40.9 Unspecified glaucoma; E11.40 Type 2 diabetes mellitus with diabetic neuropathy, unspecified; I35.0 Nonrheumatic aortic (valve) stenosis; F32.A Depression, unspecified; I48.91 Unspecified atrial fibrillation; E11.51 Type 2 diabetes mellitus with diabetic peripheral angiopathy without gangrene; E04.1 Nontoxic single thyroid nodule; B96.20 Unspecified Escherichia coli [E. coli] as the cause of diseases classified elsewhere; I25.2 Old myocardial infarction; E87.6 Hypokalemia; E83.51 Hypocalcemia; I10 Essential (primary) hypertension; E66.9 Obesity, unspecified; Z71.3 Dietary counseling and surveillance; Z83.3 Family history of diabetes mellitus; Z88.3 Allergy status to other anti-infective agents; Z88.8 Allergy status to other drugs, medicaments and biological substances; Z90.49 Acquired absence of other specified parts of digestive tract; Z95.5 Presence of coronary angioplasty implant and graft; Z89.431 Acquired absence of right foot; Z68.35 Body mass index [BMI] 35.0-35.9, adult; Z79.01 Long term (current) use of anticoagulants; Z79.899 Other long term (current) drug therapy
CPT/HCPCS: 36415; 36416; 36600; 70450; 71260; 74177; 80048; 80053; 81001; 82274; 82550; 82803; 82962; 83605; 83630; 83735; 83880; 84484; 85025; 86140; 87040; 87045; 87177; 87209; 87324; 87427; 87449; 87493; 93005; 96365; 96372; 97116; 97161; 97165; 97530; 99285; J0696; J1335; J1815; J2185; J2543; J3490; J7030; J9999

== ENCOUNTER 2025-03-02 10:00 | Oncology outpatient (recurring) (ONCR) | payer MEDICARE, MEDICAID, SELFPAY ==
[2025-02-27] MEDS: ertapenem 1,000 mg SDV 1000 MG IVP (13:06)
[2025-02-27 13:30] VITALS: BP 126/76; PULSE 76; RESP 18; TEMP 36.3; O2SAT 98
--- NOTE | 2025-02-27 13:32 | PC.NURSE ---
Patient arrived to [facility]fusion Services with a 20g IV in her R AC. I was unable to assess how long the IV was in place related to there being no date,time or mnemonics noted on the IV. IV was flushed and DC'd. There was a slight amount of redness and swelling noted above the insertion site. Patient and granddaughter were encouraged to monitor the area closely for signs of increased redness, heat, pain etc and to seek medical attention as soon as possible. Granddaughter verbalized understanding.
[2025-02-28 11:08] VITALS: BP 160/81; PULSE 71; RESP 17; TEMP 36.2; O2SAT 96
[2025-02-28] MEDS: ertapenem 1,000 mg SDV 1000 MG IVP (11:08)
[2025-03-01 09:50] VITALS: BP 159/75; PULSE 72; RESP 16; TEMP 36.1; O2SAT 97
[2025-03-01] MEDS: ertapenem 1,000 mg SDV 1000 MG IVP (10:01)
[2025-03-02 10:00] VITALS: BP 147/74; PULSE 62; RESP 17; TEMP 36.5; O2SAT 96
[2025-03-02] MEDS: ertapenem 1,000 mg SDV 1000 MG IVP (10:11)
[2025-03-02 10:33] LABS: Hematocrit 39.2 % (36-47); Hemoglobin 12.20 g/dL (11.27-16.99); Mean Corpuscular HGB Conc 31.1 g/dL (30-55); Mean Corpuscular Hemoglobin 24.6 pg (27-33); Mean Corpuscular Volume 79.0 fl (85-98); Nucleated Red Blood Cells % 0 %; Platelet Count 239 10^3/cmm (157-399); Red Blood Count 4.96 10^6/uL (3.85-5.65); White Blood Count 7.41 10^3/uL (3.29-11.43)
[2025-03-02 11:01] LABS: Alanine Aminotransferase 13 U/L (0-33); Albumin Level 3.4 g/dL (3.5-5.2); Alkaline Phosphatase 143 U/L (35-105); Anion Gap 13.8 (5-19); Aspartate Amino Transferase 19 U/L (0-32); Blood Urea Nitrogen 12 mg/dL (8-23); Calcium 9.0 mg/dL (8.5-10.5); Carbon Dioxide 32 mmol/L (22-29); Chloride 95 mmol/L (98-107); Globulin 3.1 g/dL (1.3-4.6); Glucose 222 mg/dL (65-115); NT Pro B Type Natriuretic Pept 1185 pg/mL (0-450); Osmolality Calculated 291 mOsm/kg (285-295); Potassium 3.8 mmol/L (3.5-5.1); Sodium 137 mmol/L (136-145); Total Protein 6.5 g/dL (6.6-8.7)
--- NOTE | 2025-03-02 11:07 | SUR.PREOP ---
Patient arrived with a peripheral iv to left forearm, iv was removed upon discharge. Cath tip intact, pressure dressing applied. Patient tolerated well
== END 2025-03-09 23:59 | disposition home or self-care (01) ==
LOC: OPS 03-03 → ONCMED 03-03 09:18
PROVIDERS: PCP Internal Medicine; Visit Provider Internal Medicine
DX: N39.0 Urinary tract infection, site not specified; B96.29 Other Escherichia coli [E. coli] as the cause of diseases classified elsewhere; Z16.12 Extended spectrum beta lactamase (ESBL) resistance; Z79.899 Other long term (current) drug therapy; Z53.9 Procedure and treatment not carried out, unspecified reason
CPT/HCPCS: 36415; 80053; 83880; 85025; 96374; J1335

== ENCOUNTER 2025-03-12 13:18 | Outpatient (CLI) | payer MEDICARE, MEDICAID, SELFPAY | END 2025-03-12 13:19 | disposition home or self-care (01) | LOC: SPT 13:19 | PROVIDERS: PCP Internal Medicine; Visit Provider Podiatrist Foot & Ankle Surgery | DX: Z46.89 Encounter for fitting and adjustment of other specified devices (principal); S92.902D Unspecified fracture of left foot, subsequent encounter for fracture with routine healing; X58.XXXD Exposure to other specified factors, subsequent encounter | CPT/HCPCS: L1902 ==

== ENCOUNTER → 2025-03-18 13:26 | Outpatient (BNVA) | payer MEDICARE, MEDICAID, SELFPAY | PROVIDERS: PCP Internal Medicine; Visit Provider Internal Medicine | DX: I48.91 Unspecified atrial fibrillation (principal); I10 Essential (primary) hypertension; Z79.01 Long term (current) use of anticoagulants | CPT/HCPCS: 99214 ==

== ENCOUNTER 2025-03-24 18:55 | Emergency (ER) | payer MEDICARE, MEDICAID, SELFPAY ==
[2025-03-24 18:57] VITALS: BP 153/76; PULSE 78; RESP 16; TEMP 37.4; O2SAT 97; BMI 31.7
--- NOTE | 2025-03-24 19:18 | XRR_ITS ---
PROCEDURE INFORMATION: Exam: XR Chest Exam date and time: 03/24/2025 7:18 PM Age: 84 years old Clinical indication: Shortness of breath; Prior surgery; Surgery date: 6+ months; Surgery type: Coronary stents, gallbladder; Additional info: SOB TECHNIQUE: Imaging protocol: Radiologic exam of the chest. Views: 1 view. COMPARISON: CT chest abdpel w/*[id number] 02/23/2025 11:45 PM FINDINGS: Lungs: There are findings of left retrocardiac opacity atelectasis or pneumonia could be considered correlate with follow-up as indicated Pleural spaces: Unremarkable. No pleural effusion. No pneumothorax. Heart/Mediastinum: Unremarkable. No cardiomegaly. Bones/joints: There are fracture deformities of the left humerus present with degenerative changes of the shoulder and thoracic spine XR/XR chest 1V portable [id number] IMPRESSION: Nonspecific left retrocardiac/left lower lobe opacity atelectasis or pneumonia could be considered. Correlate and follow-up as indicated
--- NOTE | 2025-03-24 19:19 | CTR_ITS ---
PROCEDURE INFORMATION: Exam: CT Head Without Contrast Exam date and time: 03/24/2025 7:29 PM Age: 84 years old Clinical indication: Speech disturbance and weakness, extremity and other: Vomiting; Slurred speech; Additional info: Weakness, vomiting, slurred speech TECHNIQUE: Imaging protocol: Computed tomography of the head without contrast. Radiation optimization: All CT scans at this facility use at least one of these dose optimization techniques: automated exposure control; mA and/or kV adjustment per patient size (includes targeted exams where dose is matched to clinical indication); or iterative reconstruction. COMPARISON: CT head wo con* [id number] 02/23/2025 11:42 PM RADIATION DOSE METRICS: Total DLP (mGy-cm): 718.09 FINDINGS: Brain: Chronic small-vessel ischemic change. Cerebral ventricles: Involutional changes of the ventricles and sulci, mild. Paranasal sinuses: Visualized sinuses are unremarkable. No fluid levels. Mastoid air cells: Visualized mastoid air cells are well aerated. Bones: Vertebral and carotid atheromatous vascular calcifications. Soft tissues: Unremarkable. CT/CT head wo con* [id number] IMPRESSION: No acute intracranial abnormality.
--- OUTSIDE RECORDS SUMMARY | 2025-03-24 19:34 | XMS_ITS | Clinical Summary ---
Author Organization [facility] Address [address] [place] [address] Care Team Providers Care Microbiology Director Name Role Phone Unavailable Primary Care Provider [...] 10 mg by mouth daily. Active Insulin [place], Disposable, (Pentips) 31 gauge x 3/16 Needle by [facility] [place]Non-Drug; Combo Route) route. Active Blood-Glucose Meter by [facility] [place]Non-Drug; Combo Route) route. Active empagliflozin (Jardiance) 25 [...] blood-glucose meter ([place] TOUCH [place]TRA [place] [facility] [place] by [facility] [place]Non-Drug; Combo Route) route. 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 Gender Identity Not on file Sexual Orientation Not on file Last Filed Vital Signs Vital Sign Reading Time Taken Comments Blood Pressure - - Pulse - - Temperature - - Respiratory Rate - - Oxygen Saturation - - Inhaled Oxygen Concentration - - Weight 85.3 kg (188 lb) 05/11/2021 2:20 PM REMOTE BROADCAST TECHNICIAN Height 162.6 cm (5' 4 ) 05/11/2021 2:20 PM REMOTE BROADCAST TECHNICIAN Body Mass Index 32.27 05/11/2021 2:20 PM REMOTE BROADCAST TECHNICIAN Plan of Treatment Health Maintenance Due Date Last Done Comments DTAP/TDAP/TD VACCINES (1 - Tdap) 1960 PNEUMOCOCCAL VACCINE 50+ YEARS (1 of 1 - PCV) 05/12/18 92 ZOSTER VACCINE (1 of 2) 1991 OSTEOPOROSIS SCREENING 2006 RSV VACCINE (60+ or ) (1 - 1-dose 75+ series) 2016 INFLUENZA VACCINE (#1) [address] [place] [address] MEDICAID [facility] DUAL COMPLETE HMO DSNP [facility] [id number]
[2025-03-24] MEDS: ondansetron 2 mg/ML SDV 2 mL 4 MG IVP (19:42)
--- NOTE | 2025-03-24 19:42 | W.ED.WEAKNES ---
HPI - Weakness General: Chief complaint: Weakness Stated complaint: Trouble walking, slurred speech, possible uti Time Seen by Provider: 03/24/25 19:08 Source: patient and family (daughter) Mode of arrival: wheelchair Limitations: no limitations History of Present Illness: Patient is an 84-year-old female with past medical history of type 2 diabetes, frequent UTI, atrial fibrillation on Eliquis, and coronary artery disease who was brought into the emergency department by daughter for evaluation. Of note this patient was hospitalized last month due to C. difficile colitis, has since finished the round of oral antibiotics and daughter tells me she has not gotten much relief from the diarrhea. 5 episodes of diarrhea noted today, and overall patient has been more weak. Daughter also had noted some garbled speech that is unusual for the patient, and though she has a history of left lower extremity fracture she has had increasing trouble ambulating. Daughter also concerned of a possible UTI as she is prone to these. Patient has also become incontinent of stool over the past few weeks, patient has not been significantly confused. Patient is endorsing that she is having some diffuse abdominal pain as well as some shortness of breath, no chest pain. No fevers are reported at home but patient has noted some subjective chills and temperature mildly elevated with triage to 99.3. There is no vomiting, no significant appetite changes that daughter reports other than she seems to be able to drink less water than normal. No focal neurological deficits are reported, patient is not endorsing any visual changes or sensory changes, and there are no unilateral motor discrepancies with her extremities. MD Complaint: generalized weakness Onset (ago): week(s) Duration: progressively worsening Location: generalized Context: other (Recent hospitalization in February for C. difficile colitis, persistent diarrhea) Associated symptoms: Reports chills and nausea; Denies chest pain, confusion, dysuria, fever(s), headache(s) or vomiting Related Data Home Medications ?Medication ?Instructions ?Recorded ?Confirmed atorvastatin 20 mg tablet 20 mg PO QAM 11/07/21 03/18/25 multivitamin 1 tab PO QAM 11/07/21 03/18/25 duloxetine 30 mg capsule,delayed 30 mg PO QAM 05/12/23 03/18/25 release calcium 600 mg (as 1 tab PO QAM 07/14/23 03/18/25 carbonate)-vitamin D3 5 mcg (200 unit) tablet cetirizine 10 mg tablet (Zyrtec) 10 mg PO QAM 07/14/23 03/18/25 dorzolamide 22.3 mg-timolol 6.8 1 drp ophthalmic (eye) BID 07/14/23 03/18/25 mg/mL eye drops torsemide 20 mg tablet 20 mg PO QAM 07/14/23 03/18/25 Held on 02/26/25. Instructions: Resume on 03/01/25. docusate sodium 100 mg capsule 100 mg PO BID PRN Constipation 05/16/24 03/18/25 (Colace) nystatin 100,000 unit/gram topical 1 applic topical BID PRN galding 09/26/24 03/18/25 powder semaglutide 1 mg/dose (4 mg/3 mL) 1 mg SUBCUT Q7D 09/26/24 03/18/25 subcutaneous pen injector (NeuMedics) flash glucose sensor (FreeStyle #1 ea 10/09/24 03/12/25 Nemesio 2 Sensor kit) Previous Rx's ?Medication ?Instructions ?Recorded Diabetic shoes with 3 inserts #1 ea 10/20/20 diabetic shoes with 3 inserts #1 ea 08/02/23 apixaban 5 mg tablet (Eliquis) 5 mg PO BID 30 days #60 tabs 10/02/24 ondansetron 8 mg disintegrating 8 mg PO Q6H #14 tabs 01/30/25 tablet Cam Boot to the Left #1 ea 02/19/25 insulin glargine 100 unit/mL (3 See Rx Instructions .Route 02/26/25 mL) subcutaneous pen (Lantus .COMPLEX 30 days #0 mL Solostar U-100 Insulin) insulin lispro 100 unit/mL See Rx Instructions .Route 02/26/25 subcutaneous pen .COMPLEX 30 days #15 mL ASO Brace #1 ea 03/12/25 furosemide 20 mg tablet (Lasix) 20 mg PO DAILY #30 tabs 03/18/25 potassium chloride 10 mEq 10 meq PO DAILY #30 tabs 03/18/25 tablet,extended release (Klor-Con) ondansetron 4 mg disintegrating 4 mg PO TID PRN nausea and 03/24/25 tablet vomiting #30 tabs Allergies Allergy/AdvReac Type Severity Reaction Status Date / Time diphenhydramine (From Allergy Unknown unknown Verified 03/12/25 12:46 Benadryl) tetracycline Allergy Unknown unknown Verified 03/12/25 12:46 Review of Systems General: Reports: 10 or more systems reviewed and unremarkable except in HPI and below Const: Reports: chills, fatigue and malaise; Denies: fever(s) or change in appetite Eyes: Denies: change in vision ENMT: Denies: throat pain, ear or mastoid pain or nasal discharge Card: Denies: chest pain, palpitations, swelling of feet/ankles or lightheadedness Resp: Reports: dyspnea; Denies: productive cough or wheezing GI: Reports: abdominal pain, nausea and diarrhea; Denies: vomiting or constipation : Denies: flank pain, difficulty voiding, dysuria or urinary frequency Musc: Denies: neck pain, back pain or joint pain Skin/Breast: Denies: rash Neuro: Reports: difficulty walking and Slurred speech present; Denies: headache(s), numbness in extremities, weakness in extremities, confusion, behavioral changes, seizure-like activity or involuntary movements PFSH ED PFSH: Medical History Humerus fracture Type 2 diabetes mellitus Tachy-han syndrome UTI (urinary tract infection) Fall Moderate mitral regurgitation Acute LA, inferior wall High anion gap metabolic acidosis Diabetes with ketoacidosis Cholelithiases Vomiting Atrial fibrillation, chronic Fracture of humerus, left, closed Pes planus of both feet ALISTAIR inhibitor intolerance Essential hypertension Warfarin anticoagulation Lower extremity deep venous thrombosis CAD (coronary artery disease) Fracture of greater trochanter of right femur Peripheral vascular disease Onychodystrophy Diabetic neuropathy associated with diabetes mellitus due to underlying condition Surgical History Status post laparoscopic cholecystectomy Coronary angioplasty status PCI to RCA?2016 Family History Mother Diabetes Denies family history of CAD (coronary artery disease) Clotting disorder Dementia Hyperlipidemia Psychiatric illness Chronic kidney disease (CKD) Suicide Anesthesia complication Bleeding disorder Family history of premature coronary artery disease Lung disease Cancer Hypertension Stroke Social History Smoking and tobacco/nicotine status: never used tobacco/nicotine Second hand smoke exposure: Yes Alcohol intake: never Substance/Drug Use: never Physical Exam Const: OTHER: Tired appearing but overall nontoxic. She is alert and oriented x 3. Cooperative, obese. HENMT: COMMON NORMALS: normocephalic and atraumatic HEAD & SCALP: normocephalic and atraumatic MOUTH: Normal oral and palatal mucosa present Eye: COMMON NORMALS: Equal, round and reactive pupils present and EOMs intact bilaterally PUPIL: Yes Equal, round and reactive pupils present Neck/C-Spine: COMMON NORMALS: full ROM Resp: COMMON NORMALS: normal respiratory effort, No retractions, No use of accessory muscles and clear to auscultation bilaterally EFFORT & INSPECTION: Yes able to speak in complete sentences AUSCULTATION: clear to auscultation bilaterally Cardio: COMMON NORMALS: regular rate RATE: regular rate RHYTHM: abnormal rhythm irregularly irregular OTHER: Loud pansystolic murmur appreciated GI: COMMON NORMALS: Soft to palpation and non-tender PALPATION: Yes Soft to palpation OTHER: Large abdomen, nondistended Extremity: COMMON NORMALS: full ROM NARRATIVE EXTREMITY EXAM: 2+ pitting edema bilateral lower extremities Neuro: COMMON NORMALS: CN's II-XII intact bilaterally, moves all extremities, no focal motor deficits and no sensory deficits noted OTHER: Eyes track midline. Pupils equally responsive and reactive to light. Extraocular movements are intact. Equal strength in all 4 extremities. Cranial nerve examination is unremarkable. Able to answer questions appropriately, no significant speech impediment is appreciated at this time. No facial droop. No unilateral extremity numbness or weakness or paralysis. Course Vital Signs: Vital signs: Vital Signs Temperature 99.3 F 03/24/25 18:57 Pulse Rate 77 03/24/25 22:00 Respiratory Rate 16 03/24/25 22:00 Blood Pressure 124/50 03/24/25 22:00 Pulse Oximetry 93 03/24/25 22:00 Oxygen Delivery Me thod Room Air 03/24/25 18:57 MDM - Weakness Medical Decision Making This 84-year-old female presenting with persistent diarrhea, weakness, nausea, malaise approximately 1 month following hospitalization and treatment for C. difficile infection. Patient reported that her diarrhea is been less severe than during the acute infection, consistent with residual postinfectious symptoms rather than recurrent CDI. Differential does include recurrent CDI, postinfectious irritable syndrome, other infectious etiologies, and noninfectious causes of persistent diarrhea. Given the patient's recent CDI history and advanced age, repeat testing for SIBO side was considered but deferred based on clinical presentation and patient's inability to give stool sample here as she had not been have any diarrhea here. The patient's clinical course with gradual improvement rather than worsening and lack of fulminant features argue against active recurrent infection. Lab evaluation was reassuring with normal CBC, normal CMP with no electrolyte derangements or acute kidney injury, and normal lactic acid. Infectious workup was negative for COVID-19, influenza, RSV, and urinary tract infection, effectively ruling out alternative infectious etiologies. Physical examination revealed diffuse abdominal tenderness without peritoneal signs, tired but nontoxic appearance, and no focal neurological deficits. Vital signs were stable with only slight temperature elevation, not meeting criteria for fever. Picture most consistent with residual colitis or postinfectious functional gastrointestinal symptoms following CDI. Noninfectious etiologies including inflammatory bowel disease were considered but deemed less likely given the temporal relationship to recent CDI and lack of alarm features. Management here in the ED was supportive care with Zofran and mild fluids due to her history of CHF, there is discharge instructions for attention to hydration at home as well as nutritional status, monitoring for symptom progression, and patient education regarding expected recovery timeline. Patient counseled that symptoms typically improve gradually over weeks to months. Close outpatient follow-up is available and she is to follow-up within the next week for reevaluation and is instructed to return for worsening symptoms of fever, severe abdominal pain, or signs of dehydration. Should symptoms fail to improve or worsen, further evaluation including consideration of repeat C. difficile testing, imaging, or gastroenterology consultation would be warranted. Patient and the family in the room agree with this plan at this time. Lab Data 03/24/25 19:43 03/24/25 19:43 Radiology Impressions Chest X-Ray 03/24/25 19:18 IMPRESSION: Nonspecific left retrocardiac/left lower lobe opacity atelectasis or pneumonia could be considered. Correlate and follow-up as indicated Head CT 03/24/25 19:19 IMPRESSION: No acute intracranial abnormality. Chest/Abdomen/Pelvis CT 03/24/25 20:44 IMPRESSION: 1. Nonspecific thyroid nodules consider follow-up ultrasound for further characterization on a nonurgent basis. 2. Acute fractures of posterior aspect of rib 8 as well as lateral aspect of the rib 8, segmental. Acute nonsegmental fracture of the posterior aspect of the rib 9. Multiple old rib fractures on the left. Previously visualized right 5th rib fracture not clearly visualized on today's exam. 3. No definite acute infiltrate or effusion. IMPRESSION: 1. Query residual mild sigmoid diverticulitis (compared to prior), clinical correlation. 2. Mild thickening of transverse and descending colon, likely due to underdistention rather than colitis though clinical correlation recommended. 3. Stable appearance of the left acetabular fracture. Laboratory Results WBC 9.41 10^3/uL (3.29-11.43) 03/24/25 19:43 RBC 4.97 10^6/uL (3.85-5.65) 03/24/25 19:43 Hgb 12.40 g/dL (11.27-16.99) 03/24/25 19:43 Hct 39.9 % (36-47) 03/24/25 19:43 MCV 80.3 fl (85-98) L 03/24/25 19:43 MCH 24.9 pg (27-33) L 03/24/25 19:43 MCHC 31.1 g/dL (30-55) 03/24/25 19:43 RDW 17.3 % (12.1-15.1) H 03/24/25 19:43 Plt Count 209 10^3/cmm (157-399) 03/24/25 19:43 MPV 9.0 fL (7.4-10.4) 03/24/25 19:43 Neut % (Auto) 63.8 % 03/24/25 19:43 Lymph % (Auto) 20.5 % 03/24/25 19:43 [place] % (Auto) 13.0 % 03/24/25 19:43 Eos % (Auto) 2.1 % 03/24/25 19:43 Baso % (Auto) 0.3 % 03/24/25 19:43 Neut # (Auto) 6.00 10^3/uL (1.8-7.7) 03/24/25 19:43 Lymph # (Auto) 1.9 10^3/uL (0.8-4.8) 03/24/25 19:43 [place] # (Auto) 1.2 10^3/uL (0.2-0.9) H 03/24/25 19:43 Eos # (Auto) 0.2 10^3/uL (0.0-0.8) 03/24/25 19:43 Baso # (Auto) 0.0 10^3/uL (0.0-0.1) 03/24/25 19:43 Nucleated RBC % (auto) 0 % 03/24/25 19:43 Nucleated RBCs # 0.0 /100WBC 03/24/25 19:43 PT 19.00 SECONDS (12.1-14.9) H 03/24/25 19:43 INR 1.49 (0.8-1.2) H 03/24/25 19:43 APTT 45.3 SECONDS (23.9-36.7) H 03/24/25 19:43 Specimen Type Arterial 03/24/25 19:42 Sample Site Brachial, left 03/24/25 19:42 ABG pH 7.42 (7.35-7.45) 03/24/25 19:42 ABG pCO2 36.6 mmHg (35-45) 03/24/25 19:42 ABG pO2 69.7 mmHg (80.0-100.0) L 03/24/25 19:42 ABG PO2/FiO2 Ratio 331 03/24/25 19:42 ABG HCO3 24.0 mmol/L (22-26) 03/24/25 19:42 ABG O2 Saturation 94.8 03/24/25 19:42 ABG Base Excess -0.2 mmol/L (-2.0-2.0) 03/24/25 19:42 Markel Test N/a 03/24/25 19:42 A-a O2 Gradient 4.5 mmHg (5-10) L 03/24/25 19:42 Hematocrit 38.0 % (37-47) 03/24/25 19:42 Hgb O2 Saturation 92.6 % (95-100) L 03/24/25 19:42 Carboxyhemoglobin 1.4 %THgb (0.4-20.1) 03/24/25 19:42 Methemoglobin 0.9 % (0.4-1.5) 03/24/25 19:42 Total Hemoglobin 12.4 g/dL (12-16) 03/24/25 19:42 Sodium 137.0 mmol/L (131-143) 03/24/25 19:42 Potassium 3.1 mmol/L (3.5-5.0) L 03/24/25 19:42 Glucose 237.0 mg/dL (70-115) H 03/24/25 19:42 Ionized Calcium 1.2 mmol/L (1.1-1.4) 03/24/25 19:42 O2 Delivery Device Room air 03/24/25 19:42 FiO2 21.0 % 03/24/25 19:42 Manager Gyn ID Amh 03/24/25 19:42 Sodium 137 mmol/L (136-145) 03/24/25 19:43 Potassium 3.4 mmol/L (3.5-5.1) L 03/24/25 19:43 Chloride 101 mmol/L (98-107) 03/24/25 19:43 Carbon Dioxide 21 mmol/L (22-29) L 03/24/25 19:43 Anion Gap 18.4 (5-19) 03/24/25 19:43 BUN 14 mg/dL (8-23) 03/24/25 19:43 Creatinine 0.8 mg/dL (0.5-0.9) 03/24/25 19:43 GFR Calculation Not Reportable 03/24/25 19:43 Glucose 235 mg/dL (65-115) H 03/24/25 19:43 Calculated Osmolality 292 mOsm/kg (285-295) 03/24/25 19:43 Lactic Acid 2.2 mmol/L (0.5-2.2) 03/24/25 19:43 Lactic Acid (Sepsis) 1.2 mmol/L (0.5-2.2) 03/24/25 21:55 Calcium 9.1 mg/dL (8.5-10.5) 03/24/25 19:43 Magnesium 1.8 mg/dL (1.7-2.3) 03/24/25 19:43 Total Bilirubin 0.9 mg/dL (0.15-1.2) 03/24/25 19:43 AST 14 U/L (0-32) 03/24/25 19:43 ALT 12 U/L (0-33) 03/24/25 19:43 Alkaline Phosphatase 170 U/L (35-105) H 03/24/25 19:43 Troponin T Baseline 22 ng/L (0-10) H 03/24/25 19:43 Troponin T 60 Minute 20.35 ng/L (0-10) H 03/24/25 20:41 Delta Troponin T -1.65 ABS# (0-10) L 03/24/25 20:41 NT-Pro-B Natriuret Pep 1488 pg/mL (0-450) H 03/24/25 19:43 Total Protein 6.1 g/dL (6.6-8.7) L 03/24/25 19:43 Albumin 3.6 g/dL (3.5-5.2) 03/24/25 19:43 Globulin 2.5 g/dL (1.3-4.6) 03/24/25 19:43 Lipase 11 U/L (13-60) L 03/24/25 19:43 Urine Color Yellow (Yellow) 03/24/25 20:22 Urine Appearance Clear (CLEAR) 03/24/25 20: Urine pH 5.5 (5-7) 03/24/25: Ur Specific [place] 1.013 (1.005-1.030) 03/24/25 20: Urine Protein Negative (Negative) 03/24/25 20: Urine Glucose (UA) 2+ (Normal) H 03/24/25 20: Urine Ketones Negative (Negative) 03/24/25 20: Urine Blood Trace (Negative) A 03/24/25: Urine Nitrate Negative (Negative) 03/24/25: Urine Bilirubin Negative (Negative) 03/24/25: Urine Urobilinogen 0.2 mg/dL (Negative) 03/24/25 20: Ur Leukocyte Esterase Negative (Negative) 03/24/25 20: Urine RBC 0-2 /hpf (0-2) 03/24/25 20: Urine WBC 0-5 /hpf (0-5) 03/24/25 20: Ur Squamous Epith Cells 0-5 /hpf (0-5) 03/24/25 20: Amorphous Sediment Not Reportable 03/24/25 20: Urine Bacteria None seen /hpf (NONE) 03/24/25 20: Hyaline Casts 0.81 /lpf 03/24/25 20:22 Influenza A (PCR) Negative (Negative) 03/24/25 20:20 Influenza Type B (PCR) Negative (Negative) 03/24/25 20:20 RSV (PCR) Negative (Negative) 03/24/25 20:20 SARS-CoV-2 (PCR) Negative (Negative) 03/24/25 20:20 All radiology interpretation(s) finalized by discharge Discharge Plan Discharge Patient Disposition: Home Clinical Impression: Colitis Condition: Stable Prescriptions: New ondansetron 4 mg tablet,disintegrating 4 mg PO TID PRN (Reason: nausea and vomiting) Qty: 30 0RF No Action (DME) Diabetic shoes with 3 inserts See Rx Instructions .ROUTE .MEDSUPPLY Qty: 1 0RF Rx Instructions: As directed by LYNNE&O Colace 100 mg capsule 100 mg PO BID PRN (Reason: Constipation) (DME) diabetic shoes with 3 inserts See Rx Instructions .Route .MEDSUPPLY Qty: 1 0RF Rx Instructions: As directed to home (DME) FreeStyle Nemesio 2 Sensor Kit See Rx Instructions .ROUTE .MEDSUPPLY Qty: 1 Rx Instructions: As directed furosemide [Lasix] 20 mg tablet 20 mg PO DAILY Qty: 30 0RF potassium chloride [Klor-Con 10] 10 mEq tablet extended release 10 meq PO DAILY Qty: 30 0RF (DME) ASO Brace See Rx Instructions .Route .MEDSUPPLY Qty: 1 0RF Rx Instructions: As directed by JERRY ([facility]) Cam Boot to the Left See Rx Instructions .Route .MEDSUPPLY Qty: 1 0RF Rx Instructions: As directed multivitamin Tablet 1 tab PO QAM atorvastatin 20 mg tablet 20 mg PO QAM duloxetine 30 mg capsule,delayed release(DR/EC) 30 mg PO QAM torsemide 20 mg tablet 20 mg PO QAM cetirizine [Zyrtec] 10 mg Tablet 10 mg PO QAM calcium carbonate-vitamin D3 600 mg-5 mcg (200 unit) Tablet 1 tab PO QAM dorzolamide-timolol 22.3-6.8 mg/mL drops 1 drp ophthalmic (eye) BID Rx Instructions: left eye Eliquis 5 mg tablet 5 mg PO BID 30 Days Qty: 60 0RF ondansetron 8 mg tablet,disintegrating 8 mg PO Q6H Qty: 14 0RF Rx Instructions: Take 1/2-1 tab every 6 hours as needed for nausea and vomiting Ozempic 1 mg/dose (4 mg/3 mL) pen injector 1 mg SUBCUT Q7D Rx Instructions: on Wednesdays nystatin 100,000 unit/gram powder 1 applic TOPICAL BID PRN (Reason: galding) insulin glargine [Lantus Solostar U-100 Insulin] 100 unit/mL (3 mL) insulin pen See Rx Instructions .ROUTE .COMPLEX 30 Days Qty: 0 0RF Rx Instructions: INJECT 20 UNITS SUBCUTANEOUSLY IN THE MORNING AND 20Units IN THE EVENING insulin lispro 100 unit/mL insulin pen See Rx Instructions .ROUTE .COMPLEX 30 Days Qty: 15 0RF Rx Instructions: inject, subcut, tidwmeals, based on low dose insulin sliding scale Discharge Orders: Discharge ED (Routine); Ordered 03/24/25 Ordered By: Hector Short Referrals: Anette Velazquez MD [Primary Care Provider, Internal Medicine] Patient Instructions: Patient Portal & Jere Instructions Activity Restrictions/Additional Instructions: Discharge Instructions Diagnosis: You were evaluated today for ongoing diarrhea and weakness following treatment for a Clostridioides difficile (C. diff) infection one month ago. Your symptoms appear to be related to residual colitis (inflammation of the colon) that can persist after the infection has been treated. Your laboratory tests and vital signs were reassuring, showing no signs of active infection or serious complications. What to Expect: It is common to have some ongoing bowel symptoms for weeks to months after C. diff infection has been treated. These symptoms may include: - Continued loose stools or diarrhea (usually less severe than during the infection) - Mild abdominal discomfort - Fatigue and weakness - Occasional nausea These symptoms typically improve gradually over time as your colon heals. Home Care Instructions: Diet and Hydration: - Drink plenty of fluids (water, clear broths, electrolyte drinks) to prevent dehydration - Eat small, frequent meals that are easy to digest - Consider adding fiber supplements like psyllium husk (Metamucil) to help bulk up stools during recovery - Avoid foods that worsen your symptoms (often spicy foods, caffeine, or high-fat foods) Medications: - Do not take anti-diarrheal medications like loperamide (Imodium) without talking to your doctor first, as these can sometimes cause problems if you have ongoing inflammation - Continue taking any other medications as prescribed - Avoid unnecessary antibiotics, as they can increase the risk of C. diff coming back Activity: - Rest as needed, especially if you feel weak - Gradually increase your activity as you feel better - Wash your hands thoroughly with soap and water after using the bathroom and before eating When to Call Your Doctor: Contact your doctor if you experience: - Worsening diarrhea (more than 6-8 watery stools per day) - Blood in your stool - Severe abdominal pain or cramping - Fever over 100.4?F (38?C) - Signs of dehydration (dizziness, decreased urination, extreme thirst, confusion) - Inability to keep down fluids When to Go to the Emergency Room: Seek immediate medical attention if you have: - Severe abdominal pain that is getting worse - High fever (over 101?F or 38.3?C) - Severe weakness or fainting - Confusion or difficulty staying awake - Very little or no urination Follow-Up: - Schedule a follow-up appointment with your primary care doctor within 1-2 weeks - If your symptoms do not improve within 2-3 weeks or worsen, contact your doctor sooner - You may need additional evaluation if symptoms persist beyond several weeks Important Notes: - Your symptoms should gradually improve over the coming weeks - Some people develop irritable bowel syndrome-like symptoms after C. diff infection that can last for months, but these typically resolve with time - There is a risk of C. diff infection returning, especially if you need to take antibiotics for another reason - Continue practicing good hand hygiene to prevent spreading infection to others If you have any questions or concerns about your recovery, please contact your healthcare provider. Print Language: Uzbek Coding Level of Care Code ED Needle Maker for Jared Vallecillo
[2025-03-24 19:53] LABS: ABG PCO2 36.6 mmHg (35-45); ABG PH Result 7.42 (7.35-7.45); Alveolar-Arterial Oxygen Gradi 4.5 mmHg (5-10); Arterial Blood Gas Hematocrit 38.0 % (37-47); Blood Gas Operator Identificat AMH; Blood Gas Sample Site Brachial, left; Blood Gas Sample Type Arterial; Carboxyhemoglobin 1.4 %THgb (0.4-20.1); Glucose Level-ABG 237.0 mg/dL (70-115); HCO3 ABG 24.0 mmol/L (22-26); Ionized Calcium Level - ABG 1.2 mmol/L (1.1-1.4); Methemoglobin 0.9 % (0.4-1.5); Oxygen Saturation ABG 94.8; PO2 ABG 69.7 mmHg (80.0-100.0); PO2 FiO2 Ratio Arterial Blood 331; Potassium Level - ABG 3.1 mmol/L (3.5-5.0); Sodium Level - ABG 137.0 mmol/L (131-143)
[2025-03-24 19:55] LABS: Hematocrit 39.9 % (36-47); Hemoglobin 12.40 g/dL (11.27-16.99); Mean Corpuscular HGB Conc 31.1 g/dL (30-55); Mean Corpuscular Hemoglobin 24.9 pg (27-33); Mean Corpuscular Volume 80.3 fl (85-98); Nucleated Red Blood Cells % 0 %; Platelet Count 209 10^3/cmm (157-399); Red Blood Count 4.97 10^6/uL (3.85-5.65); White Blood Count 9.41 10^3/uL (3.29-11.43)
--- NOTE | 2025-03-24 20:17 | ECG_ITS ---
[facility] Date: 2025[facility]03[facility]24 Pat Name: Kianna Dotson Department: Room: Gender: Female Placement Secretary: : 1940 Requested By: Hector Walters Order Number: [id number] Daljit MD: Cathleen Vu M.D. Measurements Intervals [place] Rate: 74 P: 0 ID: 0 QRS: 30 QRSD: 109 T: -6 QT: 367 QTc: 408 Interpretive Statements ATRIAL FIBRILLATION NONSPECIFIC ST & T-WAVE ABNORMALITY ABNORMAL RHYTHM ECG Compared to ECG 02/24/2025 09:57:39 Atrial flutter no longer present Ventricular premature complex(es) no longer present Aberrant conduction of supraventricular beat(s) no longer present T-wave abnormality still present Electronically Signed On 03-25-2025 21:47:40 INSTRUMENTATION CHEMIST by Cathleen Vu M.D. [email or web address]
[2025-03-24 20:18] LABS: Lactic Sepsis W/Reflex 2.2 mmol/L (0.5-2.2)
[2025-03-24 20:19] LABS: Troponin(5th) Baseline 22 ng/L (0-10)
[2025-03-24 20:28] LABS: Alanine Aminotransferase 12 U/L (0-33); Albumin Level 3.6 g/dL (3.5-5.2); Alkaline Phosphatase 170 U/L (35-105); Anion Gap 18.4 (5-19); Aspartate Amino Transferase 14 U/L (0-32); Blood Urea Nitrogen 14 mg/dL (8-23); Calcium 9.1 mg/dL (8.5-10.5); Carbon Dioxide 21 mmol/L (22-29); Chloride 101 mmol/L (98-107); Globulin 2.5 g/dL (1.3-4.6); Glucose 235 mg/dL (65-115); Lipase 11 U/L (13-60); Magnesium 1.8 mg/dL (1.7-2.3); NT Pro B Type Natriuretic Pept 1488 pg/mL (0-450); Osmolality Calculated 292 mOsm/kg (285-295); Potassium 3.4 mmol/L (3.5-5.1); Sodium 137 mmol/L (136-145); Total Protein 6.1 g/dL (6.6-8.7)
[2025-03-24 20:38] VITALS: BP 136/62; PULSE 80; RESP 16; O2SAT 93
[2025-03-24 20:41] LABS: Glucose Urine UA 2+ (Normal); Nitrate Urine Negative (Negative); Specific Gravity, Urine 1.013 (1.005-1.030)
--- NOTE | 2025-03-24 20:44 | CTR_ITS ---
PROCEDURE INFORMATION: Exam: CT Chest With Contrast; Diagnostic Exam date and time: 03/24/2025 10:12 PM Age: 84 years old Clinical indication: Other: Poss pneumonia, abd pain, diarrhea TECHNIQUE: Imaging protocol: Diagnostic computed tomography of the chest with contrast. Radiation optimization: All CT scans at this facility use at least one of these dose optimization techniques: automated exposure control; mA and/or kV adjustment per patient size (includes targeted exams where dose is matched to clinical indication); or iterative reconstruction. Contrast material: [id number]; Contrast volume: 100 ml; Contrast route: INTRAVENOUS (IV); COMPARISON: CT chest abdpel w/*[id number] 02/23/2025 11:45 PM RADIATION DOSE METRICS: Total DLP (mGy-cm): 1426.71 FINDINGS: Thyroid: Nonspecific thyroid nodules consider follow-up ultrasound for further characterization on a nonurgent basis. Lungs: No definite acute infiltrate or effusion. Pleural spaces: Unremarkable. No pneumothorax. No pleural effusion. Heart: Unremarkable. No cardiomegaly. No pericardial effusion. Lymph nodes: Unremarkable. No enlarged lymph nodes. Vasculature: Aortic and coronary atherosclerosis kyphosis. Bones/joints: [id number] degenerative changes of the thoracic vertebral bodies. Acute fractures of posterior aspect of rib 8 as well as lateral aspect of the rib 8, segmental. Acute nonsegmental fracture of the posterior aspect of the rib 9. Multiple old rib fractures on the left. Soft tissues: Unremarkable. COMMENTS: Consistent with the [employer]'s Incidental Findings Committee white paper (J Am Nicholas Radiol 2015): In patients aged 35 years and older with an incidental thyroid nodule equal to or greater than 1.[address], MRI or extrathyroidal US, further evaluation with dedicated thyroid US is recommended for patients with normal life expectancy and without comorbidities. For smaller nodules without suspicious features, no further evaluation or follow up is recommended. PROCEDURE INFORMATION: Exam: CT Abdomen And Pelvis With Contrast Exam date and time: 03/24/2025 10:12 PM Age: 84 years old Clinical indication: Other: Poss pneumonia, abd pain, diarrhea TECHNIQUE: Imaging protocol: Computed tomography of the abdomen and pelvis with contrast. Radiation optimization: All CT scans at this facility use at least one of these dose optimization techniques: automated exposure control; mA and/or kV adjustment per patient size (includes targeted exams where dose is matched to clinical indication); or iterative reconstruction. 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 Gallbladder and biliary ducts: Cholecystectomy clips. Pancreas: Normal. No ductal dilation. Spleen: Normal. No splenomegaly. Adrenal glands: Normal. No mass. Kidneys and ureters: Nonobstructing renal calculi on the right. Nonobstructing calculus of the left kidney. Stomach and bowel: Query residual mild sigmoid diverticulitis, clinical correlation. Mild thickening of transverse and descending colon, likely due to underdistention rather than colitis though clinical correlation recommended. Appendix: No evidence of appendicitis. Intraperitoneal space: Unremarkable. No free air. No significant fluid collection. Vasculature: Aortic atherosclerosis. Lymph nodes: Unremarkable. No enlarged lymph nodes. Urinary bladder: Unremarkable as visualized. Reproductive: Unremarkable as visualized. Bones/joints: Stable appearance of the left acetabular fracture. Soft tissues: Unremarkable. CT/CT chest abdpel w/*[id number] IMPRESSION: 1. Nonspecific thyroid nodules consider follow-up ultrasound for further characterization on a nonurgent basis. 2. Acute fractures of posterior aspect of rib 8 as well as lateral aspect of the rib 8, segmental. Acute nonsegmental fracture of the posterior aspect of the rib 9. Multiple old rib fractures on the left. Previously visualized right 5th rib fracture not clearly visualized on today's exam. 3. No definite acute infiltrate or effusion. IMPRESSION: 1. Query residual mild sigmoid diverticulitis (compared to prior), clinical correlation. 2. Mild thickening of transverse and descending colon, likely due to underdistention rather than colitis though clinical correlation recommended. 3. Stable appearance of the left acetabular fracture.
[2025-03-24 20:46] LABS: Add Urine Microscopic? YES
[2025-03-24 20:57] LABS: INR 1.49 (0.8-1.2); Prothrombin Time 19.00 SECONDS (12.1-14.9)
[2025-03-24 20:59] LABS: Partial Thromboplastin Time 45.3 SECONDS (23.9-36.7)
[2025-03-24 21:00] VITALS: BP 145/62; PULSE 79; RESP 16; O2SAT 96
[2025-03-24 21:01] LABS: UA Slide Review UA Slide Review Perf
[2025-03-24 21:16] LABS: Respiratory Syncytial Virus Ce NEGATIVE (Negative); SARS-CoV-2 PCR NEGATIVE (Negative)
[2025-03-24 21:36] LABS: Reflex Lactate Order REFLEX LACTIC ORDERD
[2025-03-24 22:00] VITALS: BP 124/50; PULSE 77; RESP 16; O2SAT 93
[2025-03-24 22:17] LABS: Lactic Acid level (Lactate) 1.2 mmol/L (0.5-2.2)
--- NOTE | 2025-03-24 22:20 | PC.NURSE ---
Assumed Pt. care at 0884
[2025-03-24 23:14] VITALS: BP 118/61; PULSE 72; O2SAT 94
== END 2025-03-24 23:15 | disposition home or self-care (01) ==
PROVIDERS: Emergency Provider Physician Assistant; PCP Internal Medicine
DX: K52.9 Noninfective gastroenteritis and colitis, unspecified (principal); Z79.01 Long term (current) use of anticoagulants; Z79.4 Long term (current) use of insulin; Z11.52 Encounter for screening for COVID-19; I25.10 Atherosclerotic heart disease of native coronary artery without angina pectoris; E11.40 Type 2 diabetes mellitus with diabetic neuropathy, unspecified; I10 Essential (primary) hypertension
CPT/HCPCS: 36415; 36416; 36600; 70450; 71045; 71260; 74177; 80051; 80053; 81001; 82330; 82805; 82962; 83605; 83690; 83735; 83880; 84484; 85025; 85610; 85730; 87040; 87637; 93005; 96374; 99285; J2405; J7050

== ENCOUNTER 2025-03-28 18:00 | Emergency (ER) | payer MEDICARE, MEDICAID, SELFPAY ==
--- OUTSIDE RECORDS SUMMARY | 2025-03-28 18:06 | XMS_ITS | Clinical Summary ---
Author Organization [facility] Address [address] 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 Active Insulin [place], Disposable, (Pentips) 31 gauge x 3/16 Needle by [facility]Non-Drug; Combo Route) route. Active Blood-Glucose Meter by [facility] [place]Non-Drug; Combo Route) route. Active [...] blood-glucose meter (ONE TOUCH ULTRA [facility]) by [facility] [place]Non-Drug; Combo Route) route. 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
[2025-03-28 18:08] VITALS: BP 155/84; PULSE 85; RESP 16; TEMP 36.8; O2SAT 97; BMI 32.3
--- NOTE | 2025-03-28 18:32 | XRR_ITS ---
PROCEDURE INFORMATION: Exam: XR Chest Exam date and time: 03/28/2025 6:40 PM Age: 84 years old Clinical indication: Shortness of breath; Prior surgery; Surgery date: 6+ months; Surgery type: Coronary stents, gallbladder; Additional info: SOB TECHNIQUE: Imaging protocol: Radiologic exam of the chest. Views: 1 view. COMPARISON: CT chest abdpel w/*[id number] 03/24/2025 10:12 PM FINDINGS: Lungs: Unremarkable. No consolidation. Pleural spaces: Unremarkable. No pleural effusion. No pneumothorax. Heart/Mediastinum: Unremarkable. No cardiomegaly. Bones/joints: Old healed fracture deformity of the left humeral neck. XR/XR chest 1V portable [id number] IMPRESSION: No acute findings.
[2025-03-28] MEDS: ondansetron hcl ODT 4 mg Tab PO (19:00)
--- NOTE | 2025-03-28 19:10 | W.ED.FEMALGU ---
HPI - Female Genitourinary General: Chief complaint: Urogenital-Female Stated complaint: sent by dr oscar says had UTI Time Seen by Provider: 03/28/25 18:05 History of Present Illness: Patient is a 84-year-old female with a history of diabetes, congestive heart failure, recent C. difficile infection, and prior toe amputation with prolonged antibiotic use, who presents with subjective fever, nausea, vomiting, diarrhea, abdominal pain, decreased appetite, increased somnolence, unsteady gait, and urinary incontinence. She was recently diagnosed with a urinary tract infection via urine sample sent to her physician, with reported resistance to most antibiotics except one, necessitating IV antibiotics. She has gained approximately three pounds over the past month, and her diarrhea, which had previously improved, has recurred. She also reports body aches and intermittent cough. Associated symptoms: Reports abdominal pain; Deny headache(s) Related Data Home Medications ?Medication ?Instructions ?Recorded ?Confirmed atorvastatin 20 mg tablet 20 mg PO QAM 11/07/21 03/18/25 multivitamin 1 tab PO QAM 11/07/21 03/18/25 duloxetine 30 mg capsule,delayed 30 mg PO QAM 05/12/23 03/18/25 release calcium 600 mg (as 1 tab PO QAM 07/14/23 03/18/25 carbonate)-vitamin D3 5 mcg (200 unit) tablet cetirizine 10 mg tablet (Zyrtec) 10 mg PO QAM 07/14/23 03/18/25 dorzolamide 22.3 mg-timolol 6.8 1 drp ophthalmic (eye) BID 07/14/23 03/18/25 mg/mL eye drops torsemide 20 mg tablet 20 mg PO QAM 07/14/23 03/18/25 Held on 02/26/25. Instructions: Resume on 03/01/25. docusate sodium 100 mg capsule 100 mg PO BID PRN Constipation 05/16/24 03/18/25 (Colace) nystatin 100,000 unit/gram topical 1 applic topical BID PRN galding 09/26/24 03/18/25 powder semaglutide 1 mg/dose (4 mg/3 mL) 1 mg SUBCUT Q7D 09/26/24 03/18/25 subcutaneous pen injector (Epigami) flash glucose sensor (FreeStyle #1 ea 10/09/24 03/12/25 Nemesio 2 Sensor kit) Previous Rx's ?Medication ?Instructions ?Recorded Diabetic shoes with 3 inserts #1 ea 10/20/20 diabetic shoes with 3 inserts #1 ea 08/02/23 apixaban 5 mg tablet (Eliquis) 5 mg PO BID 30 days #60 tabs 10/02/24 ondansetron 8 mg disintegrating 8 mg PO Q6H #14 tabs 01/30/25 tablet Cam Boot to the Left #1 ea 02/19/25 insulin glargine 100 unit/mL (3 See Rx Instructions .Route 02/26/25 mL) subcutaneous pen (Lantus .COMPLEX 30 days #0 mL Solostar U-100 Insulin) insulin lispro 100 unit/mL See Rx Instructions .Route 02/26/25 subcutaneous pen .COMPLEX 30 days #15 mL ASO Brace #1 ea 03/12/25 furosemide 20 mg tablet (Lasix) 20 mg PO DAILY #30 tabs 03/18/25 potassium chloride 10 mEq 10 meq PO DAILY #30 tabs 03/18/25 tablet,extended release (Klor-Con) ondansetron 4 mg disintegrating 4 mg PO TID PRN nausea and 03/24/25 tablet vomiting #30 tabs amoxicillin 875 mg-potassium 1 tab PO BID #14 tabs 03/28/25 clavulanate 125 mg tablet ondansetron 4 mg disintegrating 4 mg PO TID PRN nausea and 03/28/25 tablet vomiting 5 days #20 tabs Allergies Allergy/AdvReac Type Severity Reaction Status Date / Time diphenhydramine (From Allergy Unknown unknown Verified 03/28/25 18:19 Benadryl) tetracycline Allergy Unknown unknown Verified 03/28/25 18:19 Review of Systems General: Reports: 10 or more systems reviewed and unremarkable except in HPI and below Const: Reports: fever(s), change in weight and fatigue; Denies: chills Eyes: Denies: change in vision or eye discharge Card: Denies: chest pain, palpitations or swelling of feet/ankles Resp: Denies: dyspnea or productive cough GI: Reports: abdominal pain and diarrhea; Denies: vomiting Musc: Denies: neck pain or back pain Skin/Breast: Denies: rash or jaundice Neuro: Denies: headache(s), numbness in extremities or weakness in extremities Earl/Lymph: Denies: easy bruising or easy bleeding PFSH ED PFSH: Medical History (Updated 03/28/25 @ 20:18 by Clyde Holguin DO) Humerus fracture Type 2 diabetes mellitus Tachy-han syndrome UTI (urinary tract infection) Fall Moderate mitral regurgitation Acute DC, inferior wall High anion gap metabolic acidosis Diabetes with ketoacidosis Cholelithiases Vomiting Atrial fibrillation, chronic Fracture of humerus, left, closed Pes planus of both feet ALISTAIR inhibitor intolerance Essential hypertension Warfarin anticoagulation Lower extremity deep venous thrombosis CAD (coronary artery disease) Fracture of greater trochanter of right femur Peripheral vascular disease Onychodystrophy Diabetic neuropathy associated with diabetes mellitus due to underlying condition Surgical History Status post laparoscopic cholecystectomy Coronary angioplasty status PCI to RCA?2016 Family History Mother Diabetes Denies family history of CAD (coronary artery disease) Clotting disorder Dementia Hyperlipidemia Psychiatric illness Chronic kidney disease (CKD) Suicide Anesthesia complication Bleeding disorder Family history of premature coronary artery disease Lung disease Cancer Hypertension Stroke Social History Smoking and tobacco/nicotine status: never used tobacco/nicotine Second hand smoke exposure: Yes Alcohol intake: never Substance/Drug Use: never Physical Exam Narrative: EXAM NARRATIVE: Patient overall well-appearing, nontoxic, afebrile, vital stable on arrival. Abdomen soft, nondistended, no overlying skin changes, bowel sounds intact, no reproducible tenderness, no CVA tenderness. Breathing comfortably on room air, saturating well, able to speak in full sentences without getting short of breath, normal sinus rhythm with no murmurs, very mild nonpitting edema. GCS 15, moving all 4 extremities symmetrically and spontaneously. Course Vital Signs: Vital signs: Vital Signs Temperature 98.1 F 03/28/25 20:44 Pulse Rate 77 03/28/25 20:44 Respiratory Rate 18 03/28/25 20:44 Blood Pressure 139/104 03/28/25 20:44 Pulse Oximetry 93 03/28/25 20:44 Oxygen Delivery Me thod Room Air 03/28/25 18:08 MDM - Female Medical Decision Making -ddx: Cystitis, pyelonephritis, interstitial cystitis, chronic C. difficile, gastroenteritis, URI, pneumonia - Patient with few days of generalized viral syndrome symptoms, has many recent hospital admissions and many rounds of antibiotics, overall well-appearing at this time, reportedly had a positive UA on a home sample, will start with a formal UA, chest x-ray, viral swab and start with Zofran before jumping to IV labs antibiotics and possible imaging. - Patient's viral swab is negative, UA was actually fairly suggestive of a UTI especially in setting of her symptoms, chest x-ray was reassuring for no pneumonia. Took a further look at her previous microbiology, her previous urines seemingly only yielded E. coli although they did have higher resistance to the normal antibiotics, surprisingly with susceptibility to Augmentin and so in an effort to keep her out of the hospital especially with her recent C. difficile and elderly age and to prevent exposure to bacterial resistance, we agreed to start her on Augmentin and have her follow-up very closely with her PCP in a few days for reevaluation, states she will get called if her urine cultures grow anything that necessitated IV antibiotics and so with her feeling well, she was deemed stable to be discharged with granddaughter at bedside and understanding of strict return precautions. Lab Data Radiology Impressions Chest X-Ray 03/28/25 18:32 IMPRESSION: No acute findings. Laboratory Results Urine Color Yellow (Yellow) 03/28/25 19:11 Urine Appearance Clear (CLEAR) 03/28/25 19:11 Urine pH 5.5 (5-7) 03/28/25 19:11 Ur Specific [place] 1.007 (1.005-1.030) 03/28/25 19:11 Urine Protein Negative (Negative) 03/28/25 19:11 Urine Glucose (UA) Negative (Normal) 03/28/25 19:11 Urine Ketones Negative (Negative) 03/28/25 19: Urine Blood Trace (Negative) A 03/28/25 19: Urine Nitrate Positive (Negative) A 03/28/25 19: Urine Bilirubin Negative (Negative) 03/28/25 19: Urine Urobilinogen 0.2 mg/dL (Negative) 03/28/25 19: Ur Leukocyte Esterase 1+ (Negative) A 03/28/25 19: Urine RBC 0-2 /hpf (0-2) 03/28/25 19:11 Urine WBC 21-50 /hpf (0-5) H 03/28/25 19:11 Ur Squamous Epith Cells 0-5 /hpf (0-5) 03/28/25 19:11 Amorphous Sediment Not Reportable 03/28/25 19:11 Urine Bacteria 4+ /hpf (NONE) H 03/28/25 19:11 Hyaline Casts 1.21 /lpf 03/28/25 19:11 Influenza A (PCR) Negative (Negative) 03/28/25 19:15 Influenza Type B (PCR) Negative (Negative) 03/28/25 19:15 RSV (PCR) Negative (Negative) 03/28/25 19:15 SARS-CoV-2 (PCR) Negative (Negative) 03/28/25 19:15 All radiology interpretation(s) finalized by discharge Discharge Plan Discharge Patient Disposition: Home Clinical Impression: Cystitis, Nausea Condition: Stable Prescriptions: New amoxicillin-pot clavulanate 875-125 mg tablet 1 tab PO BID Qty: 14 0RF ondansetron 4 mg tablet,disintegrating 4 mg PO TID PRN (Reason: nausea and vomiting) 5 Days Qty: 20 0RF No Action (DME) Diabetic shoes with 3 inserts See Rx Instructions .ROUTE .MEDSUPPLY Qty: 1 0RF Rx Instructions: As directed by LYNNE&O Colace 100 mg capsule 100 mg PO BID PRN (Reason: Constipation) (DME) diabetic shoes with 3 inserts See Rx Instructions .Route .MEDSUPPLY Qty: 1 0RF Rx Instructions: As directed to home ([facility]) FreeStyle Nemesio 2 Sensor Kit See Rx Instructions .ROUTE .MEDSUPPLY Qty: 1 Rx Instructions: As directed furosemide [Lasix] 20 mg tablet 20 mg PO DAILY Qty: 30 0RF potassium chloride [Klor-Con 10] 10 mEq tablet extended release 10 meq PO DAILY Qty: 30 0RF (DME) ASO Brace See Rx Instructions .Route .MEDSUPPLY Qty: 1 0RF Rx Instructions: As directed by JERRY ([facility]) Cam Boot to the Left See Rx Instructions .Route .MEDSUPPLY Qty: 1 0RF Rx Instructions: As directed multivitamin Tablet 1 tab PO QAM atorvastatin 20 mg tablet 20 mg PO QAM duloxetine 30 mg capsule,delayed release(DR/EC) 30 mg PO QAM torsemide 20 mg tablet 20 mg PO QAM cetirizine [Zyrtec] 10 mg Tablet 10 mg PO QAM calcium carbonate-vitamin D3 600 mg-5 mcg (200 unit) Tablet 1 tab PO QAM dorzolamide-timolol 22.3-6.8 mg/mL drops 1 drp ophthalmic (eye) BID Rx Instructions: left eye Eliquis 5 mg tablet 5 mg PO BID 30 Days Qty: 60 0RF ondansetron 8 mg tablet,disintegrating 8 mg PO Q6H Qty: 14 0RF Rx Instructions: Take 1/2-1 tab every 6 hours as needed for nausea and vomiting Ozempic 1 mg/dose (4 mg/3 mL) pen injector 1 mg SUBCUT Q7D Rx Instructions: on Wednesdays nystatin 100,000 unit/gram powder 1 applic TOPICAL BID PRN (Reason: galding) insulin glargine [Lantus Solostar U-100 Insulin] 100 unit/mL (3 mL) insulin pen See Rx Instructions .ROUTE .COMPLEX 30 Days Qty: 0 0RF Rx Instructions: INJECT 20 UNITS SUBCUTANEOUSLY IN THE MORNING AND 20Units IN THE EVENING insulin lispro 100 unit/mL insulin pen See Rx Instructions .ROUTE .COMPLEX 30 Days Qty: 15 0RF Rx Instructions: inject, subcut, tidwmeals, based on low dose insulin sliding scale ondansetron 4 mg tablet,disintegrating 4 mg PO TID PRN (Reason: nausea and vomiting) Qty: 30 0RF Discharge Orders: Discharge ED (Routine); Ordered 03/28/25 Ordered By: Clyde Holguin Referrals: Anette Velazquez MD [Primary Care Provider, Internal Medicine] Discharge Diet: Usual diet Discharge Activity: Resume usual activity Patient Instructions: Opioid Safety, Pain Management, Patient Portal & Jere Instructions Activity Restrictions/Additional Instructions: You were seen for your nausea and urinary symptoms, you were evaluated with a urine test, chest x-ray and viral swab which confirmed you do have a urinary tract infection, based off your previous laboratory studies, it was deemed that we could start you on a specific stronger antibiotic called Augmentin to treat this most likely. Take this every 12 hours for a total of 7 days, take this with food as possible. Ensure you stay hydrated. Use the Zofran, 4 mg every 8 hours as needed for nausea. Follow-up with your primary care physician in a few days to reevaluate the status of your infection and how you are doing overall. Return to the ED with feeling a lot worse, continuous vomiting, severe abdominal pain, fevers that do not improve with Tylenol, any other emergent concerns Print Language: Macedonian Coding Level of Care Code ED Casing In Line Setter for Jared Vallecillo
[2025-03-28 19:20] VITALS: BP 155/69; O2SAT 99
[2025-03-28 19:23] LABS: Glucose Urine UA Negative (Normal); Nitrate Urine Positive (Negative); Specific Gravity, Urine 1.007 (1.005-1.030)
[2025-03-28 19:26] LABS: Add Urine Microscopic? YES
[2025-03-28 19:35] VITALS: BP 118/82; PULSE 73; RESP 17; O2SAT 100
[2025-03-28 20:05] VITALS: BP 144/69; PULSE 78; RESP 17; O2SAT 97
[2025-03-28 20:11] LABS: Respiratory Syncytial Virus Ce NEGATIVE (Negative); SARS-CoV-2 PCR NEGATIVE (Negative)
[2025-03-28 20:40] VITALS: BP 139/104; PULSE 77; RESP 18; O2SAT 93
[2025-03-28 20:44] VITALS: BP 139/104; PULSE 77; RESP 18; TEMP 36.7; O2SAT 93
== END 2025-03-28 20:45 | disposition home or self-care (01) ==
PROVIDERS: Emergency Provider Student in an Organized Health Care Education/Training Program; PCP Internal Medicine
DX: N30.90 Cystitis, unspecified without hematuria (principal); R11.0 Nausea; Z11.52 Encounter for screening for COVID-19; Z79.01 Long term (current) use of anticoagulants; Z79.4 Long term (current) use of insulin; E11.9 Type 2 diabetes mellitus without complications; I25.10 Atherosclerotic heart disease of native coronary artery without angina pectoris; I10 Essential (primary) hypertension
CPT/HCPCS: 71045; 81001; 87077; 87086; 87186; 87637; 99284; J9999; Q0162

== ENCOUNTER 2025-04-01 12:54 | Observation (INO) | payer MEDICARE, MEDICAID, SELFPAY ==
[2025-04-01 13:03] VITALS: BP 152/77; PULSE 90; RESP 17; TEMP 36.8; O2SAT 96; BMI 31.7
--- OUTSIDE RECORDS SUMMARY | 2025-04-01 13:04 | XMS_ITS | Clinical Summary ---
Author Organization [facility] Address [address] 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 Active Insulin [place], Disposable, (Pentips) 31 gauge x 3/16 Needle by [facility].(Non-Drug; Combo Route) route. Active Blood-Glucose Meter by [facility].(Non-Drug; Combo Route) route. Active empagliflozin (Jardiance) 25 [...] blood-glucose meter (ONE TOUCH [facility]TRA [facility] [place]) by [facility].(Non-Drug; Combo Route) route. 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 MACHINE OPERATOR Height 162.6 cm (5' 4 ) 05/11/2021 2:20 PM SAUSAGE MACHINE OPERATOR Body Mass Index 32.27 05/11/2021 2:20 PM SAUSAGE MACHINE OPERATOR Plan of Treatment Health Maintenance Due Date Last Done Comments DTAP/TDAP/TD VACCINES (1 - Tdap) 1960 PNEUMOCOCCAL VACCINE 50+ YEARS (1 of 1 - PCV) 05/12/18 92 ZOSTER VACCINE (1 of 2) 1991 OSTEOPOROSIS SCREENING 2006 RSV VACCINE (60+ or ) (1 - 1-dose 75+ series) 2016 INFLUENZA VACCINE (#1) [id number] [place] [address] [place]ICAID [place] [facility] DUAL COMPLETE HMO DSNP [facility] [id number]
--- NOTE | 2025-04-01 14:03 | W.ED.FEMALGU ---
HPI - Female Genitourinary General: Chief complaint: Urogenital-Female Stated complaint: unable to urinate Time Seen by Provider: 04/01/25 14:00 History of Present Illness: 84-year-old female presents to the emergency room with concerns of UTI. She was seen 4 days ago for UTI started on oral antibiotics. She was initially started on Augmentin. Has had E. coli ESBL multiple times and most recent urine culture all also grew out E. coli ESBL. As did 1 in February of this year. Has not had any fevers or chills she has had some increased loose stools over the last couple of days since starting the Augmentin. She has had C. difficile in the past. Associated symptoms: Deny abdominal pain Related Data Home Medications ?Medication ?Instructions ?Recorded ?Confirmed atorvastatin 20 mg tablet 20 mg PO QAM 11/07/21 03/18/25 multivitamin 1 tab PO QAM 11/07/21 03/18/25 duloxetine 30 mg capsule,delayed 30 mg PO QAM 05/12/23 03/18/25 release calcium 600 mg (as 1 tab PO QAM 07/14/23 03/18/25 carbonate)-vitamin D3 5 mcg (200 unit) tablet cetirizine 10 mg tablet (Zyrtec) 10 mg PO QAM 07/14/23 03/18/25 dorzolamide 22.3 mg-timolol 6.8 1 drp ophthalmic (eye) BID 07/14/23 03/18/25 mg/mL eye drops torsemide 20 mg tablet 20 mg PO QAM 07/14/23 03/18/25 Held on 02/26/25. Instructions: Resume on 03/01/25. docusate sodium 100 mg capsule 100 mg PO BID PRN Constipation 05/16/24 03/18/25 (Colace) nystatin 100,000 unit/gram topical 1 applic topical BID PRN galding 09/26/24 03/18/25 powder semaglutide 1 mg/dose (4 mg/3 mL) 1 mg SUBCUT Q7D 09/26/24 03/18/25 subcutaneous pen injector (Ozempic) flash glucose sensor (FreeStyle #1 ea 10/09/24 03/12/25 Nemesio 2 Sensor kit) Previous Rx's ?Medication ?Instructions ?Recorded Diabetic shoes with 3 inserts #1 ea 10/20/20 diabetic shoes with 3 inserts #1 ea 08/02/23 apixaban 5 mg tablet (Eliquis) 5 mg PO BID 30 days #60 tabs 10/02/24 ondansetron 8 mg disintegrating 8 mg PO Q6H #14 tabs 01/30/25 tablet Cam Boot to the Left #1 ea 02/19/25 insulin glargine 100 unit/mL (3 See Rx Instructions .Route 02/26/25 mL) subcutaneous pen (Lantus .COMPLEX 30 days #0 mL Solostar U-100 Insulin) insulin lispro 100 unit/mL See Rx Instructions .Route 02/26/25 subcutaneous pen .COMPLEX 30 days #15 mL ASO Brace #1 ea 03/12/25 furosemide 20 mg tablet (Lasix) 20 mg PO DAILY #30 tabs 03/18/25 potassium chloride 10 mEq 10 meq PO DAILY #30 tabs 03/18/25 tablet,extended release (Klor-Con) ondansetron 4 mg disintegrating 4 mg PO TID PRN nausea and 03/24/25 tablet vomiting #30 tabs amoxicillin 875 mg-potassium 1 tab PO BID #14 tabs 03/28/25 clavulanate 125 mg tablet ondansetron 4 mg disintegrating 4 mg PO TID PRN nausea and 03/28/25 tablet vomiting 5 days #20 tabs Allergies Allergy/AdvReac Type Severity Reaction Status Date / Time diphenhydramine (From Allergy Unknown unknown Verified 03/28/25 18:19 Benadryl) tetracycline Allergy Unknown unknown Verified 03/28/25 18:19 Review of Systems Const: Denies: fever(s) or chills Card: Denies: chest pain Resp: Denies: dyspnea GI: Denies: abdominal pain : Denies: dysuria, urinary frequency or urinary urgency Musc: Denies: neck pain or back pain Skin/Breast: Denies: rash PFSH ED PFSH: Medical History Humerus fracture Type 2 diabetes mellitus Tachy-han syndrome UTI (urinary tract infection) Fall Moderate mitral regurgitation Acute CA, inferior wall High anion gap metabolic acidosis Diabetes with ketoacidosis Cholelithiases Vomiting Atrial fibrillation, chronic Fracture of humerus, left, closed Pes planus of both feet ALISTAIR inhibitor intolerance Essential hypertension Warfarin anticoagulation Lower extremity deep venous thrombosis CAD (coronary artery disease) Fracture of greater trochanter of right femur Peripheral vascular disease Onychodystrophy Diabetic neuropathy associated with diabetes mellitus due to underlying condition Surgical History Status post laparoscopic cholecystectomy Coronary angioplasty status PCI to RCA?2016 Family History Mother Diabetes Denies family history of CAD (coronary artery disease) Clotting disorder Dementia Hyperlipidemia Psychiatric illness Chronic kidney disease (CKD) Suicide Anesthesia complication Bleeding disorder Family history of premature coronary artery disease Lung disease Cancer Hypertension Stroke Social History Smoking and tobacco/nicotine status: never used tobacco/nicotine Second hand smoke exposure: Yes Alcohol intake: never Substance/Drug Use: never Physical Exam Const: COMMON NORMALS: no acute distress GENERAL APPEARANCE: cooperative and comfortable ORIENTATION/CONSCIOUSNESS: Yes awake, Yes oriented to person, Yes oriented to place and Yes oriented to time HENMT: COMMON NORMALS: normocephalic, atraumatic and hearing grossly normal bilaterally HEAD & SCALP: normocephalic and atraumatic Resp: COMMON NORMALS: normal respiratory effort, No retractions, No use of accessory muscles and clear to auscultation bilaterally AUSCULTATION: clear to auscultation bilaterally Cardio: COMMON NORMALS: regular rate, regular rhythm and No murmurs present (Cardio) RATE: regular rate RHYTHM: regular rhythm GI: COMMON NORMALS: Soft to palpation and No hepatosplenomegaly present AUSCULTATION: Yes normoactive bowel sounds PALPATION: Yes Soft to palpation, No Tenderness to palpation present (GI), No Guarding due to palpation present (GI) and Yes No hepatosplenomegaly present Extremity: COMMON NORMALS: normal to inspection, capillary refill normal, no clubbing, cyanosis or edema, no calf tenderness and no pedal edema Neuro: SENSORIUM/ORIENTATION: Yes oriented to person, Yes oriented to place and Yes oriented to time Skin: COMMON NORMALS: no rashes or lesions noted GENERAL SKIN EXAM: no rashes or lesions noted Course Vital Signs: Vital signs: Vital Signs Temperature 98.2 F 04/01/25 13:03 Pulse Rate 90 04/01/25 13:03 Respiratory Rate 17 04/01/25 13:03 Blood Pressure 152/77 04/01/25 13:03 Pulse Oximetry 96 04/01/25 13:03 Oxygen Delivery Me thod Room Air 04/01/25 13:03 MDM - Female Lab Data 04/01/25 14:28 04/01/25 14:28 Discharge Plan Discharge Condition: Stable Prescriptions: No Action (DME) Diabetic shoes with 3 inserts See Rx Instructions .ROUTE .MEDSUPPLY Qty: 1 0RF Rx Instructions: As directed by LYNNE&O Colace 100 mg capsule 100 mg PO BID PRN (Reason: Constipation) (DME) diabetic shoes with 3 inserts See Rx Instructions .Route .MEDSUPPLY Qty: 1 0RF Rx Instructions: As directed to home (DME) FreeStyle Nemesio 2 Sensor Kit See Rx Instructions .ROUTE .MEDSUPPLY Qty: 1 Rx Instructions: As directed furosemide [Lasix] 20 mg tablet 20 mg PO DAILY Qty: 30 0RF potassium chloride [Klor-Con 10] 10 mEq tablet extended release 10 meq PO DAILY Qty: 30 0RF (DME) ASO Brace See Rx Instructions .Route .MEDSUPPLY Qty: 1 0RF Rx Instructions: As directed by JERRY ([facility] [place] Cam Boot to the Left See Rx Instructions .Route .MEDSUPPLY Qty: 1 0RF Rx Instructions: As directed multivitamin Tablet 1 tab PO QAM atorvastatin 20 mg tablet 20 mg PO QAM duloxetine 30 mg capsule,delayed release(DR/EC) 30 mg PO QAM torsemide 20 mg tablet 20 mg PO QAM cetirizine [Zyrtec] 10 mg Tablet 10 mg PO QAM calcium carbonate-vitamin D3 600 mg-5 mcg (200 unit) Tablet 1 tab PO QAM dorzolamide-timolol 22.3-6.8 mg/mL drops 1 drp ophthalmic (eye) BID Rx Instructions: left eye Eliquis 5 mg tablet 5 mg PO BID 30 Days Qty: 60 0RF ondansetron 8 mg tablet,disintegrating 8 mg PO Q6H Qty: 14 0RF Rx Instructions: Take 1/2-1 tab every 6 hours as needed for nausea and vomiting amoxicillin-pot clavulanate 875-125 mg tablet 1 tab PO BID Qty: 14 0RF ondansetron 4 mg tablet,disintegrating 4 mg PO TID PRN (Reason: nausea and vomiting) 5 Days Qty: 20 0RF Ozempic 1 mg/dose (4 mg/3 mL) pen injector 1 mg SUBCUT Q7D Rx Instructions: on Wednesdays nystatin 100,000 unit/gram powder 1 applic TOPICAL BID PRN (Reason: galding) insulin glargine [Lantus Solostar U-100 Insulin] 100 unit/mL (3 mL) insulin pen See Rx Instructions .ROUTE .COMPLEX 30 Days Qty: 0 0RF Rx Instructions: INJECT 20 UNITS SUBCUTANEOUSLY IN THE MORNING AND 20Units IN THE EVENING insulin lispro 100 unit/mL insulin pen See Rx Instructions .ROUTE .COMPLEX 30 Days Qty: 15 0RF Rx Instructions: inject, subcut, tidwmeals, based on low dose insulin sliding scale ondansetron 4 mg tablet,disintegrating 4 mg PO TID PRN (Reason: nausea and vomiting) Qty: 30 0RF Referrals: Anette Velazquez MD [Primary Care Provider, Internal Medicine] Print Language: Greenlandic Coding Level of Care Code ED [employer] Associate for Jared Vallecillo
[2025-04-01 14:46] LABS: Hematocrit 42.9 % (36-47); Hemoglobin 12.70 g/dL (11.27-16.99); Mean Corpuscular HGB Conc 29.6 g/dL (30-55); Mean Corpuscular Hemoglobin 24.4 pg (27-33); Mean Corpuscular Volume 82.5 fl (85-98); Nucleated Red Blood Cells % 0 %; Platelet Count 211 10^3/cmm (157-399); Red Blood Count 5.20 10^6/uL (3.85-5.65); White Blood Count 25.28 10^3/uL (3.29-11.43)
[2025-04-01 15:03] LABS: Alanine Aminotransferase 11 U/L (0-33); Albumin Level 3.5 g/dL (3.5-5.2); Alkaline Phosphatase 171 U/L (35-105); Anion Gap 15.9 (5-19); Aspartate Amino Transferase 19 U/L (0-32); Blood Urea Nitrogen 13 mg/dL (8-23); Calcium 9.0 mg/dL (8.5-10.5); Carbon Dioxide 26 mmol/L (22-29); Chloride 95 mmol/L (98-107); Creatinine Clr Calc Pharmacy 49.6358; Globulin 3.3 g/dL (1.3-4.6); Glucose 334 mg/dL (65-115); Osmolality Calculated 289 mOsm/kg (285-295); Potassium 3.9 mmol/L (3.5-5.1); Sodium 133 mmol/L (136-145); Total Protein 6.8 g/dL (6.6-8.7)
[2025-04-01 15:10] LABS: Lactic Sepsis W/Reflex 3.1 mmol/L (0.5-2.2)
[2025-04-01] MEDS: ertapenem 1,000 mg SDV 1000 MG IM (15:26)
[2025-04-01 15:30] VITALS: BP 183/99; PULSE 83; RESP 16; O2SAT 95
[2025-04-01 15:54] LABS: Glucose Urine UA 3+ (Normal); Nitrate Urine Negative (Negative); Specific Gravity, Urine 1.023 (1.005-1.030)
[2025-04-01 15:59] LABS: Add Urine Microscopic? YES; Universal Test for UA Present (0)
[2025-04-01 16:09] LABS: UA Slide Review UA Slide Review Perf
[2025-04-01 16:24] LABS: Reflex Lactate Order REFLEX LACTIC ORDERD
[2025-04-01 16:53] VITALS: BP 159/46; PULSE 81; RESP 16; O2SAT 95
[2025-04-01 17:00] VITALS: BP 122/54; PULSE 81; RESP 16; O2SAT 95
[2025-04-01 17:26] LABS: Lactic Acid level (Lactate) 3.2 mmol/L (0.5-2.2)
--- NOTE | 2025-04-01 18:46 | PM.HP ---
Providers/Chief Complaint Admitting Physician: Michael Ballesteros MD Primary Care Provider: Anette Velazquez MD Chief Complaint: unable to urinate History of Present Illness Kianna Dotson is a 84 year old female with past medical history of recurrent ESBL UTI, last treated 4 days ago with Augmentin, refractory. Presented to ED with dysuria, weakness, vomiting. In the ED patient was found to have leukocytosis WBC 25 with left shift, afebrile, hemodynamically stable. Volume resuscitated in ED, urine culture sent, pending. Prior cultures grew E. coli ESBL sensitive to carbapenems, nitrofurantoin, resistant to cephalosporins and fluoroquinolones. In the ED patient was treated empirically with IV cefepime, improved. Tolerated fluid resuscitation. Has had C. difficile in the past. When I saw the patient, she is complaining of diarrhea for the past 4 days, also some nausea and vomiting when I saw her. Medications/Allergies Home Medications ?Medication ?Instructions ?Recorded ?Confirmed ?Last Taken ?Type Diabetic shoes with 3 inserts #1 ea 10/20/20 04/01/25 Unknown Rx atorvastatin 20 mg tablet 20 mg PO QAM 11/07/21 04/01/25 04/01/25 History multivitamin 1 tab PO QAM 11/07/21 04/01/25 04/01/25 History duloxetine 30 mg capsule,delayed 30 mg PO QAM 05/12/23 04/01/25 04/01/25 History release calcium 600 mg (as 1 tab PO QAM 07/14/23 04/01/25 04/01/25 History carbonate)-vitamin D3 5 mcg (200 unit) tablet cetirizine 10 mg tablet (Zyrtec) 10 mg PO QAM 07/14/23 04/01/25 04/01/25 History dorzolamide 22.3 mg-timolol 6.8 1 drp ophthalmic (eye) BID 07/14/23 04/01/25 04/01/25 History mg/mL eye drops torsemide 20 mg tablet 20 mg PO QAM 07/14/23 04/01/25 02/24/25 09:00 History Held on 02/26/25. Instructions: Resume on 03/01/25. diabetic shoes with 3 inserts #1 ea 08/02/23 04/01/25 Unknown Rx docusate sodium 100 mg capsule 100 mg PO BID PRN Constipation 05/16/24 04/01/25 09/25/24 History (Colace) nystatin 100,000 unit/gram topical 1 applic topical BID PRN galding 09/26/24 04/01/25 Unknown History powder semaglutide 1 mg/dose (4 mg/3 mL) 1 mg SUBCUT Q7D 09/26/24 04/01/25 03/26/25 History subcutaneous pen injector (Ozempic) apixaban 5 mg tablet (Eliquis) 5 mg PO BID 30 days #60 tabs 10/02/24 04/01/25 04/01/25 Rx flash glucose sensor (FreeStyle #1 ea 10/09/24 04/01/25 Unknown History Nemesio 2 Sensor kit) Cam Boot to the Left #1 ea 02/19/25 04/01/25 Unknown Rx ASO Brace #1 ea 03/12/25 04/01/25 Unknown Rx furosemide 20 mg tablet (Lasix) 20 mg PO DAILY #30 tabs 03/18/25 04/01/25 04/01/25 Rx potassium chloride 10 mEq 10 meq PO DAILY #30 tabs 03/18/25 04/01/25 04/01/25 Rx tablet,extended release (Klor-Con) amoxicillin 875 mg-potassium 1 tab PO BID #14 tabs 03/28/25 04/01/25 04/01/25 Rx clavulanate 125 mg tablet ondansetron 4 mg disintegrating 4 mg PO TID PRN nausea and 03/28/25 04/01/25 Unknown Rx tablet vomiting 5 days #20 tabs insulin glargine 100 unit/mL (3 46 unit SUBCUT BID 04/01/25 04/01/25 04/01/25 History mL) subcutaneous pen (Lantus Solostar U-100 Insulin) insulin lispro 100 unit/mL 10 unit SUBCUT TID PRN bs>140 04/01/25 04/01/25 04/01/25 History subcutaneous pen Allergies Allergy/AdvReac Type Severity Reaction Status Date / Time diphenhydramine (From Allergy Unknown unknown Verified 03/28/25 18:19 Benadryl) tetracycline Allergy Unknown unknown Verified 03/28/25 18:19 PFSH Acute PFSH: Medical History (Updated 04/01/25 @ 20:48 by Michael Ballesteros MD) Humerus fracture Type 2 diabetes mellitus Tachy-han syndrome UTI (urinary tract infection) Fall Moderate mitral regurgitation Acute [place], inferior wall High anion gap metabolic acidosis Diabetes with ketoacidosis Cholelithiases Vomiting Atrial fibrillation, chronic Fracture of humerus, left, closed Pes planus of both feet ALISTAIR inhibitor intolerance Essential hypertension Warfarin anticoagulation Lower extremity deep venous thrombosis CAD (coronary artery disease) Fracture of greater trochanter of right femur Peripheral vascular disease Onychodystrophy Diabetic neuropathy associated with diabetes mellitus due to underlying condition Surgical History Status post laparoscopic cholecystectomy Coronary angioplasty status PCI to RCA?2016 Family History Mother Diabetes Denies family history of CAD (coronary artery disease) Clotting disorder Dementia Hyperlipidemia Psychiatric illness Chronic kidney disease (CKD) Suicide Anesthesia complication Bleeding disorder Family history of premature coronary artery disease Lung disease Cancer Hypertension Stroke Social History Smoking and tobacco/nicotine status: never used tobacco/nicotine Second hand smoke exposure: Yes Alcohol intake: never Substance/Drug Use: never Vitals/I&O/Wt Last Vital Signs Temp 98.2 F 04/01/25 13:03 Pulse 81 04/01/25 17:00 Resp 16 04/01/25 17:00 BP 122/54 04/01/25 17:00 Pulse Ox 95 04/01/25 17:00 O2 Del Method Room Air 04/01/25 13:03 Weight last 48 hrs Weight 83.915 kg Physical Exam Const: COMMON NORMALS: patient oriented x3 and alert GENERAL APPEARANCE: cooperative ORIENTATION/CONSCIOUSNESS: Yes awake HENMT: COMMON NORMALS: oropharynx normal Neck/C-Spine: COMMON NORMALS: no JVD Resp: COMMON NORMALS: normal respiratory effort and clear to auscultation bilaterally AUSCULTATION: clear to auscultation bilaterally Cardio: COMMON NORMALS: no JVD, regular rhythm, S1 normal heart sound present, S2 normal heart sound present and No murmurs present (Cardio) RHYTHM: regular rhythm HEART SOUNDS: S1 normal heart sound present and S2 normal heart sound present GI: COMMON NORMALS: Normal to inspection, nondistended, normoactive bowel sounds present, Soft to palpation and non-tender PALPATION: Yes Soft to palpation Extremity: COMMON NORMALS: no joint enlargement and no pedal edema Neuro: COMMON NORMALS: patient oriented x3 and moves all extremities SENSORIUM/ORIENTATION: Yes alert Skin: COMMON NORMALS: no rashes or lesions noted GENERAL SKIN EXAM: no rashes or lesions noted Data 04/01/25 14:28 04/01/25 14:28 Micro: Microbiology 04/01/25 14:21 Blood Culture - Preliminary Blood SPECIMEN COLLECTED 04/01/25 14:14 Blood Culture - Preliminary Blood SPECIMEN COLLECTED A&P Assessment and plan 1. Infection due to ESBL-producing Escherichia coli: Refractory despite use of Augmentin for the past 4 days, causing side effects of nausea, diarrhea. Acute cystitis Loose stools, partially formed Mild to moderate aortic stenosis per history Moderate mitral regurgitation Discontinue Augmentin, can treat conservatively, admit to observation ? Initiate nitrofurantoin 100 mg twice daily ? Zofran/promethazine for nausea/insomnia Follow-up blood cultures, urine cultures, IV fluid resuscitation with 1 L NS bolus Continue Eliquis, home med 5 mg twice daily for DVT prophylaxis Treated in the past for DVT, continue management Plan for discharge tomorrow if continues to clinically improve, no sepsis PDMP PDMP Reviewed: Not Reviewed Attestations Medical Necessity Statement*: Patient with complicated cystitis, with ESBL history, will await urine preliminary results. Continue nitrofurantoin, patient will likely spend less than 2 midnights Diagnoses Infection due to ESBL-producing Escherichia coli A49.8; Z16.12
[2025-04-01 19:15] VITALS: BMI 31.7
[2025-04-01 20:35] LABS: C.Diff PCR (Lab) POSITIVE (Negative); Clostridioides Difficile Toxin NEGATIVE (Negative)
[2025-04-01 20:48] VITALS: BP 134/63; PULSE 84; RESP 16; TEMP 37.4; O2SAT 95
[2025-04-01] MEDS: insulin glargine 100 units/1 mL 15 UNIT SUBCUT (21:39)
[2025-04-01 22:00] VITALS: BP 121/61; PULSE 74; RESP 16; TEMP 36.9; O2SAT 92
[2025-04-02] VITALS: BP 121/61; PULSE 74; RESP 16; TEMP 36.9; O2SAT 92
--- NOTE | 2025-04-02 01:11 | PC.NURSE ---
no void since start of shift. pt denied urge, bladder scan showed 383ml, pt verbalized feeling pressure during bladder scan but no urge to void, Hospitalist notified and order for straight cath received
[2025-04-02 03:49] VITALS: BP 122/61; PULSE 73; RESP 17; TEMP 36.8; O2SAT 93
[2025-04-02] MEDS: ATORVASTATIN 20 MG TABLET PO (04:53)
[2025-04-02] MEDS: nitrofurantoin SR (BID) 100 mg Capsule PO ×2 (04:53→16:00)
[2025-04-02 06:03] LABS: Hematocrit 34.6 % (36-47); Hemoglobin 10.40 g/dL (11.27-16.99); Mean Corpuscular HGB Conc 30.1 g/dL (30-55); Mean Corpuscular Hemoglobin 24.3 pg (27-33); Mean Corpuscular Volume 80.8 fl (85-98); Nucleated Red Blood Cells % 0 %; Platelet Count 181 10^3/cmm (157-399); Red Blood Count 4.28 10^6/uL (3.85-5.65); White Blood Count 20.41 10^3/uL (3.29-11.43)
[2025-04-02 06:36] LABS: Alanine Aminotransferase 8 U/L (0-33); Albumin Level 2.7 g/dL (3.5-5.2); Alkaline Phosphatase 127 U/L (35-105); Anion Gap 14.0 (5-19); Aspartate Amino Transferase 13 U/L (0-32); Blood Urea Nitrogen 11 mg/dL (8-23); Calcium 8.1 mg/dL (8.5-10.5); Carbon Dioxide 25 mmol/L (22-29); Chloride 102 mmol/L (98-107); Globulin 2.4 g/dL (1.3-4.6); Glucose 139 mg/dL (65-115); Magnesium 1.8 mg/dL (1.7-2.3); Osmolality Calculated 288 mOsm/kg (285-295); Potassium 3.0 mmol/L (3.5-5.1); Sodium 138 mmol/L (136-145); Total Protein 5.1 g/dL (6.6-8.7)
[2025-04-02 08:00] VITALS: BP 119/60; PULSE 63; RESP 14; TEMP 36.4; O2SAT 94
[2025-04-02] MEDS: dorzolamide/timolol Op Soln 10 mL Btl 1 DROP EYE-BOTH ×2 (09:23→16:00)
--- NOTE | 2025-04-02 09:52 | PC.CHAP ---
Pastoral Care Encounter/Spiritual Assessment Type of Contact [] Declined last picker visit [] Patient/Family/Request visit [] Outpatient visit [] Follow-up visit [] Physician referral [] Code/Alert [] Routine visit [] Staff referral [] Actively dying [] Patient sleeping [] Family support [] [] Out of room [] Palliative care [] [] Receiving care in room [] Pre-surgical visit [] Trauma [] Long length of stay [] ICU visit [x] Other:Contact precautions. No visit. Relational/Emotional Strength [] Patient feels connected with others/family/visitors/staff [] Distress [] Loneliness/isolation [] Abandonment Spirituality of Patient [] Person of Althea [] Attends Nondenominational of their Althea [] Believes in Prayer [] Reads Bible or Anabaptism materials [] There are Spiritual issues to be addressed Puzzle Assembler Interventions [] Prayer [] Active listening [] Non-anxious presence [] Spiritual/emotional support [] Crisis/trauma care [] Spiritual counseling [] Bereavement support [] Provided bereavement packet [] Provided Bible/devotional materials [] Provided toy/stuffed animal, coloring book to patient or family member [] Provided Communion [] Anointing/Christmas [] Salvation [] Completed spiritual assessment [] Other: Impact on Illness or Injury [] Angry [] Fearful [] Anxious [] Often cries [] Exhaustion [] Unable to work [] Unable to attend rastafarian [] Unable to walk/stand [] Unable to read [] Unable to drive [] Unable to eat/drink [] Unable to sleep [] Unable to be with family [] Patient intubated [] Other: Summary Time spent with patient
[2025-04-02 11:44] VITALS: BP 106/60; PULSE 66; RESP 15; TEMP 36.8; O2SAT 95
--- OUTSIDE RECORDS SUMMARY | 2025-04-02 12:13 | XMS_ITS | Clinical Summary ---
Author Organization [facility] Address [address] [place] [address] Care Team Providers Care Legal File Clerk Name Role Phone Unavailable Primary Care Provider [...] 10 mg by mouth daily. Active Insulin [place], Disposable, (Pentips) 31 gauge x 3/16 Needle by [facility].(Non-Drug; Combo Route) route. Active Blood-Glucose Meter by [facility].(Non-Drug; Combo Route) route. Active empagliflozin [...] blood-glucose meter (ONE TOUCH ULTRA BONUS PACK [facility] by [facility].(Non-Drug; Combo Route) route. 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 Gender Identity Not on file Sexual Orientation Not on file Last Filed Vital Signs Vital Sign Reading Time Taken Comments Blood Pressure - - Pulse - - Temperature - - Respiratory Rate - - Oxygen Saturation - - Inhaled Oxygen Concentration - - Weight 85.3 kg (188 lb) 05/11/2021 2:20 PM APPLICATIONS PROGRAMMER ANALYST Height 162.6 cm (5' 4 ) 05/11/2021 2:20 PM APPLICATIONS PROGRAMMER ANALYST Body Mass Index 32.27 05/11/2021 2:20 PM APPLICATIONS PROGRAMMER ANALYST Plan of Treatment Health Maintenance Due Date Last Done Comments DTAP/TDAP/TD VACCINES (1 - Tdap) 1960 PNEUMOCOCCAL VACCINE 50+ YEARS (1 of 1 - PCV) 05/12/18 92 ZOSTER VACCINE (1 of 2) 1991 OSTEOPOROSIS SCREENING 2006 RSV VACCINE (60+ or ) (1 - 1-dose 75+ series) 2016 INFLUENZA VACCINE (#1) [id number] [place] [address] MEDICAID [facility] DUAL COMPLETE HMO DSNP [facility] [id number]
[2025-04-02 16:00] VITALS: BP 115/56; PULSE 69; RESP 15; TEMP 36.7; O2SAT 93
--- NOTE | 2025-04-02 16:35 | P.DS_ITS ---
Discharge Providers Date of Admission: 04/01/25 17:35 Date of Discharge: April 02, 2025 Attending Provider at Admission: Michael Ballesteros MD Attending Provider at Discharge: Michael Ballesteros MD Primary Care Provider: Anette Velazquez MD Diagnoses at Discharge Discharge Diagnosis 1. Clostridioides difficile infection: Other Information Additional DC diagnoses/information: Spec #: [id number] Nicholas: 03/28/25 Status: COMP Req #: [id number] Recd: 03/28/[address]: Clyde Holguin DO Src: Urine CC SpDesc: Ordered: Procedure Result Verified Site Urine Culture Final 03/31/25 Organism 1 Escherichia coli esbl [place] Count >100,000 CFU/ml DAY 2 [facility] RX --------- ------ * Amoxicillin/Clavulanate <=8/4 S * Ampicillin >16 R * Ampicillin/Sulbactam 16/8 I * Cefazolin >16 R * Cefepime >16 R * Ceftazidime-Avibactam <=4 S * Ceftriaxone >2 R * Ciprofloxacin >2 R * Gentamicin <=4 S * Imipenem <=1 S * Levofloxacin >4 R * Merpenem-Vaborbactam <=2 S * Nitrofurantoin <=32 S * Trimethoprim/Sulfamethoxazole >2/38 R * Piperacillin/Tazobactam <=16 S Urine Culture Preliminary (changed) 03/30/25 Organism 1 Gram Negative Rods [place] Count >100,000 CFU/ml DAY 1, RESULTS TO FOLLOW Reason for Visit Reason for Visit: unable to urinate Brief History: Kianna Dotson is a 84 year old female with past medical history of recurrent ESBL UTI, last treated 4 days ago with Augmentin, refractory. Presented to ED with dysuria, weakness, vomiting. In the ED patient was found to have leukocytosis WBC 25 with left shift, afebrile, hemodynamically stable. Volume resuscitated in ED, urine culture sent, pending. Prior cultures grew E. coli ESBL sensitive to carbapenems, nitrofurantoin, resistant to cephalosporins and fluoroquinolones. In the ED patient was treated empirically with IV cefepime, improved. Tolerated fluid resuscitation. Has had C. difficile in the past. When I saw the patient, she is complaining of diarrhea for the past 4 days, also some nausea and vomiting when I saw her. Hospital Course Hospital Course hospital day 2 cdiff toxin was positive. vancomycin started. diarrhea eased up immediately. mild case. vancomycin PO sent to pharmacy (10 days QID). Also see updated sensitivities from recent UTI (also treated) Physical Exam Const: COMMON NORMALS: patient oriented x3 and alert GENERAL APPEARANCE: cooperative ORIENTATION/CONSCIOUSNESS: Yes awake HENMT: COMMON NORMALS: oropharynx normal Neck/C-Spine: COMMON NORMALS: no JVD Resp: COMMON NORMALS: normal respiratory effort and clear to auscultation bilaterally AUSCULTATION: clear to auscultation bilaterally Cardio: COMMON NORMALS: no JVD, regular rhythm, S1 normal heart sound present, S2 normal heart sound present and No murmurs present (Cardio) RHYTHM: regular rhythm HEART SOUNDS: S1 normal heart sound present and S2 normal heart sound present GI: COMMON NORMALS: Normal to inspection, nondistended, normoactive bowel sounds present, Soft to palpation and non-tender PALPATION: Yes Soft to palpation Extremity: COMMON NORMALS: no joint enlargement and no pedal edema Neuro: COMMON NORMALS: patient oriented x3 and moves all extremities SENSORIUM/ORIENTATION: Yes alert Skin: COMMON NORMALS: no rashes or lesions noted GENERAL SKIN EXAM: no rashes or lesions noted Discharge Data Studies Completed and Pending Spec #: [id number] Nicholas: 03/28/25 Status: COMP Req #: [id number] Recd: 03/28/[address]: Clyde Holguin DO Src: Urine CC SpDesc: Ordered: UC Procedure Result Verified Site Urine Culture Final 03/31/25 Organism 1 Escherichia coli esbl [place] Count >100,000 CFU/ml DAY 2 [facility] RX --------- ------ * Amoxicillin/Clavulanate <=8/4 S * Ampicillin >16 R * Ampicillin/Sulbactam 16/8 I * Cefazolin >16 R * Cefepime >16 R * Ceftazidime-Avibactam <=4 S * Ceftriaxone >2 R * Ciprofloxacin >2 R * Gentamicin <=4 S * Imipenem <=1 S * Levofloxacin >4 R * Merpenem-Vaborbactam <=2 S * Nitrofurantoin <=32 S * Trimethoprim/Sulfamethoxazole >2/38 R * Piperacillin/Tazobactam <=16 S Urine Culture Preliminary (changed) 03/30/25-924 Organism 1 Gram Negative Rods [place] Count >100,000 CFU/ml DAY 1, RESULTS TO FOLLOW Pending at discharge Category Date Time Status Blood Culture Stat Lab 04/01/25 14:21 Results Urine Culture Stat Lab 04/01/25 15:37 Results Laboratory Results WBC 20.41 10^3/uL (3.29-11.43) H 04/02/25 04:50 RBC 4.28 10^6/uL (3.85-5.65) 04/02/25 04:50 Hgb 10.40 g/dL (11.27-16.99) L 04/02/25 04:50 Hct 34.6 % (36-47) L 04/02/25 04:50 MCV 80.8 fl (85-98) L 04/02/25 04:50 MCH 24.3 pg (27-33) L 04/02/25 04:50 MCHC 30.1 g/dL (30-55) 04/02/25 04:50 RDW 16.8 % (12.1-15.1) H 04/02/25 04:50 Plt Count 181 10^3/cmm (157-399) 04/02/25 04:50 MPV 9.1 fL (7.4-10.4) 04/02/25 04:50 Neut % (Auto) 83.7 % 04/02/25 04:50 Lymph % (Auto) 8.2 % 04/02/25 04:50 [place] % (Auto) 6.7 % 04/02/25 04:50 Eos % (Auto) 0.7 % 04/02/25 04:50 Baso % (Auto) 0.3 % 04/02/25 04:50 Neut # (Auto) 17.08 10^3/uL (1.8-7.7) H 04/02/25 04:50 Lymph # (Auto) 1.7 10^3/uL (0.8-4.8) 04/02/25 04:50 [place] # (Auto) 1.4 10^3/uL (0.2-0.9) H 04/02/25 04:50 Eos # (Auto) 0.2 10^3/uL (0.0-0.8) 04/02/25 04:50 Baso # (Auto) 0.1 10^3/uL (0.0-0.1) 04/02/25 04:50 Nucleated RBC % (auto) 0 % 04/02/25 04:50 Nucleated RBCs # 0.0 /100WBC 04/02/25 04:50 Sodium 138 mmol/L (136-145) 04/02/25 04:50 Potassium 3.0 mmol/L (3.5-5.1) L 04/02/25 04:50 Chloride 102 mmol/L (98-107) 04/02/25 04:50 Carbon Dioxide 25 mmol/L (22-29) 04/02/25 04:50 Anion Gap 14.0 (5-19) 04/02/25 04:50 BUN 11 mg/dL (8-23) 04/02/25 04:50 Creatinine 0.7 mg/dL (0.5-0.9) 04/02/25 04:50 GFR Calculation Not Reportable 04/02/25 04:50 Glucose 139 mg/dL (65-115) H 04/02/25 04:50 POC Glucose 125 mg/dL (70-110) H 04/02/25 16:10 Calculated Osmolality 288 mOsm/kg (285-295) 04/02/25 04:50 Lactic Acid 3.1 mmol/L (0.5-2.2) H 04/01/25 14:28 Lactic Acid (Sepsis) 3.2 mmol/L (0.5-2.2) H 04/01/25 16:49 Calcium 8.1 mg/dL (8.5-10.5) L 04/02/25 04:50 Phosphorus 2.6 mg/dL (2.5-4.5) 04/02/25 04:50 Magnesium 1.8 mg/dL (1.7-2.3) 04/02/25 04:50 Total Bilirubin 0.4 mg/dL (0.15-1.2) 04/02/25 04:50 AST 13 U/L (0-32) 04/02/25 04:50 ALT 8 U/L (0-33) 04/02/25 04:50 Alkaline Phosphatase 127 U/L (35-105) H 04/02/25 04:50 Total Protein 5.1 g/dL (6.6-8.7) L D 04/02/25 04:50 Albumin 2.7 g/dL (3.5-5.2) L 04/02/25 04:50 Globulin 2.4 g/dL (1.3-4.6) 04/02/25 04:50 Urine Color Yellow (Yellow) 04/01/25 15:37 Urine Appearance Cloudy (CLEAR) A 04/01/25 15:37 Urine pH 5.5 (5-7) 04/01/25 15:37 Ur Specific [place] 1.023 (1.005-1.030) 04/01/25 15:37 Urine Protein 1+ (Negative) A 04/01/25 15:37 Urine Glucose (UA) 3+ (Normal) H 04/01/25 15:37 Urine Ketones Negative (Negative) 04/01/25 15:37 Urine Blood 3+ (Negative) A 04/01/25 15:37 Urine Nitrate Negative (Negative) 04/01/25 15:37 Urine Bilirubin Negative (Negative) 04/01/25 15:37 Urine Urobilinogen 1.0 mg/dL (Negative) 04/01/25 15:37 Ur Leukocyte Esterase 2+ (Negative) A 04/01/25 15:37 Urine RBC 21-50 /hpf (0-2) H 04/01/25 15:37 Urine WBC 21-50 /hpf (0-5) H 04/01/25 15:37 Ur Squamous Epith Cells 6-10 /hpf (0-5) 04/01/25 15:37 Urine Bacteria 4+ /hpf (NONE) H 04/01/25 15:37 Hyaline Casts 3.71 /lpf 04/01/25 15:37 C. difficile (PCR) Positive (Negative) H 04/01/25 18:30 C.difficile Tox Confrm Negative (Negative) 04/01/25 18:30 Vitals Last Vital Signs Temp 98.0 F 04/02/25 16:00 Pulse 69 04/02/25 16:00 Resp 15 04/02/25 16:00 BP 115/56 04/02/25 16:00 Pulse Ox 93 04/02/25 16:00 O2 Del Method Room Air 04/02/25 16:00 Discharge Plan Discharge Patient Disposition: Home Condition: Stable Prescriptions: New vancomycin 125 mg Capsule 125 mg PO QID 10 Days Qty: 40 0RF Continued (DME) Diabetic shoes with 3 inserts See Rx Instructions .ROUTE .MEDSUPPLY Qty: 1 0RF Rx Instructions: As directed by LYNNE&O Colace 100 mg capsule 100 mg PO BID PRN (Reason: Constipation) (DME) diabetic shoes with 3 inserts See Rx Instructions .Route .MEDSUPPLY Qty: 1 0RF Rx Instructions: As directed to home (DME) FreeStyle Nemesio 2 Sensor Kit See Rx Instructions .ROUTE .MEDSUPPLY Qty: 1 Rx Instructions: As directed potassium chloride [Klor-Con 10] 10 mEq tablet extended release 10 meq PO DAILY Qty: 30 0RF (DME) ASO Brace See Rx Instructions .Route .MEDSUPPLY Qty: 1 0RF Rx Instructions: As directed by JERRY ([facility] [place] Boot to the Left See Rx Instructions .Route .MEDSUPPLY Qty: 1 0RF Rx Instructions: As directed multivitamin Tablet 1 tab PO QAM atorvastatin 20 mg tablet 20 mg PO QAM duloxetine 30 mg capsule,delayed release(DR/EC) 30 mg PO QAM cetirizine [Zyrtec] 10 mg Tablet 10 mg PO QAM calcium carbonate-vitamin D3 600 mg-5 mcg (200 unit) Tablet 1 tab PO QAM dorzolamide-timolol 22.3-6.8 mg/mL drops 1 drp ophthalmic (eye) BID Rx Instructions: left eye Eliquis 5 mg tablet 5 mg PO BID 30 Days Qty: 60 0RF ondansetron 4 mg tablet,disintegrating 4 mg PO TID PRN (Reason: nausea and vomiting) 5 Days Qty: 20 0RF insulin lispro 100 unit/mL insulin pen 10 unit SUBCUT TID PRN (Reason: bs>140) insulin glargine [Lantus Solostar U-100 Insulin] 100 unit/mL (3 mL) insulin pen 46 unit SUBCUT BID Ozempic 1 mg/dose (4 mg/3 mL) pen injector 1 mg SUBCUT Q7D Rx Instructions: on Wednesdays nystatin 100,000 unit/gram powder 1 applic TOPICAL BID PRN (Reason: galding) Discontinued furosemide [Lasix] 20 mg tablet 20 mg PO DAILY Qty: 30 0RF torsemide 20 mg tablet 20 mg PO QAM amoxicillin-pot clavulanate 875-125 mg tablet 1 tab PO BID Qty: 14 0RF Discharge Order = DC NOW: Discharge Order (Routine); Ordered 04/02/25 Ordered By: Michael Ballesteros Referrals: Anette Velazquez MD [Primary Care Provider, Internal Medicine] Discharge Diet: Usual diet Discharge Activity: Resume usual activity Patient Instructions: C. Diff (Clostridioides Difficile) Infection (DC), Patient Portal & Jere Instructions Activity Restrictions/Additional Instructions: Continue diet and activity as tolerated. Drink Plenty of fluids. Complete entire course of the vancomycin. Leny Mayorga! Discharge Attestations Time Spent in Discharge Care*: greater than 30 min Status at Discharge: Cognitive status at discharge: cognitively intact , Behavioral status at discharge: cooperative , Quality Metrics Clinical Quality Measures [ No reported AMI, CVA or VTE this stay] Coding Level of Care Code 50086 Total time (in minutes) for Discharge: 35 Diagnoses Clostridioides difficile infection A49.8
[2025-04-02 20:00] VITALS: BP 119/66; PULSE 67; RESP 17; TEMP 37.2; O2SAT 93
[2025-04-02] MEDS: insulin glargine 100 units/1 mL 15 UNIT SUBCUT (21:35)
[2025-04-03] VITALS: BP 124/72; PULSE 70; RESP 17; TEMP 36.7; O2SAT 94
[2025-04-03 04:00] VITALS: BP 114/70; PULSE 78; RESP 17; TEMP 36.7; O2SAT 96
[2025-04-03] MEDS: nitrofurantoin SR (BID) 100 mg Capsule PO (04:31)
[2025-04-03] MEDS: dorzolamide/timolol Op Soln 10 mL Btl 1 DROP EYE-BOTH (04:31)
[2025-04-03] MEDS: ATORVASTATIN 20 MG TABLET PO (04:31)
[2025-04-03 07:57] VITALS: BP 123/76; PULSE 55; RESP 16; TEMP 36.6; O2SAT 94
[2025-04-03 11:55] VITALS: BP 119/73; PULSE 74; RESP 17; TEMP 36.8; O2SAT 93
[2025-04-03 12:28] VITALS: BP 119/73; PULSE 74; RESP 17; TEMP 36.8; O2SAT 93
--- NOTE | 2025-04-03 13:56 | PC.NURSE ---
Discussed discharge new medications, stopped medications, follow up appointments and when to call the office. Patient verbalized understanding.
== END 2025-04-03 13:10 | disposition home or self-care (01) ==
LOC: ER 14:04 → MEDSURG 21:43
PROVIDERS: Physician Assistant; Admitting Provider Internal Medicine; Emergency Provider Family Medicine; PCP Internal Medicine; Visit Provider Internal Medicine
DX: A49.8 Other bacterial infections of unspecified site (principal); Z16.12 Extended spectrum beta lactamase (ESBL) resistance; Z79.01 Long term (current) use of anticoagulants; Z79.4 Long term (current) use of insulin; E11.9 Type 2 diabetes mellitus without complications; I49.5 Sick sinus syndrome; I34.0 Nonrheumatic mitral (valve) insufficiency; I48.20 Chronic atrial fibrillation, unspecified; I10 Essential (primary) hypertension; I25.10 Atherosclerotic heart disease of native coronary artery without angina pectoris; E11.40 Type 2 diabetes mellitus with diabetic neuropathy, unspecified; Z98.61 Coronary angioplasty status; Z83.3 Family history of diabetes mellitus
CPT/HCPCS: 36415; 36416; 51702; 51798; 80053; 81001; 82962; 83605; 83735; 84100; 85025; 87040; 87077; 87086; 87186; 87324; 87493; 96372; G0378; J1335; J1815; J7030; J9999; Q0162